=== PATIENT | female | born 1960 | race Caucasian/White ===

== ENCOUNTER → 2016-06-20 | Outpatient (REF) | payer OTHER ==
[~2016-06-20] MED LIST: ALBU17IN INH; ALBU83IN INH; AMLO10TA2 PO; ASPI81TA85 PO; BUDE0.5S6 INH; HYDR-3713 PO; LEVA500T PO; LOSA50TA20 PO; NYST50SS SS; PRED20TAB PO; PROP40TA PO; SPIR1CAP IN; XANA0.25 PO; oxygen
[2016-06-20 15:44] LABS: ALBUMIN 4.2 GM/DL (3.2-5.2); ALBUMIN/GLOBULIN RATIO 1.4 (1.00-1.93); BILIRUBIN,TOTAL 0.6 MG/DL (0.2-1.0); CALCIUM LEVEL 9.6 MG/DL (8.5-10.1); CREATININE FOR GFR 1.25 MG/DL (0.55-1.02); GLOMERULAR FILTRATION RATE 47.5 (>51); TOTAL PROTEIN 7.2 GM/DL (6.4-8.2)
[2016-06-20 15:53] LABS: POTASSIUM SERUM 4.8 MEQ/L (3.5-5.1)
== END ==
LOC: M SFHCLACO 08:34
PROVIDERS: ATTEND Physician Assistant
DX: N18.2 Chronic kidney disease, stage 2 (mild) (principal); I12.9 Hypertensive chronic kidney disease with stage 1 through stage 4 chronic kidney disease, or unspecified chronic kidney disease

== ENCOUNTER → 2016-12-19 | Outpatient (REF) | payer OTHER, SELFPAY ==
[~2016-12-19] MED LIST changes: +LEVA1TAB2 PO; -LEVA500T PO
[2016-12-19 16:40] LABS: ALBUMIN 3.8 GM/DL (3.2-5.2); ALBUMIN/GLOBULIN RATIO 1.19 (1.00-1.93); BILIRUBIN,TOTAL 0.3 MG/DL (0.2-1.0); CALCIUM LEVEL 9.6 MG/DL (8.5-10.1); CREATININE FOR GFR 1.21 MG/DL (0.55-1.02); GLOMERULAR FILTRATION RATE 49.2 (>51); POTASSIUM SERUM 4.4 MEQ/L (3.5-5.1)
== END ==
LOC: M SFHCLACO 08:05
PROVIDERS: ATTEND Physician Assistant
DX: I12.9 Hypertensive chronic kidney disease with stage 1 through stage 4 chronic kidney disease, or unspecified chronic kidney disease (principal); N18.3 Chronic kidney disease, stage 3 (moderate)

== ENCOUNTER → 2017-08-28 | Outpatient (REF) | payer OTHER ==
[2017-08-28 15:23] LABS: ALBUMIN 3.8 GM/DL (3.2-5.2); ALBUMIN/GLOBULIN RATIO 1.19 (1.00-1.93); ALKALINE PHOSPHATASE 134 U/L (45-117); ALT/SGPT 30 U/L (12-78); ANION GAP 9 MEQ/L (8-16); AST/SGOT 15 U/L (7-37); BILIRUBIN,TOTAL 0.4 MG/DL (0.2-1.0); BLOOD UREA NITROGEN 28 MG/DL (7-18); CALCIUM LEVEL 9.5 MG/DL (8.5-10.1); CARBON DIOXIDE LEVEL 32 MEQ/L (21-32); CHLORIDE LEVEL 99 MEQ/L (98-107); CHOLESTEROL LEVEL 143 MG/DL (<200); CHOLESTEROL RISK RATIO 2.803 (<5); GLOMERULAR FILTRATION RATE 38.2 (>51); GLUCOSE, FASTING 127 MG/DL (70-100); HDL CHOLESTEROL 51 MG/DL (>40); NON-HDL-C 92 MG/DL; POTASSIUM SERUM 4.5 MEQ/L (3.5-5.1); SODIUM LEVEL 140 MEQ/L (136-145); TRIGLYCERIDES LEVEL 160 MG/DL (<150)
== END ==
LOC: M SFHCLACO 08:52
DX: I12.9 Hypertensive chronic kidney disease with stage 1 through stage 4 chronic kidney disease, or unspecified chronic kidney disease (principal); N18.3 Chronic kidney disease, stage 3 (moderate)
CPT/HCPCS: 80053

== ENCOUNTER → 2018-01-22 | Outpatient (REF) | payer OTHER ==
[2018-01-22 15:37] LABS: HEMATOCRIT 36.8 % (36.0-47.0); HEMOGLOBIN 12.3 g/dl (12.0-15.5); MEAN CORPUSCULAR HEMOGLOBIN 31.9 pg (27.0-33.0); MEAN CORPUSCULAR HGB CONC 33.4 g/dl (32.0-36.5); MEAN CORPUSCULAR VOLUME 95.6 fl (80.0-96.0); PLATELET COUNT, AUTOMATED 238 10^3/uL (150-450); RED BLOOD COUNT 3.85 10^6/uL (4.00-5.40); RED CELL DISTRIBUTION WIDTH 13.1 % (11.5-14.5); WHITE BLOOD COUNT 12.2 10^3/uL (4.0-10.0)
[2018-01-22 15:48] LABS: ALBUMIN 3.3 GM/DL (3.2-5.2); ALBUMIN/GLOBULIN RATIO 1.03 (1.00-1.93); ALKALINE PHOSPHATASE 123 U/L (45-117); ALT/SGPT 22 U/L (12-78); ANION GAP 6 MEQ/L (8-16); AST/SGOT 10 U/L (7-37); BILIRUBIN,TOTAL 0.3 MG/DL (0.2-1.0); BLOOD UREA NITROGEN 30 MG/DL (7-18); CALCIUM LEVEL 9.3 MG/DL (8.5-10.1); CARBON DIOXIDE LEVEL 37 MEQ/L (21-32); CHLORIDE LEVEL 96 MEQ/L (98-107); CHOLESTEROL LEVEL 148 MG/DL (<200); CHOLESTEROL RISK RATIO 2.792 (<5); CREATININE FOR GFR 1.64 MG/DL (0.55-1.30); GLOMERULAR FILTRATION RATE 34.5 (>51); GLUCOSE, FASTING 87 MG/DL (70-100); HDL CHOLESTEROL 53 MG/DL (>40); NON-HDL-C 95 MG/DL; POTASSIUM SERUM 4.7 MEQ/L (3.5-5.1); SODIUM LEVEL 139 MEQ/L (136-145); TOTAL PROTEIN 6.5 GM/DL (6.4-8.2); TRIGLYCERIDES LEVEL 235 MG/DL (<150)
[2018-01-22 16:28] LABS: TOTAL 25(OH) VITAMIN D 17.6 NG/ML (30.0-100.0)
[2018-01-30 08:07] LABS: AMPHETAMINE SCREEN, URINE Negative ng/mL (Cutoff=1000); BARBITURATES SCREEN, URINE Negative ng/mL (Cutoff=200); BENZODIAZEPINES, URINE SCREEN Negative ng/mL (Cutoff=200); CANNABINOID SCREEN, URINE Negative ng/mL (Cutoff=20); COCAINE SCREEN, URINE Negative ng/mL (Cutoff=300); FENTANYL URINE SCREEN Negative pg/mL (Cutoff=2000); METHADONE, URINE SCREEN Negative ng/mL (Cutoff=300); OPIATE SCREEN, URINE Negative ng/mL (Cutoff=300); OXYCODONE, SCREEN, URINE Negative ng/mL (Cutoff=100); PCP SCREEN, URINE Negative ng/mL (Cutoff=25); SPECIFIC GRAVITY, URINE 1.012 (.); pH, URINE 7.4 (4.5-8.9)
== END ==
LOC: M SFHCLACO 09:40
DX: J44.9 Chronic obstructive pulmonary disease, unspecified (principal); E55.9 Vitamin D deficiency, unspecified; I12.9 Hypertensive chronic kidney disease with stage 1 through stage 4 chronic kidney disease, or unspecified chronic kidney disease; N18.3 Chronic kidney disease, stage 3 (moderate); Z51.81 Encounter for therapeutic drug level monitoring; Z79.899 Other long term (current) drug therapy
CPT/HCPCS: 80053

== ENCOUNTER → 2020-06-28 | Outpatient (REF) | payer OTHER ==
[~2020-06-28] MED LIST changes: +ALB2.5NEB NEB; -AMLO10TA2 PO; +AMLO1TAB25 PO; +ASPI81TA26 PO; -ASPI81TA85 PO; +ASPI81TA86 PO; +BRIM1OPD OS; +CITA20TA6 PO; +D31000TA2 PO; +HYDR25TAB PO; -LOSA50TA20 PO; +LOSA50TA88 PO; +NETA2.5D2 OS; +PILO1OPD OS; +PREDOPD OS; +PROAAER10 INH; -PROP40TA PO; +PROP40TA62 PO; +SPIR1CAP INH; +SUMA100T2 PO; +TIMO0.5S42 OS
[2020-06-28 18:27] LABS: BASO # 0.1 10^3/uL (0.0-0.2); BASO % 0.4 % (0.0-1.0); EOS # 0.3 10^3/uL (0.0-0.5); EOS % 2.2 % (0.0-3.0); LYMPH # 1.6 10^3/uL (1.5-5.0); LYMPH % 13.9 % (24.0-44.0); MEAN CORPUSCULAR HEMOGLOBIN 30.9 pg (27.0-33.0); MEAN CORPUSCULAR HGB CONC 32.8 g/dl (32.0-36.5); MONO % 8.8 % (0.0-5.0); NEUTROPHILS # 8.4 10^3/uL (1.5-8.5); NEUTROPHILS % 74.1 % (36.0-66.0); PLATELET COUNT, AUTOMATED 241 10^3/uL (150-450); RED BLOOD COUNT 2.17 10^6/uL (4.00-5.40); WHITE BLOOD COUNT 11.4 10^3/uL (4.0-10.0)
[2020-06-28 18:47] LABS: HEMATOCRIT 20.4 % (36.0-47.0); HEMOGLOBIN 6.7 g/dl (12.0-15.5)
== END ==
LOC: M SFHCADAM 15:08
PROVIDERS: ATTEND Family Medicine
DX: Z01.818 Encounter for other preprocedural examination (principal); I12.0 Hypertensive chronic kidney disease with stage 5 chronic kidney disease or end stage renal disease; E78.1 Pure hyperglyceridemia; N18.5 Chronic kidney disease, stage 5; E55.9 Vitamin D deficiency, unspecified; Z79.899 Other long term (current) drug therapy

== ENCOUNTER 2020-06-29 10:22 | Inpatient (IN) | payer OTHER ==
[~2020-06-29] VITALS: Ht 165.1 cm; Wt 78.1 kg
[2020-06-29] VITALS (10 sets, daily range): BP systolic 140–172; BP diastolic 60–94
[~2020-06-29 10:22] MED LIST changes: -ALB2.5NEB NEB; -ASPI81TA26 PO; -BRIM1OPD OS; -CITA20TA6 PO; -D31000TA2 PO; -HYDR25TAB PO; -NETA2.5D2 OS; -PILO1OPD OS; -PREDOPD OS; -PROAAER10 INH; -SPIR1CAP INH; -SUMA100T2 PO; -TIMO0.5S42 OS
[2020-06-29 11:37] LABS: BASO # 0.1 10^3/uL (0.0-0.2); BASO % 0.4 % (0.0-1.0); EOS # 0.2 10^3/uL (0.0-0.5); EOS % 1.6 % (0.0-3.0); HEMATOCRIT 23.5 % (36.0-47.0); LYMPH # 1.7 10^3/uL (1.5-5.0); LYMPH % 12.6 % (24.0-44.0); MEAN CORPUSCULAR HEMOGLOBIN 26.7 pg (27.0-33.0); MEAN CORPUSCULAR HGB CONC 29.8 g/dl (32.0-36.5); MEAN CORPUSCULAR VOLUME 89.7 fl (80.0-96.0); NEUTROPHILS # 10.5 10^3/uL (1.5-8.5); PLATELET COUNT, AUTOMATED 263 10^3/uL (150-450); RED BLOOD COUNT 2.62 10^6/uL (4.00-5.40); WHITE BLOOD COUNT 13.5 10^3/uL (4.0-10.0)
[2020-06-29] MEDS ORDERED: ACETAMINOPHEN TAB 650MG DOSE (2X325MG) PO ONE (11:45)
[2020-06-29 11:49] LABS: INR 1.03; PROTHROMBIN TIME 13.7 SECONDS (12.5-14.3)
[2020-06-29 11:50] LABS: PARTIAL THROMBOPLASTIN TIME 40.1 SECONDS (24.2-38.5)
[2020-06-29] MEDS ORDERED: ASPI81TA26 PO (12:00)
[2020-06-29] MEDS ORDERED: NETA2.5D2 OS (12:00)
[2020-06-29] MEDS ORDERED: ALB2.5NEB NEB (12:00)
[2020-06-29] MEDS ORDERED: D31000TA2 PO (12:00)
[2020-06-29] MEDS ORDERED: PILO1OPD OS (12:00)
[2020-06-29] MEDS ORDERED: TIMO0.5S42 OS (12:00)
[2020-06-29] MEDS ORDERED: BRIM1OPD OS (12:00)
[2020-06-29] MEDS ORDERED: BUDE0.5S6 INH (12:00)
[2020-06-29] MEDS ORDERED: AMLO1TAB25 PO (12:00)
[2020-06-29] MEDS ORDERED: SPIR1CAP INH (12:00)
[2020-06-29] MEDS ORDERED: CITA20TA6 PO (12:00)
[2020-06-29] MEDS ORDERED: PROP40TA62 PO (12:00)
[2020-06-29] MEDS ORDERED: PREDOPD OS (12:00)
[2020-06-29] MEDS ORDERED: HYDR-3490 PO (12:00)
[2020-06-29] MEDS ORDERED: PROAAER10 INH (12:00)
[2020-06-29] MEDS ORDERED: SUMA100T2 PO (12:00)
[2020-06-29 12:07] LABS: ALBUMIN 3.9 GM/DL (3.2-5.2); BILIRUBIN,TOTAL 0.2 MG/DL (0.2-1.0); CREATININE FOR GFR 5.94 MG/DL (0.55-1.30); GLOMERULAR FILTRATION RATE 7.8 (>51); PERCENT SATURATION 8.2 % (13.2-45.0); POTASSIUM SERUM 4.6 MEQ/L (3.5-5.1); TOTAL PROTEIN 6.9 GM/DL (6.4-8.2)
[2020-06-29 12:16] LABS: FOLATE 10.9 NG/ML (>5.4)
[2020-06-29 13:29] LABS: RSV AMPLIFICATION NEGATIVE (NEGATIVE)
--- OUTSIDE RECORDS SUMMARY | 2020-06-29 14:13 | CCD ---
Author Author [facility] Organization [facility] Address Unknown Phone Unavailable Care Team Providers Care Painter Decorator Name Role Phone Charlene Gill Unavailable PROBLEMS Type Condition ICD9-CM Code [id number] Code Onset Dates Condition S tatus SNOMED Code Notes Problem Essential hypertension I10 Active 13743926 Well-controlled on current regimen of propranolol, amlodipine, HCTZ, and Lasix. No medication changes have been made Problem Allergic rhinitis due to pollen J30.1 Active 70567465 Problem Vitamin D deficiency E55.9 Active 50282660 Problem Anxiety as acute reaction to exceptional stress F4 1.1 Active 90228280 Stable, continues to deal with her grief Problem Pain of right lower leg M79.661 Active 88772977 Stable, controlled on medications Problem Dependent edema R60.9 Active 179888822 I have asked Sagar to start taking the furosemide again, twice a day until its completely calm down. She should eat potassium rich foods Problem End stage COPD J44.9 Active 502551170 Problem Symptomatic menopausal or female climacteric states N95.1 Active 42183053 Problem COPD (chronic obstructive pulmonary disease) J44.9 Active 11015662 Problem Migraine without aura G43.009 Active 94515184 S table on propranolol daily and Imitrex as needed, no medication changes have been made Problem Personal history of tobacco use, presenting hazards to health Z87.891 Active 133925260 Problem Chronic kidney disease, stage III (moderate) N18.3 Active 156614066 Stable Problem Pure hypertriglyceridemia E78.1 Active 725902 009 We discussed low- fat diets Problem Chronic kidney disease, stage II (mild) N18.2 Active 298142893 ALLERGIES Allergen (clinical drug ingredient) Drug/Non Drug Allergy do cumented on EMR Reaction Allergy Type Onset Date Status amoxicillin / clavulanate Augmentin([facility] Code:[address]-98) itchy Drug Allergy Active ENCOUNTERS from 1960 to 2020-05-19 Encounter Location Date Provider Diagnosis [facility] [address] [place] [address] Aug, Charlene Gill Essential hypertension I10 and Chronic k idney disease, stage III (moderate) N18.3 IMMUNIZATIONS Vaccine Route Administration Date Status Influenza (6mo & up) Fluzone IM Intramuscular Jun 29, 2016 Ad ministered SOCIAL HISTORY Tobacco Use: Social History Observation Description Date Details (start date - stop date) Former Smoker Sex Assigned At : Social History Observation Description Sex Assigned At Unknown Audit Question Answer Notes Total Score: 0 Interpretation: Alcohol Education Sexual Hx: Question Answer Notes Had sex in the last 12 months (vaginal, oral, or anal)? Yes Have you ever had an STD? No with Men only Use protection? No Drug and Alcohol Question Answer Notes Total Score: 0 Interpretation: No problems reported BMI Care Goal Follow-Up Question Answer Notes Above Normal BMI Follow-Up Dietary management educatio n, guidance, and counseling Tobacco Use: Question Answer Notes Are you a: former smoker How long has it been since you last smoked? 1-5 years REASON FOR REFERRAL No Information VITAL SIGNS No information MEDICATIONS Medication SIG (Take, Route, Frequency, Duration) Notes Start Da te End Date Status Citalopram Hydrobromide 20 MG 1 tablet Orally Once a day for 90 days Jan, Active Propranolol HCl 40 MG 1 tablet Orally Twice a day for 90 days Active Ventolin HFA 108 (90 Base) MCG/ACT 2 puffs as needed I nhalation every 4 hrs for 90 day(s) Active Imitrex 100 mg 1 tablet at onset of headach e, september repeat x 1 in 2 hrs if needed Orally Twice a day as needed for 30 days Apr, Active Hydrochlorothiazide 25 MG 1 tablet Orally Once a day for 30 Active Cefdinir 300 MG 1 capsule Orally Twice a day for 10 days 1 Apr, Active Lasix 20 MG 1 tablet Orally Once a day as needed for swellin g for 30 days September, Active Spiriva HandiHaler 18 MCG 1 capsule Inhalation Once a day for 30 Days Active Tessalon Perles 100 mg 1 capsule as needed to suppr ess cough Orally Three times a day for 30 Active Albuterol Sulfate (2.5 MG/3ML) 0.083% 3 ml as needed I nhalation Three times a day for 90 days Active Aspirin 81 MG 1 tablet Orally Once a day for 30 day(s) Active AmLODIPine Besylate 10 mg 1 tablet Orally Once a day for 30 Active Arnuity Ellipta 200 MCG/ACT 1 puff Inhalation Once a day Active PredniSONE 10 mg 4 tabs qam x 4d, then 3 x 4d , then 2 x 4d, then 1 x 4d Orally Once a day for 16 days Mar, Active Vigamox 0.5 % 1 drop into affected eye Oph thalmic Three times a day for 7 day(s) Apr, Active Budesonide 0.5 MG/2ML One vial Inhalation Twice a day for 90 days Active Xanax 0.25 MG 1-2 tablets Orally Three times a day, mdd=6 for 30 days Jun, Active PROCEDURES No Information RESULTS Component Value Reference Range COMPREHENSIVE METABOLIC PROFILE Reviewed date:08/31/2017 18:02:23 Interpretation: Performing Lab:[facility],[address] [place] [address], ,[place] [address] GLUCOSE, FASTING 127 70-100 BLOOD UREA NITROGEN 28 7-18 CREATININE FOR GFR 1.50 0.55-1.30 GLOMERULAR FILTRATION RATE 38.2 >51 SODIUM LEVEL 140 136-145 POTASSIUM SERUM 4.5 3.5-5.1 CHLORIDE LEVEL 99 98-107 CARBON DIOXIDE LEVEL 32 21-32 CALCIUM LEVEL 9.5 8.5-10.1 AST/SGOT 15 7-37 ALT/SGPT 30 12-78 ALKALINE PHOSPHATASE 134 45-117 BILIRUBIN,TOTAL 0.4 0.2-1.0 TOTAL PROTEIN 7.0 6.4-8.2 ALBUMIN 3.8 3.2-5.2 ALBUMIN/GLOBULIN RATIO 1.19 1.00-1.93 LIPID PANEL (CARDIAC RISK) Reviewed date:08/31/2017 18:03:58 Interpretation: Performing Lab:[facility],[address] [facility] [address] TRIGLYCERIDES LEVEL 160 <150 CHOLESTEROL LEVEL 143 <200 HDL CHOLESTEROL 51 >40 LDL CHOLESTEROL 60.0 <100 NON-HDL-C 92 CHOLESTEROL RISK RATIO 2.803 <5 REASON FOR VISIT blood draw by Camille MATHIS MEDICAL (GENERAL) HISTORY Type Description Date Medical History hypertension Medical History migraines Medical History smoking Medical History allergies Medical History chronic right leg pain secondary to surg lala Medical History 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 Surgical History bone graft from right fibula 1999 Surgical History pinned right toes due to fibular surgery 1999 Hospitalization History COPD 2014 Hospitalization History Hypertensive crisis 2013 Hospitalization History Pericardial effusion 2012 Hospitalization History COPD 2011 Hospitalization History TIA 2007 Hospitalization History surgeries as above 1999 Goals Section No Information Health Concerns No Information MEDICAL EQUIPMENT No Information MENTAL STATUS No Information FUNCTIONAL STATUS No Information ASSESSMENTS Encounter Date Diagnosis Assessment Notes Treatment Notes Treatm ent Clinical Notes Aug, Essential hypertension (ICD-10 - I10) Aug, Chronic kidney disease, stage III (moderate) (IC D-10 - N18.3) PLAN OF TREATMENT Medication Medication Name Sig Start Date Stop Date Spiriva HandiHaler 18 MCG 1 capsule Inhalation Once a day for 30 Days Vigamox 0.5 % 1 drop into affected eye Oph thalmic Three times a day for 7 day(s) Apr, Imitrex 100 mg 1 tablet at onset of headach e, may repeat x 1 in 2 hrs if needed Orally Twice a day as needed for 30 days Apr, Cefdinir 300 MG 1 capsule Orally Twice a day for 10 days Apr, Insurance Providers Payer Name Payer Address Payer Phone Insured Name Patient Relati onship to Insured Coverage Start Date Coverage End Date MATTHEW DESAI [address] [address] [facility] [phone] SAGAR DELGADILLO self
--- OUTSIDE RECORDS SUMMARY | 2020-06-29 14:13 | CCD ---
Author Author [facility] Organization [facility] Address Unknown Phone Unavailable Care Team Providers Care Devops Name Role Phone Charlene Gill Unavailable PROBLEMS Type Condition ICD9-CM Code CAK40-PE Code Onset Dates Condition S tatus SNOMED Code Notes Problem Essential hypertension I10 Active 74600566 Well-controlled on current regimen of propranolol, amlodipine, HCTZ, and Lasix. No medication changes have been made Problem Allergic rhinitis due to pollen J30.1 Active 01686062 Problem Vitamin D deficiency E55.9 Active 88858656 Problem Anxiety as acute reaction to exceptional stress F4 1.1 Active 44729378 Stable, continues to deal with her grief Problem Pain of right lower leg M79.661 Active 79743261 Stable, controlled on medications Problem Dependent edema R60.9 Active 940591563 I have asked Sagar to start taking the furosemide again, twice a day until its completely calm down. She should eat potassium rich foods Problem End stage COPD J44.9 Active 598318429 Problem Symptomatic menopausal or female climacteric states N95.1 Active 32754854 Problem COPD (chronic obstructive pulmonary disease) J44.9 Active 35506900 Stable on current regimen of Arnuity, budesonide, albuterol in the nebulizer, and Ventolin HFA as needed, but I would like her to restart the Spiriva, so we will refill that. She has access to prednisone tapers as needed as well Problem Migraine without aura G43.009 Active 48555125 S table on propranolol daily and Imitrex as needed, no medication changes have been made Problem Personal history of tobacco use, presenting hazards to health Z87.891 Active 784677219 Problem Chronic kidney disease, stage III (moderate) N18.3 Active 783203211 Stable Problem Pure hypertriglyceridemia E78.1 Active 261105 009 We discussed low- fat diets Problem Chronic kidney disease, stage II (mild) N18.2 Active 672034897 ALLERGIES Allergen (clinical drug ingredient) Drug/Non Drug Allergy do cumented on EMR Reaction Allergy Type Onset Date Status amoxicillin / clavulanate Augmentin([facility] Code:[address]-87) itchy Drug Allergy Active ENCOUNTERS from 1960 to 2020-06-22 Encounter Location Date Provider Diagnosis [facility] [address] [place] [address] Aug, Charlene Gill Essential hypertension I10 and [...] Notes Start Da te End Date Status Tessalon Perles 100 mg 1 capsule as needed to suppr ess cough Orally Three times a day for 30 Active PredniSONE 10 mg 4 tabs qam x 4d, then 3 x 4d , then 2 x 4d, then 1 x 4d Orally Once a day for 16 days Mar, Active Propranolol HCl 40 MG 1 tablet Orally Twice a day for 90 days Active Citalopram Hydrobromide 20 MG 1 tablet Orally Once a day for 90 days Jan, Active Aspirin 81 MG 1 tablet Orally Once a day for 30 day(s) Active Spiriva HandiHaler 18 MCG 1 capsule Inhalation Once a day for 30 Days Active Imitrex 100 mg 1 tablet at onset of headach , september repeat x 1 in 2 hrs if needed Orally Twice a day as needed for 30 days Apr, Active Cefdinir 300 MG 1 capsule Orally Twice a day for 10 days 1 Apr, Active Hydrochlorothiazide 25 MG 1 tablet Orally Once a day for 30 Active AmLODIPine Besylate 10 mg 1 tablet Orally Once a day for 30 Active Arnuity Ellipta 200 MCG/ACT 1 puff Inhalation Once a day Active Xanax 0.25 MG 1-2 tablets Orally Three times a day, mdd=6 for 30 days Jun, Active Albuterol Sulfate (2.5 MG/3ML) 0.083% 3 ml as needed I nhalation Three times a day for 90 days Active Lasix 20 MG 1 tablet Orally Once a day as needed for swellin g for 30 days September, Active Vigamox 0.5 % 1 drop into affected eye Oph thalmic Three times a day for 7 day(s) Apr, Active Budesonide 0.5 MG/2ML One vial Inhalation Twice a day for 90 days Active Ventolin HFA 108 (90 Base) MCG/ACT 2 puffs as needed I nhalation every 4 hrs for 90 day(s) Active PROCEDURES No Information RESULTS Component Value Reference Range COMPREHENSIVE METABOLIC PROFILE Reviewed date:08/31/2017 18:02:23 Interpretation: Performing Lab:[facility],[address] [place] [address], ,[place] [address] GLUCOSE, FASTING 127 70-100 BLOOD UREA NITROGEN [...] (CARDIAC RISK) Reviewed date:08/31/2017 18:03:58 Interpretation: Performing Lab:[facility],[address] [facility], ,[place] [address] TRIGLYCERIDES LEVEL 160 <150 CHOLESTEROL LEVEL 143 [...] (IC D-10 - N18.3) PLAN OF TREATMENT No Information Insurance Providers Payer Name Payer Address Payer Phone Insured Name Patient Relati onship to Insured Coverage Start Date Coverage End Date MATTHEW [place]ARDONA [address] [facility] [phone] SAGAR DELGADILLO
--- OUTSIDE RECORDS SUMMARY | 2020-06-29 14:13 | CCD ---
Author Author [facility] Organization [facility] Address Unknown Phone Unavailable Care Team Providers Care Communications Instructor Name Role Phone Charlene Gill Unavailable PROBLEMS Type Condition ICD9-CM Code IBU26-CJ Code Onset Dates Condition S tatus SNOMED Code Notes Problem Essential hypertension I10 Active 50644370 Well-controlled on current regimen of propranolol, amlodipine, HCTZ, and Lasix. No medication changes have been made Problem Allergic rhinitis due to pollen J30.1 Active 81498982 Problem Vitamin D deficiency E55.9 Active 20666906 Problem Anxiety as acute reaction to exceptional stress F4 1.1 Active 57972644 Stable, continues to deal with her grief Problem Pain of right lower leg M79.661 Active 14082689 Stable, controlled on medications Problem Dependent edema R60.9 Active 312293755 I have asked Sagar to start taking the furosemide again, twice a day until its completely calm down. She should eat potassium rich foods Problem End stage COPD J44.9 Active 405924344 Problem Symptomatic menopausal or female climacteric states N95.1 Active 58286024 Problem COPD (chronic obstructive pulmonary disease) J44.9 Active 40471236 Stable on current regimen of Arnuity, budesonide, albuterol in the nebulizer, and Ventolin HFA as needed, but I would like her to restart the Spiriva, so we will refill that. She has access to prednisone tapers as needed as well Problem Migraine without aura G43.009 Active 56042487 S table on propranolol daily and Imitrex as needed, no medication changes have been made Problem Personal history of tobacco use, presenting hazards to health Z87.891 Active 106827030 Problem Chronic kidney disease, stage III (moderate) N18.3 Active 502387311 Stable Problem Pure hypertriglyceridemia E78.1 Active 649588 009 We discussed low- fat diets Problem Chronic kidney disease, stage II (mild) N18.2 Active 665350105 ALLERGIES Allergen (clinical drug ingredient) Drug/Non Drug Allergy do cumented on EMR Reaction Allergy Type Onset Date Status amoxicillin / clavulanate Augmentin([facility] Code:[address]-90) itchy Drug Allergy Active ENCOUNTERS from 1960 to 2020-06-16 Encounter Location Date Provider Diagnosis [facility] [address] [place] [address] May, Hea ther Jairo IMMUNIZATIONS Vaccine Route Administration Date Status Influenza [...] 90 day(s) Active PROCEDURES No Information RESULTS No Results REASON FOR VISIT referral MEDICAL (GENERAL) HISTORY Type Description Date Medical [...] TIA 2007 Hospitalization History surgeries as above 2000 Goals Section No Information Health Concerns No Information MEDICAL EQUIPMENT No Information MENTAL STATUS No Information FUNCTIONAL STATUS No Information ASSESSMENTS No Information PLAN OF TREATMENT No Information Insurance Providers Payer Name Payer Address Payer Phone Insured Name Patient Relati onship to Insured Coverage Start Date Coverage End Date MATTHEW FRANCISCO [address] [address] [facility] [phone] SAGAR DELGADILLO
--- OUTSIDE RECORDS SUMMARY | 2020-06-29 14:13 | CCD ---
Author Author [facility] Organization [facility] Address Unknown Phone Unavailable Care Team Providers Care Drum Handler Name Role Phone Charlene Gill Unavailable PROBLEMS Type Condition ICD9-CM Code FLN06-CZ Code Onset Dates Condition S tatus SNOMED Code Notes Problem Essential hypertension I10 Active 83578193 Well-controlled on current regimen of propranolol, amlodipine, HCTZ, and Lasix. No medication changes have been made Problem Allergic rhinitis due to pollen J30.1 Active 59151825 Problem Vitamin D deficiency E55.9 Active 86223105 Problem Anxiety as acute reaction to exceptional stress F4 1.1 Active 58908009 Stable, continues to deal with her grief Problem Pain of right lower leg M79.661 Active 00620785 Stable, controlled on medications Problem Dependent edema R60.9 Active 683121005 I have asked Sagar to start taking the furosemide again, twice a day until its completely calm down. She should eat potassium rich foods Problem End stage COPD J44.9 Active 599305082 Problem Symptomatic menopausal or female climacteric states N95.1 Active 21942090 Problem COPD (chronic obstructive pulmonary disease) J44.9 Active 28412351 Stable on current regimen of Arnuity, budesonide, albuterol in the nebulizer, and Ventolin HFA as needed, but I would like her to restart the Spiriva, so we will refill that. She has access to prednisone tapers as needed as well Problem Migraine without aura G43.009 Active 28149746 S table on propranolol daily and Imitrex as needed, no medication changes have been made Problem Personal history of tobacco use, presenting hazards to health Z87.891 Active 283240267 Problem Chronic kidney disease, stage III (moderate) N18.3 Active 435672710 Stable Problem Pure hypertriglyceridemia E78.1 Active 068455 009 We discussed low- fat diets Problem Chronic kidney disease, stage II (mild) N18.2 Active 290119277 ALLERGIES Allergen (clinical drug ingredient) Drug/Non Drug Allergy do cumented on EMR Reaction Allergy Type Onset Date Status amoxicillin / clavulanate Augmentin([facility] Code:[address]-76) itchy Drug Allergy Active ENCOUNTERS from 1960 to 2020-06-19 Encounter Location Date Provider Diagnosis [facility] [address] [place] [address] May, Hea ther Jairo IMMUNIZATIONS Vaccine Route [...] Information RESULTS No Results REASON FOR VISIT eye check up/referral MEDICAL (GENERAL) HISTORY Type Description Date Medical [...] Start Date Coverage End Date MATTHEW CARDONA [address] [facility] [phone] SAGAR DELGADILLO
--- OUTSIDE RECORDS SUMMARY | 2020-06-29 14:13 | CCD ---
Author Author [facility] Organization [facility] Address Unknown Phone Unavailable Care Team Providers Care Cylinder Machine Operator Name Role Phone Charlene Gill Unavailable PROBLEMS Type Condition ICD9-CM Code [id number] Code Onset Dates Condition S tatus SNOMED Code Notes Problem Essential hypertension I10 Active 07171521 Well-controlled on current regimen of propranolol, amlodipine, HCTZ, and Lasix. No medication changes have been made Problem Allergic rhinitis due to pollen J30.1 Active 95479343 Problem Vitamin D deficiency E55.9 Active 45373048 Problem Anxiety as acute reaction to exceptional stress F4 1.1 Active 16583644 Stable, continues to deal with her grief Problem Pain of right lower leg M79.661 Active 15094921 Stable, controlled on medications Problem Dependent edema R60.9 Active 368980398 I have asked Sagar to start taking the furosemide again, twice a day until its completely calm down. She should eat potassium rich foods Problem End stage COPD J44.9 Active 229731896 Problem Symptomatic menopausal or female climacteric states N95.1 Active 80818421 Problem COPD (chronic obstructive pulmonary disease) J44.9 Active 97946653 Stable on current regimen of Arnuity, budesonide, albuterol in the nebulizer, and Ventolin HFA as needed, but I would like her to restart the Spiriva, so we will refill that. 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 Active 782669226 ALLERGIES Allergen (clinical drug ingredient) Drug/Non Drug Allergy do cumented on EMR Reaction Allergy Type Onset Date Status amoxicillin / clavulanate Augmentin([facility] Code:[address]-42) itchy Drug Allergy Active ENCOUNTERS from 1960 to 2020-05-29 Encounter Location Date Provider Diagnosis [facility] [address] [place] [address] Apr, Cammie Gill Essential hypertension I10 ; Pure hypertriglyceridemia E78.1 ; COPD (chronic obstructive pulmonary disease) J44.9 ; Chronic kidney disease, stage III (moderate) N18.3 ; Pain of right lower leg M79.661 ; Vitamin D deficiency E55.9 ; Anxiety as acute reaction to exceptional stress F41.1 ; Acute bacterial conjunctivitis of left eye H10.32 ; Acute non-recurrent maxillary sinusitis J01.00 ; Migraine without aura G43.009 ; Chronic kidney disease, stage II (mild) N18.2 and Chronically on opiate therapy Z79.899 IMMUNIZATIONS Vaccine Route Administration Date Status Influenza [...] REASON FOR REFERRAL No Information VITAL SIGNS Weight 1 lbs Apr, Height 65 in Apr, BMI 0.17 kg/m2 Apr, Oximetry 98 on O2 2LPM Apr, MEDICATIONS Medication SIG (Take, Route, Frequency, Duration) Notes Start Da te End Date Status Albuterol Sulfate (2.5 MG/3ML) 0.083% 3 ml as needed I nhalation Three times a day for 90 days Active Budesonide 0.5 MG/2ML One vial Inhalation Twice a day for 90 days Active Arnuity Ellipta 200 MCG/ACT 1 puff Inhalation Once a day Active Imitrex 100 mg 1 tablet at onset of headach , september repeat x 1 in 2 hrs if needed Orally Twice a day as needed for 30 days Apr, Active Tessalon Perles 100 mg 1 capsule as needed to suppr ess cough Orally Three times a day for 30 Active Vigamox 0.5 % 1 drop into affected eye Oph thalmic Three times a day for 7 day(s) Apr, Active Hydrochlorothiazide 25 MG 1 tablet Orally Once a day for 30 Active Xanax 0.25 MG 1-2 tablets Orally Three times a day, mdd=6 for 30 days Jun, Active Cefdinir 300 MG 1 capsule Orally Twice a day for 10 days 1 Apr, Active Lasix 20 MG 1 tablet Orally Once a day as needed for swellin g for 30 days September, Active Spiriva HandiHaler 18 MCG 1 capsule Inhalation Once a day for 30 Days Active Ventolin HFA 108 (90 Base) MCG/ACT 2 puffs as needed I nhalation every 4 hrs for 90 day(s) Active Citalopram Hydrobromide 20 MG 1 tablet Orally Once a day for 90 days Jan, Active Aspirin 81 MG 1 tablet Orally Once a day for 30 day(s) Active AmLODIPine Besylate 10 mg 1 tablet Orally Once a day for 30 Active Propranolol HCl 40 MG 1 tablet Orally Twice a day for 90 days Active PredniSONE 10 mg 4 tabs qam x 4d, then 3 x 4d , then 2 x 4d, then 1 x 4d Orally Once a day for 16 days Mar, Active PROCEDURES No Information RESULTS No Results REASON FOR VISIT see T/E MEDICAL (GENERAL) HISTORY Type Description Date Medical [...] to fibular surgery 1999 Hospitalization History COPD 2015 Hospitalization History Hypertensive crisis 2014 Hospitalization History Pericardial effusion 2013 Hospitalization History COPD 2012 Hospitalization History TIA 2008 Hospitalization History surgeries as above 2000 Goals Section No Information Health Concerns No Information MEDICAL EQUIPMENT No Information MENTAL STATUS No Information FUNCTIONAL STATUS No Information ASSESSMENTS Encounter Date Diagnosis Assessment Notes Treatment Notes Treatm ent Clinical Notes Apr, Essential hypertension (ICD-10 - I10) We ll-controlled on current regimen of propranolol, amlodipine, HCTZ, and Lasix. No medication changes have been made Apr, Pure hypertriglyceridemia (ICD-10 - E78. 1) We discussed low-fat diets Apr, COPD (chronic obstructive pulmonary dise ase) (ICD-10 - J44.9) Stable on current regimen of Arnuity, budesonide, albuterol in the nebulizer, and Ventolin HFA as needed, but I would like her to restart the Spiriva, so we will refill that. She has access to prednisone tapers as needed as well Apr, Chronic kidney disease, stage III (moder ate) (ICD-10 - N18.3) Stable Apr, Pain of right lower leg (ICD-10 - M79.66 1) Stable, controlled on medications Apr, Vitamin D deficiency (ICD-10 - E55.9) Apr, Anxiety as acute reaction to exceptional stress (ICD-10 - F41.1) Apr, Acute bacterial conjunctivitis of left eye (ICD- 10 - H10.32) Apr, Acute non-recurrent maxillary sinusitis (ICD-10 - J01.00) Apr, Migraine without aura (ICD-10 - G43.009) Stable on propranolol daily and Imitrex as needed, no medication changes have been made Apr, Chronic kidney disease, stage II (mild) (ICD-10 - N18.2) Apr, Chronically on opiate therapy (ICD-10 - Z79.899) PLAN OF TREATMENT Medication Medication Name Sig [...] Orally Twice a day for 10 days 14 Apr, 2020 Future Test Test Name Order Date Comprehensive Metabolic Profile (CMP) 20201026 LIPID PANEL (CARDIAC RISK) 20201026 MICROALBUMIN RANDOM 20201026 PAIN MGMT UR 13 PANEL [id number] 20201026 VITAMIN D 25-HYDROXY 20201026 Next Appt Details 6 Months Reason: Insurance Providers Payer Name Payer Address Payer Phone Insured Name Patient Relati onship to Insured Coverage Start Date Coverage End Date MATTHEW DESAI [address] [address] [facility] [phone] SAGAR DELGADILLO self
--- OUTSIDE RECORDS SUMMARY | 2020-06-29 14:13 | CCD ---
Author Author [facility] Organization [facility] Address Unknown Phone Unavailable Care Team Providers Care Information Security Officer Name Role Phone Charlene Gill Unavailable PROBLEMS Type Condition ICD9-CM Code [id number] Code Onset Dates Condition S tatus SNOMED Code Notes Problem Essential hypertension I10 Active 32634532 Well-controlled on current regimen of propranolol, amlodipine, HCTZ, and Lasix. No medication changes have been made Problem Allergic rhinitis due to pollen J30.1 Active 92549445 Problem Vitamin D deficiency E55.9 Active 21563678 Problem Anxiety as acute reaction to exceptional stress F4 1.1 Active 93278547 Stable, continues to deal with her grief Problem Pain of right lower leg M79.661 Active 53588963 Stable, controlled on medications Problem Dependent edema R60.9 Active 485370433 I have asked Sagar to start taking the furosemide again, twice a day until its completely calm down. She should eat potassium rich foods Problem End stage COPD J44.9 Active 585735247 Problem Symptomatic menopausal or female climacteric states N95.1 Active 33427253 Problem COPD (chronic obstructive pulmonary disease) J44.9 Active 02241519 Stable on current regimen of Arnuity, budesonide, albuterol in the nebulizer, and Ventolin HFA as needed, but I would like her to restart the Spiriva, so we will refill that. She has access to prednisone tapers as needed as well Problem Migraine without aura G43.009 Active 30500828 S table on propranolol daily and Imitrex as needed, no medication changes have been made Problem Personal history of tobacco use, presenting hazards to health Z87.891 Active 693526154 Problem Chronic kidney disease, stage III (moderate) N18.3 Active 561116890 Stable Problem Pure hypertriglyceridemia E78.1 Active 772327 009 We discussed low- fat diets Problem Chronic kidney disease, stage II (mild) N18.2 Active 768481484 ALLERGIES Allergen (clinical drug ingredient) Drug/Non Drug Allergy do cumented on EMR Reaction Allergy Type Onset Date Status amoxicillin / clavulanate Augmentin([facility] Code:[address]-32) itchy Drug Allergy Active ENCOUNTERS from 1960 to 2020-06-17 Encounter Location Date Provider Diagnosis [facility] [address] [place] [address] May, Hea ther Jairo Red eye H57.89 IMMUNIZATIONS Vaccine Route Administration Date Status Influenza [...] FOR REFERRAL No Information VITAL SIGNS Weight 169.8 lbs May, Height 65 in May, BMI 28.25 kg/m2 May, Heart Rate 72 /min May, Respiratory Rate 20 /min May, Temperature 97.2 degrees Fahrenheit May, Oximetry 91 on 2 liters May, Blood pressure systolic 118 mm Hg May, Blood pressure diastolic 76 mm Hg May, MEDICATIONS Medication SIG (Take, Route, Frequency, Duration) [...] Twice a day for 10 days Apr, Active Hydrochlorothiazide 25 MG 1 [...] Information RESULTS No Results REASON FOR VISIT left eye irritation continues MEDICAL (GENERAL) HISTORY Type Description Date Medical [...] History COPD 2015 Hospitalization History Hypertensive crisis 2013 Hospitalization History Pericardial effusion 2012 Hospitalization History COPD 2011 Hospitalization History TIA 2007 Hospitalization History surgeries as above 1999 Goals Section No Information Health Concerns No Information MEDICAL EQUIPMENT No Information MENTAL STATUS No Information FUNCTIONAL STATUS No Information ASSESSMENTS Encounter Date Diagnosis Assessment Notes Treatment Notes Treatm ent Clinical Notes May, Red eye (ICD-10 - H57.89) I told Sagar she needs to see an chart clerk, and in the meantime she can try [id number] allergy eyedrops. I have made inquiries around her local ophthalmology offices, and haven't found one that takes her insurance. We will try to get her in as soon as possible PLAN OF TREATMENT Next Appt Details prn Reason: Insurance Providers Payer Name Payer Address Payer Phone Insured Name Patient Relati onship to Insured Coverage Start Date Coverage End Date MATTHEW DESAI [address] [address] [facility] [phone] SAGAR DELGADILLO
--- OUTSIDE RECORDS SUMMARY | 2020-06-29 14:14 | CCD ---
Author Author [facility] Organization [facility] Address Unknown Phone Unavailable Care Team Providers Care Client Services Specialist Name Role Phone Charlene Gill Unavailable PROBLEMS Type Condition ICD9-CM Code [id number] Code Onset Dates Condition S tatus SNOMED Code Notes Problem Essential hypertension I10 Active 73936924 Well-controlled on current regimen of propranolol, amlodipine, HCTZ, and Lasix. No medication changes have been made Problem Allergic rhinitis due to pollen J30.1 Active 63709322 Problem Vitamin D deficiency E55.9 Active 60313529 Problem Anxiety as acute reaction to exceptional stress F4 1.1 Active 17878908 Stable, continues to deal with her grief Problem Pain of right lower leg M79.661 Active 33941369 Stable, controlled on medications Problem Dependent edema R60.9 Active 342455534 I have asked Sagar to start taking the furosemide again, twice a day until its completely calm down. She should eat potassium rich foods Problem End stage COPD J44.9 Active 989923394 Problem Symptomatic menopausal or female climacteric states N95.1 Active 15723532 Problem COPD (chronic obstructive pulmonary disease) J44.9 Active 60571816 Problem Migraine without aura G43.009 Active 67655687 S table on propranolol daily and Imitrex as needed, no medication changes have been made Problem Personal history of tobacco use, presenting hazards to health Z87.891 Active 829278040 Problem Chronic kidney disease, stage III (moderate) N18.3 Active 786760576 Stable Problem Pure hypertriglyceridemia E78.1 Active 885163 009 We discussed low- fat diets Problem Chronic kidney disease, stage II (mild) N18.2 Active 579966111 ALLERGIES Allergen (clinical drug ingredient) Drug/Non Drug Allergy do cumented on EMR Reaction Allergy Type Onset Date Status amoxicillin / clavulanate Augmentin([facility] Code:[address]-88) itchy Drug Allergy Active ENCOUNTERS from 1960 to 2020-04-17 Encounter Location Date Provider Diagnosis [facility] [place] [address] Mar, Charlene Gill Anxiety as acute reaction to exceptional stress F41.1 IMMUNIZATIONS Vaccine Route Administration Date Status Influenza [...] Three times a day for 30 Active Arnuity Ellipta 200 MCG/ACT 1 puff Inhalation Once a day Active Albuterol Sulfate (2.5 MG/3ML) 0.083% 3 ml as needed I nhalation Three times a day for 90 days Active Oxygen mask as directed full facial, for dx=J44.9 Daily for 30 days Dec, Active Spiriva HandiHaler 18 MCG 1 capsule Inhalation Once a day for 30 Active Lasix 20 MG 1 tablet Orally Once a day as needed for swellin g for 30 days September, Active Budesonide 0.5 MG/2ML One vial Inhalation Twice a day for 90 days Active Ventolin HFA 108 (90 Base) MCG/ACT 2 puffs as needed I nhalation every 4 hrs for 90 day(s) Active AmLODIPine Besylate 10 mg 1 tablet Orally Once a day for 30 Active Amlodipine Besylate 10 MG TAKE 1 TABLET EVERY DAY for 90 Active Imitrex 100 mg 1 tablet at onset of headach e, may repeat x 1 in 2 hrs if needed Orally Twice a day as needed for 30 days Apr, Active Celexa 20 MG 1 tablet Orally Once a day for 30 Days Mar Active Hydrochlorothiazide 25 MG 1 tablet Orally Once a day for 30 Active PredniSONE 10 [...] Once a day for 30 day(s) Active Xanax 0.25 MG 1-2 tablets Orally Three times a day, mdd=6 for 30 days Jun, Active Hydrocodone-Acetaminophen 5-325 MG 1-2 tablets Orally every 6 hrs as needed, mdd=4 for 30 days Dec, Active PROCEDURES No Information RESULTS No Results REASON FOR VISIT citalopram MEDICAL (GENERAL) HISTORY Type Description Date Medical [...] Notes Treatment Notes Treatm ent Clinical Notes Mar, Anxiety as acute reaction to exceptional stress (ICD-10 - F41.1) PLAN OF TREATMENT Medication Medication Name Sig Start Date Stop Date Ventolin HFA 108 (90 Base) MCG/ACT 2 puffs as needed I nhalation every 4 hrs for 90 day(s) Amlodipine Besylate 10 MG TAKE 1 TABLET EVERY DAY for 90 Oxygen mask as directed full facial, for dx=J44.9 Da eulalia for 30 days Dec, Budesonide 0.5 MG/2ML One vial Inhalation Twice a day for 90 day s Propranolol HCl 40 MG 1 tablet Orally Twice a day for 90 days Albuterol Sulfate (2.5 MG/3ML) 0.083% 3 ml as needed I nhalation Three times a day for 90 days Tessalon Perles 100 mg 1 capsule as needed to suppr ess cough Orally Three times a day for 30 Citalopram Hydrobromide 20 MG 1 tablet Orally Once a day for 90 days Jan, Celexa 20 MG 1 tablet Orally Once a day for 30 Days Mar, 020 Hydrocodone-Acetaminophen 5-325 MG 1-2 tablets Orally every 6 hrs as needed, mdd=4 for 30 days Dec, PredniSONE 10 mg 4 tabs qam x 4d, then 3 x 4d , then 2 x 4d, then 1 x 4d Orally Once a day for 16 days Mar, Next Appt Details Provider Name:Charlene Gill, 2020-11-2 3 10:15:00 AM, [address], [place], [address], Insurance Providers Payer Name Payer Address Payer Phone Insured Name Patient Relati onship to Insured Coverage Start Date Coverage End Date MATTHEW DESAI [address] [address] [facility] [phone] SAGAR DELGADILLO self
--- OUTSIDE RECORDS SUMMARY | 2020-06-29 14:14 | CCD ---
Author Author [facility] Organization [facility] Address Unknown Phone Unavailable Care Team Providers Care President [employer] Name Role Phone Charlene Gill Unavailable PROBLEMS Type Condition ICD9-CM Code EII60-RO Code Onset Dates Condition S tatus SNOMED Code Notes Problem Essential hypertension I10 Active 04092075 Well-controlled on current regimen of propranolol, amlodipine, HCTZ, and Lasix. No medication changes have been made Problem Allergic rhinitis due to pollen J30.1 Active 49038617 Problem Vitamin D deficiency E55.9 Active 42425348 Problem Anxiety as acute reaction to exceptional stress F4 1.1 Active 05491677 Stable, continues to deal with her grief Problem Pain of right lower leg M79.661 Active 37599409 Stable, controlled on medications Problem Dependent edema R60.9 Active 749757626 I have asked Sagar to start taking the furosemide again, twice a day until its completely calm down. She should eat potassium rich foods Problem End stage COPD J44.9 Active 461131103 Problem Symptomatic menopausal or female climacteric states N95.1 Active 15690319 Problem COPD (chronic obstructive pulmonary disease) J44.9 Active 82002010 Problem Migraine without aura G43.009 Active 85607400 S table on propranolol daily and Imitrex as needed, no medication changes have been made Problem Personal history of tobacco use, presenting hazards to health Z87.891 Active 176148373 Problem Chronic kidney disease, stage III (moderate) N18.3 Active 601140946 Stable Problem Pure hypertriglyceridemia E78.1 Active 680013 009 We discussed low- fat diets Problem Chronic kidney disease, stage II (mild) N18.2 Active 494968309 ALLERGIES Allergen (clinical drug ingredient) Drug/Non Drug Allergy do cumented on EMR Reaction Allergy Type Onset Date Status amoxicillin / clavulanate Augmentin([facility] Code:[address]-18) itchy Drug Allergy Active ENCOUNTERS from 1960 to 2020-04-28 Encounter Location Date Provider Diagnosis [facility] [address] [place] [address] Aug, Charlene Gill Essential hypertension I10 and [...] Three times a day for 30 Active Celexa 20 MG 1 tablet Orally Once a day for 30 Days Mar Active AmLODIPine Besylate 10 mg 1 tablet Orally Once a day for 30 Active Xanax 0.25 MG 1-2 tablets Orally Three times a day, mdd=6 for 30 days Jun, Active PredniSONE 10 mg 4 tabs qam x 4d, then 3 x 4d , then 2 x 4d, then 1 x 4d Orally Once a day for 16 days Mar, Active Spiriva HandiHaler 18 MCG 1 capsule Inhalation Once a day for 30 Active Hydrocodone-Acetaminophen 5-325 MG 1-2 tablets Orally every 6 hrs as needed, mdd=4 for 30 days Dec, Active Hydrochlorothiazide 25 MG 1 tablet Orally Once a day for 30 Active Amlodipine Besylate 10 MG TAKE 1 TABLET EVERY DAY for 90 Active Ventolin HFA 108 (90 Base) MCG/ACT 2 puffs as needed I nhalation every 4 hrs for 90 day(s) Active Hydrochlorothiazide 25 MG TAKE 1 TABLET EVERY DAY for 90 Active Citalopram Hydrobromide 20 MG 1 tablet Orally Once a day for 90 days Jan, Active Albuterol Sulfate (2.5 MG/3ML) 0.083% 3 ml as needed I nhalation Three times a day for 90 days Active Budesonide 0.5 MG/2ML One vial Inhalation Twice a day for 90 days Active Propranolol HCl 40 MG 1 tablet Orally Twice a day for 90 days Active Arnuity Ellipta 200 MCG/ACT 1 puff Inhalation Once a day Active Oxygen mask as directed full facial, for dx=J44.9 Daily for 30 days Dec, Active Lasix 20 MG 1 tablet Orally Once a day as needed for swellin g for 30 days September, Active Aspirin 81 MG 1 tablet Orally Once a day for 30 day(s) Active Imitrex 100 mg 1 tablet at onset of headach , september repeat x 1 in 2 hrs if needed Orally Twice a day as needed for 30 days Apr, Active PROCEDURES No Information RESULTS Component Value Reference Range COMPREHENSIVE METABOLIC PROFILE Reviewed date:08/31/2017 18:02:23 Interpretation: Performing Lab:[facility],[address] [place] [address], ,[place] [address] GLUCOSE, FASTING 127 70-100 BLOOD UREA NITROGEN [...] Reviewed date:08/31/2017 18:03:58 Interpretation: Performing Lab:[facility],[address] [place] [address], ,[place] [address] TRIGLYCERIDES LEVEL 160 <150 CHOLESTEROL LEVEL 143 [...] Medication Name Sig Start Date Stop Date Hydrochlorothiazide 25 MG TAKE 1 TABLET EVERY DAY for 90 Next Appt Details Provider Name:Charlene Gill, 2020-12-0 8 09:30:00 AM, [address], [place], [address], Insurance Providers Payer Name Payer Address Payer Phone Insured Name Patient Relati onship to Insured Coverage Start Date Coverage End Date MATTHEW DESAI [address] [place] [phone] SAGAR DELGADILLO self
--- OUTSIDE RECORDS SUMMARY | 2020-06-29 14:14 | CCD ---
Author Author [facility] Organization [facility] Address Unknown Phone Unavailable Care Team Providers Care Reducer Name Role Phone Charlene Gill Unavailable PROBLEMS Type Condition ICD9-CM Code [id number] Code Onset Dates Condition S tatus SNOMED Code Notes Problem Essential hypertension I10 Active 84381336 Well-controlled on current regimen of propranolol, amlodipine, HCTZ, and Lasix. No medication changes have been made Problem Allergic rhinitis due to pollen J30.1 Active 63009572 Problem Vitamin D deficiency E55.9 Active 70590866 Problem Anxiety as acute reaction to exceptional stress F4 1.1 Active 02567349 Stable, continues to deal with her grief Problem Pain of right lower leg M79.661 Active 43438151 Stable, controlled on medications Problem Dependent edema R60.9 Active 734736961 I have asked Sagar to start taking the furosemide again, twice a day until its completely calm down. She should eat potassium rich foods Problem End stage COPD J44.9 Active 397988504 Problem Symptomatic menopausal or female climacteric states N95.1 Active 57994229 Problem COPD (chronic obstructive pulmonary disease) J44.9 Active 51855126 Problem Migraine without aura G43.009 Active 35149554 S table on propranolol daily and Imitrex as needed, no medication changes have been made Problem Personal history of tobacco use, presenting hazards to health Z87.891 Active 088585465 Problem Chronic kidney disease, stage III (moderate) N18.3 Active 679539627 Stable Problem Pure hypertriglyceridemia E78.1 Active 015192 009 We discussed low- fat diets Problem Chronic kidney disease, stage II (mild) N18.2 Active 851221977 ALLERGIES Allergen (clinical drug ingredient) Drug/Non Drug Allergy do cumented on EMR Reaction Allergy Type Onset Date Status amoxicillin / clavulanate Augmentin([facility] Code:[address]-26) itchy Drug Allergy Active ENCOUNTERS from 1961 to 2020-04-14 Encounter Location Date Provider Diagnosis [facility] [address] [place] [address] Mar, Hea feliberto Jairo Essential hypertension I10 ; Pure hypertriglyceridemia E78.1 ; Vitamin D deficiency E55.9 ; Anxiety as acute reaction to exceptional stress F41.1 ; Chronic kidney disease, stage II (mild) N18.2 ; End stage COPD J44.9 and Disorientation R41.0 IMMUNIZATIONS Vaccine Route Administration Date Status Influenza [...] Notes Start Da te End Date Status Spiriva HandiHaler 18 MCG 1 capsule Inhalation Once a day for 30 Active Tessalon Perles 100 mg 1 capsule as needed to suppr ess cough Orally Three times a day for 30 Active Budesonide 0.5 MG/2ML One vial Inhalation Twice a day for 90 days Active Propranolol HCl 40 MG 1 tablet Orally Twice a day for 90 days Active Albuterol Sulfate (2.5 MG/3ML) 0.083% 3 ml as needed I nhalation Three times a day for 90 days Active AmLODIPine Besylate 10 mg 1 tablet Orally Once a day for 30 Active Amlodipine Besylate 10 MG TAKE 1 TABLET EVERY DAY for 90 Active Ventolin HFA 108 (90 Base) MCG/ACT 2 puffs as needed I nhalation every 4 hrs for 90 day(s) Active Aspirin 81 MG 1 tablet Orally Once a day for 30 day(s) Active Imitrex 100 mg 1 tablet at onset of headach , september repeat x 1 in 2 hrs if needed Orally Twice a day as needed for 30 days Apr, Active Oxygen mask as directed full facial, for dx=J44.9 Daily for 30 days Dec, Active Lasix 20 MG 1 tablet Orally Once a day as needed for swellin g for 30 days September, Active Hydrocodone-Acetaminophen 5-325 MG 1-2 tablets Orally every 6 hrs as needed, mdd=4 for 30 days Dec, Active Xanax 0.25 MG 1-2 tablets Orally Three times a day, mdd=6 for 30 days Jun, Active PredniSONE 10 mg 4 tabs qam x 4d, then 3 x 4d , then 2 x 4d, then 1 x 4d Orally Once a day for 16 days Mar, Active Citalopram Hydrobromide 20 MG 1 tablet Orally Once a day for 30 days Jan, Active Hydrochlorothiazide 25 MG 1 tablet Orally Once a day for 30 Active Arnuity Ellipta 200 MCG/ACT 1 puff Inhalation Once a day Active PROCEDURES No Information RESULTS No Results REASON FOR VISIT concerns MEDICAL (GENERAL) HISTORY Type Description Date Medical [...] History Pericardial effusion 2012 Hospitalization History COPD 2012 Hospitalization History TIA 2008 Hospitalization History surgeries as above 2000 Goals Section No Information Health Concerns No Information MEDICAL EQUIPMENT No Information MENTAL STATUS No Information FUNCTIONAL STATUS No Information ASSESSMENTS Encounter Date Diagnosis Assessment Notes Treatment Notes Treatm ent Clinical Notes Mar, Essential hypertension (ICD-10 - I10) Mar, Pure hypertriglyceridemia (ICD-10 - E78.1) Mar, Vitamin D deficiency (ICD-10 - E55.9) Mar, Anxiety as acute reaction to exceptional stress (ICD-10 - F41.1) Mar, Chronic kidney disease, stage II (mild) (ICD-10 - N18.2) Mar, End stage COPD (ICD-10 - J44.9) Mar, Disorientation (ICD-10 - R41.0) PLAN OF TREATMENT Medication Medication Name Sig Start Date Stop Date Amlodipine Besylate 10 MG TAKE 1 TABLET EVERY DAY for 90 Citalopram Hydrobromide 20 MG 1 tablet Orally Once a day for 30 days Jan, Propranolol HCl 40 MG 1 tablet Orally Twice a day for 90 days Ventolin HFA 108 (90 Base) MCG/ACT 2 puffs as needed I nhalation every 4 hrs for 90 day(s) Budesonide 0.5 MG/2ML One vial Inhalation Twice a day for 90 day s Albuterol Sulfate (2.5 MG/3ML) 0.083% 3 ml as needed I nhalation Three times a day for 90 days PredniSONE 10 mg 4 tabs qam x 4d, then 3 x 4d , then 2 x 4d, then 1 x 4d Orally Once a day for 16 days Mar, Oxygen mask as directed full facial, for dx=J44.9 Da eulalia for 30 days Dec, Tessalon Perles 100 mg 1 capsule as needed to suppr ess cough Orally Three times a day for 30 Hydrocodone-Acetaminophen 5-325 MG 1-2 tablets Orally every 6 hrs as needed, mdd=4 for 30 days Dec, Future Test Test Name Order Date CBC - Complete Blood Count [id number] Comprehensive Metabolic Profile (CMP) [id number] LIPID PANEL (CARDIAC RISK) [id number] PAIN MGMT UR 13 PANEL [id number] TSH [id number] VITAMIN D 25-HYDROXY [id number] Next Appt Details Provider Name:Charlene Akinsuel, 2019-11-2 3 10:15:00 AM, [address], [place], [address], Insurance Providers Payer Name Payer Address Payer Phone Insured Name Patient Relati onship to Insured Coverage Start Date Coverage End Date MATTHEW FRANCISCO [address] [address] [facility] [id number] SAGAR DELGADILLO self
--- OUTSIDE RECORDS SUMMARY | 2020-06-29 14:14 | CCD ---
Author Author [facility] Organization [facility] Address Unknown Phone Unavailable Care Team Providers Care Electronic Scanner Operator Name Role Phone Charlene Gill Unavailable PROBLEMS Type Condition ICD9-CM Code IHB07-HE Code Onset Dates Condition S tatus SNOMED Code Notes Problem Essential hypertension I10 Active 17081268 Well-controlled on current regimen of propranolol, amlodipine, HCTZ, and Lasix. No medication changes have been made Problem Allergic rhinitis due to pollen J30.1 Active 66044340 Problem Vitamin D deficiency E55.9 Active 60615287 Problem Anxiety as acute reaction to exceptional stress F4 1.1 Active 17326375 Stable, continues to deal with her grief Problem Pain of right lower leg M79.661 Active 25015772 Stable, controlled on medications Problem Dependent edema R60.9 Active 010953014 I have asked Sagar to start taking the furosemide again, twice a day until its completely calm down. She should eat potassium rich foods Problem End stage COPD J44.9 Active 130987099 Problem Symptomatic menopausal or female climacteric states N95.1 Active 48577926 Problem COPD (chronic obstructive pulmonary disease) J44.9 Active 41533064 Problem Migraine without aura G43.009 Active 78434666 S table on propranolol daily and Imitrex as needed, no medication changes have been made Problem Personal history of tobacco use, presenting hazards to health Z87.891 Active 655663958 Problem Chronic kidney disease, stage III (moderate) N18.3 Active 555708119 Stable Problem Pure hypertriglyceridemia E78.1 Active 665634 009 We discussed low- fat diets Problem Chronic kidney disease, stage II (mild) N18.2 Active 201265629 ALLERGIES Allergen (clinical drug ingredient) Drug/Non Drug Allergy do cumented on EMR Reaction Allergy Type Onset Date Status amoxicillin / clavulanate Augmentin([facility] Code:[address]-90) itchy Drug Allergy Active ENCOUNTERS from 1960 to 2020-05-05 Encounter Location Date Provider Diagnosis [facility] [address] [place] [address] Aug, Charlene Gill Essential hypertension I10 and [...] Notes Start Da te End Date Status Xanax 0.25 MG 1-2 tablets Orally Three times a day, mdd=6 for 30 days Jun, Active Celexa 20 MG 1 tablet Orally Once a day for 30 Days Mar Active Aspirin 81 MG 1 tablet Orally Once a day for 30 day(s) Active Oxygen mask as directed full facial, for dx=J44.9 Daily for 30 days Dec, Active Citalopram Hydrobromide 20 MG 1 tablet Orally Once a day for 90 days Jan, Active PredniSONE 10 mg 4 tabs qam x 4d, then 3 x 4d , then 2 x 4d, then 1 x 4d Orally Once a day for 16 days Mar, Active Propranolol HCl 40 MG 1 tablet Orally Twice a day for 90 days Active Amlodipine Besylate 10 MG TAKE 1 TABLET EVERY DAY for 90 Active Tessalon Perles 100 mg 1 capsule as needed to suppr ess cough Orally Three times a day for 30 Active Hydrochlorothiazide 25 MG 1 tablet Orally Once a day for 30 Active Budesonide 0.5 MG/2ML One vial Inhalation Twice a day for 90 days Active Arnuity Ellipta 200 MCG/ACT 1 puff Inhalation Once a day Active Hydrochlorothiazide 25 MG TAKE 1 TABLET EVERY DAY for 90 Active Albuterol Sulfate (2.5 MG/3ML) 0.083% 3 ml as needed I nhalation Three times a day for 90 days Active Hydrocodone-Acetaminophen 5-325 MG 1-2 tablets Orally every 6 hrs as needed, mdd=4 for 30 days Dec, Active Spiriva HandiHaler 18 MCG 1 capsule Inhalation Once a day for 30 Active Ventolin HFA 108 (90 Base) MCG/ACT 2 puffs as needed I nhalation every 4 hrs for 90 day(s) Active Lasix 20 MG 1 tablet Orally Once a day as needed for swellin g for 30 days September, Active AmLODIPine Besylate 10 mg 1 tablet Orally Once a day for 30 Active Imitrex 100 mg 1 tablet at onset of headach , september repeat x 1 in 2 hrs if needed Orally Twice a day as needed for 30 days Apr, Active PROCEDURES No Information RESULTS Component Value Reference Range COMPREHENSIVE METABOLIC PROFILE Reviewed date:08/31/2017 18:02:23 Interpretation: Performing Lab:[facility],[address] [place] [address], ,[place] [address] GLUCOSE, FASTING 127 70-100 BLOOD UREA NITROGEN [...] (CARDIAC RISK) Reviewed date:08/31/2017 18:03:58 Interpretation: Performing Lab:[facility],[address] [place] [address], ,[place] [address] TRIGLYCERIDES LEVEL 160 <150 CHOLESTEROL LEVEL 143 [...] (IC D-10 - N18.3) PLAN OF TREATMENT Next Appt Details Provider Name:Charlene Gill, 2019-12-1 4 09:00:00 AM, [address], [place], [address], Insurance Providers Payer Name Payer Address Payer Phone Insured Name Patient Relati onship to Insured Coverage Start Date Coverage End Date MATTHEW FRANCISCO [address] [address] [facility] [phone] SAGAR DELGADILLO self
[2020-06-29] MEDS ORDERED: ALBUTEROL 90 MCG/ACT 8GM HFA INHALER INH PRN (14:15)
[2020-06-29] MEDS ORDERED: NS 1,000 ML IV ONE (14:15)
--- NOTE | 2020-06-29 14:18 | REP ---
INDICATION: admission COMPARISON: 08/13/2019 TECHNIQUE: Portable AP view of the chest FINDINGS: The mediastinum and cardiac silhouette are stable and within normal limits for portable technique. The lung magana demonstrate chronic appearing changes although subtle basilar atelectasis/airspace disease cannot be excluded. No discrete focal consolidation, effusion, or pneumothorax. Skeletal structures are intact. IMPRESSION: Chronic appearing changes. As above. No discrete focal consolidation or effusion. <Electronically signed by Wally Rausch > 06/29/20 7824
[2020-06-29] MEDS ORDERED: IPRATROPIUM 0.5MG/ALBUTEROL 2.5MG INH SOL UD 3ML (DUONEB) NEB PRN (14:45)
[2020-06-29] MEDS ORDERED: IPRATROPIUM 0.5MG/ALBUTEROL 2.5MG INH SOL UD 3ML (DUONEB) NEB ONE (14:45)
[2020-06-29] MEDS: prednisoLONE ACET 1% OPHTH SUSP 5ML OS SCH ×2 (15:00→17:00)
--- NOTE | 2020-06-29 15:08 | HPEPDOC ---
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 She denied any bright red blood per rectum, hematemesis, coffee-ground emesis, epigastric pain, nausea, vomiting, but has been increasingly tired, weak and has been sleeping a lot at home. She denies any nonsteroidal anti-inflammatory usage as ibuprofen, Aleve, Naprosyn, and but admits to taking [facility] aspirin once daily. She denies any history of peptic ulcer disease, gastritis, esophagitis in the past and no history of hiatal hernia or gastroesophageal reflux disease. Patient has been taking hydrochlorothiazide and lisinopril for many years for her hypertension with no recent changes in dosage. She denies any diarrhea, nausea or vomiting and says that her urine has been clear yellow at home and has not decreased in amount over the past few days. She was scheduled to have a lens implant surgery today by Dr. Chow and had blood tests done a few days ago. Postoperatively at [facility]. Patient was called by her primary care physician who told her to come to the ER due to acute on chronic renal failure with cr eatinine of 5.94 and hemoglobin of 7. Hospitalist was called to admit the patient for evaluation of anemia as well as acute on chronic renal failure. 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 Full code. denies recreational drug use FAMILY HISTORY: Father: , 71, hypertension, diabetes, coronary artery disease Mother: age 69. Colon cancer, metastatic to breast and lung ALLERGIES: Please see below. REVIEW OF SYSTEMS: 12 point system negative aside from positive findings in HPI HOME MEDICATIONS: Please see below. PHYSICAL EXAMINATION: VITAL SIGNS: See below GENERAL APPEARANCE: Postop Left eye with an eye patch . Postsurgical changes in the left jaw., No respiratory distress HEENT: No JVD, thyromegaly. Dry mucous membranes with chapped lips. No carotid bruits or stridor CARDIOVASCULAR: Systolic ejection murmur at the apex. S1, S2 regular rate rhythm LUNGS: Air entry is equal bilaterally. Diminished breath sounds with expiratory wheezing, prolonged expiration ABDOMEN: Obese, soft, nontender, nondistended, positive bowel sounds 4 quadrants EXTREMITIES: No cyanosis or clubbing SKIN: Warm, dry, well perfused, pink in color LABORATORY DATA: See below. IMAGING: CXR 06/29/20 COMPARISON: 08/13/2019 TECHNIQUE: Portable AP view of the chest FINDINGS: The mediastinum and cardiac silhouette are stable and within normal limits for portable technique. The lung magana demonstrate chronic appearing changes although subtle basilar atelectasis/airspace disease cannot be excluded. No discrete focal consolidation, effusion, or pneumothorax. Skeletal structures are intact. IMPRESSION: Chronic appearing changes. As above. No discrete focal consolidation or effusion. <Electronically signed by Wally Rausch > 06/29/20 6541 MICROBIOLOGY: Please see below. 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 She denied any bright red blood per rectum, hematemesis, coffee-ground emesis, epigastric pain, nausea, vomiting, but has been increasingly tired, weak and has been sleeping a lot at home. She denies any nonsteroidal anti-inflammatory usage as ibuprofen, Aleve, Naprosyn, and but admits to taking [facility] aspirin once daily. She denies any history of peptic ulcer disease, gastritis, esophagitis in the past and no history of hiatal hernia or gastroesophageal reflux disease. Patient has been taking hydrochlorothiazide and lisinopril for many years for her hypertension with no recent changes in dosage. She denies any diarrhea, nausea or vomiting and says that her urine has been clear yellow at home and has not decreased in amount over the past few days. She was scheduled to have a lens implant surgery today by Dr. Chow and had blood tests done a few days ago. Postoperatively at [facility]. Patient was called by her primary care physician who told her to come to the ER due to acute on chronic renal failure with creatinine of 5.94 and hemoglobin of 7. Hospitalist was called to admit the patient for evaluation of anemia as well as acute on chronic renal failure. Symptomatic anemia -The patient has been complaining of increased weakness for the past 2 weeks as well as black stools at home. -Hemoccult stool has been ordered. -Patient will be transfused 2 units RBC transfusion today with repeat hemoglobin and hematocrit after transfusion. -Will defer to nephrology if patient is eligible for Venofer. -Protonix 40 daily. -If heme positive stool with continued decrease in hemoglobin and hematocrit. may need endoscopy Anemia of chronic disease -Checked reticulocyte count, peripheral blood smear. -Transfuse 2 units RBCs today. - Iron and vitamin C as outpatient. Acute on chronic renal failure -Patient has baseline chronic kidney disease stage III and was chronically on hydrochlorothiazide and lisinopril without any changes in dose recently. -Chek UA, urine electrolytes, A1c, renal ultrasound, hepatitis serology, RM -Normal saline 1 L bolus -[place] to gravity, strict input and output to be documented, daily weights, serial basic metabolic panel to monitor for hyperkalemia and metabolic acidosis -Nephrology consulted -She denies any nonsteroidal anti-inflammatory use, sore throat, hypovolemiafrom nausea, vomiting or diarrhea or decreased oral intake Hypertension -Uncontrolled due to pain from left eyelid lens implantt this morning -Discontinued hydrochlorothiazide and lisinopril -May continue Norvasc and if needed, can give beta blockers, calcium channel blockers hydralazine and isosorbide for blood pressure control Left eye lens implant -[facility] inform [facility] that the patient has been admitted for renal failure. -Ophthalmology consulted for postop management of the left eye. COPD -Patient has wheezing on exam, but no pulmonary edema on chest x-ray. -Nebulizer 4 times a day and every 2 hours needed. 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 History of tobacco abuse -Quit 6 years ago History of alcohol abuse -Quit Diet: renal diet CODE STATUS: Full code DVT prophylaxis: Compression stockings Disposition: 2- 3 days pending improvement in renal function Vital Signs Vital Signs Date Time Temp Pulse Resp B/P (MAP) Pulse Ox O2 Delivery O2 Flow Rate FiO2 06/29/20 14:22 63 18 151/73 (99) 100 Nasal Cannula 2.0 06/29/20 10:23 98.8 Laboratory Data Labs 24H Laboratory Tests 2 06/29/20 11:25: Immature Granulocyte % (Auto) 0.4, Neutrophils (%) (Auto) 78.0H, Lymphocytes (%) (Auto) 12.6L, Monocytes (%) (Auto) 7.0H, Eosinophils (%) (Auto) 1.6, Basophils (%) (Auto) 0.4, Neutrophils # (Auto) 10.5H, Lymphocytes # (Auto) 1.7, Monocytes # (Auto) 1.0H, Eosinophils # (Auto) 0.2, Basophils # (Auto) 0.1, Nucleated Red Blood Cells % (auto) 0.0, Prothrombin Time 13.7, Prothromb Time International Ratio 1.03, Activated Partial Thromboplast Time 40.1H, Anion Gap 6L, Glomerular Filtration Rate 7.8L, Calcium Level 9.0, Iron Level 30L, Total Iron Binding Capacity 367, Transferrin % Saturation 8.2L, Ferritin 8, Total Bilirubin 0.2, Aspartate Amino Transf (AST/SGOT) 5L, Alanine Aminotransferase (ALT/SGPT) 18, Alkaline Phosphatase 122H, Total Protein 6.9, Albumin 3.9, Albumin/Globulin Ratio 1.3, Vitamin B12 Level 357, Folate 10.9 06/29/20 12:01: SARS Antigen (LFIA) NEGATIVE 06/29/20 12:31: Coronavirus (COVID-19)(PCR) NEGATIVE, Influenza Type A (RT-PCR) NEGATIVE, Influenza Type B (RT-PCR) NEGATIVE, Respiratory Syncytial Virus (PCR) NEGATIVE CBC/BMP Laboratory Tests 06/29/20 11:25 Home Medications Scheduled Albuterol Sulfate (Albuterol Sulfate) 2.5 Mg/0.5 Ml Vial.neb, 1 VIAL NEB TID Amlodipine Besylate (Amlodipine Besylate) 10 Mg Tablet, 10 MG PO DAILY Aspirin (Aspirin EC) 81 Mg Tablet.dr, 81 MG PO DAILY Brimonidine Tartrate (Alphagan P) 0.1% 5ML Drops, 1 DROP OS BID Budesonide (Budesonide) 0.5 Mg/2 Ml Ampul.neb, 0.5 MG INH BID Cholecalciferol (Vitamin D3) (Vitamin D3) 1,000 Unit Tablet, 1,000 UNITS PO DAILY Citalopram Hydrobromide (Citalopram HBr) 20 Mg Tablet, 20 MG PO DAILY Hydrochlorothiazide (Hydrochlorothiazide) 25 Mg Tablet, 25 MG PO DAILY Netarsudil Mesylat/Latanoprost (Rocklatan 0.02%-0.005% Eye Drp) 2.5 Ml Drops, 1 DROP OS QHS Pilocarpine HCl (Pilocarpine HCl) 1% 15ML Drops, 1 DROP OS BID Prednisolone Acetate (Prednisolone Acetate 1% Opth Susp) 5 Ml Drops.susp, 1 DROP OS Q2H Propranolol HCl (Propranolol HCl) 40 Mg Tablet, 40 MG PO BID Timolol Maleate (Timoptic) 0.5% 10ML Drops, 1 DROP OS BID Tiotropium [place] (Spiriva) 18 Mcg Cap.w.dev, 18 MCG INH DAILY Scheduled PRN Albuterol Sulfate (Proair Hfa) 8.5 Gm Hfa.aer.ad, 2 PUFF INH QID PRN for SOB/WHEEZING Sumatriptan Succinate (Sumatriptan Succinate) 100 Mg Tablet, 100 MG PO ASDIRECTED PRN for MIGRAINE may repeat in 2 hours; do not exceed 200 mg in 24 hours Allergies Coded Allergies: amoxicillin (Verified Allergy, Unknown, rash, 06/29/20) clavulanic acid (Verified Allergy, Unknown, rash, 06/29/20) A-FIB/CHADSVASC A-FIB History Current/History of A-Fib/PAF?: No Current PO Anticoag Therapy: No Age/Risk Factor Scoring CHADSVASC: CHADSVASC Response (Comments) Value Age Risk Factor Age < 65 years old 0 Gender Risk Factor Female 1 Hx of CHF No 0 Hx of HTN Yes 1 Hx of Stroke/TIA/or VTE No 0 Hx of Vascular Disease No 0 Total 2 Treatment Treatment ordered: NONE LATIA GALEAS MD Jun 29, 2020 15:08
--- NOTE | 2020-06-29 15:28 | REP ---
INDICATION: acute renal failure. COMPARISON: Comparison renal sonography July 25, 2010 pair. TECHNIQUE: . Urinary tract sonography. FINDINGS: Scanning at the level of the urinary bladder shows no abnormality. Renal cortical echogenicity pattern is increased consistent with chronic medical renal disease. This is a change from the 2011 study.. There is no evidence of hydronephrosis, cyst, mass, or calculus in either kidney. The right kidney measures 8.9 x 5.7 x 5.3 cm. Left renal dimensions are 9.4 x 5.1 x 4.9 cm. IMPRESSION: Increased renal cortical echogenicity pattern consistent with chronic medical renal disease. No hydronephrosis is seen. No other morphologic abnormality.. <Electronically signed by Shaun Wright > 06/29/20 [id number]
[2020-06-29 15:29] LABS: CREATININE,RANDOM URINE 37.3 MG/DL
[2020-06-29] MEDS: IPRATROPIUM 0.5MG/ALBUTEROL 2.5MG INH SOL UD 3ML (DUONEB) NEB SCH ×2 (16:00→17:55)
[2020-06-29 16:11] LABS: HEPATITIS A ANTIBODY IGM NEGATIVE (NEGATIVE); HEPATITIS B CORE ANTIBODY IGM NEGATIVE (NEGATIVE); HEPATITIS B SURFACE ANTIGEN NEGATIVE (NEGATIVE); HEPATITIS C VIRUS ABY INDEX < 0.0 INDEX (<0.8)
--- NOTE | 2020-06-29 16:29 | ECGEPIP ---
[facility] - ED Test Date: 2020-06-29 Pat Name: SAGAR DELGADILLO Department: Room: - Gender: Female Bundle Cutter: : 1960 Requested By: Thomas Dick Order Number: [id number] Reading MD: Babar Ring Measurements Intervals [place] Rate: 70 P: 56 NV: 164 QRS: 25 QRSD: 85 T: 58 QT: 350 QTc: 378 Interpretive Statements SINUS RHYTHM POSSIBLE RIGHT VENTRICULAR CONDUCTION DELAY Nonspecific ST-T wave abnormalities Similar to tracing done 09-03-14 Electronically Signed on 06-29-2020 16:28:49 EST by Babar Ring
[2020-06-29] MEDS ORDERED: ISOSORBIDE MONONITRATE 10MG TABLET PO SCH (17:00)
[2020-06-29] MEDS ORDERED: **hydrALAZINE** 10 MG TAB PO SCH (17:00)
[2020-06-29] MEDS: BUDESONIDE 0.5 MG/2 ML INHALATION SUSPENSION INH SCH (17:55)
[2020-06-29] MEDS ORDERED: FUROSEMIDE 40MG/4ML VIAL (J1940) IV ONE (18:45)
[2020-06-29] MEDS: ASCORBIC ACID 500 MG TAB PO SCH (18:57)
[2020-06-29] MEDS: **hydrALAZINE HCL** 25 MG TAB PO SCH ×2 (18:57→23:44)
[2020-06-29 19:51] LABS: APPEARANCE, URINE CLEAR (CLEAR); BACTERIA, URINE AUTO NEGATIVE (NEGATIVE); BILIRUBIN, URINE AUTO NEGATIVE (NEGATIVE); BLOOD, URINE BLOOD NEGATIVE (NEGATIVE); COLOR, URINE COLORLESS (YELLOW); GLUCOSE, URINE (UA) AUTO NEGATIVE (NEGATIVE); KETONE, URINE AUTO NEGATIVE (NEGATIVE); LEUKOCYTE ESTERASE, URINE AUTO NEGATIVE (NEGATIVE); NITRITE, URINE AUTO NEGATIVE (NEGATIVE); PROTEIN, URINE AUTO 1+ mg/dL (NEGATIVE); RBC, URINE AUTO 0 /HPF (0-3); SPECIFIC GRAVITY URINE AUTO 1.005 (1.002-1.035); SQUAMOUS EPITHELIAL CELL UR AU 1 /HPF (0-6); UROBILINOGEN, URINE AUTO 0.2 mg/dL (0.0-2.0); WBC, URINE AUTO 1 /HPF (0-3)
[2020-06-29] MEDS: PROPRANOLOL 20 MG TAB PO SCH (19:58)
[2020-06-29] MEDS: FERROUS SULFATE 325MG TAB PO SCH (19:59)
[2020-06-29] MEDS: ISOSORBIDE MON. (IMDUR) 30 MG XR TAB PO SCH (19:59)
[2020-06-29] MEDS: ACETAMINOPHEN TAB 650MG DOSE (2X325MG) PO PRN (20:40)
[2020-06-29] MEDS ORDERED: BRIMONIDINE 0.1% OPHTH SOLN 5 ML OS SCH (21:00)
[2020-06-29] MEDS ORDERED: PILOCARPINE 1% OPHTH SOLN 15 ML OS SCH (21:00)
[2020-06-29] MEDS ORDERED: TIMOLOL MALEATE 0.5% OPHTH SOLN 5 ML OS SCH (21:00)
[2020-06-29] MEDS: MEROPENEM INJ 500 MG in IV 1 EA IV SCH (23:39)
--- NOTE | 2020-06-30 00:51 | CR ---
INITIAL INPATIENT CONSULTATION DATE: 06/29/2020 REQUESTING PHYSICIAN: Fabi Francis REASON FOR CONSULTATION: Management of acute renal failure. CHIEF COMPLAINT: Patient was sent for abnormal blood test results with anemia and high creatinine levels. HISTORY OF PRESENT ILLNESS: Karissa Garcia is a 59-year-old female with a past medical history of CKD3 with a creatinine of 1.2 to 1.6 as per previous records, hypertension, multiple other comorbidities as mentioned below. She came for left eye surgery today, where she was seen for medical clearance and during the medical clearance labs, patient was found to have acute renal failure with a creatinine of 5.9 and anemia with a hemoglobin of 7. Patient got the left eye lens implant done and after that, she was sent to the hospital for further evaluation. Patient needed my immediate attention. I saw and evaluated the patient emergently at the bedside today in the evening. She was getting her blood transfusion when I saw her. She was able to provide me with the history. She did tell me that she was having weakness and black tarry stools for the last 3-4 days. PAST MEDICAL HISTORY: Chronic kidney disease stage 3, as per previous records from two years ago, her baseline creatinine is less than 1.6. 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 PAST SURGICAL HISTORY: Status post resection of tumor of the mandible in 1999 and bone graft from the right fibula, and pinned right toes. She recently had a lens implant today in the left eye. FAMILY HISTORY: No significant family history of end-stage renal disease requiring hemodialysis. SOCIAL HISTORY: Patient is an ex-smoker; she quit 6 years ago. She denies any active alcohol use at this time and she denies any drug abuse. ALLERGIES: She is allergic to Augmentin. REVIEW OF SYSTEMS: CONSTITUTIONAL: She reports feeling weak and tired. EYES: She denies any blurry vision, double vision. Patient just had the left eye surgery done today. ENT: She denies any dysphagia, odynophagia. CARDIOVASCULAR: She denies any chest pain or palpitations. RESPIRATORY: She denies any shortness of breath or cough. GI: She reports melena. GENITOURINARY: She reports decreased urine output now a days. MUSCULOSKELETAL: She reports fatigue and muscle aches. SKIN: She denies any rashes or ulcers. HEMATOLOGIC/ONCOLOGIC: She reports some melena for the last few days. ENDOCRINE: She denies any hypothyroidism or hyperthyroidism. SALESPERSON NEW CARS: She denies any strokes or seizures. All other review of systems is negative. PHYSICAL EXAMINATION: GENERAL: Patient is awake, alert, oriented x3, sitting up in the bed, in no apparent distress. VITAL SIGNS: Temperature 100.2 degrees Fahrenheit, blood pressure 168/60, pulse 103, respiratory rate 24, saturating 95% on nasal cannula at 2 liters. HEAD/NECK: Patient has dressing on the left eye from recent surgery. Mucous membranes are moist. Neck is supple. There is no JVD. CARDIOVASCULAR: S1, S2, regular rate. Trace edema of the bilateral lower extremities. RESPIRATORY: Patient is O2 dependent. She is wearing nasal cannula. She has mild crepitations on bilateral bases on deep inspiration. ABDOMEN: Soft, obese, positive bowel sounds. No organomegaly was noted. GENITOURINARY: I could not palpate her bladder. MUSCULOSKELETAL: No clubbing or cyanosis. Pulses are 2+. SALESPERSON NEW CARS: No focal deficit. Power is 5/5 in all extremities. LABORATORY REVIEW: CBC shows WBC 13.5, hemoglobin 7, platelets 263,000. INR 1.03. Urinalysis done today showed protein 1+. BMP showed sodium 138, potassium 4.6, chloride 104, bicarb 28, BUN 66, creatinine 5.9. Iron 30, TIBC 367, transferrin saturation 8.2, ferritin 8. PTH 101.3. MICROBIOLOGY: No cultures are available at this time. IMAGING STUDIES: A renal ultrasound was done today, which showed increase in renal cortical echogenicity, consistent with chronic medical renal disease. No hydronephrosis was noted. Chest x-ray was done, which showed chronic appearing changes. HOME MEDICATIONS: Patient's medications include Albuterol p.r.n., Amlodipine 10 mg daily, aspirin 81 mg p.o. daily, Vitamin D 1000 units p.o. daily, Citalopram 20 mg p.o. daily, Hydrochlorothiazide 25 mg p.o. daily, Pilocarpine drops in the eyes, Propranolol 40 mg p.o. twice a day, Sumatriptan for migraines, Timolol eye drops and Spiriva inhaler. CURRENT INPATIENT MEDICATIONS: Patient's medications were all reviewed by myself. Two units of PRBC transfusion has been ordered, which she is receiving now. She was given normal saline 1 liter bolus. She is on Tylenol p.r.n., DuoNeb p.r.n., Amlodipine 10 mg p.o. daily, Vitamin C 500 mg p.o. twice a day, Pulmicort 0.5 mg inhalation twice a day, iron tablet twice a day. I gave her a dose of Lasix 40 mg I.V. times one dose, Hydralazine 25 mg p.o. every 6 hours, Isosorbide 30 mg p.o. twice a day, Propranolol 40 mg p.o. twice a day, Pilocarpine eye drops, MiraLax p.r.n., prednisone eye drops, Vitamin D 1000 units p.o. daily. IMPRESSION: A 59-year-old female with past medical history of COPD, hypertension, recently had left eye lens implant, admitted this time with symptomatic anemia and acute renal failure. PLAN: 1. Acute renal failure: Not sure if patient is oliguric at this time. She reported that she had a desire to void. She refused to have the Oconnor catheter placed at this time. We would have to monitor her overnight to see if she is making urine. MEDINA is most likely secondary to active melena and loss of volume, however, glomerulonephritis is less likely. She just has 1+ protein, no blood in the urine. Because of COPD and possible volume overload, I am going to give her one dose of Lasix as mentioned above. 2. Symptomatic anemia: Patient is having melena for the last few days. She is getting 2 units of PRBC transfusion. She has been started on Protonix. The rest of the management is as per GI recommendations. No need of further I.V. fluid hydration. Patient actually looks volume overloaded to me on clinical exam. 3. Hypertension: Okay to continue current dose of Amlodipine and Hydralazine with Isosorbide. I gave her a dose of I.V. Lasix as well. 4. Leukocytosis and fever: Patient had fever spike with a T-max of 100.7 degrees Fahrenheit. She is allergic to amoxicillin. I am going to empirically cover her for intraabdominal infection associated with GI bleed. 5. Secondary hyperparathyroidism: PTH is mildly elevated, no need of Calcitriol at this time. Thank you for involving me in the care of this patient. I shall be happy to follow the patient along with you tomorrow morning.
[2020-06-30] MEDS: **hydrALAZINE HCL** 25 MG TAB PO SCH ×4 (05:09→23:24)
[2020-06-30 06:00] VITALS: BP 157/83
[2020-06-30 06:28] LABS: HEMATOCRIT 27.8 % (36.0-47.0); HEMOGLOBIN 8.5 g/dl (12.0-15.5); MEAN CORPUSCULAR HEMOGLOBIN 28.1 pg (27.0-33.0); MEAN CORPUSCULAR HGB CONC 30.6 g/dl (32.0-36.5); MEAN CORPUSCULAR VOLUME 91.7 fl (80.0-96.0); PLATELET COUNT, AUTOMATED 225 10^3/uL (150-450); RED BLOOD COUNT 3.03 10^6/uL (4.00-5.40)
[2020-06-30 06:48] LABS: CALCIUM LEVEL 9.1 MG/DL (8.5-10.1); CREATININE FOR GFR 5.74 MG/DL (0.55-1.30); GLOMERULAR FILTRATION RATE 8.1 (>51); POTASSIUM SERUM 4.3 MEQ/L (3.5-5.1)
[2020-06-30] MEDS: IPRATROPIUM 0.5MG/ALBUTEROL 2.5MG INH SOL UD 3ML (DUONEB) NEB SCH ×4 (07:14→20:43)
[2020-06-30] MEDS: BUDESONIDE 0.5 MG/2 ML INHALATION SUSPENSION INH SCH ×2 (07:14→20:43)
[2020-06-30] MEDS: TIOTROPIUM INHALER/CAPSULE (SPIRIVA) INH SCH (07:15)
[2020-06-30] MEDS: PROPRANOLOL 20 MG TAB PO SCH ×2 (08:56→20:15)
[2020-06-30] MEDS: ISOSORBIDE MON. (IMDUR) 30 MG XR TAB PO SCH ×2 (08:56→20:15)
[2020-06-30] MEDS: VITAMIN D 1,000 INTERNATIONAL UNITS TABLET PO SCH (08:57)
[2020-06-30] MEDS: FERROUS SULFATE 325MG TAB PO SCH ×2 (08:57→20:15)
[2020-06-30] MEDS: ASCORBIC ACID 500 MG TAB PO SCH ×2 (08:57→17:03)
[2020-06-30] MEDS: PANTOPRAZOLE 40MG TAB (PROTONIX) PO SCH (08:58)
[2020-06-30] MEDS: prednisoLONE ACET 1% OPHTH SUSP 5ML OS SCH ×4 (10:37→20:16)
[2020-06-30] MEDS: OFLOXACIN 0.3 % (OCUFLOX) OPTH SOL 5ML OS SCH ×4 (10:37→20:16)
--- NOTE | 2020-06-30 11:14 | IPNPDOC ---
Date Seen The patient was seen on 06/30/20. Progress Note SUBJECTIVE: Patient denies bright red blood per rectum, melena, black tarry stools, coffee-ground emesis or hematemesis. She denies any lightheadedness, dizziness, shortness of breath that improved after a dose of Lasix and nebulizer treatment. Patient's hemoglobin increased from 7-8.5 after 2 units RBC transfusion. Postop management for her left eye per frit maker Recommendations. Patient had a fever 101.5 yesterday but denied any dysuria, urgency, frequency, chills, nausea, vomiting, abdominal pain, or cough. Patient refused CT chest, abdomen and pelvis this morning To determine cause of fever of unknown origin. Patient was empirically treated with IV meropenem, day #2 for possible intra-abdominal infection yesterday by nephrology. PHYSICAL EXAMINATION: VITAL SIGNS: See below GENERAL APPEARANCE: Postop Left eye with an eye patch . Postsurgical changes in the left jaw., No respiratory distress HEENT: No JVD, thyromegaly., Moist mucous membranes No carotid bruits or stridor CARDIOVASCULAR: Systolic ejection murmur at the apex. S1, S2 regular rate rhythm LUNGS: Air entry is equal bilaterally. Diminished breath sounds , No wheezing or rales ABDOMEN: Obese, soft, nontender, nondistended, positive bowel sounds 4 quadrants EXTREMITIES: No cyanosis or clubbing SKIN: Warm, dry, well perfused, pink in color LABORATORY DATA: See below. IMAGING: CXR 06/29/20 COMPARISON: 08/13/2019 TECHNIQUE: Portable AP view of the chest FINDINGS: The mediastinum and cardiac silhouette are stable and within normal limits for portable technique. The lung magana demonstrate chronic appearing changes although subtle basilar atelectasis/airspace disease cannot be excluded. No discrete focal consolidation, effusion, or pneumothorax. Skeletal structures are intact. IMPRESSION: Chronic appearing changes. As above. No discrete focal consolidation or effusion. <Electronically signed by Wally Rausch > 06/29/20 [id number] MICROBIOLOGY: Please see below. 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 She denied any bright red blood per rectum, hematemesis, coffee-ground emesis, epigastric pain, nausea, vomiting, but has been increasingly tired, weak and has been sleeping a lot at home. She denies any nonsteroidal anti-inflammatory usage as ibuprofen, Aleve, Naprosyn, and but admits to taking [facility] aspirin once daily. She denies any history of peptic ulcer disease, gastritis, esophagitis in the past and no history of hiatal hernia or gastroesophageal reflux disease. Patient has been taking hydrochlorothiazide and lisinopril for many years for her hypertension with no recent changes in dosage. She denies any diarrhea, nausea or vomiting and says that her urine has been clear yellow at home and has not d ecreased in amount over the past few days. She was scheduled to have a lens implant surgery today by Dr. Chow and had blood tests done a few days ago. Postoperatively at [facility]. Patient was called by her primary care physician who told her to come to the ER due to acute on chronic renal failure with creatinine of 5.94 and hemoglobin of 7. Hospitalist was called to admit the patient for evaluation of anemia as well as acute on chronic renal failure. Symptomatic anemia -Status post 2 units RBC transfusion on 06/29/2020 with appropriate increase in hemoglobin from 7-8.5 this morning. -She had complained of black tarry stools at home but has had none since she's been admitted on 06/29/2020. -On Protonix 40 mg daily Anemia of chronic disease -Rule out acute GI blood loss with Hemoccult stool -On iron and vitamin C -on Protonix for possible GI bleed Acute on chronic renal failure -Patient has baseline chronic kidney disease stage III and was chronically on hydrochlorothiazide and lisinopril without any changes in dose recently. -Oconnor to gravity, strict input and output to be documented, daily weights, serial basic metabolic panel to monitor for hyperkalemia and metabolic acidosis -Nephrology consulted -She denies any nonsteroidal anti-inflammatory use, sore throat, hypovolemiafrom nausea, vomiting or diarrhea or decreased oral intake -Nephrology recommends continued supportive care, but thinks it patient will return to her baseline chronic kidney disease stage III. After a few days Fever or unknown origin -Tmax 101.5 on 06/29/20 -empirically on iv meropenem for intraabdominal coverage 06/29/20 day #2 started by nephrology -cxr negative 06/29/20 -ua negative 06/29/20 -blood cx 06/29/20 no growth, but pending -pt refused ct chest abd pelvis ordered 06/30/20 -checked procalcitonin, esr, crp. Hypertension -Uncontrolled due to pain from left eyelid lens implant -Avoid Vargas inhibitors and diuretics due to renal failure -May use isosorbide and hydralazine for now Left eye lens implant -Patient was to have an ophthalmology exam one day status post surgery -Ophthalmology consulted for postop management of the left eye. COPD -Patient had wheezing on exam on admission 2020, but no pulmonary edema on chest x-ray. -Improved after 1 dose of Lasix and Nebulizer 4 times a day and every 2 hours needed. 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 History of tobacco abuse -Quit 6 years ago History of alcohol abuse -Quit Diet: renal diet CODE STATUS: Full code DVT prophylaxis: Compression stockings Disposition: 2- 3 days pending improvement in renal function VS, I&O, 24H, Fishbone Vital Signs/I&O Vital Signs Date Time Temp Pulse Resp B/P (MAP) Pulse Ox O2 Delivery O2 Flow Rate FiO2 06/30/20 09:00 2.0 06/30/20 08:57 79 140/71 06/30/20 06:00 98.4 18 96 Nasal Cannula 06/29/20 17:00 98 I&O- Last 24 Hours up to 6 AM 06/30/20 06:00 Intake Total 2450 ml Output Total 2850 ml Balance -400 ml Laboratory Data 24H LABS Laboratory Tests 2 06/29/20 11:25: Immature Granulocyte % (Auto) 0.4, Neutrophils (%) (Auto) 78.0H, Lymphocytes (%) (Auto) 12.6L, Monocytes (%) (Auto) 7.0H, Eosinophils (%) (Auto) 1.6, Basophils (%) (Auto) 0.4, Neutrophils # (Auto) 10.5H, Lymphocytes # (Auto) 1.7, Monocytes # (Auto) 1.0H, Eosinophils # (Auto) 0.2, Basophils # (Auto) 0.1, Nucleated Red Blood Cells % (auto) 0.0, Prothrombin Time 13.7, Prothromb Time International Ratio 1.03, Activated Partial Thromboplast Time 40.1H, Anion Gap 6L, Glomerular Filtration Rate 7.8L, Calcium Level 9.0, Iron Level 30L, Total Iron Binding Capacity 367, Transferrin % Saturation 8.2L, Ferritin 8, Total Bilirubin 0.2, Aspartate Amino Transf (AST/SGOT) 5L, Alanine Aminotransferase (ALT/SGPT) 18, Alkaline Phosphatase 122H, Total Protein 6.9, Albumin 3.9, Albumin/Globulin Ratio 1.3, Vitamin B12 Level 357, Folate 10.9 06/29/20 12:01: SARS Antigen (LFIA) NEGATIVE 06/29/20 12:31: Coronavirus (COVID-19)(PCR) NEGATIVE, Influenza Type A (RT-PCR) NEGATIVE, Influenza Type B (RT-PCR) NEGATIVE, Respiratory Syncytial Virus (PCR) NEGATIVE 06/29/20 14:22: Reticulocyte # (auto) 28.5, Differential Slide Review Report, Peripheral Blood Smear Path Consult PERIPHERAL SMEAR, Percent Reticulocyte Count 1.1, Reticulocyte Hemoglobin Equivalent 28.6, Parathyroid Hormone (Intact) 101.3H, Hepatitis A IgM Antibody NEGATIVE, Hepatitis B Surface Antigen NEGATIVE, Hepatitis B Core IgM Antibody NEGATIVE, Hepatitis C Antibody Index < 0.0 06/29/20 14:52: Urine Random Creatinine 37.3, Urine Random Sodium 48 06/29/20 19:34: Urine Color COLORLESS, Urine Appearance CLEAR, Urine pH 7.0, Urine Specific [place] 1.005, Urine Protein 1+H, Urine Glucose (Auto)(UA) NEGATIVE, Urine Ketones (Auto) NEGATIVE, Urine Blood NEGATIVE, Urine Nitrite NEGATIVE, Urine Bilirubin NEGATIVE, Urine Urobilinogen 0.2, Urine Leukocyte Esterase (Auto) NEGATIVE, Urine WBC (Auto) 1, Urine RBC (Auto) 0, Urine Hyaline Casts (Auto) 0, Urine Bacteria (Auto) NEGATIVE, Urine Squamous Epithelial Cells 1, Urine Sperm (Auto) 06/30/20 05:59: Nucleated Red Blood Cells % (auto) 0.0, Anion Gap 8, Glomerular Filtration Rate 8.1L, Calcium Level 9.1, Magnesium Level 2.6H 06/30/20 08:22: Erythrocyte Sedimentation Rate 106H, C-Reactive Protein, Quantitative 0.66H 06/30/20 09:49: Lab Scanned Report Transfusion Record CBC/BMP Laboratory Tests 06/29/20 11:25 06/30/20 05:59 Microbiology Microbiology 06/30/20 Blood Culture, Received Pending 06/30/20 Blood Culture, Received Pending 06/29/20 Blood Culture, Received Pending LATIA GALEAS MD Jun 30, 2020 11:12
[2020-06-30] MEDS ORDERED: FUROSEMIDE 40MG/4ML VIAL (J1940) IV ONE (12:00)
--- NOTE | 2020-06-30 12:46 | IPN ---
PROGRESS NOTE DATE: 06/30/2020 SUBJECTIVE: The patient was seen and examined at the bedside today morning. She reports that her left eye dressing has been removed. She is nonoliguric. She was given blood yesterday along with a dose of Lasix. Renal function is slightly better today. Creatinine has improved from 5.9 to 5.4 today. OBJECTIVE: VITAL SIGNS: Temperature is 98.4 degrees Fahrenheit, blood pressure 140/71, pulse 79, respiratory rate 18, saturating 96% on nasal cannula at 2 liters. INTAKE AND OUTPUT: Urine output recorded at 1.6 liters yesterday and 1.2 liters so far today since overnight. Weight on the bed scale is 77.8 kg. GENERAL APPEARANCE: The patient is awake, alert, and oriented x3. HEAD AND NECK: The left eye has slight ecchymosis from recent surgery. Mucous membranes are moist. Neck is supple with mildly elevated JVD. CARDIOVASCULAR: S1, S2. Regular rate. EXTREMITIES: Trace edema of the bilateral lower extremities. RESPIRATORY: She is oxygen-dependent. Decreased breath sounds at the bases with mild inspiratory crackles at the bases on deep inspiration. ABDOMEN: Soft and obese with positive bowel sounds and nontender with no organomegaly. GENITOURINARY: Bladder is nonpalpable. MUSCULOSKELETAL: No clubbing or cyanosis. Pulses are 2+. JALOUSIE INSTALLER: No focal deficits. Power is 5/5 in all extremities. LABORATORY REVIEW: CBC showed WBC of 12, hemoglobin 8.5, platelets 225,000. BMP showed sodium 138, potassium 4.3, chloride 106, bicarb 24, BUN 68, creatinine 5.7 it was 5.9 yesterday. Magnesium 2.6. C-reactive protein is 0.66. Microbiology: Blood cultures and urine cultures are pending. Hematology: Peripheral blood smear was done, which showed normocytic normochromic anemia. Leukocytosis associated with neutrophilia. Monocytosis and lymphocytopenia. CURRENT INPATIENT MEDICATIONS: The patient's medications were all reviewed by myself. She was started on IV meropenem yesterday because of fevers. I have given her another dose of Lasix 40 mg IV today. No other significant changes in the medications today as compared with yesterday. ASSESSMENT AND PLAN: 1. Acute nonoliguric renal failure. The patient was given a dose of Lasix with blood and fluids that were given initially. She is making a good amount of urine. Continue to monitor for improvement of the renal function. 2. Symptomatic anemia. The patient got two units of packed red blood cells (PRBC) transfusion. Hemoglobin level is 8.5. Workup for gastrointestinal (GI) bleed is as per medical team. 3. Hypertension. Blood pressure is controlled with current dose of amlodipine and hydralazine with isosorbide. 4. Fever and leukocytosis. Cultures are negative so far. She was stared on IV meropenem yesterday and currently, she is fever free. 5. Chronic O2 dependence and evidence of volume overload on clinical exam. I have ordered an echocardiogram to check for left ventricular (LV) ejection fraction and any evidence of congestive heart failure.
[2020-06-30 14:00] VITALS: BP 138/76
[2020-06-30 22:00] VITALS: BP 150/77
[2020-06-30] MEDS: MEROPENEM INJ 500 MG in IV 1 EA IV SCH (23:22)
[2020-07-01] MEDS: **hydrALAZINE HCL** 25 MG TAB PO SCH ×3 (05:42→17:35)
[2020-07-01 05:56] LABS: HEMATOCRIT 26.3 % (36.0-47.0); HEMOGLOBIN 8.1 g/dl (12.0-15.5); MEAN CORPUSCULAR HEMOGLOBIN 27.6 pg (27.0-33.0); MEAN CORPUSCULAR HGB CONC 30.8 g/dl (32.0-36.5); MEAN CORPUSCULAR VOLUME 89.5 fl (80.0-96.0); PLATELET COUNT, AUTOMATED 234 10^3/uL (150-450); RED BLOOD COUNT 2.94 10^6/uL (4.00-5.40); WHITE BLOOD COUNT 12.8 10^3/uL (4.0-10.0)
[2020-07-01] MEDS: IPRATROPIUM 0.5MG/ALBUTEROL 2.5MG INH SOL UD 3ML (DUONEB) NEB PRN ×2 (05:59→22:23)
[2020-07-01 06:00] VITALS: BP 143/75
[2020-07-01 06:21] LABS: CALCIUM LEVEL 8.8 MG/DL (8.5-10.1); CREATININE FOR GFR 5.99 MG/DL (0.55-1.30); GLOMERULAR FILTRATION RATE 7.7 (>51); POTASSIUM SERUM 4.5 MEQ/L (3.5-5.1)
[2020-07-01] MEDS: IPRATROPIUM 0.5MG/ALBUTEROL 2.5MG INH SOL UD 3ML (DUONEB) NEB SCH ×4 (07:31→20:36)
[2020-07-01] MEDS: TIOTROPIUM INHALER/CAPSULE (SPIRIVA) INH SCH (07:31)
[2020-07-01] MEDS: BUDESONIDE 0.5 MG/2 ML INHALATION SUSPENSION INH SCH ×2 (07:31→20:36)
--- NOTE | 2020-07-01 08:17 | REP ---
INDICATION: cough COMPARISON: 06/29/2020 TECHNIQUE: Portable AP view of the chest FINDINGS: The mediastinum and cardiac silhouette are stable and within normal limits for portable technique. The lung magana demonstrate improved aeration. No focal consolidation, obvious effusion or pneumothorax. Skeletal structures stable. IMPRESSION: No obvious focal consolidation or effusion. <Electronically signed by Wally Rausch > 07/01/20 0811
[2020-07-01] MEDS: VITAMIN D 1,000 INTERNATIONAL UNITS TABLET PO SCH (08:28)
[2020-07-01] MEDS: ASCORBIC ACID 500 MG TAB PO SCH ×2 (08:28→17:31)
[2020-07-01] MEDS: FERROUS SULFATE 325MG TAB PO SCH ×2 (08:28→20:28)
[2020-07-01] MEDS: PANTOPRAZOLE 40MG TAB (PROTONIX) PO SCH (08:29)
[2020-07-01] MEDS: ISOSORBIDE MON. (IMDUR) 30 MG XR TAB PO SCH ×2 (08:29→20:28)
[2020-07-01] MEDS: OFLOXACIN 0.3 % (OCUFLOX) OPTH SOL 5ML OS SCH ×4 (08:32→20:28)
[2020-07-01] MEDS: prednisoLONE ACET 1% OPHTH SUSP 5ML OS SCH ×4 (08:32→20:28)
[2020-07-01] MEDS: PROPRANOLOL 20 MG TAB PO SCH ×2 (08:59→20:36)
--- NOTE | 2020-07-01 11:42 | IPNPDOC ---
Date Seen The patient was seen on 07/01/20. Progress Note SUBJECTIVE: diuresed 3.1 L after Lasix yesterday with creatinine increasing to 5.9 this morning Shortness of breath is improved. No fever, chills, cough, chest x-ray, no edema PHYSICAL EXAMINATION: VITAL SIGNS: See below I/o GENERAL APPEARANCE: Postop Left eye without erythema Postsurgical changes in the left jaw., No respiratory distress HEENT: No JVD, thyromegaly., Moist mucous membranes No carotid bruits or stridor CARDIOVASCULAR: Systolic ejection murmur at the apex. S1, S2 regular rate rhythm LUNGS: Air entry is equal bilaterally. Diminished breath sounds , No wheezing or rales ABDOMEN: Obese, soft, nontender, nondistended, positive bowel sounds 4 quadrants EXTREMITIES: No cyanosis or clubbing SKIN: Warm, dry, well perfused, pink in color LABORATORY DATA: See below. IMAGING: CXR 06/29/20 COMPARISON: 08/13/2019 TECHNIQUE: Portable AP view of the chest FINDINGS: The mediastinum and cardiac silhouette are stable and within normal limits for portable technique. The lung magana demonstrate chronic appearing changes although subtle basilar atelectasis/airspace disease cannot be excluded. No discrete focal consolidation, effusion, or pneumothorax. Skeletal structures are intact. IMPRESSION: Chronic appearing changes. As above. No discrete focal consolidation or ef fusion. <Electronically signed by Wally Rausch > 06/29/20 1724 MICROBIOLOGY: Please see below. 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 She denied any bright red blood per rectum, hematemesis, coffee-ground emesis, epigastric pain, nausea, vomiting, but has been increasingly tired, weak and has been sleeping a lot at home. She denies any nonsteroidal anti-inflammatory usage as ibuprofen, Aleve, Naprosyn, and but admits to taking [facility] aspirin once daily. She denies any history of peptic ulcer disease, gastritis, esophagitis in the past and no history of hiatal hernia or gastroesophageal reflux disease. Patient has been taking hydrochlorothiazide and lisinopril for many years for her hypertension with no recent changes in dosage. She denies any diarrhea, nausea or vomiting and says that her urine has been clear yellow at home and has not decreased in amount over the past few days. She was scheduled to have a lens implant surgery today by Dr. Chow and had blood tests done a few days ago. Postoperatively at [facility]. Patient was called by her primary care physician who told her to come to the ER due to acute on chronic renal failure with creatinine of 5.94 and hemoglobin of 7. Hospitalist was called to admit the patient for evaluation of anemia as well as acute on chronic renal failure. Symptomatic anemia -Status post 2 units RBC transfusion on 06/29/2020 with appropriate increase in hemoglobin from 7-8. this morning. -She had complained of black tarry stools at home but has had none since she's been admitted on 06/29/2020. -On Protonix 40 mg daily -Denies overt GI bleed including hematemesis, coffee-ground emesis, bright red blood per rectum, melena, or black tarry stools during his hospital admission Anemia of chronic disease -Rule out acute GI blood loss with Hemoccult stool-patient hasn't had a bowel movement yet -On iron and vitamin C -on Protonix for possible GI bleed Acute on chronic renal failure -Patient has baseline chronic kidney disease stage III and was chronically on hydrochlorothiazide and lisinopril without any changes in dose recently. -Oconnor to gravity, strict input and output to be documented, daily weights, serial basic metabolic panel to monitor for hyperkalemia and metabolic acidosis -Nephrology consulted -She denies any nonsteroidal anti-inflammatory use, sore throat, hypovolemiafrom nausea, vomiting or diarrhea or decreased oral intake -Status post Lasix for 3.1 L diuresis overnight, but with worsening creatinine 5.99 -Not ready for discharge per nephrology. For now will need to continue to monitor Fever or unknown origin -Tmax 101.5 on 06/29/20 -empirically on iv meropenem for intraabdominal coverage 06/29/20 day #3 started by nephrology -cxr negative 06/29/20 -ua negative 06/29/20 -blood cx 06/29/20 no growth, but pending -pt refused ct chest abd pelvis ordered 06/30/20 -Pro, calcium, and 0.18. Antibiotics are discouraged - meropenem discontinued today Hypertension -Uncontrolled due to pain from left eyelid lens implant -Avoid Vargas inhibitors and diuretics due to renal failure -May use isosorbide and hydralazine for now Left eye lens implant -Patient was to have an ophthalmology exam one day status post surgery -Ophthalmology consulted for postop management of the left eye. COPD -Patient had wheezing on exam on admission 2020, but no pulmonary edema on chest x-ray. -Improved after 2 doses of Lasix and Nebulizer 4 times a day and every 2 hours needed. 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 VS, I&O, 24H, Fishbone Vital Signs/I&O Vital Signs Date Time Temp Pulse Resp B/P (MAP) Pulse Ox O2 Delivery O2 Flow Rate FiO2 07/01/20 11:00 67 12 07/01/20 09:05 2.0 07/01/20 08:30 146/76 07/01/20 06:00 99.1 97 Nasal Cannula 06/29/20 17:00 98 I&O- Last 24 Hours up to 6 AM 07/01/20 06:00 Intake Total 1580 ml Output Total 2600 ml Balance -1020 ml Laboratory Data 24H LABS Laboratory Tests 2 07/01/20 05:33: Nucleated Red Blood Cells % (auto) 0.0, Anion Gap 10, Glomerular Filtration Rate 7.7L, Calcium Level 8.8 CBC/BMP Laboratory Tests 07/01/20 05:33 Microbiology Microbiology 06/30/20 Blood Culture - Preliminary, Resulted No growth after 24 hours . All specim... 06/30/20 Blood Culture - Preliminary, Resulted No growth after 24 hours . All specim... 06/29/20 Blood Culture - Preliminary, Resulted No growth after 24 hours . All specim... LATIA GALEAS MD Jul 01, 2020 11:42
[2020-07-01] MEDS: SENOKOT S TAB PO PRN (12:20)
[2020-07-01 13:07] LABS: ANTINUCLEAR ANTIBODIES DIRECT Negative (Negative)
[2020-07-01 14:00] VITALS: BP 141/73
[2020-07-01] MEDS: ACETAMINOPHEN TAB 650MG DOSE (2X325MG) PO PRN (20:36)
--- NOTE | 2020-07-01 21:20 | IPN ---
NEPHROLOGY PROGRESS NOTE DATE: 07/01/2020 SUBJECTIVE: The patient was seen and examined at the bedside today morning. She was diuresed yesterday. Her breathing is better, however renal function is worse. Creatinine has bumped up to 5.9. She denies any active complaints at this time. OBJECTIVE: VITAL SIGNS: Temperature is 98.5 degrees Fahrenheit, blood pressure 141/73, pulse of 77, respiratory rate of 22, saturating 97% on nasal cannula at 2 liters. INTAKE AND OUTPUT: Urine output recorded as 3.1 liters yesterday, 700 mL by the time I saw her in the morning. Weight in the bed scale is 77.2 kg. PHYSICAL EXAMINATION: GENERAL APPEARANCE: The patient is awake, alert, oriented x3. HEAD AND NECK: Extraocular muscles intact. Pupils are equally round and reactive to light. Mucous membranes are moist. Neck is supple. There is no jugular venous distention. CARDIOVASCULAR: S1, S2, regular rate. EXTREMITIES: No significant edema of the bilateral lower extremities. RESPIRATORY: Decreased breath sounds bilateral at the bases. She is chronically O2 dependent. Mild inspiratory crackles at the bases. ABDOMEN: Soft, obese, positive bowel sounds, nontender, no organomegaly. GENITOURINARY: Bladder is not palpable. MUSCULOSKELETAL: No clubbing, no cyanosis. Pulses are 2+. 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 Power is 5/5 in all extremities. LAB REVIEW: CBC showed a white blood cell count of 12.8, hemoglobin 8.1, platelet count 234. BMP showed sodium of 139, potassium 4.5, chloride 106, bicarbonate 23, BUN 73, creatinine is 5.9. Immunology Hep screen is negative. Microbiology cultures are all negative. IMAGING: A chest x-ray was done today morning which showed no obvious focal consolidation or effusion. CURRENT INPATIENT MEDICATIONS: The patient's medications were all reviewed by myself. She is currently not on any diuretics at this time. Meropenem has been stopped now. ASSESSMENT AND PLAN: 1. Acute renal failure - The patient has non oliguric renal failure. She was given diuretics 2 days in a row. Currently she is making more than a liter of urine a day. I am hopeful that her renal function should start improving over the next 24-48 hours. 2. Symptomatic anemia - The patient is status post PRBC transfusion. Hemoglobin is stable at this time. 3. Hypertension - continue current antihypertensive regimen. Avoid ann or ARB at this time. 4. Fever and leukocytosis cultures are negative so far. Meropenem has been stopped. 5. Disposition if the patient's renal function starts improving over the next 24-48 hours, then she will be discharged and follow up with Nephrology Service as an outpatient. YADIRA
[2020-07-01 22:00] VITALS: BP 154/83
[2020-07-02] MEDS: IPRATROPIUM 0.5MG/ALBUTEROL 2.5MG INH SOL UD 3ML (DUONEB) NEB PRN ×2 (02:12→04:12)
[2020-07-02 06:00] VITALS: BP 139/76
[2020-07-02] MEDS: **hydrALAZINE HCL** 25 MG TAB PO SCH ×4 (06:00→18:00)
[2020-07-02 06:22] LABS: HEMATOCRIT 26.6 % (36.0-47.0); HEMOGLOBIN 8.3 g/dl (12.0-15.5); MEAN CORPUSCULAR HGB CONC 31.2 g/dl (32.0-36.5); MEAN CORPUSCULAR VOLUME 89.9 fl (80.0-96.0); PLATELET COUNT, AUTOMATED 201 10^3/uL (150-450); RED BLOOD COUNT 2.96 10^6/uL (4.00-5.40); WHITE BLOOD COUNT 10.5 10^3/uL (4.0-10.0)
[2020-07-02 06:48] LABS: CALCIUM LEVEL 9.3 MG/DL (8.5-10.1); CREATININE FOR GFR 6.12 MG/DL (0.55-1.30); GLOMERULAR FILTRATION RATE 7.5 (>51); POTASSIUM SERUM 4.5 MEQ/L (3.5-5.1)
[2020-07-02] MEDS: BUDESONIDE 0.5 MG/2 ML INHALATION SUSPENSION INH SCH ×2 (07:05→20:20)
[2020-07-02] MEDS: IPRATROPIUM 0.5MG/ALBUTEROL 2.5MG INH SOL UD 3ML (DUONEB) NEB SCH ×4 (07:05→20:20)
[2020-07-02] MEDS: TIOTROPIUM INHALER/CAPSULE (SPIRIVA) INH SCH (07:05)
[2020-07-02] MEDS ORDERED: SODIUM CHLORIDE 0.45% 1000 ML IV ONE (07:30)
[2020-07-02] MEDS: PANTOPRAZOLE 40MG TAB (PROTONIX) PO SCH (08:35)
[2020-07-02] MEDS: FERROUS SULFATE 325MG TAB PO SCH ×2 (08:35→20:48)
[2020-07-02] MEDS: ASCORBIC ACID 500 MG TAB PO SCH ×2 (08:35→18:16)
[2020-07-02] MEDS: SENOKOT S TAB PO PRN (08:35)
[2020-07-02] MEDS: PROPRANOLOL 20 MG TAB PO SCH ×2 (08:36→20:48)
[2020-07-02] MEDS: ISOSORBIDE MON. (IMDUR) 30 MG XR TAB PO SCH ×2 (08:36→20:49)
[2020-07-02] MEDS: OFLOXACIN 0.3 % (OCUFLOX) OPTH SOL 5ML OS SCH ×4 (08:37→21:00)
[2020-07-02] MEDS: VITAMIN D 1,000 INTERNATIONAL UNITS TABLET PO SCH (08:37)
[2020-07-02] MEDS: prednisoLONE ACET 1% OPHTH SUSP 5ML OS SCH ×4 (08:37→21:00)
[2020-07-02] MEDS ORDERED: NS 0.45% 1,000 ML IV SCH (09:15)
--- NOTE | 2020-07-02 10:56 | IPNPDOC ---
Date Seen The patient was seen on 07/02/20. Progress Note SUBJECTIVE: The patient was seen and examined at the bedside. No issues overnight per nursing. Patient is irritable this morning demanding to be discharged home. "I'm not doing anything here that I can't do at home." Patient was given AGAINST MEDICAL ADVICE Instructions, stating the benefit of staying to Monitor and treat her renal failure if needed, and risk Of acidosis, hyperkalemia, which can contribute to arrhythmia If not monitored, as well as fluid overload , which can lead to respiratory distress. Patient denies Shortness of breath, , cough. OBJECTIVE: PHYSICAL EXAMINATION: VITAL SIGNS: See below I/o: Negative balance Weight on admission 77.5. Current weight 71.8 GENERAL APPEARANCE: Irritable . Postop Left eye without erythema Postsurgical changes in the left jaw, No respiratory distress HEENT: No JVD, thyromegaly Moist mucous membranes No carotid bruits or stridor CARDIOVASCULAR: Systolic ejection murmur at the apex. S1, S2 regular rate rhythm LUNGS: Air entry is equal bilaterally. Diminished breath sounds , No wheezing or rales ABDOMEN: Obese, soft, nontender, nondistended, positive bowel sounds 4 quadrants EXTREMITIES: No cyanosis or clubbing SKIN: Warm, dry, well perfused, pink in color LABORATORY DATA: See below. IMAGING: CXR 06/29/20 COMPARISON: 08/13/2019 TECHNIQUE: Portable AP view of the chest FINDINGS: The mediastinum and cardiac silhouette are stable and within normal limits for portable technique. The lung magana demonstrate chronic appearing changes although subtle basilar atelectasis/airspace disease cannot be excluded. No discrete fo devon consolidation, effusion, or pneumothorax. Skeletal structures are intact. IMPRESSION: Chronic appearing changes. As above. No discrete focal consolidation or effusion. <Electronically signed by Wally Rausch > 06/29/20 [id number] MICROBIOLOGY: Please see below. 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 She denied any bright red blood per rectum, hematemesis, coffee-ground emesis, epigastric pain, nausea, vomiting, but has been increasingly tired, weak and has been sleeping a lot at home. She denies any nonsteroidal anti-inflammatory usage as ibuprofen, Aleve, Naprosyn, and but admits to taking [facility] aspirin once daily. She denies any history of peptic ulcer disease, gastritis, esophagitis in the past and no history of hiatal hernia or gastroesophageal reflux disease. Patient has been taking hydrochlorothiazide and lisinopril for many years for her hypertension with no recent changes in dosage. She denies any diarrhea, nausea or vomiting and says that her urine has been clear yellow at home and has not decreased in amount over the past few days. She was scheduled to have a lens implant surgery today by Dr. Chow and had blood tests done a few days ago. Postoperatively at [facility]. Patient was called by her primary care physician who told her to come to the ER due to acute on chronic renal failure with creatinine of 5.94 and hemoglobin of 7. Hospitalist was called to admit the patient for evaluation of anemia as well as acute on chronic renal failure. Symptomatic anemia, resolved -Status post 2 units RBC transfusion on 06/29/2020 with appropriate increase in hemoglobin -On Protonix 40 mg daily -On iron and vitamin C Anemia of chronic disease -Rule out acute GI blood loss with Hemoccult stool-patient hasn't had a bowel movement yet -On iron and vitamin C -on Protonix for possible GI bleed Acute on chronic renal failure, now stage V -Patient has baseline chronic kidney disease stage III and was chronically on hydrochlorothiazide and lisinopril without any changes in dose recently. -Oconnor to gravity, strict input and output to be documented, daily weights, serial basic metabolic panel to monitor for hyperkalemia and metabolic acidosis -Nephrology consulted -She denies any nonsteroidal anti-inflammatory use, sore throat, hypovolemia from nausea, vomiting or diarrhea or decreased oral intake -Status post Lasix for 3.1 L diuresis overnight, but with worsening creatinine over 6.0 with GFR of 15 -Not ready for discharge per nephrology. For now will need to continue to monitor Fever or unknown origin -Tmax 101.5 on 06/29/20 -empirically on iv meropenem for intraabdominal coverage 06/29/20 day #3 started by nephrology -cxr negative 06/29/20 -ua negative 06/29/20 -blood cx 06/29/20 no growth -pt refused ct chest abd pelvis ordered 06/30/20 -Pro calcitonin and 0.18. Antibiotics are discouraged - meropenem discontinued due to negative for PRO-calcitonin Hypertension -due to pain from left eyelid lens implant -Avoid Vargas inhibitors and diuretics due to renal failure -May use isosorbide and hydralazine for now Left eye lens implant -Patient was to have an ophthalmology exam one day status post surgery -Ophthalmology consulted for postop management of the left eye. COPD -Patient had wheezing on exam on admission 2020, but no pulmonary edema on chest x-ray. -Improved after 2 doses of Lasix and Nebulizer 4 times a day and every 2 hours needed. 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 History of tobacco abuse -Quit 6 years ago History of alcohol abuse -Quit Diet: renal diet CODE STATUS: Full code Disposition: Pending nephrology clearance VS, I&O, 24H, Bruce Vital Signs/I&O Vital Signs Date Time Temp Pulse Resp B/P (MAP) Pulse Ox O2 Delivery O2 Flow Rate FiO2 07/02/20 08:36 69 139/75 07/02/20 08:20 2.0 07/02/20 06:00 98.0 18 97 Nasal Cannula 06/29/20 17:00 98 I&O- Last 24 Hours up to 6 AM 07/02/20 05:59 Intake Total 1010 ml Output Total 2300 ml Balance -1290 ml Laboratory Data 24H LABS Laboratory Tests 2 07/02/20 06:10: Nucleated Red Blood Cells % (auto) 0.0, Anion Gap 10, Glomerular Filtration Rate 7.5L, Calcium Level 9.3 CBC/BMP Laboratory Tests 07/02/20 06:10 Microbiology Microbiology 06/30/20 Blood Culture - Preliminary, Resulted No Growth after 48 hours. All Specime... 06/30/20 Blood Culture - Preliminary, Resulted No Growth after 48 hours. All Specime... 06/29/20 Blood Culture - Preliminary, Resulted No Growth after 48 hours. All Specime... LATIA GALEAS MD Jul 02, 2020 10:56
[2020-07-02 14:00] VITALS: BP 138/76
[2020-07-02] MEDS: ACETAMINOPHEN TAB 650MG DOSE (2X325MG) PO PRN (14:02)
[2020-07-02] MEDS: MIRALAX *UNIT DOSE* 17GM PACKET PO PRN (14:02)
[2020-07-02 14:37] LABS: ALBUMIN 3.3 GM/DL (3.2-5.2); BLOOD UREA NITROGEN 76 MG/DL (7-18); CARBON DIOXIDE LEVEL 24 MEQ/L (21-32); CHLORIDE LEVEL 105 MEQ/L (98-107); CREATININE FOR GFR 5.83 MG/DL (0.55-1.30); GLOMERULAR FILTRATION RATE 7.9 (>51); GLUCOSE, FASTING 98 MG/DL (70-100); PHOSPHORUS LEVEL 6.4 MG/DL (2.5-4.9); POTASSIUM SERUM 4.4 MEQ/L (3.5-5.1); SODIUM LEVEL 138 MEQ/L (136-145)
[2020-07-02] MEDS: SODIUM CHLORIDE 0.9% NASAL GEL 15GM (AYR) SCH ×2 (15:26→22:33)
[2020-07-02 17:46] LABS: TOTAL PROTEIN 6.1 GM/DL (6.4-8.2)
--- NOTE | 2020-07-02 18:03 | IPN ---
PROGRESS NOTE DATE: 07/02/2020 SUBJECTIVE: Patient was seen and examined at the bedside today morning. Patient was given intravenous (IV) normal saline bolus, and she has been started on half-normal saline, because her renal function continues to get worse despite her being nonoliguric and making 2 liters of urine a day. Patient reports that her shortness of breath is getting worse, and she wants to walk around. She continues to be on 2 liters nasal cannula, which is her baseline requirement. OBJECTIVE: Vital signs: Temperature is 97.1 degrees Fahrenheit, blood pressure 138/76, pulse is 77, respiratory rate of 17, saturating 98% on nasal cannula at 2 liters. Intake and output: Urine output recorded is 2300 mL yesterday, 800 mL so far today since overnight. Weight in the bed scale is 71.8 kg. PHYSICAL EXAMINATION: GENERAL: Patient is awake, alert, oriented times three, morbidly obese, sitting up in bed in no apparent distress. HEAD AND NECK: Extraocular muscles intact. Pupils are equally round and reactive to light. Mucous membranes are moist. Neck is supple. No jugular venous distention (JVD). CARDIOVASCULAR: S1, S2, regular rate. No edema of the bilateral lower extremities. RESPIRATORY: Decreased breath sounds at the bases. Patient is chronically home oxygen dependent, and she is currently on 2 liters. ABDOMEN: Distended, nontender. GENITOURINARY: Bladder is not palpable. MUSCULOSKELETAL: No clubbing or cyanosis. Pulses are 2+. CENTRAL NERVOUS SYSTEM: No focal deficit. Power is 5/5 in all extremities. LABORATORY REVIEW: CBC showed a WBC 10.5, hemoglobin is 8.3, platelets are 201. BMP showed sodium 138, potassium 4.4, chloride 105, bicarbonate 24, BUN 76, creatinine is 5.8; it was 6.1 early in the morning. Phosphorus is 6.4. CURRENT INPATIENT MEDICATIONS: Patient's medications were all reviewed by myself. She was given half-normal saline 500 mL IV bolus today in the morning. She was getting half-normal saline at 100 mL an hour in the morning when I saw her. No other significant change in the medications today as compared with yesterday. ASSESSMENT AND PLAN: 1. Acute nonoliguric renal failure. Patient is making more than 2 liters of urine a day; however, creatinine was going up. She was given half-normal saline, but she reports her shortness of breath gets worse with fluids, so fluids have been stopped. I am hopeful that her renal function should get better, since patient is autodiuresing. Most likely patient is having recovery after acute tubular necrosis (ATN). 2. Symptomatic anemia. Hemoglobin level is stable at 8.3 at this time. Serum protein electrophoresis (SPEP) level is pending. 3. Hypertension. Continue current antihypertensive. Avoid angiotensin-converting enzyme (VEL) and angiotensin-receptor skyler (ARB) at this time.
[2020-07-02] MEDS: LATANOPROST 0.005% OPHTH SOLN 2.5 ML OS SCH (21:00)
[2020-07-02 22:00] VITALS: BP 152/72
[2020-07-03] MEDS: IPRATROPIUM 0.5MG/ALBUTEROL 2.5MG INH SOL UD 3ML (DUONEB) NEB PRN ×2 (01:48→23:51)
[2020-07-03] MEDS: **hydrALAZINE HCL** 25 MG TAB PO SCH ×4 (05:57→18:00)
[2020-07-03 06:00] VITALS: BP 147/76
[2020-07-03 06:32] LABS: HEMATOCRIT 27.6 % (36.0-47.0); HEMOGLOBIN 8.6 g/dl (12.0-15.5); MEAN CORPUSCULAR HEMOGLOBIN 27.9 pg (27.0-33.0); MEAN CORPUSCULAR HGB CONC 31.2 g/dl (32.0-36.5); MEAN CORPUSCULAR VOLUME 89.6 fl (80.0-96.0); PLATELET COUNT, AUTOMATED 222 10^3/uL (150-450); RED BLOOD COUNT 3.08 10^6/uL (4.00-5.40)
[2020-07-03 07:03] LABS: CALCIUM LEVEL 9.7 MG/DL (8.5-10.1); CREATININE FOR GFR 5.75 MG/DL (0.55-1.30); GLOMERULAR FILTRATION RATE 8.1 (>51); POTASSIUM SERUM 4.5 MEQ/L (3.5-5.1)
[2020-07-03] MEDS: BUDESONIDE 0.5 MG/2 ML INHALATION SUSPENSION INH SCH ×2 (07:19→19:58)
[2020-07-03] MEDS: TIOTROPIUM INHALER/CAPSULE (SPIRIVA) INH SCH (07:19)
[2020-07-03] MEDS: IPRATROPIUM 0.5MG/ALBUTEROL 2.5MG INH SOL UD 3ML (DUONEB) NEB SCH ×4 (07:19→19:58)
[2020-07-03] MEDS: PANTOPRAZOLE 40MG TAB (PROTONIX) PO SCH (08:09)
[2020-07-03] MEDS: VITAMIN D 1,000 INTERNATIONAL UNITS TABLET PO SCH (08:11)
[2020-07-03] MEDS: FERROUS SULFATE 325MG TAB PO SCH ×2 (08:11→20:44)
[2020-07-03] MEDS: PROPRANOLOL 20 MG TAB PO SCH ×2 (08:11→20:44)
[2020-07-03] MEDS: ISOSORBIDE MON. (IMDUR) 30 MG XR TAB PO SCH ×2 (08:11→20:44)
[2020-07-03] MEDS: ASCORBIC ACID 500 MG TAB PO SCH (08:11)
[2020-07-03] MEDS: SODIUM CHLORIDE 0.9% NASAL GEL 15GM (AYR) SCH ×2 (08:12→20:45)
[2020-07-03] MEDS: prednisoLONE ACET 1% OPHTH SUSP 5ML OS SCH ×4 (09:00→20:46)
[2020-07-03] MEDS: OFLOXACIN 0.3 % (OCUFLOX) OPTH SOL 5ML OS SCH ×4 (09:00→20:46)
--- NOTE | 2020-07-03 12:15 | IPNPDOC ---
Date Seen The patient was seen on 07/03/20. Progress Note SUBJECTIVE: sob improved after ivfluids discontinued by nephrology creatinine improving slightly no new c/o. OBJECTIVE: PHYSICAL EXAMINATION: VITAL SIGNS: See below I/o: Negative balance Weight on admission 77.5. GENERAL APPEARANCE: aaox3 no distress HEENT: No JVD, thyromegaly Moist mucous membranes No carotid bruits or stridor CARDIOVASCULAR: Systolic ejection murmur at the apex. S1, S2 regular rate rhythm LUNGS: Air entry is equal bilaterally. Diminished breath sounds , No wheezing or rales ABDOMEN: Obese, soft, nontender, nondistended, positive bowel sounds 4 quadrants EXTREMITIES: No cyanosis or clubbing SKIN: Warm, dry, well perfused, pink in color LABORATORY DATA: See below. IMAGING: CXR 06/29/20 COMPARISON: 08/13/2019 TECHNIQUE: Portable AP view of the chest FINDINGS: The mediastinum and cardiac silhouette are stable and within normal limits for portable technique. The lung magana demonstrate chronic appearing changes although subtle basilar atelectasis/airspace disease cannot be excluded. No discrete focal consolidation, effusion, or pneumothorax. Skeletal structures are intact. IMPRESSION: Chronic appearing changes. As above. No discrete focal consolidation or effusion. <Electronically signed by Wally Rausch > 06/29/20 1414 MICROBIOLOGY: Please see below. 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 She denied any bright red blood per rectum, hematemesis, coffee-ground emesis, epigastric pain, nausea, vomiting, but has been increasingly tired, weak and has been sleeping a lot at home. She denies any nonsteroidal anti-inflammatory usage as ibuprofen, Aleve, Naprosyn, and but admits to taking [facility] aspirin once daily. She denies any history of peptic ulcer disease, gastritis, esophagitis in the past and no history of hiatal hernia or gastroesophageal reflux disease. Patient has been taking hydrochlorothiazide and lisinopril for many years for her hypertension with no recent changes in dosage. She denies any diarrhea, nausea or vomiting and says that her urine has been clear yellow at home and has not decreased in amount over the past few days. She was scheduled to have a lens implant surgery today by Dr. Chow and had blood tests done a few days ago. Postoperatively at [facility]. Patient was called by her primary care physician who told her to come to the ER due to acute on chronic renal failure with creatinine of 5.94 and hemoglobin of 7. Hospitalist was called to admit the patient for evaluation of anemia as well as acute on chronic renal failure. Symptomatic anemia, resolved Anemia of chronic disease Acute on chronic renal failure, now stage V Fever or unknown origin Hypertension Left eye lens implant COPD History of migraines PLAN: if creatinine trend has a steady decline, pt may be dc home in am. postop care for left eye per ophtho. outpt fu w nephrology after dc. Disposition: Pending nephrology clearance VS, I&O, 24H, Fishbone Vital Signs/I&O Vital Signs Date Time Temp Pulse Resp B/P (MAP) Pulse Ox O2 Delivery O2 Flow Rate FiO2 07/03/20 06:00 98.6 97 19 147/76 (99) 98 Nasal Cannula 2.0 06/29/20 17:00 98 I&O- Last 24 Hours up to 6 AM 07/03/20 06:00 Intake Total 2500 ml Output Total 300 ml Balance 2200 ml Laboratory Data 24H LABS Laboratory Tests 2 07/02/20 13:56: Anion Gap 9, Glomerular Filtration Rate 7.9L, Calcium Level 9.0, Phosphorus Level 6.4H, Total Protein (PEP) 6.1L, Albumin 3.3 07/03/20 06:13: Anion Gap 11, Glomerular Filtration Rate 8.1L, Calcium Level 9.7, Nucleated Red Blood Cells % (auto) 0.0 CBC/BMP Laboratory Tests 07/02/20 13:56 07/03/20 06:13 Microbiology Microbiology 06/30/20 Blood Culture - Preliminary, Resulted No Growth after 48 hours. All Specime... 06/30/20 Blood Culture - Preliminary, Resulted No Growth after 48 hours. All Specime... 06/29/20 Blood Culture - Preliminary, Resulted No Growth after 72 hours. All specime... LATIA GALEAS MD Jul 03, 2020 07:27
[2020-07-03 14:00] VITALS: BP 121/63
[2020-07-03] MEDS: SENOKOT S TAB PO PRN (16:59)
[2020-07-03] MEDS: ACETAMINOPHEN TAB 650MG DOSE (2X325MG) PO PRN (17:00)
--- NOTE | 2020-07-03 17:12 | IPNPDOC ---
Subjective Date Seen The patient was seen on 07/03/20. Subjective Chief Complaint/HPI Pt and nursing staff deny any overnight events. Pt would like to be discharged and is feeling well. General: Denies: ROS Unobtainable, Chills, Night Sweats, Fatigue, Malaise, Normal Appetite, Other Symptoms Constitutional: Denies: Chills, Fever, Malaise, Night Sweats, Weakness, Fatigue, Weight Loss, Lethargy, Other Cardiovascular: Denies: Chest Pain, Palpitations, Orthopnea, Paroxysmal Noc. Dyspnea, Edema, Lt Headedness, Other Symptoms Objective Physical Examination General Exam: Positive: Alert, Cooperative, No Acute Distress Chest Exam: Positive: Diminished (breath sounds in bibasilar lung magana), Othe r Heart Exam: Positive: Rate Normal, Regular Rhythm, Normal S1, Normal S2 Abdomen Exam: Positive: Normal bowel sounds, Soft; Negative: Tenderness Extremity Exam: Negative: Edema Assessment /Plan Assessment #Acute nonoliguric renal failure: Patient is making more than 2 liters of urine a day and creatinine is beginning to decrease. Patient is autodiuresing, most likely patient is having recovery after acute tubular necrosis (ATN). # Symptomatic anemia: Hemoglobin level is stable at 8.3 at this time. Serum protein electrophoresis (SPEP) level is pending. # Hypertension. Continue current antihypertensive. Avoid angiotensin-converting enzyme (VEL) and angiotensin-receptor skyler (ARB) at this time. Plan/VTE VTE Prophylaxis Ordered?: No GME ATTESTATION My faculty preceptor for this patient encounter was physically present during the encounter and was fully available. All aspects of the patient interview, examination, medical decision making process, and medical care plan development were reviewed and approved by the faculty preceptor. The faculty preceptor is aware and concurs with the plan as stated in the body of this note and will attest to such by his/her cosignature. VS, I&O, 24H, Fishbone Vital Signs/I&O Vital Signs Date Time Temp Pulse Resp B/P (MAP) Pulse Ox O2 Delivery O2 Flow Rate FiO2 07/03/20 14:00 97.9 68 19 121/63 (82) 95 Nasal Cannula 2.0 06/29/20 17:00 98 I&O- Last 24 Hours up to 6 AM 07/03/20 06:00 Intake Total 2500 ml Output Total 300 ml Balance 2200 ml Laboratory Data 24H LABS Laboratory Tests 2 07/03/20 06:13: Nucleated Red Blood Cells % (auto) 0.0, Anion Gap 11, Glomerular Filtration Rate 8.1L, Calcium Level 9.7 CBC/BMP Laboratory Tests 07/03/20 06:13 Microbiology Microbiology 06/30/20 Blood Culture - Preliminary, Resulted No Growth after 72 hours. All specime... 06/30/20 Blood Culture - Preliminary, Resulted No Growth after 72 hours. All specime... 06/29/20 Blood Culture - Preliminary, Resulted No Growth after 72 hours. All specime... Attending Note Attending Note MEDINA on CKD anemia in CKD COPD If there is no improvement in renal function then she would need renal biopsy. Non oliguria MEDINA. volume status optimal. HD if Cr stays>5. Leandro Yang DO Jul 03, 2020 17:12 MANUEL YANG MD Jul 08, 2020 09:04
[2020-07-03] MEDS: LATANOPROST 0.005% OPHTH SOLN 2.5 ML OS SCH (20:46)
[2020-07-03 22:00] VITALS: BP 123/62
[2020-07-04 05:26] VITALS: BP 143/63
[2020-07-04] MEDS: **hydrALAZINE HCL** 25 MG TAB PO SCH ×2 (05:34)
[2020-07-04 06:15] LABS: HEMATOCRIT 25.8 % (36.0-47.0); MEAN CORPUSCULAR HEMOGLOBIN 27.9 pg (27.0-33.0); MEAN CORPUSCULAR VOLUME 89.9 fl (80.0-96.0); PLATELET COUNT, AUTOMATED 199 10^3/uL (150-450); RED BLOOD COUNT 2.87 10^6/uL (4.00-5.40); WHITE BLOOD COUNT 8.1 10^3/uL (4.0-10.0)
[2020-07-04 06:36] LABS: CALCIUM LEVEL 9.2 MG/DL (8.5-10.1); CREATININE FOR GFR 5.81 MG/DL (0.55-1.30); POTASSIUM SERUM 4.8 MEQ/L (3.5-5.1)
[2020-07-04] MEDS ORDERED: ISOS1TAB35 PO (07:49)
[2020-07-04] MEDS ORDERED: HYDR10TAB PO (07:49)
[2020-07-04] MEDS: TIOTROPIUM INHALER/CAPSULE (SPIRIVA) INH SCH (07:57)
[2020-07-04] MEDS: IPRATROPIUM 0.5MG/ALBUTEROL 2.5MG INH SOL UD 3ML (DUONEB) NEB SCH ×4 (07:58→18:12)
[2020-07-04] MEDS: BUDESONIDE 0.5 MG/2 ML INHALATION SUSPENSION INH SCH ×2 (07:58→18:12)
[2020-07-04] MEDS: VITAMIN D 1,000 INTERNATIONAL UNITS TABLET PO SCH (08:09)
[2020-07-04] MEDS: PANTOPRAZOLE 40MG TAB (PROTONIX) PO SCH (08:10)
[2020-07-04] MEDS: FERROUS SULFATE 325MG TAB PO SCH ×2 (08:10→21:00)
[2020-07-04] MEDS: **hydrALAZINE** 10 MG TAB PO SCH ×2 (08:11→20:59)
[2020-07-04] MEDS: ISOSORBIDE MON. (IMDUR) 30 MG XR TAB PO SCH ×2 (08:12→21:00)
[2020-07-04] MEDS: PROPRANOLOL 20 MG TAB PO SCH ×2 (08:12→22:31)
[2020-07-04] MEDS: prednisoLONE ACET 1% OPHTH SUSP 5ML OS SCH ×4 (08:13→21:01)
[2020-07-04] MEDS: SODIUM CHLORIDE 0.9% NASAL GEL 15GM (AYR) SCH ×2 (08:13→21:01)
[2020-07-04] MEDS: OFLOXACIN 0.3 % (OCUFLOX) OPTH SOL 5ML OS SCH ×4 (08:14→21:01)
[2020-07-04 10:20] LABS: CREATININE,RANDOM URINE 30.3 MG/DL; TOTAL PROTEIN,RANDOM URINE 22.3 MG/DL (0.0-12.0)
[2020-07-04 12:55] LABS: PERCENT SATURATION 11.1 % (13.2-45.0)
--- NOTE | 2020-07-04 12:56 | IPNPDOC ---
Date Seen The patient was seen on 07/04/20. Progress Note SUBJECTIVE: denies brbpr, melena, black tarry stools, coffee ground emesis, hematemesis, n/v/epigastric pain. hgb8. awaiting stool for blood. adequate urine output but creatinine still at 5. for CT guided bx of kidneys, multiple myeloma workup per nephrology. OBJECTIVE: PHYSICAL EXAMINATION: VITAL SIGNS: See below I/o: Negative balance Weight on admission 77.5. GENERAL APPEARANCE: pleasant no respiratory distress HEENT: No JVD, thyromegaly Moist mucous membranes No carotid bruits or stridor CARDIOVASCULAR: Systolic ejection murmur at the apex. S1, S2 regular rate rhythm LUNGS: diminished no rales ABDOMEN: Obese, soft, nontender, nondistended, positive bowel sounds 4 quadrants EXTREMITIES: No cyanosis or clubbing SKIN: Warm, dry, well perfused, pink in color LABORATORY DATA: See below. IMAGING: CXR 06/29/20 COMPARISON: 08/13/2019 TECHNIQUE: Portable AP view of the chest FINDINGS: The mediastinum and cardiac silhouette are stable and within normal limits for portable technique. The lung magana demonstrate chronic appearing changes although subtle basilar atelectasis/airspace disease cannot be excluded. No discrete focal consolidation, effusion, or pneumothorax. Skeletal structures are intact. IMPRESSION: Chronic appearing changes. As above. No discrete focal consolidation or effusion. <Electronically signed by Wally Rausch > 06/29/20 1414 MICROBIOLOGY: Please see below. 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 She denied any bright red blood per rectum, hematemesis, coffee-ground emesis, epigastric pain, nausea, vomiting, but has been increasingly tired, weak and has been sleeping a lot at home. She denies any nonsteroidal anti-inflammatory usage as ibuprofen, Aleve, Naprosyn, and but admits to taking [facility] aspirin once daily. She denies any history of peptic ulcer disease, gastritis, esophagitis in the past and no history of hiatal hernia or gastroesophageal reflux disease. Patient has been taking hydrochlorothiazide and lisinopril for many years for her hypertension with no recent changes in dosage. She denies any diarrhea, nausea or vomiting and says that her urine has been clear yellow at home and has not decreased in amount over the past few days. She was scheduled to have a lens implant surgery today by Dr. Chow and had blood tests done a few days ago. Postoperatively at [facility]. Patient was called by her primary care physician who told her to come to the ER due to acute on chronic renal failure with creatinine of 5.94 and hemoglobin of 7. Hospitalist was called to admit the patient for evaluation of anemia as well as acute on chronic renal failure. Symptomatic anemia, resolved Anemia of chronic disease r/o gi bleed -s/prbc transfusion -no over gi bleed -on ppi -awaiting heme stool -GI consult for gi bleed if +stool for blood -check peripheral smear, retic count r/o hemolysis Acute on chronic renal failure, now stage V -no diagnosis and no improvement -renal biopsy on sunday -r/o multiple myeloma Fever or unknown origin -no recurrent fever -urine cxr neg Hypertension -avoid diuretics, ann inh, arb Left eye lens implant -post op mgt per ophtho instructions COPD -nebs History of migraines -asx disposition: 2-3 days pending renal biopsy and myeloma workup. VS, I&O, 24H, Fishbone Vital Signs/I&O Vital Signs Date Time Temp Pulse Resp B/P (MAP) Pulse Ox O2 Delivery O2 Flow Rate FiO2 07/04/20 09:00 2.0 07/04/20 08:12 146/80 07/04/20 08:12 68 07/04/20 05:26 97.3 18 98 Nasal Cannula 06/29/20 17:00 98 I&O- Last 24 Hours up to 6 AM 07/04/20 06:00 Intake Total 1060 ml Output Total 2650 ml Balance -1590 ml Laboratory Data 24H LABS Laboratory Tests 2 07/04/20 05:51: Nucleated Red Blood Cells % (auto) 0.0, Anion Gap 9, Glomerular Filtration Rate 8.0L, Calcium Level 9.2, Complement C3 87L, Complement C4 27 07/04/20 09:43: 07/04/20 09:44: Urine Random Creatinine 30.3, Urine Random Total Protein 22.3H CBC/BMP Laboratory Tests 07/04/20 05:51 Microbiology Microbiology 06/30/20 Blood Culture - Preliminary, Resulted No Growth after 72 hours. All specime... 06/30/20 Blood Culture - Preliminary, Resulted No Growth after 72 hours. All specime... 06/29/20 Blood Culture - Preliminary, Resulted No Growth after 72 hours. All specime... LATIA GALEAS MD Jul 04, 2020 12:25
[2020-07-04 14:00] VITALS: BP 145/79
[2020-07-04] MEDS: LATANOPROST 0.005% OPHTH SOLN 2.5 ML OS SCH (21:00)
[2020-07-04] MEDS: IRON SUCROSE 200 MG in NS 100 ML IV SCH (21:00)
[2020-07-04 21:30] VITALS: BP 146/90
[2020-07-04 22:00] VITALS: BP 147/70
[2020-07-04 22:30] VITALS: BP 142/90
--- NOTE | 2020-07-04 23:21 | IPN ---
NEPHROLOGY PROGRESS NOTE DATE: 07/04/2020 SUBJECTIVE: The patient was seen and examined at the bedside today morning. She is afebrile, hemodynamically stable. The patient is non oliguric persistently, however her renal function is not improving. Creatinine was 5.7 yesterday. It is 5.8 today. Hemoglobin is slightly dropped today as compared with yesterday. OBJECTIVE: VITAL SIGNS: Temperature is 98.6 degrees Fahrenheit, blood pressure 145/79, pulse is 68, respiratory rate of 90, saturating 97% on nasal cannula at 2 liters. INTAKE AND OUTPUT: Urine output recorded as 850 mL yesterday, 2.7 liters so far today since overnight. Weight in the bed scale was 78 kg yesterday. PHYSICAL EXAMINATION: GENERAL APPEARANCE: The patient is awake, alert, oriented x3, sitting up in the bed in no apparent distress. HEAD AND NECK: Extraocular muscles intact. Pupils are equally round and reactive to light. Mucous membranes are moist. Neck is supple. She has mild jugular venous distention. CARDIOVASCULAR: S1, S2, regular rate. EXTREMITIES: No edema of the bilateral lower extremities. RESPIRATORY: Decreased breath sounds bilaterally at the bases. She is oxygen dependent. ABDOMEN: Soft, distended, positive bowel sounds, nontender, no organomegaly. MUSCULOSKELETAL: No clubbing, no cyanosis. Pulses are 2+. 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 Power is 5/5 in all extremities. LAB REVIEW: CBC showed a white blood cell count of 8.1, hemoglobin is 8, platelet count 199. Urine random protein is 22, creatinine is 30.3. BMP today showed 138, potassium 4.8, chloride 106, bicarbonate 23, BUN 80, creatinine is 5.8. It was 5.7 yesterday. Iron is 35. Transferrin saturation is 11.1, ferratin is 21. CURRENT INPATIENT MEDICATIONS: The patient's medications were all reviewed by myself. There is no significant change in the medications today as compared with yesterday. ASSESSMENT AND PLAN: 1. Acute non oliguric renal failure there is no improvement in the patient's creatinine, however acid base and electrolytes are within the acceptable range. There is no urgent need of dialysis at this time. However, I am going to have the patient's renal biopsy done because we do not know the etiology of acute renal failure. 2. Symptomatic anemia SPEP level is pending. The patient has iron deficiency. She might have an occult bleed. That needs to be ruled out by Gastroenterology Service. I am going to give her IV Venofer. 3. Hypertension - continue current antihypertensive regimen. Blood pressure is controlled. 4. Disposition - The patient is not stable to be discharged home. Her renal function is not improving. We need to do a renal biopsy to ascertain the etiology of acute renal failure.
[2020-07-05] VITALS (9 sets, daily range): BP systolic 119–155; BP diastolic 59–84
[2020-07-05] MEDS: BUDESONIDE 0.5 MG/2 ML INHALATION SUSPENSION INH SCH ×2 (06:21→20:52)
[2020-07-05] MEDS: IPRATROPIUM 0.5MG/ALBUTEROL 2.5MG INH SOL UD 3ML (DUONEB) NEB SCH ×4 (06:21→20:52)
[2020-07-05] MEDS: TIOTROPIUM INHALER/CAPSULE (SPIRIVA) INH SCH (06:23)
[2020-07-05 06:42] LABS: HEMATOCRIT 25.4 % (36.0-47.0); HEMOGLOBIN 7.9 g/dl (12.0-15.5); MEAN CORPUSCULAR HEMOGLOBIN 27.9 pg (27.0-33.0); MEAN CORPUSCULAR HGB CONC 31.1 g/dl (32.0-36.5); MEAN CORPUSCULAR VOLUME 89.8 fl (80.0-96.0); PLATELET COUNT, AUTOMATED 210 10^3/uL (150-450); RED BLOOD COUNT 2.83 10^6/uL (4.00-5.40); WHITE BLOOD COUNT 8.4 10^3/uL (4.0-10.0)
[2020-07-05 07:10] LABS: CALCIUM LEVEL 9.5 MG/DL (8.5-10.1); CREATININE FOR GFR 5.72 MG/DL (0.55-1.30); GLOMERULAR FILTRATION RATE 8.1 (>51); POTASSIUM SERUM 5.1 MEQ/L (3.5-5.1)
--- NOTE | 2020-07-05 08:49 | ECHO ---
DATE OF PROCEDURE: 06/30/2020 Age: 59 Gender: Female Height: 165 cm Weight: 78 kg REFERRING PHYSICIAN: Fabi Francis MD INDICATION: Cardiac murmur, unspecified. MEASUREMENTS: 2D Measurements: Intraventricular septum 1.12 cm Posterior wall 1.02 cm Left ventricle diastole 5.2 cm Aortic root 3.0 cm Aortic annulus 2.0 cm Left atrium 3.6 cm Left atrial volume index 32 cm Inferior vena cava 2.4 cm (more than 50% respiratory variation) Doppler Measurements: Mild aortic regurgitation No aortic stenosis Aortic regurgitation pressure halftime 430 msec Aortic valve velocity 250 cm/s LVOT velocity 225 cm/s LVOT VTI 46.9 cm Trace mitral regurgitation No mitral stenosis Mitral E velocity 157 cm/s Mitral A velocity 167 cm/s Mitral deceleration time 296 msec Mild tricuspid regurgitation Estimated right ventricular systolic pressure of 54-59 mmHg Estimated right atrial pressure of 5-10 mmHg No pulmonic regurgitation MITRAL ANNULAR TISSUE DOPPLER E prime septal 7.9 cm/s, E prime lateral 8.7 cm/s DESCRIPTION: Rhythm was sinus. This was a moderately technically difficult echocardiogram. No pericardial effusion. This was a 2D, M-mode, color flow Doppler, and pulsed wave Doppler examination including mitral annular tissue Doppler. CONCLUSIONS: 1. Very mild aortic valve sclerosis of a 3-cuspid aortic valve. Mild aortic regurgitation. 2. Mild mitral annular calcification. Trace mitral regurgitation. 3. Normal left ventricle internal dimensions and wall thickness. No regional wall motion abnormalities. Hyperdynamic LV systolic function. LVEF 75% by visual estimate. Grade 1 LV diastolic dysfunction (impaired relaxation filling pattern). Mild left atrial dilatation by left atrial volume index. 4. Suggestive of moderate elevation of estimated right ventricle systolic pressure. Estimated right ventricle systolic pressure 54-59 mmHg. Estimated right atrial pressure of 5-10 mmHg. Normal right ventricle size with mild right ventricle hypertrophy. Structurally normal appearing tricuspid leaflets. Mild tricuspid regurgitation. 5. Otherwise normal appearing echocardiogram Doppler findings. [facility]
[2020-07-05] MEDS: ISOSORBIDE MON. (IMDUR) 30 MG XR TAB PO SCH ×2 (09:00→21:00)
[2020-07-05] MEDS: VITAMIN D 1,000 INTERNATIONAL UNITS TABLET PO SCH (09:48)
[2020-07-05] MEDS: PANTOPRAZOLE 40MG TAB (PROTONIX) PO SCH (09:49)
[2020-07-05] MEDS: **hydrALAZINE** 10 MG TAB PO SCH ×2 (09:49→21:03)
[2020-07-05] MEDS: FERROUS SULFATE 325MG TAB PO SCH ×2 (09:49→21:02)
[2020-07-05] MEDS: IRON SUCROSE 200 MG in NS 100 ML IV SCH (09:50)
[2020-07-05] MEDS: prednisoLONE ACET 1% OPHTH SUSP 5ML OS SCH ×4 (09:50→21:01)
[2020-07-05] MEDS: SODIUM CHLORIDE 0.9% NASAL GEL 15GM (AYR) SCH ×2 (09:50→21:02)
[2020-07-05] MEDS: OFLOXACIN 0.3 % (OCUFLOX) OPTH SOL 5ML OS SCH ×4 (09:51→21:01)
--- NOTE | 2020-07-05 10:17 | IPNPDOC ---
Date Seen The patient was seen on 07/05/20. Progress Note SUBJECTIVE: Per Rn, pt had incontinent stool yesterday, but hemeoccult still not sent c/o sob this am better when she sits up. npo for ct guided biopsy of kidneys at 1pm. OBJECTIVE: PHYSICAL EXAMINATION: VITAL SIGNS: See below I/o: Negative balance Weight on admission 77.5. GENERAL APPEARANCE: pleasant no respiratory distress HEENT: No JVD, thyromegaly Moist mucous membranes No carotid bruits or stridor no use of resp acc mm CARDIOVASCULAR: Systolic ejection murmur at the apex. S1, S2 regular rate rhythm no S3 nondisplaced pmi LUNGS: diminished no rales ABDOMEN: Obese, soft, nontender, nondistended, positive bowel sounds 4 quadrants EXTREMITIES: No cyanosis or clubbing SKIN: Warm, dry, well perfused, pink in color LABORATORY DATA: See below. IMAGING: CXR 06/29/20 COMPARISON: 08/13/2019 TECHNIQUE: Portable AP view of the chest FINDINGS: The mediastinum and cardiac silhouette are stable and within normal limits for portable technique. The lung magana demonstrate chronic appearing changes although subtle basilar atelectasis/airspace disease cannot be excluded. No discrete focal consolidation, effusion, or pneumothorax. Skeletal structures are intact. IMPRESSION: Chronic appearing changes. As above. No discrete focal consolidation or effusion. <Electronically signed by Wally Rausch > 06/29/20 6084 MICROBIOLOGY: Please see below. 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 She denied any bright red blood per rectum, hematemesis, coffee-ground emesis, epigastric pain, nausea, vomiting, but has been increasingly tired, weak and has been sleeping a lot at home. She denies any nonsteroidal anti-inflammatory usage as ibuprofen, Aleve, Naprosyn, and but admits to taking [facility] aspirin once daily. S he denies any history of peptic ulcer disease, gastritis, esophagitis in the past and no history of hiatal hernia or gastroesophageal reflux disease. Patient has been taking hydrochlorothiazide and lisinopril for many years for her hypertension with no recent changes in dosage. She denies any diarrhea, nausea or vomiting and says that her urine has been clear yellow at home and has not decreased in amount over the past few days. She was scheduled to have a lens implant surgery today by Dr. Chow and had blood tests done a few days ago. Postoperatively at [place]. Patient was called by her primary care physician who told her to come to the ER due to acute on chronic renal failure with cre atinine of 5.94 and hemoglobin of 7. Hospitalist was called to admit the patient for evaluation of anemia as well as acute on chronic renal failure. Symptomatic anemia, resolved Anemia of chronic disease r/o gi bleed -s/prbc transfusion -no over gi bleed -on ppi -awaiting heme stool -GI consult for gi bleed if +stool for blood -checked peripheral smear, retic count r/o hemolysis, still pending Acute on chronic renal failure, now stage V -no diagnosis and no improvement -renal biopsy on sunday -r/o multiple myeloma -nephrology consulted -c/o sob. check cxr forfluid overload Fever or unknown origin -no recurrent fever -urine cxr neg Hypertension -avoid diuretics, ann inh, arb Left eye lens implant -post op mgt per ophtho instructions COPD -nebs History of migraines -asx disposition:pending renal biopsy and nephrology clearance for dc home. VS, I&O, 24H, Fishbone Vital Signs/I&O Vital Signs Date Time Temp Pulse Resp B/P (MAP) Pulse Ox O2 Delivery O2 Flow Rate FiO2 07/05/20 09:48 65 143/72 07/05/20 06:55 Nasal Cannula 2.0 07/05/20 06:00 97.9 17 96 06/29/20 17:00 98 I&O- Last 24 Hours up to 6 AM 07/05/20 06:00 Intake Total 1350 ml Output Total 2400 ml Balance -1050 ml Laboratory Data 24H LABS Laboratory Tests 2 07/05/20 06:05: Nucleated Red Blood Cells % (auto) 0.0, D-Dimer, Quantitative 503.46H, Anion Gap 8, Glomerular Filtration Rate 8.1L, Calcium Level 9.5, Lactate Dehydrogenase 148 CBC/BMP Laboratory Tests 07/05/20 06:05 Microbiology Microbiology 06/30/20 Blood Culture - Final, Complete NO GROWTH AFTER 5 DAYS 06/30/20 Blood Culture - Final, Complete NO GROWTH AFTER 5 DAYS 06/29/20 Blood Culture - Final, Complete NO GROWTH AFTER 5 DAYS LATIA GALEAS MD Jul 05, 2020 10:04
[2020-07-05] MEDS: SENOKOT S TAB PO PRN ×2 (10:31→21:08)
[2020-07-05] MEDS: PROPRANOLOL 20 MG TAB PO SCH ×2 (10:31→21:02)
--- NOTE | 2020-07-05 13:40 | IRMSE ---
[facility] IR Moderate Sedation Eval. Date and Time Date: Jul 05, 2020 Time: 13:39 ASA Classification ASA Classification: III-Severe systemic dis. Mallampati Score: II NPO: Yes Obstructive Sleep Apnea: No Interval Plan: moderate sedation FABRICIO DIANE MD Jul 05, 2020 13:40
[2020-07-05] MEDS ORDERED: fentaNYL 100 MCG/2 ML INJECTION (J3010) As Ordered ONE (13:51)
[2020-07-05] MEDS ORDERED: diphenhydrAMINE 50MG/ML VIAL (J1200) As Ordered ONE (13:51)
[2020-07-05] MEDS ORDERED: MIDAZOLAM INJ 2MG/2ML VIAL (J2250 PER 1MG) As Ordered ONE (13:51)
[2020-07-05] MEDS ORDERED: LIDOCAINE 1% MDV 20ML VIAL As Ordered ONE (13:53)
--- NOTE | 2020-07-05 17:10 | IPN ---
PROGRESS NOTE DATE: 07/05/2020 SUBJECTIVE: Ms. Hancock is seen and examined this morning at the bedside. She is for a kidney biopsy this afternoon. I discussed with her at length regarding her advanced chronic kidney disease and possible need for dialysis in the near future. She complains of dyspnea with exertion. OBJECTIVE: VITAL SIGNS: Temperature 98.3, pulse 63, respiratory rate 17, blood pressure 144/72, saturating 97% on 2 liters nasal cannula. INTAKE AND OUTPUT: Intake yesterday was 1350, urine output yesterday was 3.1 liters, weight on the bed scale today 78 kg. GENERAL APPEARANCE: The patient is seen sitting up in the bed with the head of the bed elevated. A middle-aged female in no apparent distress. HEENT: Extraocular muscles are intact. There is subconjunctival pallor. Ear, nose, and throat are unremarkable. NECK: There is an old healed tracheostomy scar in the anterior neck. Jugular veins are not elevated. HEART: Sounds are regular. S1, S2. There is a systolic murmur. EXTREMITIES: There is no leg edema. LUNGS: Show mild expiratory wheeze and prolonged expiratory phase. She is on nasal cannula. There is no crackle or rale. ABDOMEN: Soft and nontender. There are bowel sounds. EXTREMITIES: Show no clubbing or cyanosis. SKIN: Shows pallor and is warm and dry. LABORATORY DATA: Sodium 138, potassium 5.1, bicarbonate 23, BUN 86, creatinine 5.7. Transferrin saturation 11%. Hemoglobin 7.9. FOBT is still pending. INPATIENT MEDICATIONS: Reviewed by myself. The patient continues on IV Venofer. The remainder of medications are unchanged as compared to yesterday. PROBLEMS: 1. Acute kidney injury superimposed on chronic kidney disease (CKD) stage IIIB. I am unsure if this kidney failure is acute. The patient last had GFR checked in December of 2017, and at that time her GFR was only 34 mL/min corresponding to fairly advanced chronic kidney disease, and she may have simple progression now to end-stage renal disease. Hence, the chronicity versus acuity of her renal failure is unknown. We are proceeding with kidney biopsy this afternoon. Her urinalysis was fairly benign with spot urine protein-creatinine ratio of less than 0.7 grams. Her serologies are still pending. There is no urgent indication for hemodialysis initiation, but I explained to the patient that she will likely need to start dialysis in the near future, and she will need to follow-up closely in the nephrology office. 2. Iron deficiency anemia. Transferring saturation of 11%. She is received intravenous (IV) Venofer. She has received two units of packed red blood cells on this admission, but the hemoglobin has not really come up much from 7.0 on admission up to only 7.9 today. I am going to transfuse one more unit of blood. Fecal occult blood test (FOBT) is still pending. She is on Protonix. We will likely need to start Aranesp and I will give her, her first dose prior to discharge, 3. Hypertension with hypertensive heart disease. Echocardiogram on this admission with grade 1 diastolic congestive heart failure. Blood pressures are well-controlled with current regimen of amlodipine, hydralazine, and Imdur. 4. Hyperkalemia. Potassium 5.1 today. She is on a renal diet. Will start her on Lasix 20 mg p.o. daily starting from 07/06, as she has been mostly n.p.o. today.
--- NOTE | 2020-07-05 17:40 | REP ---
INDICATION: CT guided Lt Renal biopsy, Acute Renal failure. COMPARISON: None. TECHNIQUE: CT guidance imaging. FINDINGS: CT guidance is provided to Dr. Yang performed CT guided needle biopsy of the left kidney. IMPRESSION: Procedural imaging. <Electronically signed by Shaun Wright > 07/05/20 0377
[2020-07-05] MEDS ORDERED: ONDANSETRON 4MG/2ML VIAL IV PRN (19:30)
[2020-07-05] MEDS: LATANOPROST 0.005% OPHTH SOLN 2.5 ML OS SCH (21:01)
[2020-07-05] MEDS: MIRALAX *UNIT DOSE* 17GM PACKET PO PRN (21:08)
[2020-07-06] MEDS ORDERED: RAMELTEON 8 MG TAB (ROZEREM) PO ONE (01:30)
[2020-07-06 05:59] LABS: HEMATOCRIT 27.5 % (36.0-47.0); HEMOGLOBIN 8.6 g/dl (12.0-15.5); MEAN CORPUSCULAR HEMOGLOBIN 27.6 pg (27.0-33.0); MEAN CORPUSCULAR HGB CONC 31.3 g/dl (32.0-36.5); MEAN CORPUSCULAR VOLUME 88.1 fl (80.0-96.0); PLATELET COUNT, AUTOMATED 190 10^3/uL (150-450); RED BLOOD COUNT 3.12 10^6/uL (4.00-5.40); WHITE BLOOD COUNT 10.5 10^3/uL (4.0-10.0)
[2020-07-06 06:00] VITALS: BP 152/82
[2020-07-06] MEDS: BUDESONIDE 0.5 MG/2 ML INHALATION SUSPENSION INH SCH (06:08)
[2020-07-06] MEDS: IPRATROPIUM 0.5MG/ALBUTEROL 2.5MG INH SOL UD 3ML (DUONEB) NEB SCH ×2 (06:08→11:36)
[2020-07-06] MEDS: TIOTROPIUM INHALER/CAPSULE (SPIRIVA) INH SCH (06:09)
[2020-07-06 06:21] LABS: CALCIUM LEVEL 9.6 MG/DL (8.5-10.1); CREATININE FOR GFR 5.76 MG/DL (0.55-1.30); POTASSIUM SERUM 5.1 MEQ/L (3.5-5.1)
[2020-07-06] MEDS ORDERED: FUROSEMIDE 20 MG TAB PO SCH (09:00)
[2020-07-06] MEDS: ISOSORBIDE MON. (IMDUR) 30 MG XR TAB PO SCH (09:00)
[2020-07-06] MEDS: **hydrALAZINE** 10 MG TAB PO SCH (09:00)
[2020-07-06] MEDS: VITAMIN D 1,000 INTERNATIONAL UNITS TABLET PO SCH (09:18)
[2020-07-06] MEDS: PANTOPRAZOLE 40MG TAB (PROTONIX) PO SCH (09:18)
[2020-07-06 09:19] VITALS: BP 133/62
[2020-07-06] MEDS: IRON SUCROSE 200 MG in NS 100 ML IV SCH (09:19)
[2020-07-06] MEDS: SODIUM CHLORIDE 0.9% NASAL GEL 15GM (AYR) SCH (09:19)
[2020-07-06] MEDS: FERROUS SULFATE 325MG TAB PO SCH (09:19)
[2020-07-06] MEDS: PROPRANOLOL 20 MG TAB PO SCH (09:19)
[2020-07-06] MEDS: prednisoLONE ACET 1% OPHTH SUSP 5ML OS SCH ×2 (09:20→14:47)
[2020-07-06] MEDS: OFLOXACIN 0.3 % (OCUFLOX) OPTH SOL 5ML OS SCH ×2 (09:20→14:47)
[2020-07-06] MEDS: SENOKOT S TAB PO PRN (10:09)
[2020-07-06] MEDS: MIRALAX *UNIT DOSE* 17GM PACKET PO PRN (10:09)
[2020-07-06] MEDS ORDERED: PATIROMER SORBITEX CALCIUM 8.4 GM POWDER PACKET (VELTASSA) PO ONE (11:00)
[2020-07-06 11:50] LABS: ALBUMIN % 59.3 % (55.8-66.1); ALPHA-1-GLOBULIN % 6.7 % (2.9-4.9)
[2020-07-06 11:51] LABS: ALBUMIN 3.62 GM/DL (3.29-5.55); ALPHA-1-GLOBULINS 0.41 GM/DL (0.17-0.41); ALPHA-2-GLOBULINS 0.74 GM/DL (0.42-0.99); ALPHA-2-GLOBULINS % 12.1 % (7.1-11.8); BETA-1-GLOBULINS 0.46 GM/DL (0.28-0.60); BETA-1-GLOBULINS % 7.5 % (4.7-7.2); BETA-2-GLOBULINS 0.27 GM/DL (0.19-0.55); BETA-2-GLOBULINS % 4.5 % (3.2-6.5); GAMMA GLOBULIN % 9.9 % (11.1-18.8)
[2020-07-06] MEDS ORDERED: DARBEPOETIN 100 MCG/0.5 ML *NON-DIALYSIS* SYRINGE (J0881) SC SCH (12:00)
[2020-07-06] MEDS ORDERED: FURO20TA2 PO (12:32)
[2020-07-06] MEDS ORDERED: FERR325T18 PO (12:32)
[2020-07-06] MEDS ORDERED: HYDR10TAB PO (12:32)
[2020-07-06 14:00] VITALS: BP 149/73
[2020-07-06 19:07] LABS: FREE KAPPA LIGHT CHAINS SERUM 63.7 mg/L (3.3-19.4); FREE LAMBDA LIGHT CHAINS SERUM 41.8 mg/L (5.7-26.3); KAPPA/LAMBDA RATIO SERUM 1.52 (0.26-1.65)
--- NOTE | 2020-07-06 20:12 | DS.PDOC ---
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 She denied any bright red blood per rectum, hematemesis, coffee-ground emesis, epigastric pain, nausea, vomiting, but has been increasingly tired, weak and has been sleeping a lot at home. She denies any nonsteroidal anti-inflammatory usage as ibuprofen, Aleve, Naprosyn, and but admits to taking [facility] aspirin once daily. She denies any history of peptic ulcer disease, gastritis, esophagitis in the past and no history of hiatal hernia or gastroesophageal reflux disease. Patient has been taking hydrochlorothiazide and lisinopril for many years for her hypertension with no recent changes in dosage. She denies any diarrhea, nausea or vomiting and says that her urine has been clear yellow at home and has not decreased in amount over the past few days. She was scheduled to have a lens implant surgery today by Dr. Chow and had blood tests done a few days ago. Postoperatively at [facility]. Patient was called by her primary care physician who told her to come to the ER due to acute on chronic renal failure with creatinine of 5.94 and hemoglobin of 7. Hospitalist was called to admit the patient for evaluation of anemia as well as acute on chronic renal failure. HOSPITAL COURSE: Patient was thoroughly assessed by nephrology while here. MEDINA was likely superimposed on CKD; however, it is unclear as to if the kidney failure is really acute. Biopsy was done for kidney on 07/05/20 with pathology pending, there is also seroloqies that are pending as well. No urgent need for HD initiation but it was explained by nephrology to patient that she would likely need to start dialysis in the near future. She was also treated for chronic ASYA this admission with venofer and 3 units PRBC. BP remained well controlled and other chronic issues were stable. On 07/06/20, case was discussed with nephrology in detail. Decision was made to discharge patient home to f/u with nephrology after discharge. At time of discharge patient was on home O2 2 L NC, she denied chest pain, shortness of breath, fevers, chills, n/v/d. 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 Full code. denies recreational drug use FAMILY HISTORY: Father: , 71, hypertension, diabetes, coronary artery disease Mother: age 69. Colon cancer, metastatic to breast and lung ALLERGIES: Please see below. DISCHARGE MEDICATIONS: Please see below. PHYSICAL EXAMINATION: VITAL SIGNS: See below GENERAL APPEARANCE: NAD, resting in bed HEENT/NECK: No JVD, thyromegaly Moist mucous membranes. No carotid bruits or stridor no use of resp acc mm CARDIOVASCULAR: Systolic ejection murmur at the apex. S1, S2 regular rate rhythm no S3 nondisplaced pmi LUNGS: diminished no rales ABDOMEN: Obese, soft, nontender, nondistended, positive bowel sounds 4 quadrants EXTREMITIES: No cyanosis or clubbing SKIN: Warm, dry, well perfused, pink in color LABORATORY DATA: See below. IMAGING: CXR 06/29/20 Chronic appearing changes. As above. No discrete focal consolidation or e ffusion. MICROBIOLOGY: Please see below. ASSESSMENT: 59-year-old female with history of chronic kidney disease stage III, baseline creatinine of 1.2-1.6, hypertension, migraines, tobacco abuse, COPD, allergic rhinitis mandibular tumor status post resection with reconstruction with a right fibular bone graft admitted for evaluation of anemia as well as acute on chronic renal failure. PLAN: MEDINA on CKD Stage IIIB -Per nephro, unsure if this is truly MEDINA or progressing CKD -Kidney bx pending, to be followed up by nephrology o/p -D/c HCTZ, started on lasix daily -Serologies pending -Will likely need to start dialysis in near future Anemia likely MF to AOCD and ASYA, acute on chronic -No s/s of bleeding -S/p 3 U PRBC, venofer infusion this stay -F/u with PCP and nephro o/p -Will need to c/w aranesp Hypertension -C/w CCB, hydralazine, imdur Left eye lens implant -post op mgt per ophtho instructions COPD -nebs History of migraines -asx DISPOSITION: D/c home today to f/u with nephrology and PCP. TIME SPENT ON DISCHARGE: Greater than 30 minutes. Vital Signs/I&Os Vital Signs Date Time Temp Pulse Resp B/P (MAP) Pulse Ox O2 Delivery O2 Flow Rate FiO2 07/06/20 14:00 97.6 60 18 149/73 (98) 98 Nasal Cannula 2.0 I&O- Last 24 Hours up to 6 AM 07/06/20 06:00 Intake Total 1720 ml Output Total 2350 ml Balance -630 ml Laboratory Data Labs 24H Laboratory Tests 2 07/06/20 05:45: Nucleated Red Blood Cells % (auto) 0.0, Anion Gap 8, Glomerular Filtration Rate 8.0L, Calcium Level 9.6 CBC/BMP Laboratory Tests 07/06/20 05:45 Microbiology Microbiology 06/30/20 Blood Culture - Final, Complete NO GROWTH AFTER 5 DAYS 06/30/20 Blood Culture - Final, Complete NO GROWTH AFTER 5 DAYS 06/29/20 Blood Culture - Final, Complete NO GROWTH AFTER 5 DAYS Discharge Medications Scheduled Albuterol Sulfate (Albuterol Sulfate) 2.5 Mg/0.5 Ml Vial.neb, 1 VIAL NEB TID, (Reported) Amlodipine Besylate (Amlodipine Besylate) 10 Mg Tablet, 10 MG PO DAILY, (Reported) Aspirin (Aspirin EC) 81 Mg Tablet.dr, 81 MG PO DAILY, (Reported) Brimonidine Tartrate (Alphagan P) 0.1% 5ML Drops, 1 DROP OS BID, (Reported) Budesonide (Budesonide) 0.5 Mg/2 Ml Ampul.neb, 0.5 MG INH BID, (Reported) Cholecalciferol (Vitamin D3) (Vitamin D3) 1,000 Unit Tablet, 1,000 UNITS PO DAILY, (Reported) Citalopram Hydrobromide (Citalopram HBr) 20 Mg Tablet, 20 MG PO DAILY, (Reported) Ferrous Sulfate (Ferrous Sulfate) 325 Mg Tablet, 325 MG PO BID Furosemide (Furosemide) 20 Mg Tablet, 20 MG PO DAILY Hydralazine HCl (Hydralazine HCl) 10 Mg Tablet, 10 MG PO BID Isosorbide Mononitrate (Isosorbide Mononitrate ER) 30 Mg Tab.er.24h, 30 MG PO BID Netarsudil Mesylat/Latanoprost (Rocklatan 0.02%-0.005% Eye Drp) 2.5 Ml Drops, 1 DROP OS QHS, (Reported) Pilocarpine HCl (Pilocarpine HCl) 1% 15ML Drops, 1 DROP OS BID, (Reported) Prednisolone Acetate (Prednisolone Acetate 1% Opth Susp) 5 Ml Drops.susp, 1 DROP OS Q2H, (Reported) Propranolol HCl (Propranolol HCl) 40 Mg Tablet, 40 MG PO BID, (Reported) Timolol Maleate (Timoptic) 0.5% 10ML Drops, 1 DROP OS BID, (Reported) Tiotropium [place] (Spiriva) 18 Mcg Cap.w.dev, 18 MCG INH DAILY, (Reported) Scheduled PRN Albuterol Sulfate (Proair Hfa) 8.5 Gm Hfa.aer.ad, 2 PUFF INH QID PRN for SOB/WHEEZING, (Reported) Sumatriptan Succinate (Sumatriptan Succinate) 100 Mg Tablet, 100 MG PO ASDIRECTED PRN for MIGRAINE, (Reported) may repeat in 2 hours; do not exceed 200 mg in 24 hours Allergies Coded Allergies: amoxicillin (Verified Allergy, Unknown, rash, 06/29/20) clavulanic acid (Verified Allergy, Unknown, rash, 06/29/20) Jhoana Rich MD Jul 06, 2020 20:12
--- NOTE | 2020-07-07 09:26 | IPN ---
PROGRESS NOTE DATE: 07/06/2020 SUBJECTIVE: Patient seen and examined this morning at the bedside. She had her kidney biopsy yesterday, it was uneventful. She denies any complaints. She wants to go home. She specifically denies any shortness of breath beyond her usual baseline and she is on her usual amount of home oxygen (2 liters). OBJECTIVE: VITAL SIGNS: Temperature 97.6, pulse 60, respiratory rate 18, blood pressure 133/62, saturating 98% on 2 liters nasal cannula. INTAKE AND OUTPUT: Intake yesterday was 1720, urine output was 1950. Weight in the bed scale today 78.1 kg. GENERAL: Patient is seen awake, alert, oriented and in no apparent distress. HEENT: Extraocular muscles are intact. Tongue is moist. NECK: Supple. Jugular veins are not elevated. There is an old healed tracheostomy scar on the anterior neck. HEART: Sounds are regular. S1, S2. There is absolutely no leg edema nor clubbing. LUNGS: Show faint expiratory wheeze on prolonged expiratory phase. She is on nasal cannula. There is no crackle or rale. ABDOMEN: Soft and nontender. There are bowel sounds. EXTREMITIES: Negative for edema. SKIN: Warm and dry with some pallor. LABORATORY DATA: Today's laboratory studies show sodium 138, potassium 5.1, bicarbonate 22, BUN 81, creatinine 5.7. Calcium 9.6. Hemoglobin 8.6, white count 10.5. INPATIENT MEDICATIONS: Reviewed by myself. She received three doses of I.V. Venofer. She got a dose of Aranesp 100 mcg subcutaneously times one today. She received Lasix 20 mg p.o. times one today. She also received a dose of Veltassa 8.4 grams p.o. times one today. The remainder of medications are unchanged from prior. PROBLEMS: 1. Nonoliguric renal failure: I am unsure if this kidney failure is acute or chronic. Her GRF in December of 2017 (the last time she had labs) was only 34 mL per minute at that time corresponding to fairly advanced chronic kidney disease and she may have now simply progressed to end-stage renal disease, however as she did undergo a kidney biopsy yesterday and results are pending, her proteinuria is very benign at only 0.7 grams for her spot ratio and serologies that have returned so far are negative. There is no urgent indication for hemodialysis initiation at present, but I did discuss with the patient that she will need to follow-up closely in the office. 2. Iron deficiency anemia: She received Venofer. She also got a dose of Aranesp today. She has also gotten 3 units of packed red blood cell on this admission. FOBT was never collected and will need to be followed up outpatient. Hemoglobin is suboptimal but stable. 3. Hypertension with hypertensive heart disease: She has grade 1 diastolic dysfunction on echocardiogram. Blood pressures are well controlled with the current regimen of Amlodipine, Hydralazine and Imdur. 4. Hyperkalemia: Potassium is 5.1 and has been around that the past couple of days. She is on a renal diet. I gave her a dose of Veltassa today and I recommend she be discharged on Lasix 20 mg p.o. daily. She no longer needs to take Hydrochlorothiazide at home. DISPOSITION: Patient is stable for discharge from nephrology point of view with close follow-up in the office. Discussed with Dr. Briones.
--- NOTE | 2020-07-07 13:12 | POST-OPPD ---
Postoperative Procedure Note Date Of Procedure: Jul 05, 2020 Time Of Procedure: 16:[address] Guided kidney biopsy. IR Moderate sedation. Clinical Information:Renal failure. Physician: Dr. Meneses. Procedure: The patient was advised of the benefits, risks, and alternatives of the procedure and informed consent was obtained. A time out was performed with verification of the patient's name, MRN, site of procedure, and type of procedure to be performed. The patient was positioned in the prone position on the CT table. The site was prepped and draped in the usual sterile fashion. Moderate sedation was performed by the physician including the presence of an independent trained RN who assisted in monitoring the patient's level of consciousness and physiological status. Following the administration of fenta nyl and Versed, the physician spent 45 minutes of continuous [id number] time with the patient. Preliminary CT demonstrates unremarkable left kidney. The skin and expected tract were anesthetized with lidocaine.A 17-gauge coaxial needle was advanced under intermittent CT guidance to the left kidney lower pole cortex. An 18-gauge Biopince device was advanced through the coaxial needle and used to obtain 3 cores through the lower pole of the kidney, with CT confirmation. The needle was removed, pressure held and hemostasis achieved. A follow-up CT through the area demonstrates no significant hematoma. A sterile dressing was applied to the site. The patient tolerated the procedure well and was returned to the PRU in stable condition. EBL:Less than 5 mL. Complications:None. Conclusion:1. CT demonstrates unremarkable left kidney. 2. Successful CT-guided renal biopsy. Patient to follow-up with referring provider for biopsy results. Thank you for this referral. FABRICIO MENESES MD Jul 07, 2020 13:11
[2020-07-07 17:09] LABS: ANTI DS-DNA AB Negative (Negative)
== END 2020-07-06 15:25 | disposition home or self-care (01) | DRG 812 ==
LOC: M ED 10:22 → M ED INP 13:59 → M MSPAV 17:09
PROVIDERS: ADMIT General Practice; ATTEND Internal Medicine
PROC: 30233N1 Transfusion of Nonautologous Red Blood Cells into Peripheral Vein, Percutaneous Approach (ICD-10-PCS; 2020-06-29)
PROC: 0TB13ZX Excision of Left Kidney, Percutaneous Approach, Diagnostic (ICD-10-PCS; principal; 2020-07-05 13:30)
DX: D50.9 Iron deficiency anemia, unspecified (principal); N17.9 Acute kidney failure, unspecified; N25.81 Secondary hyperparathyroidism of renal origin; J96.11 Chronic respiratory failure with hypoxia; I13.0 Hypertensive heart and chronic kidney disease with heart failure and stage 1 through stage 4 chronic kidney disease, or unspecified chronic kidney disease; I50.32 Chronic diastolic (congestive) heart failure; N18.32 Chronic kidney disease, stage 3b; G43.909 Migraine, unspecified, not intractable, without status migrainosus; E87.5 Hyperkalemia; D63.1 Anemia in chronic kidney disease; J44.9 Chronic obstructive pulmonary disease, unspecified; R50.9 Fever, unspecified; J30.9 Allergic rhinitis, unspecified; K59.00 Constipation, unspecified; Z87.891 Personal history of nicotine dependence; Z98.890 Other specified postprocedural states; Z96.1 Presence of intraocular lens; Z20.822 Contact with and (suspected) exposure to COVID-19; Z79.82 Long term (current) use of aspirin; Z79.899 Other long term (current) drug therapy; Z88.0 Allergy status to penicillin; Z88.8 Allergy status to other drugs, medicaments and biological substances; Z99.81 Dependence on supplemental oxygen

== ENCOUNTER → 2020-07-19 | Outpatient (REF) | payer OTHER ==
[~2020-07-19] MED LIST changes: +ALB2.5NEB NEB; +ASPI81TA26 PO; +BRIM1OPD OS; +CITA20TA6 PO; +D31000TA2 PO; +FERR325T18 PO; +FURO20TA2 PO; +HYDR-3490 PO; +HYDR10TAB PO; +ISOS1TAB35 PO; +NETA2.5D2 OS; +PILO1OPD OS; +PREDOPD OS; +PROAAER10 INH; +SPIR1CAP INH; +SUMA100T2 PO; +TIMO0.5S42 OS
[2020-07-19 18:07] LABS: CALCIUM LEVEL 9.4 MG/DL (8.5-10.1); CREATININE FOR GFR 4.99 MG/DL (0.55-1.30); GLOMERULAR FILTRATION RATE 9.5 (>51); POTASSIUM SERUM 5.1 MEQ/L (3.5-5.1)
== END ==
LOC: M SFHCADAM 15:10
PROVIDERS: ATTEND Physician Assistant
DX: N18.4 Chronic kidney disease, stage 4 (severe) (principal)

== ENCOUNTER → 2020-07-21 | Outpatient (REF) | payer OTHER ==
[2020-07-21 19:15] LABS: PERCENT SATURATION 19.3 % (13.2-45.0)
== END ==
LOC: M LAB REF 17:29
PROVIDERS: ATTEND Internal Medicine Nephrology
DX: N18.5 Chronic kidney disease, stage 5 (principal); D63.1 Anemia in chronic kidney disease

== ENCOUNTER → 2020-08-31 | Outpatient (CLI) | payer OTHER | LOC: M LABSMTC 13:52 | PROVIDERS: ATTEND Anesthesiology | DX: Z01.812 Encounter for preprocedural laboratory examination (principal) ==

== ENCOUNTER → 2020-09-02 | Outpatient (REF) | payer OTHER ==
[2020-09-03 19:44] LABS: HEPATITIS B CORE ANTIBODY IGM NEGATIVE (NEGATIVE); HEPATITIS B SURFACE ANTIBODY NEGATIVE (POSITIVE); HEPATITIS B SURFACE ANTIGEN NEGATIVE (NEGATIVE); HEPATITIS C VIRUS ABY INDEX < 0.0 INDEX (<0.8)
== END ==
LOC: M LAB REF 16:56
PROVIDERS: ATTEND Internal Medicine Nephrology
DX: I13.2 Hypertensive heart and chronic kidney disease with heart failure and with stage 5 chronic kidney disease, or end stage renal disease (principal); I50.32 Chronic diastolic (congestive) heart failure; N18.5 Chronic kidney disease, stage 5

== ENCOUNTER → 2020-09-03 | Outpatient (CLI) | payer OTHER ==
[~2020-09-03] MED LIST changes: +LIDOCAINE 1% MDV 20ML VIAL As Ordered ONE; +LIDOCAINE W/EPINEPHRINE 1% 20ML VIAL As Ordered ONE; +MIDAZOLAM INJ 2MG/2ML VIAL (J2250 PER 1MG) As Ordered ONE; +VANCOMYCIN 1000MG/20ML VIAL As Ordered ONE; +fentaNYL 100 MCG/2 ML INJECTION (J3010) As Ordered ONE
--- NOTE | 2020-09-03 17:39 | ROOPDOC ---
[facility] Report Of Operation Report of Operation DATE OF PROCEDURE: 09/03/20 PREPROCEDURE DIAGNOSES: Renal failure requiring access for dialysis POSTPROCEDURE DIAGNOSES: Same PROCEDURE: 1. Ultrasound-guided access right internal jugular vein 2. Placement of a 23 cm right IJ PermCath SURGEON: Jan Alba MD ANESTHESIA: Local anesthesia 13 mL lidocaine. Moderate intravenous conscious sedation was supervised by Dr. Alba. The patient was independently monitored by registered nurse assigned to the Department of radiology using automated blood pressure, EKG, and pulse oximetry. The detailed sedation record is permanently stored in the hospital information system. The following is a brief sedation record: Start time 17:12, stop 17:29, Versed 1 mg IV, fentanyl 50 g IV. INDICATION FOR PROCEDURE: This is a very pleasant 60-year-old patient with worsening renal failure requiring access for dialysis. Risks benefits and alternatives to PermCath placement were explained to the patient she is agreeable to proceed. Informed consent was obtained. INTERPRETATION: The PermCath using good position in the right internal jugular vein, no kinks in the catheter. The tip is freely mobile on the right atrial SVC junction. There is no pneumothorax. It is okay to use the PermCath for dialysis. REPORT OF OPERATION: The patient was brought to the angiographic suite in stable condition. A timeout was performed. Her right neck and chest were prepped and draped in a sterile fashion. Sedation and antibiotics were administered without complication. Local anesthesia was administered to the skin and subcutaneous tissue over the right jugular vein, over the neck, over the clavicle to the right chest. A microneedle was used to access the jugular vein under ultrasound guidance. A wire was passed through this access and the needle was removed. The micro-sheath was placed the wire was exchanged for a J-wire into the SVC and IVC under fluoroscopic guidance. We then it is small incision at the jugular access site and a small incision on the right chest 1 fingerbreadth distal to the clavicle. We tunneled PermCath from the right chest to the jugular access site. We then performed 2 serial dilations over the wire using a Seldinger technique, and then placed the peel-away sheath over the wire. The inner cannula and wire were removed. The tips of the catheter were advanced through the peel-away sheath into the central system. The peel-away sheath was removed. Both ports sebastián back and flushed easily and were heparin locked with appropriate caps placed. Imaging confirmed that the catheter was in good position, no kinks in the catheter, with the tip freely mobile at the right atrial SVC junction. No pneumothorax present. We then irrigated the jugular access site and closed the deep tissue with an interrupted Monocryl suture and the skin was approximated with interrupted Monocryl suture. Dermabond was placed at the skin. We then placed Prolene sutures at the catheter exit site on the right chest, and 2 additional Prolene sutures to secure the catheter to the chest wall. The skin was cleaned and dried. Sterile dressings were applied. The patient was then taken to recovery in stable condition. She tolerated the procedure and the sedation well. ESTIMATED BLOOD LOSS: Approximately 3 mL. COMPLICATIONS: None. PLAN: It is okay to use the PermCath for dialysis. It is okay for the patient to resume her home diet and medications. If she will need long-term dialysis, we recommend the vein mapping of the bilateral upper extremities and the clinic visit to discuss options for fistula placement. We appreciate the opportunity to participate in the care of this patient. JAN ALBA MD Sep 03, 2020 17:39
[2020-09-03 18:00] VITALS: BP 149/72
== END ==
LOC: M IRPRO 15:09
PROVIDERS: ATTEND Surgery Vascular Surgery
DX: N18.9 Chronic kidney disease, unspecified (principal)
CPT/HCPCS: 36558; 99152; C1750; C1894; J1644; J2250; J3010; J3370

== ENCOUNTER 2020-10-06 23:09 | Inpatient (IN) | payer OTHER ==
[~2020-10-06] VITALS: Ht 165.1 cm; Wt 77.6 kg
[~2020-10-06 23:09] MED LIST changes: -LIDOCAINE 1% MDV 20ML VIAL As Ordered ONE; -LIDOCAINE W/EPINEPHRINE 1% 20ML VIAL As Ordered ONE; -MIDAZOLAM INJ 2MG/2ML VIAL (J2250 PER 1MG) As Ordered ONE; -VANCOMYCIN 1000MG/20ML VIAL As Ordered ONE; -fentaNYL 100 MCG/2 ML INJECTION (J3010) As Ordered ONE
[2020-10-06 23:39] LABS: MEAN CORPUSCULAR HEMOGLOBIN 31.6 pg (27.0-33.0); MEAN CORPUSCULAR HGB CONC 32.3 g/dl (32.0-36.5); PLATELET COUNT, AUTOMATED 267 10^3/uL (150-450); RED BLOOD COUNT 0.98 10^6/uL (4.00-5.40)
[2020-10-06 23:40] LABS: WHITE BLOOD COUNT 33.2 10^3/uL (4.0-10.0)
[2020-10-06 23:41] LABS: HEMATOCRIT 9.6 % (36.0-47.0); HEMOGLOBIN 3.1 g/dl (12.0-15.5)
[2020-10-06 23:47] LABS: INR 1.03; PROTHROMBIN TIME 13.7 SECONDS (12.5-14.3)
[2020-10-06 23:48] LABS: PARTIAL THROMBOPLASTIN TIME 31.9 SECONDS (24.2-38.5)
[2020-10-06 23:52] LABS: LYMPHOCYTES 12 % (16-44)
[2020-10-06 23:54] LABS: ANISOCYTOSIS 2+; EOSINOPHILS 2 % (0-3); MONOCYTES 4 % (0-5); MYELOCYTES 1 % (0-0); NEUTROPHILS 81 % (28-66); PLATELET ESTIMATE NORMAL (NORMAL); POIKILOCYTOSIS 1+
[2020-10-06 23:55] LABS: POLYCHROMASIA 1+
[2020-10-07] VITALS (34 sets, daily range): BP systolic 88–152; BP diastolic 52–76
[2020-10-07 00:03] LABS: ALBUMIN 2.7 GM/DL (3.2-5.2); ALT/SGPT 15 U/L (12-78); BILIRUBIN,DIRECT < 0.1 MG/DL (0.0-0.2); BILIRUBIN,TOTAL 0.2 MG/DL (0.2-1.0); BLOOD UREA NITROGEN 51 MG/DL (7-18); CALCIUM LEVEL 8.2 MG/DL (8.5-10.1); CARBON DIOXIDE LEVEL 28 MEQ/L (21-32); CHLORIDE LEVEL 100 MEQ/L (98-107); CK-MB VALUE MASS < 1.0 NG/ML (<3.6); CPK CREATINE PHOSPHOKINASE 19 U/L (26-192); CREATININE FOR GFR 4.27 MG/DL (0.55-1.30); GLOMERULAR FILTRATION RATE 11.3 (>51); GLUCOSE, FASTING 136 MG/DL (70-100); MB/CK RELATIVE INDEX 5.26 (< OR =4); POTASSIUM SERUM 3.7 MEQ/L (3.5-5.1); SODIUM LEVEL 136 MEQ/L (136-145); TOTAL PROTEIN 4.7 GM/DL (6.4-8.2); TROPONIN I 0.02 NG/ML (< 0.10)
--- NOTE | 2020-10-07 00:17 | REPVR ---
PROCEDURE INFORMATION: Exam: XR Chest Exam date and time: 10/06/2020 11:25 PM Age: 60 years old Clinical indication: Other: Admission TECHNIQUE: Imaging protocol: XR of the chest. Views: 1 view. COMPARISON: CR PORTABLE CHEST X-RAY 07/01/2020 7:59 AM FINDINGS: Tubes, catheters and devices: Right internal jugular dialysis catheter extending into the right atrium. Lungs: Minimal left base curvilinear atelectasis or scar. There are no interval infiltrates. Pleural spaces: Unremarkable. No pleural effusion. No pneumothorax. Heart/Mediastinum: Borderline cardiomegaly which is unchanged. Bones/joints: Unremarkable. IMPRESSION: 1. Right internal jugular dialysis catheter extending into the right atrium since 07/01/2020. No pneumothorax. 2. Otherwise stable chest. Electronically signed by: Chucho Fallon On 10/07/2020 00:17:17 AM
[2020-10-07] MEDS ORDERED: ACETAMINOPHEN TAB 650MG DOSE (2X325MG) PO PRN (00:40)
[2020-10-07] MEDS ORDERED: MAALOX 30 ML SUSP *UDC PO PRN (00:40)
[2020-10-07] MEDS ORDERED: MOM 30ML SUSPENSION UDC PO PRN (00:40)
[2020-10-07 01:15] LABS: FERRITIN 627 NG/ML (8-252); IRON (FE) 129 UG/DL (50-170); PERCENT SATURATION 66.2 % (13.2-45.0); TOTAL IRON BINDING CAPACITY 195 UG/DL (250-450)
--- NOTE | 2020-10-07 02:47 | ECGEPIP ---
[facility] - ED Test Date: 2020-10-06 Pat Name: SAGAR DELGADILLO Department: Room: - Gender: Female Hide Or Skin Buffer: : 1960 Requested By: Thomas Dick Order Number: [id number] Reading MD: Thomas Bar Measurements Intervals Reasnor Rate: 60 P: 44 AL: 174 QRS: 19 QRSD: 94 T: 47 QT: 436 QTc: 436 Interpretive Statements Sinus rhythm with premature atrial complexes INCOMPLETE RIGHT BUNDLE BRANCH BLOCK NSTTW ABNORMALITY(S) SIMILAR TO 06/29/20 Electronically Signed on 10-07-2020 2:47:39 EDT by Thomas Bar
[2020-10-07] MEDS ORDERED: BUDESONIDE 0.5 MG/2 ML INHALATION SUSPENSION INH SCH (03:00)
[2020-10-07] MEDS ORDERED: ALBUTEROL 90 MCG/ACT 8GM HFA INHALER INH SCH (03:00)
--- NOTE | 2020-10-07 03:57 | HPEPDOC ---
[facility] Medical History & Physical Date of Admission October 07, 2020 Date of Service: October 07, 2020 Primary Care Physician: Charlene Gill PA-C, LAC Attending Physician: KAIA WEAVER MD History and Physical TIME OF SERVICE: 135am CHIEF COMPLAINT: sent by dialysis unit HISTORY OF PRESENT ILLNESS: This 60 yr old F was admitted in Jun for MEDINA on CKD & acute symptomatic anemia that was managed with PRBCs and Venofer; stool occult was ordered several times but unfortunately the sample was not collected before the patient was discharged. In the interim she started dialysis, had blood work done on Sunday and received a phone call on Sunday with instructions to come to the hospital bc her Hg was 4. She has had dyspnea that is worse with exertion for months, chest discomfort, palpitations, dizziness, has been sleeping a lot and has been told that she looks unwell by various family members; she denies falling, loosing consciousness, vomiting blood or having blood in her stools. She thinks that her last c-scope, 5 or 6 yrs ago, and FIT last year were unremarkable. 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 She quit smoking 6 yrs ago & drinking. FAMILY HISTORY: Father: hypertension, diabetes, coronary artery disease / Mother: Colon cancer, metastatic to breast and lung ALLERGIES: Please see below. HOME MEDICATIONS: Please see below. PHYSICAL EXAMINATION: Vital Signs Date Time Temp Pulse Resp B/P (MAP) Pulse Ox O2 Delivery O2 Flow Rate FiO2 10/06/20 23:09 96.0 Room Air 10/06/20 23:24 62 99 10/06/20 23:40 4.0 10/07/20 00:15 28 GENERAL APPEARANCE: appears chronically ill /lethargic INTEGUMENT: she has generalized pallor /no jaundice / extremities warm HEENT: EOMI / no jaundice / she has conjunctival pallor / no angular cheilitis / no beefy red tongue CARDIOVASCULAR: RRR/NMRG LUNGS: she is not coughing or using accessory muscles /she has expiratory wheezing ABDOMEN: obese / soft & NT MUSCULOSKELETAL: NCAT NEUROLOGICAL: CN 2-12 grossly intact /speech not dysarthric PSYCHIATRIC: A&Ox 3 /able to understand and follow all commands LABORATORY DATA: Immature Granulocyte % (Auto) , Neutrophils (%) (Auto) , Nucleated Red Blood Cells % (auto) 0.3H, Neutrophils 81H, Lymphocytes (Manual) 12L, Monocytes (Manual) 4, Eosinophils (Manual) 2, Myelocytes 1H, Polychromasia 1+, Poikilocytosis 1+, Anisocytosis 2+, Macrocytosis 1+, Platelet Estimate NORMAL, Prothrombin Time 13.7, Prothromb Time International Ratio 1.03, Activated Partial Thromboplast Time 31.9, Anion Gap 8, Glomerular Filtration Rate 11.3L, Calcium Level 8.2L, Iron Level 129, Total Iron Binding Capacity 195L, Transferrin % Saturation 66.2H, Ferritin 627H, Total Bilirubin 0.2, Direct Bilirubin < 0.1, Aspartate Amino Transf (AST/SGOT) 7, Alanine Aminotransferase (ALT/SGPT) 15, Alkaline Phosphatase 51, Total Creatine Kinase 19L, Creatine Kinase MB < 1.0, Creatine Kinase MB Relative Index 5.26H, Troponin I 0.02, Total Protein 4.7L, Albumin 2.7L, Albumin/Globulin Ratio 1.4 IMAGING: chest xray IMPRESSION: 1. Right internal jugular dialysis catheter extending into the right atrium since 07/01/2020. No pneumothorax. 2. Otherwise stable chest. MICROBIOLOGY: Respiratory panel neg ASSESSMENT: is a 60 yr old w ASYA, ESRD, COPD, Essential HTN, migraines, hx of benign mandibular tumor who will be admitted for management of acute symptomatic anemia, hypotension and leukocytosis. PLAN: 1 Acute symptomatic anemia Possibly multifactorial in nature. Plan: bc her MAP is < 70 I will admit her to the to ICU / f/u add on iron studies with soluble transferrin receptor / she will need at least 5 units of PRBCs, per recs from [facility] regarding massive transfusion protocol I will ask her RNs to warm the blood, f/u aPTT, PT, fibrinogen & plts after every 5 units of blood (if the plts fall below 50 we will transfuse plts if the aPTT or PT are > 1.5 times the control we will infuse 2 units of FFPs, if the fibrinogen is < 200 we will order additional tests to screen for DIC) / will also monitor her pH, ionized calcium & K frequently, if the ionized Ca is low we will order Ca gluconate/ after she has received the first 5 units we will trend her Hg / pending the results of the stool occult the day time team may consider Gen Surg consult for C-scope / the patient reports taking an EPO stimulating agent but the pharmacy informatics manager was unable to reconcile her meds this evening, pending confirmation of her meds, the day time team may also consider Hem consult for bone marrow biopsy to determine why her Hg is low despite use of an EPO stimulating agent 2 Hypotension At baseline she has HTN. Her trop is wnl Plan; orthostats / hold BP meds / will consider Echo to determine if she has cardiogenic shock if her BP doesnt improve after she receives PRBCs / she doesnt meet SIRs criteria therefore septic shock is less likely 3 Leucocytosis Plan: monitor vitals / if she meets SIRs or has a qSOFA score >2 will initiate work up to r/o infection / f/u peripheral smear if abnormal the day time team may also consider discussing the results with Heme 4 Bradycardia Possibly due to propranolol & amlodipine Plan: telemetry 5 COPD She is wheezing bc she missed her PM doses of meds Plan: albuterol, budesonide and tiotropium 6 ESRD Plan: f/u w for dialysis 7 Migraines Plan: resume sumatriptan once meds are confirmed by home theatre technician DVT px w SCDs bc of acute anemia Dispo: home after at least 2 midnights stay LATE ENTRY 634AM amlodpine, HTCZ, lasix and propranlolo are on hold bc of low BP Per d/w Sukhwinder night time blood bank technologist, the day time blood bank technologist will call the patient's PCP to confirm if she is taking Xanax so we can add it to her medication list Home Medications Scheduled Amlodipine Besylate (Amlodipine Besylate) 10 Mg Tablet, 10 MG PO DAILY Aspirin (Aspirin EC) 81 Mg Tablet., 81 MG PO DAILY Brimonidine Tartrate (Alphagan P) 0.1% 5ML Drops, 1 DROP OD BID Budesonide (Budesonide) 0.5 Mg/2 Ml Ampul.neb, 0.5 MG INH BID Cholecalciferol (Vitamin D3) (Vitamin D3) 1,000 Unit Tablet, 1,000 UNITS PO DAILY Citalopram Hydrobromide (Citalopram HBr) 20 Mg Tablet, 20 MG PO DAILY Ferrous Sulfate (Ferrous Sulfate) 325 Mg Tablet, 325 MG PO BID Furosemide (Furosemide) 20 Mg Tablet, 20 MG PO DAILY Hydralazine HCl (Hydralazine HCl) 10 Mg Tablet, 10 MG PO BID Hydrochlorothiazide (Hydrochlorothiazide) 12.5 Mg Tablet, 12.5 MG PO DAILY Isosorbide Mononitrate (Isosorbide Mononitrate ER) 30 Mg Tab.er.24h, 30 MG PO BID Latanoprost (Xalatan) 0.005% 2.5ML Drops, 1 DROP OD QHS Pilocarpine HCl (Pilocarpine HCl) 1% 15ML Drops, 1 DROP OD BID Propranolol HCl (Propranolol HCl) 40 Mg Tablet, 40 MG PO BID Timolol Maleate (Timolol Maleate) 0.5% 5ML Drops, 1 DROP OD BID Tiotropium [place] (Spiriva) 18 Mcg Cap.w.dev, 1 INHALATION INH DAILY Scheduled PRN Albuterol Sulf (Albuterol Sulfate) 2.5 Mg/3 Ml Vial.neb, 2.5 MG INH QID PRN for SHORTNESS OF BREATH Albuterol Sulfate (Proair Hfa) 8.5 Gm Hfa.aer.ad, 2 PUFF INH QID PRN for SHORTNESS OF BREATH Sumatriptan Succinate (Sumatriptan Succinate) 100 Mg Tablet, 100 MG PO BID PRN for MIGRAINE Allergies Coded Allergies: amoxicillin (Verified Allergy, Unknown, rash, 06/29/20) clavulanic acid (Verified Allergy, Unknown, rash, 06/29/20) A-FIB/CHADSVASC A-FIB History Current/History of A-Fib/PAF?: No Current PO Anticoag Therapy: No KAIA WEAVER MD October 07, 2020 03:57
[2020-10-07 04:35] LABS: VENOUS BASE EXCESS 1.9 (-2.0-2.0); VENOUS O2 SATURATION 92.7 % (60.0-80.0); VENOUS PARTIAL PRESSURE CO2 45.3 mmHg (38.0-50.0); VENOUS PARTIAL PRESSURE O2 66.8 mmHg (30.0-50.0); VENOUS PH 7.393 UNITS (7.330-7.430); VENOUS STANDARD HCO3 26.2 MEQ/L; VENOUS TOTAL CO2 28.4 MEQ/L (24.0-28.0)
[2020-10-07 04:38] LABS: PLATELET COUNT, AUTOMATED 193 10^3/uL (150-450)
[2020-10-07 04:48] LABS: INR 1.06
[2020-10-07 04:49] LABS: PARTIAL THROMBOPLASTIN TIME 32.6 SECONDS (24.2-38.5)
[2020-10-07 05:08] LABS: POTASSIUM SERUM 3.7 MEQ/L (3.5-5.1)
[2020-10-07] MEDS ORDERED: CALCIUM GLUCONATE 1,000 MG in D5W MINI-BAG PLUS 100 ML IV ONE (05:30)
[2020-10-07] MEDS ORDERED: PILO1OPD OD (06:13)
[2020-10-07] MEDS ORDERED: XALA0.007 OD (06:13)
[2020-10-07] MEDS ORDERED: ISOS1TAB35 PO (06:13)
[2020-10-07] MEDS ORDERED: ALBU83IN INH (06:13)
[2020-10-07] MEDS ORDERED: HYDR12.55 PO (06:13)
[2020-10-07] MEDS ORDERED: FURO20TA2 PO (06:13)
[2020-10-07] MEDS ORDERED: BRIM1OPD OD (06:13)
[2020-10-07] MEDS ORDERED: SUMA100T2 PO (06:13)
[2020-10-07] MEDS ORDERED: SPIR1CAP INH (06:13)
[2020-10-07] MEDS ORDERED: TIMO0.5S29 OD (06:13)
[2020-10-07] MEDS ORDERED: FERR325T18 PO (06:13)
[2020-10-07] MEDS ORDERED: HYDR10TAB PO (06:13)
[2020-10-07] MEDS ORDERED: SUMAtriptan SUCCINATE 25 MG TAB PO PRN (06:35)
[2020-10-07] MEDS ORDERED: PANTOPRAZOLE SODIUM 40 MG in D5W 50 ML IV SCH (08:00)
[2020-10-07 08:01] LABS: VENOUS BASE EXCESS 0.6 (-2.0-2.0); VENOUS HCO3 27.3 MEQ/L (23.0-27.0); VENOUS PARTIAL PRESSURE CO2 55.9 mmHg (38.0-50.0); VENOUS PARTIAL PRESSURE O2 37.8 mmHg (30.0-50.0); VENOUS PH 7.306 UNITS (7.330-7.430); VENOUS STANDARD HCO3 24.7 MEQ/L
[2020-10-07 08:14] LABS: BASO # 0.1 10^3/uL (0.0-0.2); BASO % 0.3 % (0.0-1.0); EOS # 0.1 10^3/uL (0.0-0.5); EOS % 0.6 % (0.0-3.0); HEMOGLOBIN 7.1 g/dl (12.0-15.5); LYMPH % 8.6 % (24.0-44.0); MEAN CORPUSCULAR HEMOGLOBIN 31.3 pg (27.0-33.0); MEAN CORPUSCULAR HGB CONC 33.8 g/dl (32.0-36.5); MEAN CORPUSCULAR VOLUME 92.5 fl (80.0-96.0); MONO # 1.3 10^3/uL (0.0-0.8); MONO % 5.7 % (2.0-8.0); NEUTROPHILS # 18.6 10^3/uL (1.5-8.5); NEUTROPHILS % 80.2 % (36.0-66.0); PLATELET COUNT, AUTOMATED 192 10^3/uL (150-450); RED BLOOD COUNT 2.27 10^6/uL (4.00-5.40); WHITE BLOOD COUNT 23.1 10^3/uL (4.0-10.0)
[2020-10-07 08:20] LABS: INR 1.02; PROTHROMBIN TIME 13.6 SECONDS (12.5-14.3)
[2020-10-07 08:21] LABS: PARTIAL THROMBOPLASTIN TIME 31.5 SECONDS (24.2-38.5)
[2020-10-07 08:23] LABS: CALCIUM LEVEL 8.4 MG/DL (8.5-10.1); CREATININE FOR GFR 4.5 MG/DL (0.55-1.30); GLOMERULAR FILTRATION RATE 10.6 (>51); POTASSIUM SERUM 3.6 MEQ/L (3.5-5.1)
[2020-10-07] MEDS ORDERED: ASPIRIN 81MG ENTERIC TABLET PO SCH (09:00)
[2020-10-07] MEDS ORDERED: TIMOLOL MALEATE 0.5% OPHTH SOLN 5 ML OS SCH (09:00)
[2020-10-07] MEDS ORDERED: BRIMONIDINE 0.1% OPHTH SOLN 5 ML OS SCH (09:00)
[2020-10-07] MEDS ORDERED: PILOCARPINE 1% OPHTH SOLN 15 ML OS SCH (09:00)
[2020-10-07] MEDS: FERROUS SULFATE 325MG TAB PO SCH ×2 (09:21→21:27)
[2020-10-07] MEDS: VITAMIN D 1,000 INTERNATIONAL UNITS TABLET PO SCH (09:21)
[2020-10-07] MEDS: BRIMONIDINE 0.1% OPHTH SOLN 5 ML OD SCH ×2 (09:21→21:28)
[2020-10-07] MEDS: CitaloPRAM (CeleXA) 20 MG TAB PO SCH (09:21)
[2020-10-07] MEDS: TIMOLOL MALEATE 0.5% OPHTH SOLN 5 ML OD SCH ×2 (09:21→21:28)
[2020-10-07] MEDS: PILOCARPINE 1% OPHTH SOLN 15 ML OD SCH ×2 (09:21→21:28)
[2020-10-07] MEDS: SUCRALFATE 1 GM TAB PO SCH ×3 (10:09→17:41)
[2020-10-07 10:27] LABS: VITAMIN B12 LEVEL 221 PG/ML (247-911)
--- NOTE | 2020-10-07 11:35 | IPNPDOC ---
Text Note Date of Service The patient was seen on 10/07/20. NOTE SUBJECTIVE: -Feels much better this AM -No acute complaints GENERAL APPEARANCE: appears chronically ill, NAD INTEGUMENT: she has generalized pallor, no jaundice HEENT: EOMI, no jaundice, she has conjunctival pallor, no angular cheilitis, no beefy red tongue CARDIOVASCULAR: RRR, NMRG LUNGS: CTAB ABDOMEN: Obese, normoactive sounds, soft & NT MUSCULOSKELETAL: NCAT NEUROLOGICAL: CN 2-12 grossly intact, speech not dysarthric, moving all extremities PSYCHIATRIC: A&Ox 3, understands and follows all commands LABORATORY DATA: Reviewed WBC 23.1 Hgb 7.1 platelets 192 Na 137 K 3.6 Cr 4.5 ferritin 627 Fe 129 B12 pending folate pending IMAGING: chest xray IMPRESSION: 1. Right internal jugular dialysis catheter extending into the right atrium since 07/01/2020. No pneumothorax. 2. Otherwise stable chest. MICROBIOLOGY: Respiratory panel neg ASSESSMENT: is a 60 yr old w ASYA, ESRD, COPD, Essential HTN, migraines, hx of benign mandibular tumor who will be admitted for management of acute symptomatic anemia, hypotension and leukocytosis. PLAN: Subacute symptomatic anemia Possibly multifactorial, investigations still in process -s/p 5 units of PRBCs, Hgb already 7.1 after 4 units with 5th unit hanging -check PM CBC -Switch from protonix gtt to BID 40mg IV -sucralfate WM -spoke with Dr. Araujo who thinks she will likely require outpatient EGD/colo if H/H is stable. Will keep on clear for most of the day and monitor and will resume diet if stable and H/H remains stable. -Ferritin 627 -Fe 129 -f/u Vit B12 and folate -f/u peripheral smear -f/u stool occult -will consider Heme consult Hypotension At baseline she has HTN. Her trop is wnl -resolved after blood products Leukocytosis -monitor vitals -CXR was wnl, will check UA COPD -albuterol, budesonide and tiotropium ESRD -Nephrology onboard for HD Migraines -continue home meds DVT px w SCDs i/s/o anemia Dispo: home after at least 2 midnights stay. Medsurg. VS,Fishbone, I+O VS, Fishbone, I+O Laboratory Tests 10/06/20 23:24 10/07/20 04:27 10/07/20 07:40 Vital Signs Date Time Temp Pulse Resp B/P (MAP) Pulse Ox O2 Delivery O2 Flow Rate FiO2 10/07/20 08:41 62 137/73 Nasal Cannula 3.0 10/07/20 08:07 98.2 20 97 I&O- Last 24 Hours up to 6 AM 10/07/20 06:00 Intake Total 2615 ml Output Total 0 ml Balance 2615 ml ANAHI ORTEGA MD October 07, 2020 09:16
[2020-10-07] MEDS ORDERED: ALBUTEROL SULFATE 2.5 MG/0.5 ML INH NEB SOLN INH PRN (12:00)
[2020-10-07] MEDS: ALBUTEROL 90 MCG/ACT 8GM HFA INHALER INH PRN ×2 (12:00→17:40)
[2020-10-07] MEDS: TIOTROPIUM INHALER/CAPSULE (SPIRIVA) INH SCH (14:39)
--- NOTE | 2020-10-07 16:25 | CR ---
NEPHROLOGY CONSULTATION DATE: 10/07/2020 REQUESTING PHYSICIAN: Farhana Tinoco M.D. REASON FOR CONSULTATION: Severe symptomatic anemia and end-stage renal disease. HISTORY OF PRESENT ILLNESS: Miss Garcia is a 60-year-old female with a history of acute renal failure recently, superimposed on chronic kidney disease. She had a left kidney biopsy done in June which showed mostly just scarred tissue, said she was felt to have end-stage renal disease. She was admitted to [facility] recently and has been on dialysis. Last week she was dialyzed as an outpatient and her hemoglobin was in the 8 to 8.4 range. This week her labs were drawn on Sunday and the lab called with a panic hemoglobin level of 4.0. The patient was advised to come to the Emergency Room and in the Emergency Room her hemoglobin was found to be 3.1. She was admitted last evening and is currently in the Intensive Care Unit due to hypotension. She has been transfused with 5 units of packed RBCs. She was due for dialysis and a nephrology consultation was requested. The patient reports dark, black, tarry stools for a few days. PAST MEDICAL AND SURGICAL HISTORY: The patient's past medical and surgical history is significant for: 1. Chronic obstructive pulmonary disease. 2. Resection of benign mandibular tumor with reconstruction. 3. Anemia with recurrent GI bleed. PERSONAL AND SOCIAL HISTORY: The patient is retired and he is a former smoker. He does not drink any more now. FAMILY HISTORY: The patient's family history is significant for hypertension, diabetes and coronary artery disease on the father's side and colon cancer and metastatic disease on the mother's side. There is no history of end-stage renal disease in her family. MEDICATIONS: Her outpatient medications include: 1. Amlodipine 10 mg daily. 2. Aspirin 81 mg daily. 3. Alphagan eye drops 0.1% twice daily. 4. Budesonide nebulizer twice daily. 5. Vitamin D 1,000 units daily. 6. Citalopram 20 mg daily. 7. Ferrous Sulfate 325 mg twice daily. 8. Furosemide 20 mg daily. 9. Hydralazine 10 mg twice daily. 10. Hydrochlorothiazide 12.5 mg daily. 11. Isosorbide 30 mg twice daily. 12. Pilocarpine eye drops 1% twice daily. 13. Propanolol 40 mg twice daily. 14. Timolol eye drops 0.5% twice daily. 15. She also uses Albuterol nebulizer as needed. 16. Sumatriptan 100 mg tablet as needed for migraines. ALLERGIES: 1. AMOXICILLIN. 2. CLAVULANIC ACID. REVIEW OF SYSTEMS: Constitutional: She has been feeling very weak and tired. She reports shortness of breath with minimal exertion. She denies any fever or chills. Ears, Nose and Throat: Unremarkable. Cardiovascular system: Significant for dyspnea on exertion but denies any leg edema. Respiratory system: Negative for cough or hemoptysis. GI system: Significant for black, tarry stools. She denies any vomiting or diarrhea. Genitourinary systems: Significant for history of advanced renal failure with kidney biopsy. She denies any dysuria or hematuria. Musculoskeletal system: Negative for leg edema. She denies any NSAID use. Endocrine system: Negative for diabetes or thyroid problems. Hematological system: Significant for recurrent blood loss anemia. Psychosocial system: Significant for depression. Neurological system: Negative for seizures or stroke. Skin: Negative for rash or ulcers. LABORATORY DATA: On admission WBC count 33.2, hemoglobin 3.1 and hematocrit 9.6, platelet count 267. INR was 1.3 and the PTT was 31.9. Today her sodium is 137, her potassium 2.6, CO2 31, BUN 53 and creatinine 4.5. Glucose 104 and calcium 8.4. A BNP level is 2,393. PROBLEMS: 1. Severe symptomatic anemia - The patient most likely has an acute upper GI bleed with malignant stools and has been transfused 5 units of packed RBCs this morning. I would recommend urgent upper endoscopy to look for the source of bleeding. Her CBC should be monitored closely and frequently and further transfusions could be needed. I have stopped her Aspirin and have also started her on intravenous Protonix drip. 2. End-stage renal disease - This patient is due for dialysis today and we will go ahead and arrange for low Heparin dialysis. We will try to remove about one liter of fluid as tolerated to prevent worsening hypervolemia. 3. Congestive heart failure her BNP level is slightly elevated. We will try to remove some fluid as tolerated with dialysis. Thank you for involving me in the care of Miss Garcia. I will follow her along with you.
--- NOTE | 2020-10-07 17:45 | CR.PDOC ---
General Surgery Consultation Date of Consultation 10/07/20 History and Physical CONSULT REPORT FOR: hospitalist service (Dr. Recio) REASON FOR CONSULTATION: symptomatic anemia, melena HISTORY OF PRESENT ILLNESS: Patient is a 60-year-old female, end-stage renal disease who is on hemodialysis. She was admitted yesterday evening after lab draws shows severe anemia. She reports being lightheaded, noted to be hypotensive. It looks like she was admitted and June in acute renal failure superimposed on chronic kidney disease. She was anemic with a hemoglobin of 7. She is now requiring hemodialysis and is also getting iron infusion. Additional [facility] routine lab draw yesterday shows her hemoglobin is down to 3. She reports passing black stools. She denies any overt unexplained blood loss. She reports she has had a colonoscopy about 5 years ago. PAST MEDICAL HISTORY: 1. End stage renal disease 2. anemia 3. PAST SURGICAL HISTORY: INCLUDES: 1. Colonoscopy about 5 years ago 2. Resection of benign mandibular tumor with reconstruction ALLERGIES: Please see below. HOME MEDICATIONS: Please see below. REVIEW OF SYSTEMS: GENERAL: [Denies chills, reports weight gain, reports feeling febrile yesterday]. HEENT: [Denies blurred vision and double vision. Denies ear symptoms. Denies hoarseness]. NECK: Denies any neck pain]. CARDIOVASCULAR: [Denies chest pain and palpitations]. MUSCULOSKELETAL: [Denies arthralgias, back pain and thrombophlebitis]. SKIN: [Denies rash]. NEUROLOGIC: [Denies headache, stroke and transient ischemic attack]. PSYCHIATRIC: [Denies anxiety and depression]. ENDOCRINE: [Denies thyroid disease]. HEMATOLOGY/ONCOLOGY: [Denies bleeding or clotting disorder]. HEART: [Denies any chest pains, palpitations, paroxysmal dyspnea, orthopnea]. PULMONARY: [Denies chronic cough, dyspnea and wheezing]. GASTROINTESTINAL: [Denies rectal bleeding, family history of colon cancer, constipation, diarrhea, dysphagia, heartburn and jaundice]. GENITOURINARY: [Denies dysuria, frequency, hematuria and nocturia]. ENDOCRINE: [Denies polydipsia, polyphagia, polyuria, heat or cold intolerance]. INFECTIOUS: [Denies any recent upper respiratory tract infection, UTI, need for use of antibiotics]. NUTRITION: [Reports good appetite]. PHYSICAL EXAMINATION: VITALS SIGNS: Please see below. GENERAL APPEARANCE:[Patient seen, laying in bed, awake, alert, and oriented. Comfortable, in no acute distress]. SKIN: [Warm and moist]. HEENT: [Normocephalic, atraumatic. [place] palpebral conjunctiva, anicteric sclerae. Lips and mucosa appear moist]. NECK: [Supple, no thyromegaly. No obvious jugular venous distention]. LUNGS: [Clear to auscultation bilaterally. No wheezing appreciated]. HEART: [No chest wall abnormalities. Regular rate and rhythm with no murmurs appreciated]. ABDOMEN: Abdomen is , soft, . [No hepatosplenomegaly. No umbilical or groin herniations, nondistended. No noticeable rebound or guarding. No grimacing with palpation. No rebound tenderness. No masses appreciated]. EXTREMITIES: [Extremities have no deformities. No edema identified] ANCILLARIES: . LABORATORY DATA: Please see below. IMAGING STUDIES: IMPRESSION AND PLAN: Symptomatic anemia Reports of most likely melena Have scheduled the patient for an upper endoscopy today to look for possible causes of his anemia and reports of melena. She is only on aspirin. She is on any blood thinners. She has gotten hemodialysis today so she should not be uremic cause of her bleeding. Vital Signs Vital Signs Date Time Temp Pulse Resp B/P (MAP) Pulse Ox O2 Delivery O2 Flow Rate FiO2 10/07/20 14:11 98.4 71 19 137/72 (93) 98 Nasal Cannula 3.0 I&Os I&O- Last 24 Hours up to 6 AM 10/07/20 06:00 Intake Total 2615 ml Output Total 0 ml Balance 2615 ml Laboratory Data Labs 24H Laboratory Tests 2 10/06/20 23:24: Immature Granulocyte % (Auto) , Neutrophils (%) (Auto) , Nucleated Red Blood Cells % (auto) 0.3H, Neutrophils 81H, Lymphocytes (Manual) 12L, Monocytes (Manual) 4, Eosinophils (Manual) 2, Myelocytes 1H, Polychromasia 1+, Poikilocytosis 1+, Anisocytosis 2+, Macrocytosis 1+, Platelet Estimate NORMAL, Prothrombin Time 13.7, Prothromb Time International Ratio 1.03, Activated Partial Thromboplast Time 31.9, Anion Gap 8, Glomerular Filtration Rate 11.3L, Calcium Level 8.2L, Iron Level 129, Total Iron Binding Capacity 195L, Transferrin % Saturation 66.2H, Ferritin 627H, Total Bilirubin 0.2, Direct Bilirubin < 0.1, Aspartate Amino Transf (AST/SGOT) 7, Alanine Aminotransferase (ALT/SGPT) 15, Alkaline Phosphatase 51, Total Creatine Kinase 19L, Creatine Kinase MB < 1.0, Creatine Kinase MB Relative Index 5.26H, Troponin I 0.02, Total Protein 4.7L, Albumin 2.7L, Albumin/Globulin Ratio 1.4, Vitamin B12 Level 221L, Folate 7.0 10/07/20 04:27: Prothrombin Time 14.0, Prothromb Time International Ratio 1.06, Activated Partial Thromboplast Time 32.6, Fibrinogen 221, Blood Gas Puncture Site UNKNOWN, Blood Gas Bicarbonate Standard 26.2, Venous Blood pH 7.393, Venous Blood Partial Pressure CO2 45.3, Venous Blood Partial Pressure O2 66.8H, Venous Blood Total Carbon Dioxide 28.4H, Venous Blood HCO3 27.0, Venous Blood Oxygen Saturation 92.7H, Venous Blood Base Excess 1.9, Whole Blood Ionized Calcium 4.4L, KD-Rjj-A-Type Natriuretic Peptide 2393H 10/07/20 07:40: Immature Granulocyte % (Auto) 4.6H, Neutrophils (%) (Auto) 80.2H, Nucleated Red Blood Cells % (auto) 0.2H, Prothrombin Time 13.6, Prothromb Time International Ratio 1.02, Activated Partial Thromboplast Time 31.5, Anion Gap 6L, Glomerular Filtration Rate 10.6L, Calcium Level 8.4L, Fibrinogen 212L, Blood Gas Puncture Site UNKNOWN, Blood Gas Bicarbonate Standard 24.7, Venous Blood pH 7.306L, Venous Blood Partial Pressure CO2 55.9H, Venous Blood Partial Pressure O2 37.8, Venous Blood Total Carbon Dioxide 29.0H, Venous Blood HCO3 27.3H, Venous Blood Oxygen Saturation 71.0, Venous Blood Base Excess 0.6, Whole Blood Ionized Calcium 4.7, Lymphocytes (%) (Auto) 8.6L, Monocytes (%) (Auto) 5.7, Eosinophils (%) (Auto) 0.6, Basophils (%) (Auto) 0.3, Neutrophils # (Auto) 18.6H, Lymphocytes # (Auto) 2.0, Monocytes # (Auto) 1.3H, Eosinophils # (Auto) 0.1, Basophils # (Auto) 0.1, Differential Slide Review Report, Peripheral Blood Smear Path Consult PERIPHERAL SMEAR CBC/BMP Laboratory Tests 10/06/20 23:24 10/07/20 04:27 10/07/20 07:40 Microbiology Microbiology 10/06/20 Respiratory Virus Panel (PCR) (DANIEL) - Final, Complete Home Medications Scheduled Amlodipine Besylate (Amlodipine Besylate) 10 Mg Tablet, 10 MG PO DAILY, (Reported) Aspirin (Aspirin EC) 81 Mg Tablet.dr, 81 MG PO DAILY, (Reported) Brimonidine Tartrate (Alphagan P) 0.1% 5ML Drops, 1 DROP OD BID, (Reported) Budesonide (Budesonide) 0.5 Mg/2 Ml Ampul.neb, 0.5 MG INH BID, (Reported) Cholecalciferol (Vitamin D3) (Vitamin D3) 1,000 Unit Tablet, 1,000 UNITS PO DAILY, (Reported) Citalopram Hydrobromide (Citalopram HBr) 20 Mg Tablet, 20 MG PO DAILY, (Reported) Ferrous Sulfate (Ferrous Sulfate) 325 Mg Tablet, 325 MG PO BID, (Reported) Furosemide (Furosemide) 20 Mg Tablet, 20 MG PO DAILY, (Reported) Hydralazine HCl (Hydralazine HCl) 10 Mg Tablet, 10 MG PO BID, (Reported) Hydrochlorothiazide (Hydrochlorothiazide) 12.5 Mg Tablet, 12.5 MG PO DAILY, (Reported) Isosorbide Mononitrate (Isosorbide Mononitrate ER) 30 Mg Tab.er.24h, 30 MG PO BID, (Reported) Latanoprost (Xalatan) 0.005% 2.5ML Drops, 1 DROP OD QHS, (Reported) Pilocarpine HCl (Pilocarpine HCl) 1% 15ML Drops, 1 DROP OD BID, (Reported) Propranolol HCl (Propranolol HCl) 40 Mg Tablet, 40 MG PO BID, (Reported) Timolol Maleate (Timolol Maleate) 0.5% 5ML Drops, 1 DROP OD BID, (Reported) Tiotropium [place] (Spiriva) 18 Mcg Cap.w.dev, 1 INHALATION INH DAILY, (Reported) Scheduled PRN Albuterol Sulf (Albuterol Sulfate) 2.5 Mg/3 Ml Vial.neb, 2.5 MG INH QID PRN for SHORTNESS OF BREATH, (Reported) Albuterol Sulfate (Proair Hfa) 8.5 Gm Hfa.aer.ad, 2 PUFF INH QID PRN for SHORTNESS OF BREATH, (Reported) Sumatriptan Succinate (Sumatriptan Succinate) 100 Mg Tablet, 100 MG PO BID PRN for MIGRAINE, (Reported) Allergies Coded Allergies: amoxicillin (Verified Allergy, Unknown, rash, 06/29/20) clavulanic acid (Verified Allergy, Unknown, rash, 06/29/20) RUSTAM CAO MD October 07, 2020 17:45
[2020-10-07] MEDS ORDERED: propofoL 200 MG/20 ML VIAL As Ordered ONE ×2 (18:43→19:47)
[2020-10-07] MEDS ORDERED: LIDOCAINE 2% 100MG/5ML SDV (FOR ANES.) As Ordered ONE (18:43)
[2020-10-07] MEDS ORDERED: fentaNYL 100 MCG/2 ML INJECTION (J3010) As Ordered ONE (18:44)
[2020-10-07] MEDS: BUDESONIDE 0.5 MG/2 ML INHALATION SUSPENSION INH SCH (19:42)
--- NOTE | 2020-10-07 19:59 | ROOR ---
Patient Name: Karissa Garcia Procedure Date: 10/07/2020 6:40 PM Date of : 1960 Age: 60 Room: Main OR Gender: Female Note Status: Finalized Procedure: Upper GI endoscopy Indications: Acute post hemorrhagic anemia, Melena Providers: Santos Araujo MD Referring MD: 2. Inpatient 2. Inpatient Requesting Provider: Medicines: Monitored Anesthesia Care Complications: No immediate complications. Procedure: Pre-Anesthesia Assessment: - Prior to the procedure, a History and Physical was performed, and patient medications and allergies were reviewed. The patient is competent. The risks and benefits of the procedure and the sedation options and risks were discussed with the patient. All questions were answered and informed consent was obtained. Patient identification and proposed procedure were verified by the physician, the nurse and the real estate agent in the procedure room. Mental Status Examination: alert and oriented. Airway Examination: normal oropharyngeal airway and neck mobility. Respiratory Examination: clear to auscultation. CV Examination: normal. Prophylactic Antibiotics: The patient does not require prophylactic antibiotics. Prior Anticoagulants: The patient has taken no previous anticoagulant or antiplatelet agents except for aspirin. ASA Grade Assessment: III - A patient with severe systemic disease. After reviewing the risks and benefits, the patient was deemed in satisfactory condition to undergo the procedure. The anesthesia plan was to use monitored anesthesia care (MAC). Immediately prior to administration of medications, the patient was re-assessed for adequacy to receive sedatives. The heart rate, respiratory rate, oxygen saturations, blood pressure, adequacy of pulmonary ventilation, and response to care were monitored throughout the procedure. The physical status of the patient was re-assessed after the procedure. The Endoscope was introduced through the mouth, and advanced to the second part of duodenum. The upper GI endoscopy was accomplished without difficulty. The patient tolerated the procedure well. Findings: The examined esophagus was normal. There is no endoscopic evidence of bleeding, areas of erosion, esophagitis, ulcerations or varices in the entire esophagus. Scattered mild inflammation with hematin, no fresh bleeding characterized by adherent blood, congestion (edema) and erythema was found in the gastric body. Biopsies were taken with a cold forceps for Helicobacter pylori testing. Estimated blood loss was minimal. Localized nodular mucosa was found in the first portion of the duodenum. [Extent] mild inflammation [Hemorrhage] characterized by congestion (edema) and aphthous ulcerations was found in the first portion of the duodenum. Nodular mucosa, with contact bleeding. Biopsied portion with oozing, took awhile to stop oozing. No active bleeding but evidence for prior bleeding, hematin containing materials staining the wall. This was biopsied with a cold forceps for histology. Estimated blood loss: persistent oozing at biopsied sites, took awhile to stop , no bleeding at end of procedure. The ampulla and second portion of the duodenum were normal. Impression: - Normal esophagus. - Mucosal changes suspicious for chronic gastritis with hematin, no fresh bleeding. Biopsied. - Nodular mucosa in the first portion of the duodenum. - Acute duodenitis. Biopsied. - Normal ampulla and second portion of the duodenum. Recommendation: - [facility]. - Soft diet daily. - Use Protonix (pantoprazole) 40 mg PO BID today. - Use sucralfate tablets 1 gram PO QID today. Procedure Code(s): --- Professional --- 05032, Esophagogastroduodenoscopy, flexible, transoral; with biopsy, single or multiple Diagnosis Code(s): --- Professional --- K31.89, Other diseases of stomach and duodenum D62, Acute posthemorrhagic anemia K92.1, Melena (includes Hematochezia) CPT copyright 2019 [employer]. All rights reserved. The codes documented in this report are preliminary and upon invoice coder review may be revised to meet current compliance requirements. Santos Araujo MD Santos Araujo MD 10/07/2020 7:59:39 PM Electronically signed by Santos Araujo MD Number of Addenda: 0 Note Initiated On: 10/07/2020 6:40 PM Estimated Blood Loss: Estimated blood loss was minimal.
[2020-10-07] MEDS ORDERED: LR 1,000 ML IV SCH (20:05)
[2020-10-07] MEDS ORDERED: PANTOPRAZOLE 40MG VIAL (C9113 PER 1) IV SCH (21:00)
[2020-10-07] MEDS: LATANOPROST 0.005% OPHTH SOLN 2.5 ML OD SCH (21:28)
[2020-10-08] VITALS (16 sets, daily range): BP systolic 128–172; BP diastolic 53–93
[2020-10-08] MEDS: ALBUTEROL 90 MCG/ACT 8GM HFA INHALER INH PRN (04:02)
[2020-10-08 06:00] LABS: HEMATOCRIT 22.1 % (36.0-47.0); HEMOGLOBIN 7.3 g/dl (12.0-15.5); MEAN CORPUSCULAR HEMOGLOBIN 30.8 pg (27.0-33.0); MEAN CORPUSCULAR VOLUME 93.2 fl (80.0-96.0); PLATELET COUNT, AUTOMATED 157 10^3/uL (150-450); RED BLOOD COUNT 2.37 10^6/uL (4.00-5.40); WHITE BLOOD COUNT 15.8 10^3/uL (4.0-10.0)
[2020-10-08 06:24] LABS: CREATININE FOR GFR 2.98 MG/DL (0.55-1.30); GLOMERULAR FILTRATION RATE 17.1 (>51); POTASSIUM SERUM 3.8 MEQ/L (3.5-5.1)
[2020-10-08] MEDS: TIOTROPIUM INHALER/CAPSULE (SPIRIVA) INH SCH (07:23)
[2020-10-08] MEDS: BUDESONIDE 0.5 MG/2 ML INHALATION SUSPENSION INH SCH ×2 (07:23→19:40)
[2020-10-08] MEDS: IPRATROPIUM 0.5MG/ALBUTEROL 2.5MG INH SOL UD 3ML (DUONEB) NEB SCH ×2 (08:00→19:41)
[2020-10-08] MEDS: VITAMIN D 1,000 INTERNATIONAL UNITS TABLET PO SCH (08:48)
[2020-10-08] MEDS: FERROUS SULFATE 325MG TAB PO SCH ×2 (08:48→20:32)
[2020-10-08] MEDS: PANTOPRAZOLE 40MG TAB (PROTONIX) PO SCH ×2 (08:48→20:32)
[2020-10-08] MEDS: CitaloPRAM (CeleXA) 20 MG TAB PO SCH (08:48)
[2020-10-08] MEDS: BRIMONIDINE 0.1% OPHTH SOLN 5 ML OD SCH ×2 (08:48→20:33)
[2020-10-08] MEDS: SUCRALFATE 1 GM TAB PO SCH ×4 (08:48→20:32)
[2020-10-08] MEDS: TIMOLOL MALEATE 0.5% OPHTH SOLN 5 ML OD SCH ×2 (08:49→20:33)
[2020-10-08] MEDS: PILOCARPINE 1% OPHTH SOLN 15 ML OD SCH ×2 (08:49→20:33)
--- NOTE | 2020-10-08 09:47 | IPNPDOC ---
Text Note Date of Service The patient was seen on 10/08/20. NOTE SUBJECTIVE: -No acute complaints, asking for her nebs how she takes them at home --> Duonebs BID and albuterol alone at 2PM. OBJECTIVE: GENERAL APPEARANCE: NAD INTEGUMENT: she has generalized pallor, no jaundice HEENT: EOMI, no jaundice, she has conjunctival pallor, no angular cheilitis, no beefy red tongue CARDIOVASCULAR: RRR, has systolic murmur at LUSB LUNGS: CTAB ABDOMEN: Obese, normoactive sounds, soft & NT MUSCULOSKELETAL: NCAT NEUROLOGICAL: CN 2-12 grossly intact, speech not dysarthric, moving all extremities PSYCHIATRIC: A&Ox 3, understands and follows all commands LABORATORY DATA: Reviewed WBC 15.8 Hgb 7.13 platelets 157 Na 137 K 3.8 Cr 2.98 IMAGING: chest xray IMPRESSION: 1. Right internal jugular dialysis catheter extending into the right atrium since 07/01/2020. No pneumothorax. 2. Otherwise stable chest. EGD 10/07/2020: There is no endoscopic evidence of bleeding, areas of erosion, esophagitis, ulcerations or varices in the entire esophagus. Scattered mild inflammation with hematin, no fresh bleeding characterized by adherent blood, congestion (edema) and erythema was found in the gastric body. Biopsies were taken with a cold forceps for Helicobacter pylori testing. Estimated blood loss was minimal. Localized nodular mucosa was found in the first portion of the duodenum. [Extent] mild inflammation [Hemorrhage] characterized by congestion (edema) and aphthous ulcerations was found in the first portion of the duodenum. Nodular mucosa, with contact bleeding. Biopsied portion with oozing, took awhile to stop oozing. No active bleeding but evidence for prior bleeding, hematin containing materials staining the wall. This was biopsied with a cold forceps for histology. Estimated blood loss: persistent oozing at biopsied sites, took awhile to stop , no bleeding at end of procedure. The ampulla and second portion of the duodenum were normal. Impression: - Normal esophagus. - Mucosal changes suspicious for chronic gastritis with hematin, no fresh bleeding. Biopsied. - Nodular mucosa in the first portion of the duodenum. - Acute duodenitis. Biopsied. - Normal ampulla and second portion of the duodenum. Recommendation: - Ad[facility] the [facility]. - Soft diet daily. - Use Protonix (pantoprazole) 40 mg PO BID today. - Use sucralfate tablets 1 gram PO QID today. MICROBIOLOGY: Respiratory panel neg ASSESSMENT: is a 60 yr old w ASYA, ESRD, COPD, Essential HTN, migraines, hx of benign mandibular tumor who was admitted for management of acute symptomatic anemia, hypotension and leukocytosis. PLAN: Symptomatic anemia 2/2 acute duodenitis with aphthous ulcerations Possibly multifactorial, investigations still in process -s/p 5 units of PRBCs, Hgb 7.3. Will give 1 more unit today -check PM CBC -Protonix BID 40mg PO -sucralfate QID -s/p EGD, results as above with acute duodenitis -Ferritin 627 -Fe 129 -f/u Vit B12 and folate -f/u peripheral smear -f/u stool occult Hypotension: resolved At baseline she has HTN. Her trop is wnl -resolved after blood products Leukocytosis: resolving -monitor vitals -CXR was wnl, UA bland COPD -albuterol, budesonide mdis -also requested duonebs BID and albuterol at 2PM nebs as she does at home and that helps her. ESRD -Nephrology onboard for HD Migraines -continue home meds DVT px w SCDs i/s/o anemia Dispo: home after at least 2 midnights stay. Medsurg. PT/OT VS,Fishbone, I+O VS, Fishbone, I+O Laboratory Tests 10/07/20 23:58 10/08/20 04:57 Vital Signs Date Time Temp Pulse Resp B/P (MAP) Pulse Ox O2 Delivery O2 Flow Rate FiO2 10/08/20 06:00 98.7 65 25 138/72 (94) 99 Nasal Cannula 3.0 I&O- Last 24 Hours up to 6 AM 10/08/20 06:00 Intake Total 2550 ml Output Total 1625 ml Balance 925 ml ANAHI ORTEGA MD October 08, 2020 09:47
--- NOTE | 2020-10-08 12:04 | IPN ---
PROGRESS NOTE DATE: 10/08/2020 SUBJECTIVE: Mrs. Garcia is seen this morning on her bedside. She is sitting in the bed and reports feeling short of breath. She denies any nausea, vomiting, fever or chills. She had an upper endoscopy yesterday and did have some evidence of duodenal ulcer with bleeding. She has been transfused a total of 5 units of packed RBCs so far since admission. OBJECTIVE: VITAL SIGNS: Temperature 97.9 degrees Fahrenheit, heart rate is 65 per minute and respiratory rate is 24 per minute. Blood pressure is 128/53 mmHg and oxygen saturation 98% on 3 liters of oxygen. HEAD AND NECK: She has mild facial edema. Neck veins seem to be somewhat full. She has an internal jugular vein catheter on the right side for dialysis. HEART: Heart sounds are regular. LUNGS: Diminished breath sounds and bilateral rales. ABDOMEN: Soft and nontender. Bowel sounds are normal. EXTREMITIES: Without any cyanosis or clubbing. NEUROLOGIC: She is at her baseline mentation. LABORATORY DATA: Today's labs showed a WBC count of 15.8, hemoglobin 7.3, and hematocrit 22. Platelets are 157,000. Sodium is 137, potassium is 3.8, CO2 28, BUN 25 and creatinine 2.98. Glucose is 82 and calcium is 8.0. PROBLEMS: 1. Blood loss anemia with melenotic stools. She had acute blood loss anemia and has required multiple transfusions. So far, she has received 5 units of packed RBCs and will plan to give her another 2 units today during dialysis. 2. Congestive heart failure, volume status is decompensated probably due to the IV fluids and blood transfusions. I do not feel that she is going to be stable without dialysis until tomorrow. I am going to dialyze her this afternoon and will try to remove about 3 liters of fluid while transfusing another 2 units of packed RBCs. 3. Endstage renal disease. Patient's regular dialysis days are Sunday, and Sunday, however will have to emergently dialyze her today because of worsening respiratory status. 4. Duodenal ulcer with GI bleed. Patient remains on Protonix and her aspirin has been stopped. She is also on Carafate now. 5. COPD, she is chronically on home oxygen, however seems to be more short of breath today. This is related to volume overload and likely to improve with dialysis.
[2020-10-08] MEDS: ALBUTEROL SULFATE 2.5 MG/0.5 ML INH NEB SOLN NEB SCH ×2 (13:15→13:46)
[2020-10-08 14:41] LABS: HEMATOCRIT 28.2 % (36.0-47.0)
[2020-10-08 15:02] LABS: HEMOGLOBIN 9.4 g/dl (12.0-15.5)
[2020-10-08] MEDS: LATANOPROST 0.005% OPHTH SOLN 2.5 ML OD SCH (20:33)
[2020-10-09 02:00] VITALS: BP 148/73
[2020-10-09 06:00] VITALS: BP 154/78
[2020-10-09] MEDS: VITAMIN D 1,000 INTERNATIONAL UNITS TABLET PO SCH (06:14)
[2020-10-09] MEDS: BRIMONIDINE 0.1% OPHTH SOLN 5 ML OD SCH (06:14)
[2020-10-09] MEDS: SUCRALFATE 1 GM TAB PO SCH ×4 (06:14→20:34)
[2020-10-09] MEDS: CitaloPRAM (CeleXA) 20 MG TAB PO SCH (06:14)
[2020-10-09] MEDS: PANTOPRAZOLE 40MG TAB (PROTONIX) PO SCH ×2 (06:14→20:35)
[2020-10-09] MEDS: FERROUS SULFATE 325MG TAB PO SCH ×2 (06:14→20:35)
[2020-10-09] MEDS: PILOCARPINE 1% OPHTH SOLN 15 ML OD SCH (06:15)
[2020-10-09] MEDS: TIMOLOL MALEATE 0.5% OPHTH SOLN 5 ML OD SCH (06:15)
[2020-10-09] MEDS ORDERED: POLYVINYL ALCOHOL OPHTH SOLN 15 ML(LIQUITEARS) OU PRN (06:50)
[2020-10-09] MEDS: TIOTROPIUM INHALER/CAPSULE (SPIRIVA) INH SCH (07:07)
[2020-10-09] MEDS: IPRATROPIUM 0.5MG/ALBUTEROL 2.5MG INH SOL UD 3ML (DUONEB) NEB SCH ×2 (07:07→19:24)
[2020-10-09] MEDS: BUDESONIDE 0.5 MG/2 ML INHALATION SUSPENSION INH SCH ×2 (07:07→19:24)
[2020-10-09 08:56] LABS: HEMOGLOBIN 8.5 g/dl (12.0-15.5); MEAN CORPUSCULAR HGB CONC 32.7 g/dl (32.0-36.5); MEAN CORPUSCULAR VOLUME 91.9 fl (80.0-96.0); PLATELET COUNT, AUTOMATED 129 10^3/uL (150-450); RED BLOOD COUNT 2.83 10^6/uL (4.00-5.40); WHITE BLOOD COUNT 13.5 10^3/uL (4.0-10.0)
[2020-10-09 09:24] LABS: CALCIUM LEVEL 8.6 MG/DL (8.5-10.1); CREATININE FOR GFR 2.8 MG/DL (0.55-1.30); GLOMERULAR FILTRATION RATE 18.4 (>51); POTASSIUM SERUM 3.9 MEQ/L (3.5-5.1)
[2020-10-09 10:00] VITALS: BP 155/78
[2020-10-09] MEDS ORDERED: DARBEPOETIN 200MCG/0.4ML *DIALYSIS* SYRINGE (J0882 PER 1MCG) IV SCH (10:20)
[2020-10-09] MEDS: ALBUTEROL SULFATE 2.5 MG/0.5 ML INH NEB SOLN NEB SCH (13:06)
[2020-10-09 14:00] VITALS: BP 148/70
[2020-10-09] MEDS ORDERED: ENTER DRUG NAME HERE (PATIENT'S OWN MED) OU SCH ×3 (16:15)
[2020-10-09] MEDS ORDERED: VALA500T5 PO (16:33)
[2020-10-09] MEDS ORDERED: PREDOPD OU (16:38)
[2020-10-09] MEDS: OFLOXACIN 0.3 % (OCUFLOX) OPTH SOL 5ML OD SCH ×2 (17:44→20:35)
[2020-10-09] MEDS: prednisoLONE ACET 1% OPHTH SUSP 5ML OU SCH ×2 (17:44→20:35)
[2020-10-09] MEDS: ATROPINE SULFATE 1% OP SOLN 2 ML BTL OD SCH (20:35)
[2020-10-09 22:00] VITALS: BP 159/88
[2020-10-09] MEDS: ALBUTEROL 90 MCG/ACT 8GM HFA INHALER INH PRN (23:24)
[2020-10-10 06:00] VITALS: BP 166/81
[2020-10-10 06:26] LABS: HEMATOCRIT 24.9 % (36.0-47.0); HEMOGLOBIN 8.2 g/dl (12.0-15.5); MEAN CORPUSCULAR HEMOGLOBIN 30.8 pg (27.0-33.0); MEAN CORPUSCULAR HGB CONC 32.9 g/dl (32.0-36.5); MEAN CORPUSCULAR VOLUME 93.6 fl (80.0-96.0); PLATELET COUNT, AUTOMATED 125 10^3/uL (150-450); RED BLOOD COUNT 2.66 10^6/uL (4.00-5.40); WHITE BLOOD COUNT 13.4 10^3/uL (4.0-10.0)
[2020-10-10 06:54] LABS: CALCIUM LEVEL 8.3 MG/DL (8.5-10.1); CREATININE FOR GFR 3.89 MG/DL (0.55-1.30); GLOMERULAR FILTRATION RATE 12.6 (>51); POTASSIUM SERUM 3.9 MEQ/L (3.5-5.1)
[2020-10-10] MEDS: BUDESONIDE 0.5 MG/2 ML INHALATION SUSPENSION INH SCH (07:11)
[2020-10-10] MEDS: IPRATROPIUM 0.5MG/ALBUTEROL 2.5MG INH SOL UD 3ML (DUONEB) NEB SCH (07:11)
[2020-10-10] MEDS: TIOTROPIUM INHALER/CAPSULE (SPIRIVA) INH SCH (07:11)
--- NOTE | 2020-10-10 07:42 | IPNPDOC ---
Text Note Date of Service The patient was seen on 10/09/20. NOTE SUBJECTIVE: -No acute complaints -SOB is better today OBJECTIVE: GENERAL APPEARANCE: NAD INTEGUMENT: she has generalized pallor, no jaundice HEENT: EOMI, no jaundice, she has conjunctival pallor, no angular cheilitis, no beefy red tongue CARDIOVASCULAR: RRR, has systolic murmur at LUSB LUNGS: CTAB ABDOMEN: Obese, normoactive sounds, soft & NT MUSCULOSKELETAL: NCAT NEUROLOGICAL: CN 2-12 grossly intact, speech not dysarthric, moving all extremities PSYCHIATRIC: A&Ox 3, understands and follows all commands LABORATORY DATA: Reviewed Hgb 9.4 after tranfusion yesterday. AM labs pending IMAGING: chest xray IMPRESSION: 1. Right internal jugular dialysis catheter extending into the right atrium since 07/01/2020. No pneumothorax. 2. Otherwise stable chest. EGD 10/07/2020: There is no endoscopic evidence of bleeding, areas of erosion, esophagitis, ulcerations or varices in the entire esophagus. Scattered mild inflammation with hematin, no fresh bleeding characterized by adherent blood, congestion (edema) and erythema was found in the gastric body. Biopsies were taken with a cold forceps for Helicobacter pylori testing. Estimated blood loss was minimal. Localized nodular mucosa was found in the first portion of the duodenum. [Extent] mild inflammation [Hemorrhage] characterized by congestion (edema) and aphthous ulcerations was found in the first portion of the duodenum. Nodular mucosa, with contact bleeding. Biopsied portion with oozing, took awhile to stop oozing. No active bleeding but evidence for prior bleeding, hematin containing materials staining the wall. This was biopsied with a cold forceps for histology. Estimated blood loss: persistent oozing at biopsied sites, took awhile to stop , no bleeding at end of procedure. The ampulla and second portion of the duodenum were normal. Impression: - Normal esophagus. - Mucosal changes suspicious for chronic gastritis with hematin, no fresh bleeding. Biopsied. - Nodular mucosa in the first portion of the duodenum. - Acute duodenitis. Biopsied. - Normal ampulla and second portion of the duodenum. Recommendation: - Ad[facility] the [facility] for [facility] care. - Soft diet daily. - Use Protonix (pantoprazole) 40 mg PO BID today. - Use sucralfate tablets 1 gram PO QID today. MICROBIOLOGY: Respiratory panel neg ASSESSMENT: is a 60 yr old w ASYA, ESRD, COPD, Essential HTN, migraines, hx of benign mandibular tumor who was admitted for management of acute symptomatic anemia, hypotension and leukocytosis. PLAN: Symptomatic anemia 2/2 acute duodenitis with aphthous ulcerations Possibly multifactorial, investigations still in process -s/p 7 units of PRBCs -check PM CBC -Protonix BID 40mg PO -sucralfate QID -s/p EGD, results as above with acute duodenitis and duodenal ulceration -Ferritin 627 -Fe 129 -f/u Vit B12 and folate -f/u peripheral smear -f/u stool occult Hypotension: resolved At baseline she has HTN. Her trop is wnl -resolved after blood products Leukocytosis: resolving -monitor vitals -CXR was wnl, UA bland COPD -albuterol, budesonide mdis -also requested duonebs BID and albuterol at 2PM nebs as she does at home and that helps her. ESRD -Nephrology onboard for HD and managing volume overload Migraines -continue home meds DVT px w SCDs i/s/o anemia Dispo: home after at least 2 midnights stay. Medsurg. PT/OT VS,Fishbone, I+O VS, Fishbone, I+O Laboratory Tests 10/08/20 14:12 Vital Signs Date Time Temp Pulse Resp B/P (MAP) Pulse Ox O2 Delivery O2 Flow Rate FiO2 10/09/20 06:00 97.5 72 17 154/78 (103) 98 Nasal Cannula 3.0 I&O- Last 24 Hours up to 6 AM 10/09/20 06:00 Intake Total 2710 ml Output Total 3000 ml Balance -290 ml ANAHI ORTEGA MD October 09, 2020 08:31
[2020-10-10] MEDS ORDERED: PANT40TA29 PO (08:04)
[2020-10-10] MEDS ORDERED: SUCR1TA PO (08:04)
[2020-10-10] MEDS: SUCRALFATE 1 GM TAB PO SCH ×2 (08:22→14:58)
[2020-10-10] MEDS: CitaloPRAM (CeleXA) 20 MG TAB PO SCH (08:22)
[2020-10-10] MEDS: FERROUS SULFATE 325MG TAB PO SCH (08:22)
[2020-10-10] MEDS: ATROPINE SULFATE 1% OP SOLN 2 ML BTL OD SCH (08:22)
[2020-10-10] MEDS: VITAMIN D 1,000 INTERNATIONAL UNITS TABLET PO SCH (08:22)
[2020-10-10] MEDS: PANTOPRAZOLE 40MG TAB (PROTONIX) PO SCH (08:22)
[2020-10-10] MEDS: OFLOXACIN 0.3 % (OCUFLOX) OPTH SOL 5ML OD SCH ×2 (08:23→14:59)
[2020-10-10] MEDS: prednisoLONE ACET 1% OPHTH SUSP 5ML OU SCH ×2 (08:24→14:59)
--- NOTE | 2020-10-10 11:53 | IPN ---
NEPHROLOGY PROGRESS NOTE DATE: 10/09/2020 SUBJECTIVE: The patient was seen and examined at the bedside today morning. She is afebrile, hemodynamically stable. She was urgently dialyzed yesterday because of shortness of breath and fluid overload. Three liters of fluid were removed. She is back on her baseline oxygen requirements. Today is the patient's regular day of dialysis but she is willing to have dialysis done today or tomorrow morning. OBJECTIVE: VITAL SIGNS: Temperature is 98.6 degrees Fahrenheit, blood pressure is 148/70, pulse is 68, respiratory rate of 17, saturating 98% on nasal cannula at 3 liters. INTAKE AND OUTPUT: Urine output recorded as 300 mL yesterday. Ultrafiltration with hemodialysis was 3 liters. Weight in the bed scale is not available. PHYSICAL EXAMINATION: GENERAL APPEARANCE: The patient is awake, alert, oriented x3, sitting up in the bed, wearing nasal cannula. HEAD AND NECK: Extraocular muscles intact. Pupils are equally round and reactive to light. Mucous membranes are moist. Neck is supple. There is mildly elevated jugular venous distention. CARDIOVASCULAR: S1, S2, regular rate. EXTREMITIES: Trace edema of the bilateral lower extremities. RESPIRATORY: The patient is oxygen dependent, decreased air entry bilaterally. Otherwise no active rales or rhonchi. ABDOMEN: Soft, obese, positive bowel sounds, nontender, no organomegaly. MUSCULOSKELETAL: No clubbing, no cyanosis. Pulses are 2+. COMMUTATOR INSPECTOR: No focal deficits. Power is 5/5 in all extremities. LAB REVIEW: CBC showed a WBC of 13.5, hemoglobin 8.5, platelet count of 129. BMP showed sodium of 139, potassium 3.9, chloride 107, bicarbonate 27, BUN 16, creatinine is 2.8. CURRENT INPATIENT MEDICATIONS: The patient's medications were all reviewed by myself. She has been started on Aranesp with dialysis. No other significant change in the medications except her eye drops. ASSESSMENT AND PLAN: 1. End-stage renal disease - The patient was urgently dialyzed off her schedule because of volume overload. She will be dialyzed again tomorrow morning. I will try to remove another 3 kg of fluid as tolerated by her blood pressure. 2. Anemia secondary to blood loss and GI bleeds the patient's hemoglobin was 8.5. She has been started on Aranesp with dialysis. She will get a dose tomorrow morning. 3. [id number] decompensated congestive heart failure - The patient's latest echocardiogram was done in June 2020 which showed aortic valve sclerosis, left ventricular ejection fraction of 75% with grade one diastolic dysfunction. The patient was dialyzed yesterday. Another session of dialysis will be done tomorrow morning. I would remove at least 3 liters of fluid tomorrow morning as well. 4. Recent GI bleed secondary to duodenal ulcer - The patient remains on Protonix and Carafate. Antiplatelets have been stopped. 5. Chronic obstructive pulmonary disease - The patient is back to her baseline oxygen requirement of 3 liters. Continue the rest of the medications as per the Medical Team. Volume status is being optimized with dialysis.
[2020-10-10] MEDS: ALBUTEROL SULFATE 2.5 MG/0.5 ML INH NEB SOLN NEB SCH (13:02)
[2020-10-10] MEDS ORDERED: valACYclovir HCL 500 MG TAB PO ONE (15:15)
--- NOTE | 2020-10-11 09:07 | IPN ---
PROGRESS NOTE DATE: 10/10/2020 SUBJECTIVE: Patient was seen and examined at the bedside today morning. She is afebrile, hemodynamically stable. She reports that she is going to be discharged today. I would dialyze the patient before she goes home today. She denies any other active complaints. OBJECTIVE: Vital signs: Temperature is 98.3 degrees Fahrenheit, blood pressure 166/81, pulse is 69, respiratory rate of 17, saturating 97% on nasal cannula at 3 liters. Intake and output: There is no urine output recorded. Weight in the bed scale is 77.6 kg. PHYSICAL EXAMINATION: General: Patient is awake, alert, oriented times three, sitting up in the bed, wearing nasal cannula. Head and neck exam: Extraocular muscles intact. Pupils equally round and reactive to light. Mucous membranes are moist. Neck is supple, mildly elevated jugular venous distension (JVD). Cardiovascular: S1, S2, regular rate. Trace edema of the bilateral lower extremities. Respiratory: Decreased breath sounds bilaterally, otherwise no active rales or rhonchi, she is oxygen dependent. Abdomen: Soft, obese, positive bowel sounds. Musculoskeletal: Patient has clubbing of the fingernails. There is no cyanosis. Central nervous system (MORTGAGE MANAGER): No focal deficit. Power is 5/5 in all extremities. LABORATORY REVIEW: CBC showed WBC 13.4, hemoglobin is 8.2, platelets are 125. BMP showed sodium 137, potassium 3.9, chloride 105, bicarbonate 25, BUN 27, creatinine is 3.8. CURRENT INPATIENT MEDICATIONS: Patient's medications were all reviewed by myself. She has been started on Valcet 500 mg one dose, followed by 500 mg by mouth Sunday, , Sunday. No other significant change in the medications. ASSESSMENT AND PLAN: 1. End-stage renal disease. Patient's regular dialysis days are Sunday, , Sunday, however to optimize her volume status she is being dialyzed today. I will try to remove at least 3 liters of fluid. Her dry weight will be changed as outpatient as well. 2. Anemia secondary to duodenitis and end-stage renal disease. Patient's hemoglobin is stable now. She will continue to get Carafate. Rest of the anemia management will be done as outpatient. 3. Acute on chronic decompensated congestive heart failure with diastolic dysfunction. As mentioned above, she got dialysis done on Sunday off schedule and she is getting another dialysis done today. Her breathing is better. Volume status will get better after today's dialysis. Estimated dry weight would be changed as outpatient. 4. Disposition. Patient is optimized to be discharged from nephrology standpoint after dialysis today.
[2020-10-12] MEDS ORDERED: valACYclovir HCL 500 MG TAB PO SCH (18:00)
== END 2020-10-10 16:30 | disposition home health service (06) | DRG 377 ==
LOC: M ED 23:09 → M ED INP 10-07 00:40 → M ICU 10-07 03:49 → M MSPAV 10-07 14:10
PROVIDERS: ADMIT Internal Medicine; ATTEND Internal Medicine
PROC: 0DB98ZX Excision of Duodenum, Via Natural or Artificial Opening Endoscopic, Diagnostic (ICD-10-PCS; 2020-10-07)
PROC: 0DB68ZX Excision of Stomach, Via Natural or Artificial Opening Endoscopic, Diagnostic (ICD-10-PCS; 2020-10-07)
PROC: 30233N1 Transfusion of Nonautologous Red Blood Cells into Peripheral Vein, Percutaneous Approach (ICD-10-PCS; principal; 2020-10-07 12:21)
DX: K26.0 Acute duodenal ulcer with hemorrhage (principal); N18.6 End stage renal disease; D62 Acute posthemorrhagic anemia; J44.9 Chronic obstructive pulmonary disease, unspecified; G43.909 Migraine, unspecified, not intractable, without status migrainosus; Z79.899 Other long term (current) drug therapy; Z79.82 Long term (current) use of aspirin; Z88.0 Allergy status to penicillin; Z88.8 Allergy status to other drugs, medicaments and biological substances; I95.9 Hypotension, unspecified; D72.829 Elevated white blood cell count, unspecified

== ENCOUNTER → 2021-02-18 | Outpatient (CLI) | payer OTHER ==
[~2021-02-18] MED LIST changes: +BRIM1OPD OD; +HYDR12.55 PO; +PANT40TA29 PO; +PILO1OPD OD; +PREDOPD OU; +SUCR1TA PO; +TIMO0.5S29 OD; +VALA500T5 PO; +XALA0.007 OD
--- NOTE | 2021-02-18 14:59 | REP ---
INDICATION: ESRD, HEART FAILURE, HTN CKD COMPARISON: None. TECHNIQUE: Real time compression and duplex Doppler evaluation of the Bilateral upper extremity deep venous system is performed. FINDINGS: The Bilateral subclavian, jugular, axillary, brachial, basilic and cephalic veins are fully compressible where accessible with transducer pressure, and demonstrate no intraluminal thrombus and normal venous waveforms. There is no evidence of deep venous thrombosis. The right basilic vein drains into the axillary vein at the level of the mid humerus. Right: Basilic vein size (mm)/ Cephalic vein size (mm) Upper humerus: -/4 Lower humerus:4/3 Upper forearm: 3/2 Lower forearm/wrist: 3/1 Median cubital:3 Right arterial structures: Peak systolic velocity (cm/s)/waveform/size (mm) Axillary: 44.7/triphasic/7 Brachial: 64.6/triphasic/5 Radial: 60.2/triphasic/3 Ulnar:60.2/triphasic/2 Left: Basilic vein size (mm)/ Cephalic vein size (mm) Upper humerus: 2/2 Lower humerus:3/3 Upper forearm: 2/1 Lower forearm/wrist:1/2 Median cubital:3 Left arterial structures: Peak systolic velocity (cm/s)/waveform/size (mm) Axillary: 53.7/biphasic/6 Brachial: 78.1/triphasic/5 Radial: 47.7/triphasic/1 Ulnar: 74.3/triphasic/2 IMPRESSION: No evidence of deep venous thrombosis of the Bilateral upper extremity deep vein system. Arterial and venous sizes are given above. <Electronically signed by Severo Triana > 02/18/21 [id number]
== END ==
LOC: M RAD 12:49
PROVIDERS: ATTEND Internal Medicine Nephrology
DX: I12.0 Hypertensive chronic kidney disease with stage 5 chronic kidney disease or end stage renal disease (principal); I50.9 Heart failure, unspecified; N18.6 End stage renal disease

== ENCOUNTER 2021-03-19 01:09 | Inpatient (IN) | payer OTHER ==
[~2021-03-19] VITALS: Ht 165.1 cm; Wt 70.5 kg
[~2021-03-19 01:09] MED LIST changes: +PREDOPD OD; -PREDOPD OU
[2021-03-19 01:40] LABS: BASO # 0.1 10^3/uL (0.0-0.2); BASO % 0.3 % (0.0-1.0); HEMATOCRIT 45.3 % (36.0-47.0); HEMOGLOBIN 14.3 g/dl (12.0-15.5); LYMPH # 0.5 10^3/uL (1.5-5.0); MEAN CORPUSCULAR HEMOGLOBIN 32.4 pg (27.0-33.0); MEAN CORPUSCULAR HGB CONC 31.6 g/dl (32.0-36.5); MEAN CORPUSCULAR VOLUME 102.7 fl (80.0-96.0); MONO # 1.1 10^3/uL (0.0-0.8); MONO % 4.8 % (2.0-8.0); NEUTROPHILS # 21.2 10^3/uL (1.5-8.5); NEUTROPHILS % 92.2 % (36.0-66.0); PLATELET COUNT, AUTOMATED 167 10^3/uL (150-450); RED BLOOD COUNT 4.41 10^6/uL (4.00-5.40)
[2021-03-19] MEDS: COMBIVENT RESPIMAT 100-20MCG INHALER 4GM INH SCH ×3 (01:40→02:07)
[2021-03-19 01:43] LABS: ABG BASE EXCESS -6.8 (-2.0-2.0); ABG HCO3 19.7 MEQ/L (22.0-26.0); ABG O2 SATURATION 90.6 % (95.0-99.0); ABG PARTIAL PRESSURE CO2 42.8 mmHg (35.0-45.0); ABG PARTIAL PRESSURE O2 62.4 mmHg (75.0-100.0); ABG STANDARD HCO3 18.9 MEQ/L (22.0-26.0); ABG pH (ARTERIAL) 7.281 UNITS (7.350-7.450)
[2021-03-19 02:14] LABS: ALBUMIN 3.4 GM/DL (3.2-5.2); ALT/SGPT 20 U/L (12-78); BILIRUBIN,DIRECT 0.2 MG/DL (0.0-0.2); BILIRUBIN,TOTAL 0.8 MG/DL (0.2-1.0); BLOOD UREA NITROGEN 44 MG/DL (7-18); CALCIUM LEVEL 9.9 MG/DL (8.5-10.1); CARBON DIOXIDE LEVEL 26 MEQ/L (21-32); CHLORIDE LEVEL 98 MEQ/L (98-107); CK-MB VALUE MASS 1.2 NG/ML (<3.6); CPK CREATINE PHOSPHOKINASE 25 U/L (26-192); CREATININE FOR GFR 8.36 MG/DL (0.55-1.30); GLOMERULAR FILTRATION RATE 5.2 (>51); GLUCOSE, FASTING 109 MG/DL (70-100); NT-PRO BNP 4842 PG/ML (<125); POTASSIUM SERUM 5.9 MEQ/L (3.5-5.1); SODIUM LEVEL 134 MEQ/L (136-145); TOTAL PROTEIN 6.5 GM/DL (6.4-8.2); TROPONIN I < 0.02 NG/ML (< 0.10)
--- NOTE | 2021-03-19 04:33 | REPVR ---
PROCEDURE INFORMATION: Exam: XR Chest Exam date and time: 03/19/2021 1:59 AM Age: 60 years old Clinical indication: Other: Dyspnea/cough TECHNIQUE: Imaging protocol: XR of the chest. Views: 1 view. COMPARISON: 1. CR Chest, 1 view 10/06/2020 11:30 PM 2. CR PORTABLE CHEST X-RAY 07/01/2020 7:59:14 AM FINDINGS: Tubes, catheters and devices: There is again a right IJ catheter with the tip in the right atrium. Lungs: There is poorly defined opacity in the left lung base which appears more prominent than on the prior exams and may represent an infiltrate or atelectasis. Pleural spaces: No pleural effusions or pneumothorax identified. Heart/Mediastinum: There is mild cardiomegaly. Bones/joints: Unremarkable. IMPRESSION: Poorly defined left lung base opacity, more prominent than on the prior exams, and possibly an infiltrate or atelectasis. Electronically signed by: Hannah Gibson On 03/19/2021 04:32:44 AM
[2021-03-19] MEDS ORDERED: cefTRIAXone SOD 1 GM in D5W MINI-BAG PLUS 50 ML IV ONE (05:00)
--- NOTE | 2021-03-19 05:14 | HPEPDOC ---
General Date of Admission 03/19/21 Date of Service: Mar 19, 2021 Attending Physician: ODESSA ALCARAZ MD Chief Complaint The patient is a 60-year-old female admitted with [facility] History of Present Illness History of present illness: Ms. Garcia is a 60 year old female who presented to the emergency department for progressively worsening shortness of breath and cough over the last 2-3 days. She states that she has been coughing so much in the last few days that her chest hurts. She has a history of COPD and has been using her albuterol inhaler at least 6 times a day to help her breath. She admits to coughing up 3tsp of clear sputum per day which is her baseline. She denies sputum color or volume changes. She called 911 today after she felt too short of breath to walk outside to her vehicle to drive herself to the hospital. Upon EMS arrival, she was found to be hypoxic and was placed on a CPAP machine. At baseline she uses 3L of oxygen at home. She was given decadron and duonebs in the ambulance and was transitioned back to 3L NC from CPAP machine. In the ED she was found to have leukocytosis and a chest x ray positive for left lower lobe opacity suggestive of pneumonia. Ms. Garcia has ESRD and is due for dialysis today. She receives dialysis on a Sun//Sun schedule. Patient is a FULL CODE. Past medical history: ESRD on hemodialysis // schedule COPD Hypertension Migraines Iron deficiency anemia Past surgical history: Benign tumor of jaw 1999 Bone graft from right fibula 1999 Pinned right toes secondary to fibular surgery 1999 Social history: Former smoker: quit 6 months ago after smoking 1ppd since age 19 Patient states she drinks "a couple of bottles of wine every few weeks" Patient denies illicit drug use Patient lives in [place] with her Niece Niyah Family history: Father 71: hypertension, diabetes, coronary artery disease Mother 69: Metastatic colon cancer Allergies: Amoxicillin, clavulanic acid Review of systems: General: patient denies fevers, chills, or night sweats. She admits to fatigue and loss of appetite HEENT: patient admits to being legally blind, to having left eye irritation. She denies swollen glands or difficulty swallowing. Cardiovascular: patient admits to having chest "soreness" secondary to coughing, she denies palpitations Pulmonary: Patient admits to progressively worsening shortness of breath and productive cough (clear sputum). She denies coughing up blood. Abdomen: Patient denies nausea, vomiting, diarrhea, or constipation. She denies blood in stool or urine. Extremities: Patient denies lower extremity edema Skin: patient denies rashes Physical examination: General: patient is lying bed with eyes closed in no acute distress. She appears well nourished and is sleeping peacefully. HEENT: unable to assess for EOMI as patient is legally blind. The sclera of her left eye is erythematous. Mucous membranes appear somewhat dry and pink. A submandibular lymph noted is palpated on the right. Neck is supple. Cardiovascular: Regular rate and rhythm, a systolic ejection murmur is appreciated best in the 2nd intercostal space on the right. pulses are 2+ throughout Pulmonary: Decreased air intake bilaterally. Breath sounds are diminished in left lower lung base. Patient struggles to take in deep breath without coughing. Patient is not using accessory muscles to breath. Abdomen: soft and non tender to palpation in all four quadrants. positive bowel sounds. No organomegaly noted Extremities: no edema or cyanosis. Psych: patient is alert and oriented x 4 Imaging: Chest x-ray: 03/19/21: Poorly defined left lung base opacity, more prominent than on the prior exams, and possibly an infiltrate or atelectasis. Assessment: Ms. Garcia is a 60 year old female with past medical history of ESRD on hemodialysis // schedule, COPD, Hypertension, Migraines, and Iron deficiency anemia who presented to the emergency department for progressively worsening shortness of breath and cough over the last 2-3 days. In the ED she was found to have leukocytosis and left lower lobe opacities on imaging suggestive of pneumonia. She is being admitted for treatment and is scheduled for hemodialysis today. Plan: Pneumonia: likely community acquired -Patient has a WBC of 23 -chest x ray results as above -started patient on cefriaxone and azithromycin -repeat chest x ray ordered for the AM -CURB-65 score 1 point low risk -Procalcitonin pending ESRD -Patient receives dialysis on a Sun//Sun schedule -She is due for dialysis today -consulted nephrology -Creatinine is 8.36 and potassium is 5.9 Hyperkalemia -Potassium is 5.9 -Patient is due for dialysis today -gave 1 dose of kayexalate to help lower potassium before dialysis Leukocytosis -likely secondary to pneumonia -ordered urinalysis with reflex to culture to r/o UTI Macrocytosis -MCV 102 -patient states she drinks a few bottles of wine every 1-2 weeks -CIDE protocol in place Hypoxemia -patient was hypoxic upon EMS arrival to her home -patient was given decadron and duonebs -She uses 3L O2 at home and currently has an O2 saturation of 94% on 3L NC COPD -continue home inhalers Hypertension -continue home medications Migraines -continue home medications Iron deficiency anemia -continue iron supplement DVT prophylaxis: -continue heparin q 12 Disposition: The patient is currently stable with an O2 saturation of 94% at baseline O2 requirement (3L). We will continue to treat her for pneumonia with cefriaxone and azithromycin. Pending clinical improvement patient can be transitioned to oral antibiotics and discharged home. Patient is scheduled for hemodialysis today. Home Medications Scheduled Amlodipine Besylate (Amlodipine Besylate) 10 Mg Tablet, 10 MG PO DAILY, (Reported) Aspirin (Aspirin EC) 81 Mg Tablet.dr, 81 MG PO DAILY, (Reported) Atropine Sulfate (Atropine Sulfate) 1% 2ML Drops, 1 DROP OD DAILY, (Reported) Budesonide (Budesonide) 0.5 Mg/2 Ml Ampul.neb, 0.5 MG INH BID, (Reported) Carvedilol (Carvedilol) 3.125 Mg Tablet, 3.125 MG PO BID, (Reported) Cholecalciferol (Vitamin D3) (Vitamin D3) 1,000 Unit Tablet, 1,000 UNITS PO DAILY, (Reported) Citalopram Hydrobromide (Citalopram HBr) 20 Mg Tablet, 20 MG PO DAILY, (Reported) Ferrous Sulfate (Ferrous Sulfate) 325 Mg Tablet, 325 MG PO DAILY, (Reported) Furosemide (Furosemide) 20 Mg Tablet, 20 MG PO DAILY, (Reported) Hydralazine HCl (Hydralazine HCl) 10 Mg Tablet, 10 MG PO BID, (Reported) Hydrochlorothiazide (Hydrochlorothiazide) 12.5 Mg Tablet, 12.5 MG PO DAILY, (Reported) Irbesartan (Irbesartan) 75 Mg Tablet, 75 MG PO QHS, (Reported) Isosorbide Mononitrate (Isosorbide Mononitrate ER) 30 Mg Tab.er.24h, 30 MG PO BID, (Reported) Pantoprazole Sodium (Pantoprazole Sodium) 40 Mg Tablet.dr, 40 MG PO DAILY, (Reported) Prednisolone Acetate (Prednisolone Acetate 1% Opth Susp) 5 Ml Drops.susp, 1 DROP OD Q2H, (Reported) Propranolol HCl (Propranolol HCl) 40 Mg Tablet, 40 MG PO BID, (Reported) Sucralfate (Sucralfate) 1 Gm Tablet, 1 GM PO TID, (Reported) with meals Sucroferric Oxyhydroxide (Velphoro) 500 Mg Tab.chew, 500 MG PO TID, (Reported) with meals Tiotropium [place] (Spiriva) 18 Mcg Cap.w.dev, 1 INHALATION INH DAILY, (Reported) Scheduled PRN Albuterol Sulf (Albuterol Sulfate) 2.5 Mg/3 Ml Vial.neb, 2.5 MG INH QID PRN for SHORTNESS OF BREATH, (Reported) Albuterol Sulfate (Proair Hfa) 8.5 Gm Hfa.aer.ad, 2 PUFF INH QID PRN for SHORTNESS OF BREATH, (Reported) Allergies Coded Allergies: amoxicillin (Verified Allergy, Unknown, rash, 06/29/20) clavulanic acid (Verified Allergy, Unknown, rash, 06/29/20) A-FIB/CHADSVASC A-FIB History Current/History of A-Fib/PAF?: No Current PO Anticoag Therapy: No Vital Signs Vital Signs Date Time Temp Pulse Resp B/P (MAP) Pulse Ox O2 Delivery O2 Flow Rate FiO2 03/19/21 03:15 99 150/86 (107) 91 03/19/21 01:38 Nasal Cannula 3.0 03/19/21 01:30 38 03/19/21 01:29 98.6 Laboratory Data Labs 24H Laboratory Tests 2 03/19/21 01:25: Blood Gas Bicarbonate Standard 18.9L, Arterial Blood pH 7.281L, Arterial Blood Partial Pressure CO2 42.8, Arterial Blood Partial Pressure O2 62.4L, Arterial B lood Total CO2 21.0L, Arterial Blood HCO3 19.7L, Arterial Blood Base Excess - 6.8L, Arterial Blood Oxygen Saturation 90.6L 03/19/21 01:26: Immature Granulocyte % (Auto) 0.7, Neutrophils (%) (Auto) 92.2H, Lymphocytes (%) (Auto) 2.0L, Monocytes (%) (Auto) 4.8, Eosinophils (%) (Auto) 0.0, Basophils (%) (Auto) 0.3, Neutrophils # (Auto) 21.2H, Lymphocytes # (Auto) 0.5L, Monocytes # (Auto) 1.1H, Eosinophils # (Auto) 0.0, Basophils # (Auto) 0.1, Nucleated Red Blood Cells % (auto) 0.0, Anion Gap 10, Glomerular Filtration Rate 5.2L, Calcium Level 9.9, Total Bilirubin 0.8, Direct Bilirubin 0.2, Aspartate Amino Transf (AST/SGOT) 4L, Alanine Aminotransferase (ALT/SGPT) 20, Alkaline Phosphatase 137H, Total Creatine Kinase 25L, Creatine Kinase MB 1.2, Creatine Kinase MB Relative Index 4.80H, Troponin I < 0.02, HI-Tgk-I-Type Natriuretic Peptide 4842H, Total Protein 6.5, Albumin 3.4, Albumin/Globulin Ratio 1.1L 03/19/21 01:27: Lactic Acid Level 1.2 CBC/BMP Laboratory Tests 03/19/21 01:26 Microbiology Microbiology 03/19/21 Blood Culture, Received Pending 03/19/21 Respiratory Virus Panel (PCR) (DANIEL) - Final, Complete 03/19/21 Blood Culture, Received Pending Plan / VTE VTE Prophylaxis Ordered?: Yes GME ATTESTATION GME ATTESTATION My faculty preceptor for this patient encounter was physically present during the encounter and was fully available. All aspects of the patient interview, examination, medical decision making process, and medical care plan development were reviewed and approved by the faculty preceptor. The faculty preceptor is aware and concurs with the plan as stated in the body of this note and will attest to such by his/her cosignature. ATTENDING NOTE I, A Yousef, have independently examined this patient and performed my own physical exam, as well as reviewed the documentation and edited where necessary. I have discussed in detail with the resident / student the findings and plan of treatment as documented by the resident / student and edited their note. I agree with their findings and treatment plan and have edited their documentation. I will continue to follow the patient during this hospital stay. ZACKARY BROWNING DO Mar 19, 2021 05:14 ODESSA ALCARAZ MD Mar 23, 2021 04:27
[2021-03-19] MEDS ORDERED: AZITHROMYCIN 250MG TABLET PO ONE (05:30)
[2021-03-19] MEDS ORDERED: PANT-23 PO (05:54)
[2021-03-19] MEDS ORDERED: SUCR1TAB56 PO (05:54)
[2021-03-19] MEDS ORDERED: VELP5CHW PO (05:56)
[2021-03-19] MEDS ORDERED: ATRO1OPD OD (05:56)
[2021-03-19] MEDS ORDERED: CARV3.12 PO (05:56)
[2021-03-19] MEDS ORDERED: IRBE75TA4 PO (05:56)
[2021-03-19] MEDS ORDERED: MAALOX 30 ML SUSP *UDC PO PRN (06:00)
[2021-03-19] MEDS ORDERED: ACETAMINOPHEN TAB 650MG DOSE (2X325MG) PO PRN (06:00)
[2021-03-19] MEDS ORDERED: HOME MED LIST COMPLETE! XX SCH (06:00)
[2021-03-19] MEDS ORDERED: MOM 30ML SUSPENSION UDC PO PRN (06:00)
[2021-03-19] MEDS ORDERED: SOD POLYSTYRENE SULFONATE SUSP 15 GM/60 ML UD PO ONE (06:10)
--- NOTE | 2021-03-19 07:02 | ECGEPIP ---
[facility] - ED Test Date: 2021-03-19 Pat Name: SAGAR DELGADILLO Department: Room: - Gender: Female Investigator Operator: FLACA : 1960 Requested By: GUERA Topete Order Number: [id number] Reading MD: Babar Ring Measurements Intervals [place] Rate: 103 P: 69 AK: 142 QRS: 17 QRSD: 74 T: 65 QT: 322 QTc: 421 Interpretive Statements Sinus tachycardia Right atrial enlargement Baseline artifact rate increased from tracing done 10-06-20 Electronically Signed on 03-19-2021 7:01:56 EDT by Babar Ring
[2021-03-19 08:44] LABS: CALCIUM LEVEL 10.2 MG/DL (8.5-10.1); CREATININE FOR GFR 8.62 MG/DL (0.55-1.30); POTASSIUM SERUM 6.6 MEQ/L (3.5-5.1)
[2021-03-19] MEDS: DOCUSATE SODIUM 100MG CAPSULE PO SCH ×2 (09:30→20:47)
[2021-03-19] MEDS: ERYTHROMYCIN OPHTH OINT OS SCH ×3 (09:30→20:48)
[2021-03-19] MEDS: HEPARIN SOD (PORCINE) 5000UNITS/ML 1ML VIAL/SYRINGE SC SCH ×2 (09:33→20:48)
[2021-03-19 12:42] LABS: CALCIUM LEVEL 10.3 MG/DL (8.5-10.1); CREATININE FOR GFR 8.82 MG/DL (0.55-1.30); GLOMERULAR FILTRATION RATE 4.9 (>51); POTASSIUM SERUM 5.8 MEQ/L (3.5-5.1)
[2021-03-19] MEDS: ALBUTEROL SULFATE 2.5 MG/0.5 ML INH NEB SOLN INH PRN ×2 (15:55→20:04)
[2021-03-19 16:00] VITALS: BP 143/91; O2SAT 99
[2021-03-19 17:47] LABS: CALCIUM LEVEL 8.8 MG/DL (8.5-10.1); CREATININE FOR GFR 4.1 MG/DL (0.55-1.30); GLOMERULAR FILTRATION RATE 11.9 (>51); POTASSIUM SERUM 3.5 MEQ/L (3.5-5.1)
--- NOTE | 2021-03-19 17:47 | CR ---
NEPHROLOGY CONSULTATION DATE: 03/19/2021 REQUESTING PHYSICIAN: Huong Briones M.D. CONSULTING PHYSICIAN: Can Corral M.D. REASON FOR CONSULTATION: Difficulty breathing in this lady with end-stage renal disease. HISTORY OF PRESENT ILLNESS: Mrs. Garcia is a 60-year-old female with multiple chronic medical problems including end-stage renal disease, chronic obstructive pulmonary disease, hypertension, and anemia. She presented to the Emergency Room with shortness of breath. She has been diagnosed with pneumonia and being admitted. She missed her dialysis today and was also noticed to have hyperkalemia on her lab work. Nephrology consultation was requested and the patient is seen in the Emergency Room. PAST MEDICAL AND SURGICAL HISTORY: The patient's past medical and surgical history is significant for: 1. Hypertension. 2. Chronic obstructive pulmonary disease. 3. End-stage renal disease, currently on maintenance hemodialysis. 4. Migraine headaches. 5. Anemia. PAST SURGICAL HISTORY: The patient's past surgical history is significant for: 1. Benign tumor of lower jaw removal in 1999. 2. Bone graft from right fibula in 1999. 3. Pinned right toe secondary to fibular surgery in 1999. FAMILY HISTORY: Father is at 71 with coronary artery disease, diabetes and hypertension. Mother is at 69 with metastatic colon cancer. PERSONAL AND SOCIAL HISTORY: The patient is a former smoker who recently quit smoking. She drinks wine and denies any illicit drug use. ALLERGIES: She has an allergy to: 1. Amoxicillin. 2. Clavulanic Acid. MEDICATIONS: Her home medications include: 1. Amlodipine 10 mg daily. 2. Aspirin 81 mg daily. 3. Atropine eye drops to right eye daily. 4. Carvedilol 3.125 mg twice daily. 5. Vitamin D 1,000 units daily. 6. Citalopram 20 mg daily. 7. Ferrous Sulfate 325 mg daily. 8. Furosemide 20 mg daily. 9. Hydralazine 10 mg twice daily. 10. Hydrochlorothiazide 12.5 mg daily. 11. Irbesartan 75 mg daily. 12. Isosorbide 30 mg twice daily. 13. Pantoprazole 40 mg daily. 14. Prednisolone eye drops every 2 hours. 15. Propanolol 40 mg twice daily. 16. Velphoro 500 mg three times daily with meals. 17. Albuterol inhaler as needed. REVIEW OF SYSTEMS: Constitutional: The patient reports improvement since she arrived to the Emergency Department. She was very short of breath at home. She denies any fevers or chills. Ears, Nose and Throat: Unremarkable. Cardiovascular System: Significant for hypertension. She denies any leg edema. Respiratory System: Negative for hemoptysis or pleuritic type of chest pain. GI System: Negative for vomiting or diarrhea. System: Negative for dysuria or hematuria. Musculoskeletal System: Negative for any significant leg edema or arthritis. Endocrine System: Negative for diabetes. Hematological System: Significant for anemia. Psychosocial System: Significant for depression. Neurological System: Negative for seizures or stroke. Skin: Negative for rash or ulcers. PHYSICAL EXAMINATION: VITAL SIGNS: Temperature is 99 degrees Fahrenheit, heart rate 93 per minute, respiratory rate 20 per minute, blood pressure 144/85 mm of mercury and oxygen saturation is 99% on 4 liters oxygen. HEENT: Her head is atraumatic. NECK: Supple and JVD not abnormally elevated. Hemodialysis catheter is present in the right internal jugular vein. HEART: Regular. LUNGS: Diminished breath sounds and scattered rhonchi. ABDOMEN: Soft and nontender and bowel sounds are normal. EXTREMITIES: Without any cyanosis or clubbing. NEUROLOGICAL: She is awake and without any focal deficits. LABORATORY DATA: WBC count 23.0, hemoglobin 14.3 and hematocrit 45.3, platelet count 167. Sodium 132, potassium 6.6, CO2 23, BUN 51 and creatinine 8.62. Glucose is 124 and calcium 10.2. IMAGING: Chest x-ray showed left lower lobe opacity, possible small pleural effusion. PROBLEMS: 1. Hyperkalemia most likely this is related to end-stage renal disease. We will probably need to repeat her labs, as earlier her potassium was 5.9 and increase in potassium unexpected. We will dialyze her this afternoon and use a low potassium bath. This will correct her hyperkalemia. I do not feel that she needs to be medicated at present. 2. End-stage renal disease - The patient is due for her regular dialysis treatment today and we plan to dialyze her in the next couple of hours. 3. Shortness of breath most likely this is related to pneumonia. However she also probably has some volume overload. Just small left lower lobe infiltrate is not enough to explain her significant symptoms. We will try to remove 1.5 to 2 liters of fluid as tolerated and see how she does. 4. Anemia she has chronic anemia, however it is not an issue at this point. 5. Chronic obstructive pulmonary disease she does have a history of chronic obstructive pulmonary disease and she will be treated aggressively with antibiotics, nebulizers and bronchodilators. Thank you for involving me in the care of Mrs. Garcia. Nephrology Service will follow her along with you.
[2021-03-19 19:00] VITALS: O2SAT 94
[2021-03-19 20:00] VITALS: BP 131/81; O2SAT 95
[2021-03-19] MEDS ORDERED: guaiFENesin 200 MG TAB PO PRN (20:20)
[2021-03-19] MEDS ORDERED: diphenhydrAMINE 25MG CAP PO ONE (20:25)
[2021-03-19 21:00] VITALS: O2SAT 94
[2021-03-19 22:00] VITALS: O2SAT 94
[2021-03-19 23:00] VITALS: O2SAT 96
[2021-03-19 23:27] LABS: CALCIUM LEVEL 9.3 MG/DL (8.5-10.1); CREATININE FOR GFR 5.02 MG/DL (0.55-1.30); GLOMERULAR FILTRATION RATE 9.4 (>51); POTASSIUM SERUM 3.9 MEQ/L (3.5-5.1)
[2021-03-20] VITALS (13 sets, daily range): BP systolic 115–143; BP diastolic 66–82; O2SAT 94–97
[2021-03-20] MEDS: ALBUTEROL SULFATE 2.5 MG/0.5 ML INH NEB SOLN INH PRN (01:13)
[2021-03-20] MEDS: cefTRIAXone SOD 1 GM in D5W MINI-BAG PLUS 50 ML IV SCH (05:44)
[2021-03-20 05:57] LABS: BASO % 0.3 % (0.0-1.0); EOS # 0.1 10^3/uL (0.0-0.5); EOS % 0.6 % (0.0-3.0); HEMATOCRIT 39.9 % (36.0-47.0); HEMOGLOBIN 12.6 g/dl (12.0-15.5); LYMPH # 0.8 10^3/uL (1.5-5.0); LYMPH % 6.8 % (24.0-44.0); MEAN CORPUSCULAR HEMOGLOBIN 32.1 pg (27.0-33.0); MEAN CORPUSCULAR HGB CONC 31.6 g/dl (32.0-36.5); MEAN CORPUSCULAR VOLUME 101.8 fl (80.0-96.0); MONO # 0.9 10^3/uL (0.0-0.8); MONO % 7.3 % (2.0-8.0); NEUTROPHILS # 10.5 10^3/uL (1.5-8.5); NEUTROPHILS % 84.5 % (36.0-66.0); PLATELET COUNT, AUTOMATED 143 10^3/uL (150-450); RED BLOOD COUNT 3.92 10^6/uL (4.00-5.40); WHITE BLOOD COUNT 12.4 10^3/uL (4.0-10.0)
[2021-03-20 06:28] LABS: CALCIUM LEVEL 9.5 MG/DL (8.5-10.1); CREATININE FOR GFR 5.79 MG/DL (0.55-1.30); POTASSIUM SERUM 4.5 MEQ/L (3.5-5.1)
[2021-03-20] MEDS: DOCUSATE SODIUM 100MG CAPSULE PO SCH ×2 (08:02→20:16)
[2021-03-20] MEDS: HEPARIN SOD (PORCINE) 5000UNITS/ML 1ML VIAL/SYRINGE SC SCH ×2 (08:02→20:16)
[2021-03-20] MEDS: AZITHROMYCIN INJ 500 MG, VIAL MATE ADAPTER 1 EACH in NS 250 ML IV SCH (08:02)
--- NOTE | 2021-03-20 08:50 | REP ---
INDICATION: pneumonia. COMPARISON: Portable chest, 03/19/2021. TECHNIQUE: AP portable chest image was obtained. FINDINGS: There is minimal peribronchial thickening in the lower lung zones bilaterally. There is mild blunting of both costophrenic angles. The heart borders and mediastinum are normal. There is a right internal jugular multiple port catheter with the tip in the area of the right atrium. IMPRESSION: 1. Atelectasis or pneumonia in both lung bases. 2. Right IJ multi port catheter. <Electronically signed by Milton Clark > 03/20/21 [id number]
[2021-03-20] MEDS: ERYTHROMYCIN OPHTH OINT OS SCH ×3 (09:00→20:17)
[2021-03-20] MEDS: PROPRANOLOL 20 MG TAB PO SCH ×2 (09:37→20:19)
[2021-03-20] MEDS: ASPIRIN 81MG ENTERIC TABLET PO SCH (09:37)
[2021-03-20] MEDS: FERROUS SULFATE 325MG TAB PO SCH (09:38)
[2021-03-20] MEDS: CitaloPRAM (CeleXA) 20 MG TAB PO SCH (09:38)
[2021-03-20] MEDS ORDERED: NYSTATIN 500,000 U/5 ML SUSP UDC PO ONE (11:10)
[2021-03-20] MEDS: FORMOTEROL FUMARATE 20 MCG/2 ML INHALATION SOLUTION (PERFOROMIST) INH SCH ×2 (11:30→19:39)
[2021-03-20] MEDS: TIOTROPIUM INHALER/CAPSULE (SPIRIVA) INH SCH (11:30)
[2021-03-20] MEDS: BUDESONIDE 0.5 MG/2 ML INHALATION SUSPENSION INH SCH ×2 (11:30→19:39)
--- NOTE | 2021-03-20 11:42 | IPNPDOC ---
Subjective Date Seen The patient was seen on 03/20/21. Subjective Chief Complaint/HPI Patient reports that she continues to have SOB. Feels like cannot take in enough air. She has been on 2 L of nasal cannula overnight with no issues. She is legally blind. No confusion today. Objective Physical Examination General Exam: Positive: Alert, Cooperative, No Acute Distress Eye Exam: Positive: Conjunctiva & lids normal, EOMI, Other Eye Symptoms (Legally blind) ENT Exam: Positive: Atraumatic, Mucous membr. moist/pink, Pharynx Normal Neck Exam: Positive: Supple; Negative: JVD, thyromegaly Chest Exam: Positive: Clear to auscultation, Wheezing, Other (Bibasilar crackles more on the left); Negative: Rales, Rhonchi, Diminished Heart Exam: Positive: Rate Normal, Regular Rhythm, Normal S1, Normal S2, Murmurs (Systolic murmur at the base); Negative: Rubs Abdomen Exam: Positive: Normal bowel sounds, Soft; Negative: Tenderness Extremity Exam: Negative: Clubbing, Cyanosis, Edema Psych Exam: Positive: Memory Intact, Oriented x 3 Assessment /Plan Assessment This is a 60 year old female with past medical history of ESRD on hemodialysis, COPD, chronic hypoxic respiratory failure, CAROL does not use CPAP though has a machine, hypertension, migraines, chronic anemia, iron deficiency, 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 She has been using her albuterol up to 6 times a day without any relief.. She called 911 after she felt too short of breath to walk outside to her vehicle to drive herself to the hospital. Upon EMS arrival, she was found to be hypoxic and was placed on a CPAP machine. At baseline she uses 3L of oxygen at home. She was given decadron and duonebs in the ambulance and was transitioned back to 3L NC from CPAP machine. In the ED she was found to have leukocytosis and a chest x ray positive for left lower lobe opacity suggestive of pneumonia. Patient was admitted for community- acquired pneumonia. Community-acquired pneumonia Continue with ceftriaxone and doxycycline Blood cultures progress Acute metabolic encephalopathy Patient was noted to be confused during dialysis Likely due to infection Now seems to have resolved. Hyperkalemia Resolved after dialysis ESRD with mild fluid overload due to missing and session of dialysis Has been on HD for 6 months by [facility] Renal biopsy showed chronic interstitial nephritis, diffuse tubular atrophy, focal glomerulosclerosis extensive Continue on maintenance dialysis as per nephrology Will hold diuretics for now and discuss with nephrology regarding restarting this. COPD with exacerbation Continue inhalers and nebulizers and methyl pred Continue budesonide and Spiriva, will add formoterol We will continue albuterol as needed Hypertension We will continue propranolol for now Blood pressure is We will add amlodipine ,irbesartan, isosorbide, hydralazine as needed Migraines We will continue propranolol Depression Continue citalopram Legal blindness continue eye drops. Plan/VTE VTE Prophylaxis Ordered?: Yes VS, I&O, 24H, Fishbone Vital Signs/I&O Vital Signs Date Time Temp Pulse Resp B/P (MAP) Pulse Ox O2 Delivery O2 Flow Rate FiO2 03/20/21 08:00 97.3 83 20 121/66 (84) 94 Nasal Cannula 2.0 I&O- Last 24 Hours up to 6 AM 03/20/21 06:00 Intake Total 120 ml Output Total 1500 ml Balance -1380 ml Laboratory Data 24H LABS Laboratory Tests 2 03/19/21 11:45: Anion Gap 8, Glomerular Filtration Rate 4.9L, Calcium Level 10.3H 03/19/21 17:12: Anion Gap 10, Glomerular Filtration Rate 11.9L, Calcium Level 8.8 03/19/21 22:42: Anion Gap 8, Glomerular Filtration Rate 9.4L, Calcium Level 9.3 03/20/21 05:35: Anion Gap 11, Glomerular Filtration Rate 8.0L, Calcium Level 9.5, Immature Granulocyte % (Auto) 0.5, Neutrophils (%) (Auto) 84.5H, Lymphocytes (%) (Auto) 6.8L, Monocytes (%) (Auto) 7.3, Eosinophils (%) (Auto) 0.6, Basophils (%) (Auto) 0.3, Neutrophils # (Auto) 10.5H, Lymphocytes # (Auto) 0.8L, Monocytes # (Auto) 0.9H, Eosinophils # (Auto) 0.1, Basophils # (Auto) 0.0, Nucleated Red Blood Cells % (auto) 0.0 CBC/BMP Laboratory Tests 03/19/21 11:45 03/19/21 17:12 03/19/21 22:42 03/20/21 05:35 Microbiology Microbiology 03/19/21 Blood Culture - Preliminary, Resulted No growth after 24 hours . All specim... 03/19/21 Respiratory Virus Panel (PCR) (DANIEL) - Final, Complete 03/19/21 Blood Culture - Preliminary, Resulted No growth after 24 hours . All specim... Huong Briones MD Mar 20, 2021 08:56
[2021-03-20] MEDS: SUCROFERRIC OXYHYDROXIDE 500MG CHEW TAB (VELPHORO) PO SCH ×2 (12:04→18:05)
[2021-03-20] MEDS: methylPREDNISolone 40MG 1ML VIAL IV SCH ×2 (12:04→20:15)
[2021-03-20] MEDS: ALBUTEROL SULFATE 2.5 MG/0.5 ML INH NEB SOLN INH SCH ×4 (13:21→23:25)
[2021-03-20] MEDS: ATROPINE SULFATE 1% OP SOLN 2 ML BTL OD SCH (16:22)
[2021-03-20] MEDS: prednisoLONE ACET 1% OPHTH SUSP 5ML OD SCH ×4 (16:22→22:00)
[2021-03-20] MEDS: NYSTATIN 500,000 U/5 ML SUSP UDC SS SCH ×2 (16:22→20:15)
--- NOTE | 2021-03-20 17:12 | IPN ---
NEPHROLOGY PROGRESS NOTE DATE: 03/20/2021 SUBJECTIVE: Mrs. Garcia is seen this morning at her bedside. She is legally blind and currently sitting in the chair. She was quite restless during dialysis yesterday and I discussed with her. She reports that she is usually quite restless which is a chronic issue, but yesterday she was just not feeling well. She feels much better today. She denies any nausea or vomiting. Her shortness of breath has improved and she is currently on 2 liters of oxygen. OBJECTIVE: PHYSICAL EXAMINATION: VITAL SIGNS: Temperature 97.3 degrees Fahrenheit, heart rate 82 per minute and respiratory rate 20 per minute. Blood pressure 121/66 mm of mercury and oxygen saturation is 94% on 2 liters oxygen. HEENT: Her head is atraumatic. She is legally blind. NECK: Supple and without JVD or thyroid enlargement. HEART: Sounds are regular. LUNGS: Clear to auscultation. ABDOMEN: Soft and nontender and bowel sounds are normal. EXTREMITIES: Without any cyanosis or clubbing. LABORATORY STUDIES: Today's labs show a white blood cell count down to 12.4 from 23.0 yesterday. Hemoglobin is 12.6 and hematocrit 39.9. Sodium is 137 and potassium 4.5, BUN 32 and creatinine 5.79. PROBLEMS: 1. Hyperkalemia her potassium level has corrected with dialysis yesterday. No other intervention will be needed. 2. End-stage renal disease - The patient was dialyzed yesterday. Her next dialysis will be due on Sunday. No emergent need for dialysis today. 3. Hypertension - blood pressure seems very well controlled on current antihypertensive medications. 4. Shortness of breath this is mostly related to pneumonia. Her volume status is clinically well compensated. Yesterday we tried to remove about 2 liters with dialysis, however she did not tolerate it. We were able to remove only 1.5 liters.
[2021-03-21] MEDS: prednisoLONE ACET 1% OPHTH SUSP 5ML OD SCH ×12 (01:10→22:00)
[2021-03-21] MEDS: ALBUTEROL SULFATE 2.5 MG/0.5 ML INH NEB SOLN INH SCH ×5 (04:00→19:24)
[2021-03-21] MEDS: methylPREDNISolone 40MG 1ML VIAL IV SCH ×3 (05:02→20:49)
[2021-03-21] MEDS: cefTRIAXone SOD 1 GM in D5W MINI-BAG PLUS 50 ML IV SCH (05:02)
[2021-03-21 06:00] VITALS: BP 105/57
[2021-03-21 06:41] LABS: BASO % 0.1 % (0.0-1.0); HEMATOCRIT 40.9 % (36.0-47.0); HEMOGLOBIN 12.7 g/dl (12.0-15.5); LYMPH # 0.5 10^3/uL (1.5-5.0); LYMPH % 4.4 % (24.0-44.0); MEAN CORPUSCULAR HEMOGLOBIN 31.8 pg (27.0-33.0); MEAN CORPUSCULAR HGB CONC 31.1 g/dl (32.0-36.5); MEAN CORPUSCULAR VOLUME 102.5 fl (80.0-96.0); MONO # 0.6 10^3/uL (0.0-0.8); MONO % 5.4 % (2.0-8.0); NEUTROPHILS # 9.3 10^3/uL (1.5-8.5); NEUTROPHILS % 89.5 % (36.0-66.0); PLATELET COUNT, AUTOMATED 165 10^3/uL (150-450); RED BLOOD COUNT 3.99 10^6/uL (4.00-5.40); WHITE BLOOD COUNT 10.4 10^3/uL (4.0-10.0)
[2021-03-21] MEDS: FORMOTEROL FUMARATE 20 MCG/2 ML INHALATION SOLUTION (PERFOROMIST) INH SCH ×2 (07:12→19:24)
[2021-03-21] MEDS: BUDESONIDE 0.5 MG/2 ML INHALATION SUSPENSION INH SCH ×2 (07:12→19:24)
[2021-03-21] MEDS: TIOTROPIUM INHALER/CAPSULE (SPIRIVA) INH SCH (07:34)
[2021-03-21] MEDS: ASPIRIN 81MG ENTERIC TABLET PO SCH (08:56)
[2021-03-21] MEDS: SUCROFERRIC OXYHYDROXIDE 500MG CHEW TAB (VELPHORO) PO SCH ×3 (08:56→18:28)
[2021-03-21] MEDS: DOCUSATE SODIUM 100MG CAPSULE PO SCH ×2 (08:57→20:50)
[2021-03-21] MEDS: PROPRANOLOL 20 MG TAB PO SCH ×2 (08:57→20:51)
[2021-03-21] MEDS: FERROUS SULFATE 325MG TAB PO SCH (08:58)
[2021-03-21] MEDS: CitaloPRAM (CeleXA) 20 MG TAB PO SCH (08:58)
[2021-03-21] MEDS: HEPARIN SOD (PORCINE) 5000UNITS/ML 1ML VIAL/SYRINGE SC SCH ×2 (08:59→20:50)
[2021-03-21] MEDS ORDERED: FLUBLOK(EGG FREE)(QUAD)INFLUENZA VACC 0.5ML SYRINGE 18YRS & OLDER IM ONE (09:00)
[2021-03-21] MEDS: ERYTHROMYCIN OPHTH OINT OS SCH ×3 (09:03→20:50)
[2021-03-21] MEDS: ATROPINE SULFATE 1% OP SOLN 2 ML BTL OD SCH (09:03)
[2021-03-21] MEDS: NYSTATIN 500,000 U/5 ML SUSP UDC SS SCH ×3 (09:10→20:50)
[2021-03-21] MEDS: AZITHROMYCIN INJ 500 MG, VIAL MATE ADAPTER 1 EACH in NS 250 ML IV SCH (09:10)
[2021-03-21] MEDS ORDERED: SENNA 8.6 MG TAB (SENOKOT) PO ONE (11:50)
--- NOTE | 2021-03-21 12:37 | IPNPDOC ---
Subjective Date Seen The patient was seen on 03/21/21. Subjective Chief Complaint/HPI Patient's shortness of breath is much better today. Early this a.m. she was having episode of shortness of breath and then she had an episode of coughing and bringing up a mucous plug after that her breathing improved. She is due for dialysis tomorrow Objective Physical Examination General Exam: Positive: Alert, Cooperative, No Acute Distress Eye Exam: Positive: Conjunctiva & lids normal, Other Eye Symptoms (Legally blind); Negative: Sclera icteric ENT Exam: Positive: Atraumatic, Mucous membr. moist/pink, Pharynx Normal Neck Exam: Positive: Supple; Negative: JVD, thyromegaly Chest Exam: Positive: Other (Bibasilar crackles more on the left); Negative: Rales, Rhonchi, Wheezing, Diminished Heart Exam: Positive: Rate Normal, Regular Rhythm, Normal S1, Normal S2, Murmurs (Systolic murmur at the base); Negative: Rubs Abdomen Exam: Positive: Normal bowel sounds, Soft; Negative: Tenderness Extremity Exam: Negative: Clubbing, Cyanosis, Edema Psych Exam: Positive: Memory Intact, Oriented x 3 Assessment /Plan Assessment This is a 60 year old female with past medical history of ESRD on hemodialysis, COPD, chronic hypoxic respiratory failure, CAROL does not use CPAP though has a machine, hypertension, migraines, chronic anemia, iron deficiency, 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 She has been using her albuterol up to 6 times a day without any relief.. She called 911 after she felt too short of breath to walk outside to her vehicle to drive herself to the hospital. Upon EMS arrival, she was found to be hypoxic and was placed on a CPAP machine. At baseline she uses 3L of oxygen at home. She was given decadron and duonebs in the ambulance and was transitioned back to 3L NC from CPAP machine. In the ED she was found to have leukocytosis and a chest x ray positive for left lower lobe opacity suggestive of pneumonia. Patient was admitted for community- acquired pneumonia. Community-acquired pneumonia Continue with ceftriaxone and doxycycline Blood cultures progress Acute metabolic encephalopathy Patient was noted to be confused during dialysis Likely due to infection Now resolved. Hyperkalemia Resolved after dialysis ESRD with mild fluid overload due to missing and session of dialysis [facility] Renal biopsy showed chronic interstitial nephritis, diffuse tubular atrophy, focal glomerulosclerosis extensive Continue on maintenance dialysis as per nephrology Will hold diuretics for now and discuss with nephrology regarding restarting this. COPD with exacerbation Continue inhalers and nebulizers and methyl pred Continue budesonide and Spiriva, will add formoterol We will continue albuterol as needed Hypertension We will continue propranolol for now Blood pressure is We will add amlodipine ,irbesartan, isosorbide, hydralazine as needed Migraines We will continue propranolol Depression Continue citalopram Legal blindness continue eye drops. Disposition: Home in next 24 to 48 hours Plan/VTE VTE Prophylaxis Ordered?: Yes VS, I&O, 24H, Fishbone Vital Signs/I&O Vital Signs Date Time Temp Pulse Resp B/P (MAP) Pulse Ox O2 Delivery O2 Flow Rate FiO2 03/21/21 08:57 76 126/67 03/21/21 07:20 2.5 03/21/21 06:00 98.3 20 98 Nasal Cannula I&O- Last 24 Hours up to 6 AM 03/21/21 06:00 Intake Total 2450 ml Output Total 100 ml Balance 2350 ml Laboratory Data 24H LABS Laboratory Tests 2 03/21/21 05:57: Immature Granulocyte % (Auto) 0.6, Neutrophils (%) (Auto) 89.5H, Lymphocytes (%) (Auto) 4.4L, Monocytes (%) (Auto) 5.4, Eosinophils (%) (Auto) 0.0, Basophils (%) (Auto) 0.1, Neutrophils # (Auto) 9.3H, Lymphocytes # (Auto) 0.5L, Monocytes # (Auto) 0.6, Eosinophils # (Auto) 0.0, Basophils # (Auto) 0.0, Nucleated Red Blood Cells % (auto) 0.0 CBC/BMP Laboratory Tests 03/21/21 05:57 Microbiology Microbiology 03/19/21 Blood Culture - Preliminary, Resulted No Growth after 48 hours. All Specime... 03/19/21 Respiratory Virus Panel (PCR) (DANIEL) - Final, Complete 03/19/21 Blood Culture - Preliminary, Resulted No Growth after 48 hours. All Specime... Huong Briones MD Mar 21, 2021 12:07
--- NOTE | 2021-03-21 12:48 | IPN ---
PROGRESS NOTE DATE: 03/21/2021 SUBJECTIVE: Ms. Garcia is seen this morning on her bedside. She is sitting in her bed and still not feeling very well. She reports constipation and no bowel movement since she came to the hospital. She denies any nausea or vomiting. Her shortness of breath is slightly better but still not completely improved. OBJECTIVE: GENERAL: She is awake and alert, sitting in her bed. VITAL SIGNS: Temperature is 98.3 degrees Fahrenheit, heart rate is 60 per minute and respiratory rate is 20 per minute. Blood pressure 126/67 mmHg and the oxygen saturation is 98%. HEENT: Her head is atraumatic. NECK: Supple and without JVD or thyroid enlargement. HEART: Sounds are regular. LUNGS: Expiratory wheezing and diminished breath sounds at bases. ABDOMEN: Soft and nontender and bowel sounds are normal. EXTREMITIES: Without any cyanosis or clubbing. NEUROLOGIC: She is at her baseline mentation without any focal deficit. LABORATORY DATA: Today's labs only have a CBC with a WBC count of 10.4, hemoglobin 12.7 and hematocrit 40.9. She did not have any chemistries done today. PROBLEMS: 1. Endstage renal disease, patient is regularly dialyzed on Sunday on Sunday, and Sunday schedule. She was diagnosed on Sunday and will schedule her next dialysis for tomorrow. 2. Shortness of breath, mostly this is related to pneumonia and her volume status has been well-compensated. Will try to remove about 1.5 liters of fluid with the next dialysis tomorrow. 3. Hypertension, blood pressure seems well-controlled. No changes are being made today. 4. Constipation. Patient reports no bowel movement since admission. She is getting Colace 100 mg b.i.d. and I will give her one dose of Senokot two tablets today.
[2021-03-21 14:00] VITALS: BP 104/57
[2021-03-21 22:00] VITALS: BP 143/71
[2021-03-22] MEDS: ALBUTEROL SULFATE 2.5 MG/0.5 ML INH NEB SOLN INH SCH ×6 (00:55→20:00)
[2021-03-22] MEDS: prednisoLONE ACET 1% OPHTH SUSP 5ML OD SCH ×12 (01:39→22:45)
[2021-03-22] MEDS: NYSTATIN 500,000 U/5 ML SUSP UDC SS SCH ×3 (05:23→20:29)
[2021-03-22] MEDS: cefTRIAXone SOD 1 GM in D5W MINI-BAG PLUS 50 ML IV SCH (05:23)
[2021-03-22] MEDS: methylPREDNISolone 40MG 1ML VIAL IV SCH (05:23)
[2021-03-22] MEDS: ASPIRIN 81MG ENTERIC TABLET PO SCH (05:24)
[2021-03-22] MEDS: DOCUSATE SODIUM 100MG CAPSULE PO SCH ×2 (05:24→20:29)
[2021-03-22] MEDS: FERROUS SULFATE 325MG TAB PO SCH (05:24)
[2021-03-22] MEDS: HEPARIN SOD (PORCINE) 5000UNITS/ML 1ML VIAL/SYRINGE SC SCH ×2 (05:25→20:29)
[2021-03-22] MEDS: ERYTHROMYCIN OPHTH OINT OS SCH ×3 (05:25→20:30)
[2021-03-22] MEDS: CitaloPRAM (CeleXA) 20 MG TAB PO SCH (05:25)
[2021-03-22] MEDS: PROPRANOLOL 20 MG TAB PO SCH ×2 (05:45→20:29)
[2021-03-22 06:00] VITALS: BP 108/53
[2021-03-22] MEDS: AZITHROMYCIN INJ 500 MG, VIAL MATE ADAPTER 1 EACH in NS 250 ML IV SCH (06:12)
[2021-03-22] MEDS: BUDESONIDE 0.5 MG/2 ML INHALATION SUSPENSION INH SCH ×2 (08:00→20:49)
[2021-03-22] MEDS: TIOTROPIUM INHALER/CAPSULE (SPIRIVA) INH SCH (08:00)
[2021-03-22] MEDS: FORMOTEROL FUMARATE 20 MCG/2 ML INHALATION SOLUTION (PERFOROMIST) INH SCH ×2 (08:00→20:49)
[2021-03-22] MEDS: SUCROFERRIC OXYHYDROXIDE 500MG CHEW TAB (VELPHORO) PO SCH ×3 (08:19→17:55)
[2021-03-22] MEDS: ATROPINE SULFATE 1% OP SOLN 2 ML BTL OD SCH (09:02)
[2021-03-22 09:37] LABS: BASO % 0.1 % (0.0-1.0); HEMATOCRIT 38.4 % (36.0-47.0); HEMOGLOBIN 12.1 g/dl (12.0-15.5); LYMPH # 0.3 10^3/uL (1.5-5.0); LYMPH % 2.7 % (24.0-44.0); MEAN CORPUSCULAR HEMOGLOBIN 31.9 pg (27.0-33.0); MEAN CORPUSCULAR HGB CONC 31.5 g/dl (32.0-36.5); MEAN CORPUSCULAR VOLUME 101.3 fl (80.0-96.0); MONO # 0.4 10^3/uL (0.0-0.8); MONO % 3.1 % (2.0-8.0); NEUTROPHILS # 10.6 10^3/uL (1.5-8.5); NEUTROPHILS % 93.4 % (36.0-66.0); PLATELET COUNT, AUTOMATED 173 10^3/uL (150-450); RED BLOOD COUNT 3.79 10^6/uL (4.00-5.40); WHITE BLOOD COUNT 11.3 10^3/uL (4.0-10.0)
[2021-03-22] MEDS: predniSONE 20 MG TAB PO SCH (16:17)
--- NOTE | 2021-03-22 17:13 | IPNPDOC ---
Text Note Date of Service The patient was seen on 03/22/21. NOTE Subjective: Patient is a 60-year-old female presented to hospital with worsening shortness of breath and was diagnosed with a COPD exacerbation. Patient is feeling somewhat better but when she tries to get up and walk around, her breathing becomes worse. Patient was also diagnosed with pneumonia and continues with antibiotic treatments. Patient says she is slowly improving but is still feeling ill. Review of systems: General: Patient denies fevers HEENT: Patient denies headaches Cardiovascular: Patient denies chest pain Respiratory: Patient reports shortness of breath with exertion as above GI: Patient denies abdominal pain, nausea, vomiting, diarrhea : Patient denies increased frequency or pain with urination Extremities: Patient denies swelling or pain in extremities Physical exam: Vitals: See below General: Alert and oriented female patient who was sitting in bed with when I walked in. Patient has nasal cannula oxygen in place. Patient does not appear to be in any acute distress. HEENT: Normocephalic, atraumatic, moist mucous membranes. Neck: No lymphadenopathy or thyromegaly Cardiac: Regular rate and rhythm, no murmurs, normal S1, normal S2 Pulm: Diminished breath sounds with bibasilar crackles. 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 1. Community-acquired pneumonia. Continue ceftriaxone and doxycycline. Blood cultures have been negative. This is most likely the cause of the patient's COPD exacerbation. 2. Acute metabolic encephalopathy. Patient was noted to be confused during dialysis which is most likely due to her infection. This is since resolved. 3. COPD exacerbation. Most likely secondary to the community-acquired pneumonia. IV Solu-Medrol has been since changed to p.o. prednisone. 4. Hyperkalemia, this resolved after dialysis. 5. End-stage renal disease. I appreciate nephrology's help treating the patient. Continue on maintenance schedule. 6. Hypertension. Continue blood pressure medications. 7. Migraines continue home propanolol. 8. Depression. Continue citalopram. 9. Legal blindness. Continue eyedrops. DVT Prophylaxis: Heparin Disposition: Pending clinical improvement. Possible discharge tomorrow VS,Bruce, I+O VS, Bruce, I+O Laboratory Tests 03/22/21 08:37 Vital Signs Date Time Temp Pulse Resp B/P (MAP) Pulse Ox O2 Delivery O2 Flow Rate FiO2 03/22/21 07:30 2.5 03/22/21 06:00 97.9 70 19 108/53 (71 91 Nasal Cannula I&O- Last 24 Hours up to 6 AM 03/22/21 06:00 Intake Total 1590 ml Output Total 0 ml Balance 1590 ml ALEKSANDR ROLDAN DO Mar 22, 2021 17:13
--- NOTE | 2021-03-22 19:27 | IPN ---
NEPHROLOGY PROGRESS NOTE DATE: 03/22/2021 SUBJECTIVE: Miss Garcia is seen this morning at her bedside. She is sitting in the bed and reports feeling better today. Her dyspnea and cough are improving. She denies any nausea or vomiting. She has no fever or chills. She is due for hemodialysis today. OBJECTIVE: PHYSICAL EXAMINATION: VITAL SIGNS: Temperature 97.9 degrees Fahrenheit, heart rate 70 per minute and respiratory rate 18 per minute. Blood pressure is 108/56 mm of mercury and oxygen saturation is 91% on 2 liters oxygen. HEENT: She is legally blind. Her head is atraumatic. NECK: Supple and without any JVD or thyroid enlargement. HEART: Sounds are regular. LUNGS: Clear to auscultation. ABDOMEN: Soft and nontender and bowel sounds are normal. EXTREMITIES: Without any cyanosis or clubbing. LABORATORY STUDIES: Today's labs show a WBC count of 11.3, hemoglobin 12 and hematocrit 38.4. She did not have any chemistries today. PROBLEMS: 1. End-stage renal disease - The patient is regularly dialyzed on a Sunday, and Sunday schedule. She will be dialyzed this afternoon. 2. Shortness of breath mostly this is related to pulmonary infiltrates and it is improving. Volume status is well compensated and we will try to remove about 1.5 liters of fluid with dialysis. 3. Hypertension - blood pressure seems very well controlled and no changes in antihypertensive medications are being made. 4. Pneumonia and chronic obstructive pulmonary disease - The patient is improving and remains on Azithromycin and Ceftriaxone in addition to steroids. I would recommend to cut down on the steroids relatively faster.
[2021-03-22 22:00] VITALS: BP_SYST 140; BP_SYST 148; BP_DIAS 80; BP_DIAS 81
[2021-03-22] MEDS ORDERED: RAMELTEON 8 MG TAB (ROZEREM) PO PRN (22:35)
[2021-03-23] MEDS: prednisoLONE ACET 1% OPHTH SUSP 5ML OD SCH ×7 (02:00→13:02)
[2021-03-23] MEDS: ALBUTEROL SULFATE 2.5 MG/0.5 ML INH NEB SOLN INH SCH ×4 (04:00→13:06)
[2021-03-23 06:00] VITALS: BP 124/66
[2021-03-23] MEDS: cefTRIAXone SOD 1 GM in D5W MINI-BAG PLUS 50 ML IV SCH (06:00)
[2021-03-23 07:46] LABS: HEMATOCRIT 41.3 % (36.0-47.0); HEMOGLOBIN 12.6 g/dl (12.0-15.5); LYMPH # 0.4 10^3/uL (1.5-5.0); LYMPH % 5.2 % (24.0-44.0); MEAN CORPUSCULAR HEMOGLOBIN 31.1 pg (27.0-33.0); MEAN CORPUSCULAR HGB CONC 30.5 g/dl (32.0-36.5); MONO # 0.4 10^3/uL (0.0-0.8); MONO % 5.2 % (2.0-8.0); NEUTROPHILS # 7.3 10^3/uL (1.5-8.5); NEUTROPHILS % 89.2 % (36.0-66.0); PLATELET COUNT, AUTOMATED 176 10^3/uL (150-450); RED BLOOD COUNT 4.05 10^6/uL (4.00-5.40); WHITE BLOOD COUNT 8.2 10^3/uL (4.0-10.0)
[2021-03-23 08:11] LABS: CALCIUM LEVEL 9.8 MG/DL (8.5-10.1); CREATININE FOR GFR 6.48 MG/DL (0.55-1.30); MAGNESIUM LEVEL 2.6 MG/DL (1.8-2.4); POTASSIUM SERUM 4.8 MEQ/L (3.5-5.1)
[2021-03-23] MEDS: BUDESONIDE 0.5 MG/2 ML INHALATION SUSPENSION INH SCH (08:20)
[2021-03-23] MEDS: FORMOTEROL FUMARATE 20 MCG/2 ML INHALATION SOLUTION (PERFOROMIST) INH SCH (08:20)
[2021-03-23] MEDS: TIOTROPIUM INHALER/CAPSULE (SPIRIVA) INH SCH (08:20)
[2021-03-23] MEDS ORDERED: CEFDINIR 300 MG CAP (OMNICEF) PO SCH (09:00)
[2021-03-23] MEDS ORDERED: AZITHROMYCIN 250MG TABLET PO SCH (09:00)
[2021-03-23] MEDS: DOCUSATE SODIUM 100MG CAPSULE PO SCH (09:28)
[2021-03-23] MEDS: NYSTATIN 500,000 U/5 ML SUSP UDC SS SCH (09:28)
[2021-03-23 09:29] VITALS: BP 124/66
[2021-03-23] MEDS: CitaloPRAM (CeleXA) 20 MG TAB PO SCH (09:29)
[2021-03-23] MEDS: ASPIRIN 81MG ENTERIC TABLET PO SCH (09:29)
[2021-03-23] MEDS: FERROUS SULFATE 325MG TAB PO SCH (09:29)
[2021-03-23] MEDS: PROPRANOLOL 20 MG TAB PO SCH (09:29)
[2021-03-23] MEDS: predniSONE 20 MG TAB PO SCH (09:29)
[2021-03-23] MEDS: SUCROFERRIC OXYHYDROXIDE 500MG CHEW TAB (VELPHORO) PO SCH ×2 (09:29→13:01)
[2021-03-23] MEDS: ATROPINE SULFATE 1% OP SOLN 2 ML BTL OD SCH (09:30)
[2021-03-23] MEDS: ERYTHROMYCIN OPHTH OINT OS SCH (09:30)
[2021-03-23] MEDS: HEPARIN SOD (PORCINE) 5000UNITS/ML 1ML VIAL/SYRINGE SC SCH (09:30)
[2021-03-23] MEDS ORDERED: CEFD300CAP PO (11:14)
[2021-03-23] MEDS ORDERED: AZIT-12 PO (11:14)
[2021-03-23] MEDS ORDERED: PRED20TA PO (11:14)
--- NOTE | 2021-03-23 13:43 | IPN ---
PROGRESS NOTE DATE: 03/23/2021 SUBJECTIVE: Mrs. Garcia is seen this morning on her bedside. She is feeling better and reports that her dyspnea and cough have improved significantly. She wants to go home today. She was dialyzed yesterday and she tolerated dialysis well. OBJECTIVE: VITAL SIGNS: Temperature is 98.4 degrees Fahrenheit, heart rate is 72 per minute, and respiratory rate is 18 per minute. Blood pressure is 124/66 mmHg and oxygen saturation 96%. HEENT: Her head is atraumatic. NECK: Supple and without any JVD or thyroid enlargement. Hemodialysis catheter in right internal jugular vein is intact. HEART: Sounds are regular. LUNGS: Lungs sound much clear now without any wheezing. ABDOMEN: Soft and nontender and bowel sounds are normal. EXTREMITIES: Have no cyanosis or clubbing. NEUROLOGIC: She is at her baseline mentation. She is legally blind. LABORATORY DATA: Today's labs showed a WBC count of 8.2, hemoglobin is 12.6 and hematocrit 41. Sodium is 137, potassium is 4.8, BUN is 53 and creatinine is 6.48. Calcium is 9.8 and glucose is 182. PROBLEMS: 1. Endstage renal disease. Patient was dialyzed yesterday and her next regular dialysis will be on March 24. 2. Congestive heart failure, volume status is very well-compensated and she should continue with fluid restriction of 1500 ml per day. 3. Hypertension, blood pressure has been very well-controlled and no changes in antihypertensives are being made. 4. Pneumonia. She is currently afebrile and feeling much better. She has been switched to oral antibiotics. 5. Disposition: From a renal standpoint, the patient can be discharged to home and follow-up in the outpatient dialysis clinic. She will be scheduled for her next dialysis for tomorrow.
[2021-03-23] MEDS ORDERED: CEFD1CAP8 PO (14:01)
--- NOTE | 2021-03-23 18:16 | DS.PDOC ---
Discharge Summary General Date of Admission Mar 19, 2021 at 05:59 Date of Discharge 03/23/2021 Primary Care Physician: Charlene Gill PA-C, LAC Attending Physician: ALEKSANDR ROLDAN DO Specialist/Consultants Involve: Can Corral MD Discharge Summary PROCEDURES PERFORMED DURING STAY: None. ADMITTING DIAGNOSES: 1. Pneumonia likely community-acquired. 2. ESRD 3. Hyperkalemia 4. Leukocytosis 5. Macrocytosis 6. Hypoxemia 7. COPD 8. Hypertension 9. Migraines 10. Iron deficiency anemia DISCHARGE DIAGNOSES: 1. Community acquired pneumonia, improved 2. Acute metabolic encephalopathy, resolved 3. COPD exacerbation, improved 4. Hyperkalemia, resolved 5. End-stage renal disease 6. Hypertension 7. Migraines 8. Depression 9. Legal blindness COMPLICATIONS/CHIEF COMPLAINT: Acute Respiratory Failure With Hypoxia,Pneumonia. HISTORY OF PRESENT ILLNESS: Patient is a 60-year-old female presented to emergency department progressively worsening shortness of breath and cough over the past 2 to 3 days. Patient states that she has been coughing so much the last few days that her stressors. Patient has a history of COPD has been using her albuterol inhaler at least 6 times a day to help her breathe. Patient admits to coughing of 3 teaspoons of clear sputum per day which is her baseline. Patient denies sputum color or volume changes. She called 911 today after she fell too short of breath to walk outside to her vehicle to drive her self to the hospital. Upon EMS arrival, she was found to be hypoxic and was placed on a CPAP machine. Baseline she uses 3 L of oxygen at home. She is given Decadron and DuoNeb's in the ambulance transition back to 3 L from CPAP. In the emergency department she found to have leukocytosis and chest x-ray positive for left lower lobe opacity suggestive of pneumonia. HOSPITAL COURSE: Patient was admitted in the hospital and treated for pneumonia. Patient was initially given ceftriaxone and azithromycin. Patient was seen by nephrology who managed the patient's dialysis while she is inpatient. Patient is on a Sunday, , and Sunday schedule. Patient did receive dialysis while she was in the hospital and this went well. Patient was found to be hyperkalemic earlier in the patient's hospitalization which resolved after dialysis. Patient remained normokalemic throughout the rest of her hospitalization. Patient slowly began improving and her IV steroids were transitioned to oral steroids. Patient's antibiotics were switched to cefdinir and oral azithromycin on the day of discharge. Patient worked with physical therapy and did well. Patient was back at her baseline oxygen and was feeling well. Patient was discharged to home with home health services on 03/23/2021. DISCHARGE MEDICATIONS: Please see below. ALLERGIES: Please see below. PHYSICAL EXAMINATION ON DISCHARGE: VITAL SIGNS: Please see below. General: Alert and oriented female patient who was sitting up in bed when I walked in. Patient did not appear to be in any acute distress. HEENT: Normocephalic, atraumatic, moist mucous membranes. Neck: No lymphadenopathy or thyromegaly Cardiac: Regular rate and rhythm, no murmurs, normal S1, normal S2 Pulm: Diminished breath sounds bilaterally. Abd: Nondistended, nontender to palpation, normal bowel sounds Ext: No edema bilateral lower extremities LABORATORY DATA: Please see below. IMAGING: Chest x-ray performed on 03/19/2021 was reported to show poorly defined left lung base opacity, more prominent than on prior exams, and possibly an infiltrate or atelectasis. Chest x-ray performed on 03/20/2021 was reported to show atelectasis and pneumonia in both lung bases. Right IJ multiport catheter. PROGNOSIS: Good ACTIVITY: As tolerated. DIET: Renal diet DISCHARGE PLAN: Discharge home with home health service DISPOSITION: 06 Home Health Service. DISCHARGE INSTRUCTIONS: 1. Follow-up with your primary care provider within 3 to 5 days discharge. 2. Continue taking cefdinir on dialysis days for 3 doses. Take 1 more day of azithromycin. 3. Return to the emergency department if symptoms worsen ITEMS TO FOLLOWUP ON ON OUTPATIENT: 1. Pneumonia to resolution. DISCHARGE CONDITION: Stable. TIME SPENT ON DISCHARGE: 35 minutes. Vital Signs/I&Os Vital Signs Date Time Temp Pulse Resp B/P (MAP) Pulse Ox O2 Delivery O2 Flow Rate FiO2 03/23/21 09:29 73 124/66 03/23/21 07:20 2.5 03/23/21 06:00 98.4 19 96 Nasal Cannula I&O- Last 24 Hours up to 6 AM 03/23/21 06:00 Intake Total 900 ml Output Total 1500 ml Balance -600 ml Laboratory Data Labs 24H Laboratory Tests 2 03/23/21 07:33: Immature Granulocyte % (Auto) 0.4, Neutrophils (%) (Auto) 89.2H, Lymphocytes (%) (Auto) 5.2L, Monocytes (%) (Auto) 5.2, Eosinophils (%) (Auto) 0.0, Basophils (%) (Auto) 0.0, Neutrophils # (Auto) 7.3, Lymphocytes # (Auto) 0.4L, Monocytes # (Auto) 0.4, Eosinophils # (Auto) 0.0, Basophils # (Auto) 0.0, Nucleated Red Blood Cells % (auto) 0.0, Anion Gap 8, Glomerular Filtration Rate 7.0L, Calcium Level 9.8, Magnesium Level 2.6H CBC/BMP Laboratory Tests 03/23/21 07:33 Microbiology Microbiology 03/19/21 Blood Culture - Preliminary, Resulted No Growth after 72 hours. All specime... 03/19/21 Respiratory Virus Panel (PCR) (DANIEL) - Final, Complete 03/19/21 Blood Culture - Preliminary, Resulted No Growth after 72 hours. All specime... Discharge Medications Scheduled Amlodipine Besylate (Amlodipine Besylate) 10 Mg Tablet, 10 MG PO DAILY, (Reported) Aspirin (Aspirin EC) 81 Mg Tablet.dr, 81 MG PO DAILY, (Reported) Atropine Sulfate (Atropine Sulfate) 1% 2ML Drops, 1 DROP OD DAILY, (Reported) Azithromycin (Azithromycin) 250 Mg Tablet, 500 MG PO DAILY Budesonide (Budesonide) 0.5 Mg/2 Ml Ampul.neb, 0.5 MG INH BID, (Reported) Carvedilol (Carvedilol) 3.125 Mg Tablet, 3.125 MG PO BID, (Reported) Cefdinir (Cefdinir) 300 Mg Capsule, 1 CAP PO HD Cholecalciferol (Vitamin D3) (Vitamin D3) 1,000 Unit Tablet, 1,000 UNITS PO DAILY, (Reported) Citalopram Hydrobromide (Citalopram HBr) 20 Mg Tablet, 20 MG PO DAILY, (Reported) Ferrous Sulfate (Ferrous Sulfate) 325 Mg Tablet, 325 MG PO DAILY, (Reported) Furosemide (Furosemide) 20 Mg Tablet, 20 MG PO DAILY, (Reported) Hydralazine HCl (Hydralazine HCl) 10 Mg Tablet, 10 MG PO BID, (Reported) Hydrochlorothiazide (Hydrochlorothiazide) 12.5 Mg Tablet, 12.5 MG PO DAILY, (Reported) Irbesartan (Irbesartan) 75 Mg Tablet, 75 MG PO QHS, (Reported) Isosorbide Mononitrate (Isosorbide Mononitrate ER) 30 Mg Tab.er.24h, 30 MG PO BID, (Reported) Pantoprazole Sodium (Pantoprazole Sodium) 40 Mg Tablet.dr, 40 MG PO DAILY, (Reported) Prednisolone Acetate (Prednisolone Acetate 1% Opth Susp) 5 Ml Drops.susp, 1 DROP OD Q2H, (Reported) Prednisone (Prednisone) 20 Mg Tablet, 40 MG PO DAILY Propranolol HCl (Propranolol HCl) 40 Mg Tablet, 40 MG PO BID, (Reported) Sucralfate (Sucralfate) 1 Gm Tablet, 1 GM PO TID, (Reported) with meals Sucroferric Oxyhydroxide (Velphoro) 500 Mg Tab.chew, 500 MG PO TID, (Reported) with meals Tiotropium [place] (Spiriva) 18 Mcg Cap.w.dev, 1 INHALATION INH DAILY, (Reported) Scheduled PRN Albuterol Sulf (Albuterol Sulfate) 2.5 Mg/3 Ml Vial.neb, 2.5 MG INH QID PRN for SHORTNESS OF BREATH, (Reported) Albuterol Sulfate (Proair Hfa) 8.5 Gm Hfa.aer.ad, 2 PUFF INH QID PRN for SHORTNESS OF BREATH, (Reported) Allergies Coded Allergies: amoxicillin (Verified Allergy, Unknown, rash, 06/29/20) clavulanic acid (Verified Allergy, Unknown, rash, 06/29/20) ALEKSANDR ROLDAN DO Mar 23, 2021 18:16
[2021-03-24] MEDS ORDERED: CEFDINIR 300 MG CAP (OMNICEF) PO SCH (16:00)
== END 2021-03-23 14:35 | disposition home health service (06) | DRG 193 ==
LOC: M ED 01:09 → M ED INP 05:59 → M PCU 15:30 → M MS5PR 03-20 12:52
PROVIDERS: ADMIT Family Medicine; ATTEND Family Medicine
PROC: 5A1D70Z Performance of Urinary Filtration, Intermittent, Less than 6 Hours Per Day (ICD-10-PCS; principal; 2021-03-22)
DX: J18.9 Pneumonia, unspecified organism (principal); N18.6 End stage renal disease; G93.41 Metabolic encephalopathy; J44.0 Chronic obstructive pulmonary disease with (acute) lower respiratory infection; I12.0 Hypertensive chronic kidney disease with stage 5 chronic kidney disease or end stage renal disease; J96.11 Chronic respiratory failure with hypoxia; J44.1 Chronic obstructive pulmonary disease with (acute) exacerbation; G47.33 Obstructive sleep apnea (adult) (pediatric); H54.8 Legal blindness, as defined in USA; D75.89 Other specified diseases of blood and blood-forming organs; E87.5 Hyperkalemia; G43.909 Migraine, unspecified, not intractable, without status migrainosus; K59.00 Constipation, unspecified; D50.9 Iron deficiency anemia, unspecified; Z99.81 Dependence on supplemental oxygen; Z87.891 Personal history of nicotine dependence; Z99.2 Dependence on renal dialysis; Z79.82 Long term (current) use of aspirin; Z79.52 Long term (current) use of systemic steroids; Z79.899 Other long term (current) drug therapy; Z88.0 Allergy status to penicillin; Z88.8 Allergy status to other drugs, medicaments and biological substances

== ENCOUNTER 2021-04-13 13:51 | Inpatient (IN) | payer OTHER ==
[~2021-04-13] VITALS: Ht 165.1 cm; Wt 69.0 kg
[~2021-04-13 13:51] MED LIST changes: +ATRO1OPD OD; +AZIT-12 PO; +CARV3.12 PO; +CEFD1CAP8 PO; +CEFD300CAP PO; +IRBE75TA4 PO; +PANT-23 PO; +PRED20TA PO; +SUCR1TAB56 PO; +VELP5CHW PO
--- NOTE | 2021-04-13 14:32 | REP ---
INDICATION: DYSPNEA/COUGH COMPARISON: 03/20/2021 TECHNIQUE: Portable AP view of the chest FINDINGS: Cardiac silhouette is upper limits of normal. Double-lumen dialysis catheter with tips in the right atrium again noted. Lung magana demonstrate vague prominent interstitial and vascular markings which may reflect pulmonary interstitial edema. No focal consolidation. No significant effusion. No pneumothorax. Skeletal structures intact. IMPRESSION: No focal consolidation or effusion. <Electronically signed by Wally Rausch > 04/13/21 [id number]
[2021-04-13 15:26] LABS: BASO # 0.1 10^3/uL (0.0-0.2); BASO % 0.4 % (0.0-1.0); EOS # 0.1 10^3/uL (0.0-0.5); EOS % 0.6 % (0.0-3.0); HEMOGLOBIN 13.1 g/dl (12.0-15.5); LYMPH # 0.6 10^3/uL (1.5-5.0); LYMPH % 4.7 % (24.0-44.0); MEAN CORPUSCULAR HEMOGLOBIN 31.3 pg (27.0-33.0); MEAN CORPUSCULAR HGB CONC 30.5 g/dl (32.0-36.5); MEAN CORPUSCULAR VOLUME 102.9 fl (80.0-96.0); MONO # 0.3 10^3/uL (0.0-0.8); MONO % 2.5 % (2.0-8.0); NEUTROPHILS # 10.6 10^3/uL (1.5-8.5); NEUTROPHILS % 90.7 % (36.0-66.0); PLATELET COUNT, AUTOMATED 149 10^3/uL (150-450); RED BLOOD COUNT 4.18 10^6/uL (4.00-5.40); WHITE BLOOD COUNT 11.7 10^3/uL (4.0-10.0)
[2021-04-13 15:43] LABS: CK-MB VALUE MASS 1.3 NG/ML (<3.6); CPK CREATINE PHOSPHOKINASE 43 U/L (26-192); MB/CK RELATIVE INDEX 3.02 (< OR =4); TROPONIN I < 0.02 NG/ML (< 0.10)
[2021-04-13 15:51] LABS: ALBUMIN 3.4 GM/DL (3.2-5.2); ALT/SGPT 24 U/L (12-78); BILIRUBIN,DIRECT < 0.1 MG/DL (0.0-0.2); BILIRUBIN,TOTAL 0.7 MG/DL (0.2-1.0); BLOOD UREA NITROGEN 88 MG/DL (7-18); CALCIUM LEVEL 9.3 MG/DL (8.5-10.1); CARBON DIOXIDE LEVEL 25 MEQ/L (21-32); CHLORIDE LEVEL 100 MEQ/L (98-107); GLOMERULAR FILTRATION RATE 3.1 (>51); GLUCOSE, FASTING 77 MG/DL (70-100); NT-PRO BNP 6716 PG/ML (<125); SODIUM LEVEL 134 MEQ/L (136-145); THYROXINE (T4) 6.8 UG/DL (4.5-12.0); TOTAL PROTEIN 6.2 GM/DL (6.4-8.2)
[2021-04-13] MEDS ORDERED: CALCIUM CHLORIDE 10% 1 GM in D5W 100 ML IV STA (15:54)
[2021-04-13] MEDS ORDERED: DEXTROSE 50% 50 ML SYRINGE IV STA (15:54)
[2021-04-13] MEDS ORDERED: HumuLIN R (REGULAR) INSULIN (NovoLIN R) **100U/ML** PER UNIT IV STA (15:54)
[2021-04-13] MEDS ORDERED: PATIROMER SORBITEX CALCIUM 8.4 GM POWDER PACKET (VELTASSA) PO ONE (15:55)
[2021-04-13] MEDS ORDERED: SODIUM CHLORIDE 0.9% 1000ML IV PRN (16:20)
[2021-04-13] MEDS ORDERED: ACETAMINOPHEN TAB 650MG DOSE (2X325MG) PO PRN (16:50)
--- NOTE | 2021-04-13 17:27 | HPEPDOC ---
[facility] Medical History & Physical Date of Admission Apr 13, 2021 Date of Service: Apr 13, 2021 Attending Physician: GERA ENRIQUEZ MD History and Physical CHIEF COMPLAINT: Shortness of breath HISTORY OF PRESENT ILLNESS: Patient is a 60 y/o female who presented to [facility] ED with a 2-day history of progressively worsening shortness of breath and a cough productive of yellow sputum. She felt so short of breath in spite of taking more albuterol treatments that she missed her dialysis appointment on Sunday and was found to have a potassium level of 8 in the emergency department as well as an oxygen saturation in the 80s. She was given nebulizer treatment and 10 mg of IV Decadron in route to the emergency department with improvement in her symptoms. Dr. Corral was contacted by the ED and gave instructions for treatment of the hyperkalemia and stated she would dialyze the patient tonight. The hospitalist team was contacted for COPD exacerbation and acute hypoxic respiratory failure. Patient denies any fever, chills, chest pain, palpitations, abdominal pain, nausea, vomiting, lower extremity swelling. Past medical history: ESRD on hemodialysis T/ schedule COPD Hypertension Migraines Iron deficiency anemia Past surgical history: Benign tumor of jaw 1999 Bone graft from right fibula 1999 Pinned right toes secondary to fibular surgery 1999 Social history: Former smoker: quit 05/2020; 41 pack year hx Patient states she drinks "a couple of bottles of wine every few weeks" Patient denies illicit drug use Lives in [place] with her Niece Niyah Family history: Father 71: hypertension, diabetes, coronary artery disease Mother 69: Metastatic colon cancer Allergies: Amoxicillin, clavulanic acid REVIEW OF SYSTEMS: Constitutional: Denies fevers, chills, night sweats, or recent unexpected weight change HEENT: Denies headaches, head trauma, no visual changes or eye pain, denies nosebleeds or difficulty swallowing. Cardiovascular: Denies chest pain, palpitations, or orthopnea. Respiratory: Denies cough, wheezing, or shortness of breath GI: Denies nausea, vomiting, abdominal pain, diarrhea, or constipation : Denies pain with urination or frequency Musculoskeletal: Denies joint pain or swelling Neuro/psych: Denies muscle weakness or sensory loss Skin: Denies skin rashes 10 point review of systems complete, all negative otherwise stated in HPI/Above HOME MEDICATIONS: Please see below. PHYSICAL EXAMINATION: VITAL SIGNS: See below GENERAL APPEARANCE: Tired appearing female who appears stated age laying on her left side speaking in complete sentences in mild distress HEENT: NC, AT, EOMI, no scleral icterus, moist mucous membranes, no pharyngeal erythema. CARDIOVASCULAR: RRR, normal S1-S2. No murmurs, gallops, rubs. LUNGS: CTAB with diminished breath sounds, no wheezes, crackles, or rhonchi. ABDOMEN: Soft, nontender, nondistended, bowel sounds present. No hepatosplenomegaly. No masses or ecchymosis. No CVA tenderness. EXTREMITIES: No swelling or edema NEUROLOGICAL: No focal or sensory deficits. CN II-XII grossly intact. PSYCHIATRIC: Normal mood and affect LABORATORY DATA: See below. IMAGIN04/13/2021 chest x-ray: "IMPRESSION: No focal consolidation or effusion." MICROBIOLOGY: Please see below. Assessment/Plan: #. Acute hypoxemic respiratory failure secondary to COPD exacerbation -Patient currently satting 87% on 3 L, turned up to 5 L and satting 95%. States she has no home O2 -IV Solu-Medrol, duo nebs, chest PT, incentive spirometry #. Hyperkalemia -Patient given CaCl, D5 w/ insulin in the ED -Dr. Corral to dialyze patient this evening. #. ESRD on HD (//Sun) - Nephrology consulted, Dr. Corral to dialyze patient tonight. - Recommendations appreciated. #. Hypertension - Will have patient resume home meds once reconciled. #. Hx of migraines - Will have patient resume home meds once reconciled. DVT prophylaxis: Heparin twice daily GI prophylaxis: Pantoprazole daily Disposition: Inpatient expect at least 2 midnights Vital Signs Vital Signs Date Time Temp Pulse Resp B/P (MAP) Pulse Ox O2 Delivery O2 Flow Rate FiO2 04/13/21 17:16 98.0 98 20 150/74 (99) 94 Nasal Cannula 2.0 Laboratory Data Labs 24H Laboratory Tests 2 04/13/21 15:01: Immature Granulocyte % (Auto) 1.1, Neutrophils (%) (Auto) 90.7H, Lymphocytes (%) (Auto) 4.7L, Monocytes (%) (Auto) 2.5, Eosinophils (%) (Auto) 0.6, Basophils (%) (Auto) 0.4, Neutrophils # (Auto) 10.6H, Lymphocytes # (Auto) 0.6L, Monocytes # (Auto) 0.3, Eosinophils # (Auto) 0.1, Basophils # (Auto) 0.1, Nucleated Red Blood Cells % (auto) 0.0, Anion Gap 9, Glomerular Filtration Rate 3.1L, Lactic Acid Level 0.4, Calcium Level 9.3, Total Bilirubin 0.7, Direct Bilirubin < 0.1, Aspartate Amino Transf (AST/SGOT) 24, Alanine Aminotransferase (ALT/SGPT) 24, Alkaline Phosphatase 105, Total Creatine Kinase 43, Creatine Kinase MB 1.3, Creatine Kinase MB Relative Index 3.02, Troponin I < 0.02, UL-Iar-K-Type Natriuretic Peptide 6716H, Total Protein 6.2L, Albumin 3.4, Albumin/Globulin Ratio 1.2, Thyroid Stimulating Hormone (TSH) 1.230, Thyroxine (T4) 6.8 CBC/BMP Laboratory Tests 04/13/21 15:01 Microbiology Microbiology 04/13/21 Blood Culture, Received Pending 04/13/21 Respiratory Virus Panel (PCR) (DANIEL) - Final, Complete 04/13/21 Blood Culture, Received Pending Home Medications Scheduled Amlodipine Besylate (Amlodipine Besylate) 10 Mg Tablet, 10 MG PO DAILY Aspirin (Aspirin EC) 81 Mg Tablet.dr, 81 MG PO DAILY Atropine Sulfate (Atropine Sulfate) 1% 2ML Drops, 1 DROP OD DAILY Azithromycin (Azithromycin) 250 Mg Tablet, 500 MG PO DAILY Budesonide (Budesonide) 0.5 Mg/2 Ml Ampul.neb, 0.5 MG INH BID Carvedilol (Carvedilol) 3.125 Mg Tablet, 3.125 MG PO BID Cefdinir (Cefdinir) 300 Mg Capsule, 1 CAP PO HD Cholecalciferol (Vitamin D3) (Vitamin D3) 1,000 Unit Tablet, 1,000 UNITS PO DAILY Citalopram Hydrobromide (Citalopram HBr) 20 Mg Tablet, 20 MG PO DAILY Ferrous Sulfate (Ferrous Sulfate) 325 Mg Tablet, 325 MG PO DAILY Furosemide (Furosemide) 20 Mg Tablet, 20 MG PO DAILY Hydralazine HCl (Hydralazine HCl) 10 Mg Tablet, 10 MG PO BID Hydrochlorothiazide (Hydrochlorothiazide) 12.5 Mg Tablet, 12.5 MG PO DAILY Irbesartan (Irbesartan) 75 Mg Tablet, 75 MG PO QHS Isosorbide Mononitrate (Isosorbide Mononitrate ER) 30 Mg Tab.er.24h, 30 MG PO BID Pantoprazole Sodium (Pantoprazole Sodium) 40 Mg Tablet.dr, 40 MG PO DAILY Prednisolone Acetate (Prednisolone Acetate 1% Opth Susp) 5 Ml Drops.susp, 1 DROP OD Q2H Prednisone (Prednisone) 20 Mg Tablet, 40 MG PO DAILY Propranolol HCl (Propranolol HCl) 40 Mg Tablet, 40 MG PO BID Sucralfate (Sucralfate) 1 Gm Tablet, 1 GM PO TID with meals Sucroferric Oxyhydroxide (Velphoro) 500 Mg Tab.chew, 500 MG PO TID with meals Tiotropium Jasper (Spiriva) 18 Mcg Cap.w.dev, 1 INHALATION INH DAILY Scheduled PRN Albuterol Sulf (Albuterol Sulfate) 2.5 Mg/3 Ml Vial.neb, 2.5 MG INH QID PRN for SHORTNESS OF BREATH Albuterol Sulfate (Proair Hfa) 8.5 Gm Hfa.aer.ad, 2 PUFF INH QID PRN for SHORTNESS OF BREATH Allergies Coded Allergies: amoxicillin (Verified Allergy, Mild, rash, 04/13/21) clavulanic acid (Verified Allergy, Mild, rash, 04/13/21) GME ATTESTATION GME ATTESTATION My faculty preceptor for this patient encounter was physically present during the encounter and was fully available. All aspects of the patient interview, examination, medical decision making process, and medical care plan development were reviewed and approved by the faculty preceptor. The faculty preceptor is aware and concurs with the plan as stated in the body of this note and will attest to such by his/her cosignature. ATTENDING NOTE I, Gera Enriquez, have independently examined this patient and performed my own physical exam, as well as reviewed the documentation and edited where necessary with the resident. For medical students we have performed the physical exam together and discussed medical decision making and I have verified the history. I have discussed in detail with the resident / student the findings and plan of treatment as documented by the resident / student and edited their note. I agree with their findings and treatment plan and have edited their documentation. I will continue to follow the patient during this hospital stay. CHRIS CHAUDHARY DO Apr 13, 2021 17:27 GERA ENRIQUEZ MD Apr 13, 2021 18:23
[2021-04-13] MEDS ORDERED: methylPREDNISolone 125MG 2ML VIAL IV SCH (18:00)
[2021-04-13] MEDS: IPRATROPIUM 0.5MG/ALBUTEROL 2.5MG INH SOL UD 3ML (DUONEB) NEB SCH (20:00)
[2021-04-13 23:10] VITALS: BP 162/91
[2021-04-13] MEDS: HEPARIN SOD (PORCINE) 5000UNITS/ML 1ML VIAL/SYRINGE SC SCH (23:35)
[2021-04-14] VITALS (7 sets, daily range): BP systolic 122–162; BP diastolic 75–91
[2021-04-14] MEDS ORDERED: MED REC COMMENT (00:04)
[2021-04-14] MEDS: IPRATROPIUM 0.5MG/ALBUTEROL 2.5MG INH SOL UD 3ML (DUONEB) NEB SCH ×4 (02:12→19:37)
[2021-04-14] MEDS ORDERED: ALBUTEROL 90 MCG/ACT 8GM HFA INHALER INH PRN (07:25)
[2021-04-14] MEDS ORDERED: methylPREDNISolone 125MG 2ML VIAL IV SCH (08:00)
[2021-04-14] MEDS ORDERED: HOME MED LIST COMPLETE! XX SCH (08:30)
[2021-04-14] MEDS ORDERED: CARVedilol 3.125 MG TAB PO SCH (09:00)
[2021-04-14] MEDS ORDERED: FUROSEMIDE 20 MG TAB PO SCH (09:00)
[2021-04-14] MEDS ORDERED: **hydrALAZINE** 10 MG TAB PO SCH (09:00)
[2021-04-14] MEDS ORDERED: ISOSORBIDE MON. (IMDUR) 30 MG XR TAB PO SCH (09:00)
[2021-04-14] MEDS ORDERED: PROPRANOLOL 20 MG TAB PO SCH (09:00)
[2021-04-14 09:25] LABS: HEMATOCRIT 37.2 % (36.0-47.0); HEMOGLOBIN 11.9 g/dl (12.0-15.5); LYMPH # 0.4 10^3/uL (1.5-5.0); LYMPH % 7.7 % (24.0-44.0); MEAN CORPUSCULAR HEMOGLOBIN 31.6 pg (27.0-33.0); MEAN CORPUSCULAR VOLUME 98.7 fl (80.0-96.0); MONO # 0.1 10^3/uL (0.0-0.8); MONO % 1.4 % (2.0-8.0); NEUTROPHILS # 4.4 10^3/uL (1.5-8.5); NEUTROPHILS % 90.1 % (36.0-66.0); PLATELET COUNT, AUTOMATED 148 10^3/uL (150-450); RED BLOOD COUNT 3.77 10^6/uL (4.00-5.40); WHITE BLOOD COUNT 4.9 10^3/uL (4.0-10.0)
[2021-04-14] MEDS: HEPARIN SOD (PORCINE) 5000UNITS/ML 1ML VIAL/SYRINGE SC SCH ×2 (09:42→21:40)
[2021-04-14] MEDS: prednisoLONE ACET 1% OPHTH SUSP 5ML OD SCH ×8 (09:43→23:46)
[2021-04-14] MEDS: hydroCHLOROthiazide 12.5 MG CAPSULE PO SCH (09:44)
[2021-04-14] MEDS: FERROUS SULFATE 325MG TAB PO SCH (09:45)
[2021-04-14] MEDS: VITAMIN D 1,000 INTERNATIONAL UNITS TABLET PO SCH (09:45)
[2021-04-14 09:49] LABS: CALCIUM LEVEL 9.7 MG/DL (8.5-10.1); CREATININE FOR GFR 7.7 MG/DL (0.55-1.30); GLOMERULAR FILTRATION RATE 5.7 (>51); MAGNESIUM LEVEL 2.3 MG/DL (1.8-2.4); POTASSIUM SERUM 5.4 MEQ/L (3.5-5.1)
[2021-04-14] MEDS: PANTOPRAZOLE 40MG TAB (PROTONIX) PO SCH (09:49)
[2021-04-14] MEDS: SUCRALFATE 1 GM TAB PO SCH ×3 (09:49→18:00)
[2021-04-14] MEDS: CitaloPRAM (CeleXA) 20 MG TAB PO SCH (09:49)
[2021-04-14] MEDS: ATROPINE SULFATE 1% OP SOLN 2 ML BTL OD SCH (09:50)
[2021-04-14] MEDS: SUCROFERRIC OXYHYDROXIDE 500MG CHEW TAB (VELPHORO) PO SCH ×3 (09:50→18:00)
[2021-04-14] MEDS: ASPIRIN 81MG ENTERIC TABLET PO SCH (09:50)
--- NOTE | 2021-04-14 09:58 | IPNPDOC ---
Text Note Date of Service The patient was seen on 04/14/21. NOTE Subjective: Patient is a 60-year-old female admitted on 04/13 for a COPD exa cerbation and hyperkalemia requiring dialysis. No acute events overnight. Patient received dialysis yesterday evening without event. She states she is still feeling SOB, but thinks she may be 50% better. She denies any fever, chills, chest pain, abdominal pain, nausea, vomiting, lower extremity swelling. Objective: PHYSICAL EXAMINATION: VITAL SIGNS: See below GENERAL APPEARANCE: Tired appearing female who appears stated age laying on her left side speaking in complete sentences in no acute distress HEENT: NC, AT, EOMI, no scleral icterus, moist mucous membranes, no pharyngeal erythema. CARDIOVASCULAR: RRR, normal S1-S2. systolic murmur appreciated over LUSB, gallops, rubs. LUNGS: CTAB with diminished breath sounds, no wheezes, crackles, or rhonchi. ABDOMEN: Soft, nontender, nondistended, bowel sounds present. No hepatosplenomegaly. No masses or ecchymosis. No CVA tenderness. EXTREMITIES: No swelling or edema NEUROLOGICAL: No focal or sensory deficits. CN II-XII grossly intact. PSYCHIATRIC: Normal mood and affect IMAGIN04/13/2021 chest x-ray: "IMPRESSION: No focal consolidation or effusion." Assessment/Plan: #. Acute hypoxemic respiratory failure secondary to COPD exacerbation -Improved to 95% on 2 L nasal cannula. Today she again reiterated to me that she is not on any oxygen at home but spoke with Dr. Enriquez and told him she is on 3 L at home -PFS consulted for possible home care -Prednisone, duo nebs, chest PT, incentive spirometry Continue home Spiriva #. Hyperkalemia -Given CaCl, D5 w/ insulin in the ED -Dr. Corral to dialyze patient this evening. #. ESRD on HD (//Sun) - Nephrology consulted, Dr. Corral to dialyze patient tonight. - Recommendations appreciated. Continue home iron, vitamin D supplementation, velphoro #. Hypertension Clarified home meds from Dr. Corral office note on 03/26, patient and regional education coordinator unreliable historians Propranolol 40 mg TID Amlodipine 10 mg daily Lasix 20 mg on non-dialysis days isosorbide mononitrate 30 mg bid prn SBP>150 #. GERD Continue home pantoprazole #. Depression Continue citalopram #. Hx of migraines - Tylenol DVT prophylaxis: Heparin twice daily GI prophylaxis: Pantoprazole daily Disposition: Inpatient expect at least 2 midnights med list albuterol 2.5 mg/0.5ml 1 vial Q3hrs amlodipine 10 mg daily Aspirin 81 mg daily Brimonidine 0.2% ophthalmic 1 drop twice a day Budesonide 0.5 mg / 2 mL inhaled 1/2 mg twice a day Citalopram 20 mg daily Ferrous sulfate 325 mg orally 1 tablet twice a day with each meal Lasix 20 mg daily take 1 tablet on nondialysis days HCTZ 12.5 mg 1 tablet daily Isosorbide dinitrate 30 mg oral 1 tablet twice a day take for SBP greater than 150 Pilocarpine 1% ophthalmic 1 drop twice a day Prednisolone acetate 1% ophthalmic 1 drop every 2 hours ProAir HFA albuterol sulfate 90 mcg per actuation inhale 2 puffs 4 times a day Propranolol 40 mg 3 times daily Roccellin 10 (netarsudillatanoprost) 0.02-0.005% ophthalmic 1 drop at bedtime Spiriva Respimat there may be other meds, but unable to view on her phone VSBruce, I+Екатерина VSBruce I+O Laboratory Tests 04/13/21 15:01 04/14/21 08:45 Vital Signs Date Time Temp Pulse Resp B/P (MAP) Pulse Ox O2 Delivery O2 Flow Rate FiO2 04/14/21 08:00 98.0 94 20 162/79 (106) 95 Nasal Cannula 2.0 I&O- Last 24 Hours up to 6 AM 04/14/21 06:00 Intake Total 110 ml Output Total 1500 ml Balance -1390 ml GME ATTESTATION GME ATTESTATION My faculty preceptor for this patient encounter was physically present during the encounter and was fully available. All aspects of the patient interview, examination, medical decision making process, and medical care plan development were reviewed and approved by the faculty preceptor. The faculty preceptor is aware and concurs with the plan as stated in the body of this note and will attest to such by his/her cosignature. ATTENDING NOTE I, Gera Enriquez, have independently examined this patient and performed my own physical exam, as well as reviewed the documentation and edited where necessary with the resident. For medical students we have performed the physical exam together and discussed medical decision making and I have verified the history. I have discussed in detail with the resident / student the findings and plan of treatment as documented by the resident / student and edited their note. I agree with their findings and treatment plan and have edited their documentation. I will continue to follow the patient during this hospital stay. CHRIS CHAUDHARY DO Apr 14, 2021 09:58 GERA ENRIQUEZ MD Apr 14, 2021 11:38
[2021-04-14] MEDS ORDERED: ISOSORBIDE MON. (IMDUR) 30 MG XR TAB PO PRN (10:00)
[2021-04-14] MEDS ORDERED: SODIUM CHLORIDE 0.9% 1000ML IV PRN (10:10)
[2021-04-14] MEDS: TIOTROPIUM INHALER/CAPSULE (SPIRIVA) INH SCH (11:34)
[2021-04-14] MEDS: predniSONE 20 MG TAB PO SCH (12:21)
[2021-04-14 13:51] LABS: APPEARANCE, URINE CLOUDY (CLEAR); BACTERIA, URINE AUTO 3+ (NEGATIVE); BILIRUBIN, URINE AUTO NEGATIVE (NEGATIVE); BLOOD, URINE BLOOD 1+ (NEGATIVE); COLOR, URINE YELLOW (YELLOW); GLUCOSE, URINE (UA) AUTO NEGATIVE (NEGATIVE); KETONE, URINE AUTO NEGATIVE (NEGATIVE); LEUKOCYTE ESTERASE, URINE AUTO 3+ (NEGATIVE); NITRITE, URINE AUTO NEGATIVE (NEGATIVE); PROTEIN, URINE AUTO 1+ mg/dL (NEGATIVE); RBC, URINE AUTO 8 /HPF (0-3); SPECIFIC GRAVITY URINE AUTO 1.005 (1.002-1.035); SQUAMOUS EPITHELIAL CELL UR AU 0 /HPF (0-6); UROBILINOGEN, URINE AUTO 0.2 mg/dL (0.0-2.0); WBC, URINE AUTO TNTC /HPF (0-3)
--- NOTE | 2021-04-14 14:06 | IPN ---
PROGRESS NOTE DATE: 04/14/2021 SUBJECTIVE: Karissa is seen and examined this morning at the bedside. She offers no complaints. Dialysis yesterday was uneventful. She is oriented to person, place and year. She correctly identifies the President. She seems more lucid today as compared to yesterday. She tells me she is not really eating much. OBJECTIVE: VITAL SIGNS: Temperature is 97.6, pulse 87, respiratory rate is 20, blood pressure is 148/83, saturating 93% on 2 liter nasal cannula. INTAKE AND OUTPUT: Intake yesterday was not recorded. Dialysis yesterday removed 1.5 liters. GENERAL: Patient is seen sitting up in the bed awake, alert and in no distress. HEENT: Extraocular muscles are intact. Tongue is moist. NECK: Supple. Jugular veins are not elevated. There is a tunneled Perm-A-Cath in the right chest wall. Patient was also seen later in the afternoon in the hemodialysis unit receiving her treatment with the Perm-A-Cath in use. HEART: Regular, S1 and S2. There is no peripheral edema. There is no dependent edema. LUNGS: Diminished breath sounds bilaterally. No crackles. There is prolonged expiration. ABDOMEN: Soft, obese and nontender. EXTREMITIES: No edema. NEUROLOGIC: She is oriented x3, cooperative with physical exam. SKIN: Warm and dry. Normal temperature and turgor. LABORATORY DATA: White count is 4.9, hemoglobin is 11.9, platelets are 148,000, sodium is 135, potassium is 5.4, bicarbonate 25, BUN 41. INPATIENT MEDICATIONS: Reviewed by myself; antihypertensive regimen was noted to adjusted. She is now on amlodipine 10 mg daily and on Hydrochlorothiazide 12.5 mg daily and Propanolol 40 mg p.o. three times a day. PROBLEMS: 1. Endstage renal disease on hemodialysis on a Sunday, and Sunday schedule. Patient was dialyzed yesterday urgently because of missed dialysis and hyperkalemia. She will be dialyzed again today to get her back to her usual schedule. 2. Hyperkalemia, because of missed dialysis patient's potassium improved from 8 yesterday to 5.4 today. She will be dialyzed again today with a 2.0 mEq potassium bath this time. 3. Diastolic congestive heart failure. Volume status has improved, 1.5 liters were removed yesterday. She is back on her usual amount of home oxygen, 2-3 liters. I will only remove up to 1 liter as tolerated by hemodynamics today. 4. Hypertension. Blood pressure has improved, continue the home antihypertensive regimen.
--- NOTE | 2021-04-14 14:06 | CR ---
CONSULTATION DATE: 04/13/2021 REQUESTING PHYSICIAN: SHARON MONTIEL REASON FOR CONSULTATION: Hyperkalemia in this chronic hemodialysis patient with recent missed dialysis treatment. HISTORY OF PRESENT ILLNESS: Ms. Karissa Garcia is known to me. She is a 60-year-old female with a past medical history of endstage renal disease, on hemodialysis, on a Sunday, and Sunday schedule. She also has a past medical history of COPD with chronic home oxygen use of 3 liters, hypertension, anemia, secondary hyperparathyroidism, migraines and other comorbid conditions mentioned below. Patient was last dialyzed as an outpatient on April 09. She missed her treatment yesterday, April 12. She cannot tell me why she missed dialysis. She just reports "I was out of it yesterday." She presented to the Emergency Room with shortness of breath and was found to have a potassium level of 8.0 and Nephrology was contacted for arrangement of urgent hemodialysis. Patient had prominent T-wave changes on EKG. PAST MEDICAL HISTORY: Endstage renal disease on hemodialysis on a Sunday, and Sunday schedule. COPD on chronic home oxygen, hypertension, migraine headaches, anemia, secondary hyperparathyroidism. 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 Pinned right toe secondary to fibular surgery. SOCIAL HISTORY: She is an ex-smoker, reports regular alcohol consumption. No illicit drugs. She lives with her niece, Niyah. ALLERGIES: Amoxicillin, clavulanic acid. FAMILY HISTORY: Mother with metastatic colon cancer, father with hypertension, diabetes and coronary artery disease. No family history of endstage renal disease. HOME MEDICATIONS: Reviewed and include amlodipine 10 mg daily, aspirin 81 mg every other day, Budesonide inhaled twice a day, Citalopram 20 mg daily, ferrous sulfate one tablet twice a day, Hydrochlorothiazide 12.5 mg daily, Isordil one tablet twice a day p.r.n. systolic greater than 150, Propanolol 40 mg three times a day, Spiriva one inhalation daily, Velphoro 500 mg p.o. three times a day, Protonix 40 mg p.o. daily. REVIEW OF SYSTEMS: CONSTITUTIONAL: She denies fevers or chills. EYES: She denies visual changes or tearing. HEENT: She denies rhinorrhea, epistaxis or odynophagia. CARDIAC: She reports shortness of breath. She denies chest pain or leg swelling. RESPIRATORY: She reports COPD and shortness of breath. GASTROINTESTINAL: Denies nausea, vomiting or diarrhea. She reports a poor appetite. GENITOURINARY: Denies dysuria. ENDOCRINE: Reports secondary hyperparathyroidism. HEMATOLOGIC: Reports anemia. MUSCULOSKELETAL: Denies any acute myalgias or arthralgias. NEUROLOGIC: Has a history of migraines. Denies seizures or syncope. PSYCHIATRIC: Denies anxiety or depression. PHYSICAL EXAMINATION: VITAL SIGNS: Temperature 98.2, pulse 97, respiratory rate 18, blood pressure 139/69, saturating 96% on three liters nasal cannula. Goal dialysis fluid removal today was 1.5 liters. GENERAL: Patient is seen in the hemodialysis unit, oriented to person and place but seems confused. HEENT: Extraocular muscles are intact. Makes eye contact. Tongue is moist. NECK: Supple. Jugular veins are only mildly elevated. HEART: Heart sounds are regular, S1 and S2. There is a tunneled Perm-A-Cath in the right chest wall. LUNGS: Diminished breath sounds bilaterally with prolonged expiratory. ABDOMEN: Soft, obese and nontender. EXTREMITIES: Negative for clubbing, cyanosis or edema. NEUROLOGIC: She is oriented to person and place, cooperates with physical exam but is slow to respond and requires repeated prompting and tends to repeat herself and does not appear to be at baseline mentation. LABORATORY DATA: White count 11.7, hemoglobin 13.1, platelets are 149,000, sodium is 134, potassium is 8.0, BUN 88, creatinine 13.2, bicarbonate is 25. LFTs are within normal limits. BNP is 6700. Blood cultures are pending. Chest x-ray showed pulmonary vascular congestion. INPATIENT MEDICATIONS: Reviewed by myself. She has received 1 gram of calcium chloride. She is on Albuterol q. 6 hourly, amlodipine 10 mg daily, aspirin 81 mg daily, Citalopram 20 mg p.o. daily, ferrous sulfate 325 mg p.o. daily, Lasix 20 mg p.o. daily, Heparin 5000 units sub q. q. 12hourly, Hydrochlorothiazide 12.5 mg p.o. daily. She received insulin 10 units in the Emergency Room, Solu-Medrol 80 mg x1 dose, Protonix 40 mg p.o. daily, prednisone 40 mg p.o. daily, propanolol 40 mg p.o. three times a day, Carafate 1 gram p.o. with meals, Velphoro 500 mg p.o. with meals. PROBLEMS: 1. Endstage renal disease on hemodialysis on a Sunday, and Sunday schedule. Patient missed her treatment on April 12. She comes in with severe hyperkalemia with EKG changes. Potassium is 8.0, she was seen urgently and arrangements were made for hemodialysis. She is being dialyzed with a 1.0 mEq potassium bath, 1.5 liters are being removed today. We will dialyze the patient again tomorrow, April 14 to get her back to her usual TTS schedule. 2. Acute on chronic hypoxic respiratory failure with COPD and missed dialysis. Patient is being treated by the primary team for COPD exacerbation and she is being dialyzed today with 1.5 liter fluid removal and will be dialyzed again tomorrow to get her back to her usual dialysis days. At home she uses 3 liters of oxygen chronically. 3. Hyperkalemia due to missed dialysis and she is being dialyzed today with a 1.0 mEq dialysis bath. 4. Hypertension. Her home medications are being resumed. 5. Diastolic congestive heart failure, an echocardiogram in June 2020 with Grade 1 diastolic dysfunction. Volume status is being regulated by dialysis. Patient is being dialyzed this evening and will be dialyzed again tomorrow. Chest x-ray had mild interstitial pulmonary edema.
[2021-04-14] MEDS: PROPRANOLOL 20 MG TAB PO SCH ×2 (18:39→21:40)
[2021-04-14] MEDS ORDERED: IRBESARTAN 150MG TAB PO SCH (21:00)
[2021-04-14] MEDS: cefTRIAXone SOD 2 GM in D5W MINI-BAG PLUS 50 ML IV SCH (21:53)
[2021-04-15] VITALS (7 sets, daily range): BP systolic 113–166; BP diastolic 60–80
[2021-04-15] MEDS: IPRATROPIUM 0.5MG/ALBUTEROL 2.5MG INH SOL UD 3ML (DUONEB) NEB SCH ×4 (01:01→20:24)
[2021-04-15] MEDS: prednisoLONE ACET 1% OPHTH SUSP 5ML OD SCH ×12 (01:53→23:00)
[2021-04-15 06:25] LABS: BASO % 0.2 % (0.0-1.0); EOS % 0.2 % (0.0-3.0); HEMATOCRIT 34.5 % (36.0-47.0); LYMPH # 0.8 10^3/uL (1.5-5.0); LYMPH % 12.7 % (24.0-44.0); MEAN CORPUSCULAR HEMOGLOBIN 30.6 pg (27.0-33.0); MEAN CORPUSCULAR HGB CONC 31.9 g/dl (32.0-36.5); MEAN CORPUSCULAR VOLUME 95.8 fl (80.0-96.0); MONO # 0.9 10^3/uL (0.0-0.8); NEUTROPHILS # 4.7 10^3/uL (1.5-8.5); NEUTROPHILS % 72.3 % (36.0-66.0); PLATELET COUNT, AUTOMATED 149 10^3/uL (150-450); WHITE BLOOD COUNT 6.5 10^3/uL (4.0-10.0)
[2021-04-15 06:52] LABS: CALCIUM LEVEL 9.2 MG/DL (8.5-10.1); CREATININE FOR GFR 5.44 MG/DL (0.55-1.30); GLOMERULAR FILTRATION RATE 8.6 (>51); MAGNESIUM LEVEL 2.2 MG/DL (1.8-2.4); POTASSIUM SERUM 4.3 MEQ/L (3.5-5.1)
[2021-04-15] MEDS: TIOTROPIUM INHALER/CAPSULE (SPIRIVA) INH SCH (07:42)
[2021-04-15] MEDS ORDERED: FUROSEMIDE 20 MG TAB PO SCH (09:00)
[2021-04-15] MEDS: SUCRALFATE 1 GM TAB PO SCH ×3 (10:35→17:55)
[2021-04-15] MEDS: SUCROFERRIC OXYHYDROXIDE 500MG CHEW TAB (VELPHORO) PO SCH ×3 (10:36→17:55)
[2021-04-15] MEDS: HEPARIN SOD (PORCINE) 5000UNITS/ML 1ML VIAL/SYRINGE SC SCH ×2 (10:39→22:20)
[2021-04-15] MEDS: PROPRANOLOL 20 MG TAB PO SCH ×3 (10:40→22:21)
[2021-04-15] MEDS: ASPIRIN 81MG ENTERIC TABLET PO SCH (10:40)
[2021-04-15] MEDS: VITAMIN D 1,000 INTERNATIONAL UNITS TABLET PO SCH (10:40)
[2021-04-15] MEDS: hydroCHLOROthiazide 12.5 MG CAPSULE PO SCH (10:40)
[2021-04-15] MEDS: predniSONE 20 MG TAB PO SCH (10:41)
[2021-04-15] MEDS: PANTOPRAZOLE 40MG TAB (PROTONIX) PO SCH (10:42)
[2021-04-15] MEDS: CitaloPRAM (CeleXA) 20 MG TAB PO SCH (10:42)
[2021-04-15] MEDS: FERROUS SULFATE 325MG TAB PO SCH (10:42)
[2021-04-15] MEDS: ATROPINE SULFATE 1% OP SOLN 2 ML BTL OD SCH (10:44)
--- NOTE | 2021-04-15 11:11 | IPNPDOC ---
Text Note Date of Service The patient was seen on 04/15/21. NOTE Subjective: Patient is a 60-year-old female admitted on 04/13 for a COPD exacerbation and hyperkalemia requiring dialysis. No acute events overnight. Yesterday she was somewhat somnolent and seemed off her baseline mental status, we obtained a UA, which was positive, though she was not having any fevers, chills, abdominal pain, dysuria, or hematuria. She is significantly more alert and engaged today than yesterday following antibiotic therapy. She currently denies any fever, chills, chest pain, abdominal pain, nausea, vomiting, lower extremity swelling. Objective: PHYSICAL EXAMINATION: VITAL SIGNS: See below GENERAL APPEARANCE: Tired appearing female who appears stated age laying on her left side speaking in complete sentences in no acute distress HEENT: NC, AT, EOMI, no scleral icterus, moist mucous membranes, no pharyngeal erythema. CARDIOVASCULAR: RRR, normal S1-S2. systolic murmur appreciated over LUSB, gallops, rubs. LUNGS: CTAB with diminished breath sounds, no wheezes, crackles, or rhonchi. ABDOMEN: Soft, nontender, nondistended, bowel sounds present. No hepatosplenomegaly. No masses or ecchymosis. No CVA tenderness. EXTREMITIES: No swelling or edema NEUROLOGICAL: No focal or sensory deficits. CN II-XII grossly intact. PSYCHIATRIC: Normal mood and affect IMAGIN04/13/2021 chest x-ray: "IMPRESSION: No focal consolidation or effusion." Assessment/Plan: #. AMS 2/2 UTI -Patient's mental status was off her baseline yesterday so UA was ordered and was positive, f/u urine culture. DESPITE, her lack of symptoms I do not feel her UA represented asymptomatic bacteriuria particularly in light of how improved she is from day prior. -Continue Rocephin 2g IV daily -Mental status is already significantly improved following abx therapy -PT ordered for weakness from same #. Chronic hypoxemic respiratory failure 2/2 COPD -Dr. Corral verified she is chronically on 3L for COPD at home -Her COPD exacerbation has essentially resolved and she is currently back to baseline -Continue with prednisone, duonebs, spiriva, chest pt, ICS #. Ability to care for self -We discussed some of the confusion with her medications initially and that she apparently self administers but is not always clear on the instructions, she is amenable to getting some help at home. - PFS consult placed #. Systolic murmur -06/2020 echo showing LVEF 75% w/ moderate pulm HTN and grade I DD #. Hyperkalemia -Resolved #. ESRD on HD (//Sun) - Nephrology consulted, Dr. Corral - Recommendations appreciated. Continue home iron, vitamin D supplementation, velphoro #. Hypertension Clarified home meds from Dr. 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 GERD Continue home pantoprazole #. Depression Continue citalopram #. Hx of migraines - Tylenol DVT prophylaxis: Heparin twice daily GI prophylaxis: Pantoprazole daily Disposition: Likely tomorrow depending on how she does with PT VS,Fishbone, I+O VS, Fishbone, I+O Laboratory Tests 04/15/21 06:06 Vital Signs Date Time Temp Pulse Resp B/P (MAP) Pulse Ox O2 Delivery O2 Flow Rate FiO2 04/15/21 10:41 71 145/80 04/15/21 08:00 97.3 17 93 Nasal Cannula 2.0 I&O- Last 24 Hours up to 6 AM 04/15/21 06:00 Intake Total 480 ml Output Total 650 ml Balance -170 ml GME ATTESTATION GME ATTESTATION My faculty preceptor for this patient encounter was physically present during the encounter and was fully available. All aspects of the patient interview, examination, medical decision making process, and medical care plan development were reviewed and approved by the faculty preceptor. The faculty preceptor is aware and concurs with the plan as stated in the body of this note and will attest to such by his/her cosignature. ATTENDING NOTE I, Gera Enriquez, have independently examined this patient and performed my own physical exam, as well as reviewed the documentation and edited where necessary with the resident. For medical students we have performed the physical exam together and discussed medical decision making and I have verified the history. I have discussed in detail with the resident / student the findings and plan of treatment as documented by the resident / student and edited their note. I agree with their findings and treatment plan and have edited their documentation. I will continue to follow the patient during this hospital stay. CHRIS CHAUDHARY DO Apr 15, 2021 11:11 GERA ENRIQUEZ MD Apr 15, 2021 11:57
--- NOTE | 2021-04-15 14:01 | IPNPDOC ---
Subjective Date Seen The patient was seen on 04/15/21. Subjective Chief Complaint/HPI SUBJECTIVE: Patient was seen and examined this morning at the bedside. Shes more alert and oriented today after she was started on Abx for a Urinary Tract infection. Denies any fever, chills, n/v/d or increased shortness of breath from her baseline. OBJECTIVE: VS: see below In and outs: 480ml in 650 out net negative 170 GENERAL: Patient is seen sitting up in the bed awake, alert and in no distress. HEENT: Extraocular muscles are intact. Tongue is moist. NECK: Supple. Jugular veins are not elevated. There is a tunneled Perm-A-Cath in the right chest wall. Patient was also seen later in the afternoon in the hemodialysis unit receiving her treatment with the Perm-A-Cath in use. HEART: Regular, S1 and S2. There is no peripheral edema. There is no dependent edema. LUNGS: Diminished breath sounds bilaterally. No crackles. There is prolonged expiration. ABDOMEN: Soft, obese and nontender. EXTREMITIES: No peripheral edema appreciated. NEUROLOGIC: no focal deficits. AAOx3 SKIN: Warm and dry. Normal temperature and turgor. IMPRESSION AND PLAN: 1. Endstage renal disease on hemodialysis on a Sunday, and Sunday schedule. Patient was dialyzed urgently on admission on 04/13 and again yester day on 04/14 to try to get back to her usual schedule of and Sunday. She will be dialyzed tomorrow (Sunday). 2. Hyperkalemia (Resolved). Pt was initially hyperkalemic due to missed dialysis. Patient was dialyzed 04/13 and 04/14 and potassium has resolved. 3. Diastolic congestive heart failure. Volume status seems to be euvolemic on exam. Shes not short of breath and is back to her baseline on 2-3L NC satting above 90%. 4. Hypertension. Blood pressure has improved with SBPs in 140s 150s. C/w with current home antihypertensive regimen. 5. Urinary Tract Infection. UA positive, with cx pending. Primary started on Rocephin. Mentation improved today. VS, I&O, 24H, Fishbone Vital Signs/I&O Vital Signs Date Time Temp Pulse Resp B/P (MAP) Pulse Ox O2 Delivery O2 Flow Rate FiO2 04/15/21 12:00 97.1 60 18 157/72 (100) 94 Room Air 04/15/21 08:00 2.0 I&O- Last 24 Hours up to 6 AM 04/15/21 06:00 Intake Total 480 ml Output Total 650 ml Balance -170 ml Laboratory Data 24H LABS Laboratory Tests 2 04/15/21 06:06: Immature Granulocyte % (Auto) 0.6, Neutrophils (%) (Auto) 72.3H, Lymphocytes (%) (Auto) 12.7L, Monocytes (%) (Auto) 14.0H, Eosinophils (%) (Auto) 0.2, Basophils (%) (Auto) 0.2, Neutrophils # (Auto) 4.7, Lymphocytes # (Auto) 0.8L, Monocytes # (Auto) 0.9H, Eosinophils # (Auto) 0.0, Basophils # (Auto) 0.0, Nucleated Red Blood Cells % (auto) 0.0, Anion Gap 9, Glomerular Filtration Rate 8.6L, Calcium Level 9.2, Magnesium Level 2.2 CBC/BMP Laboratory Tests 04/15/21 06:06 Microbiology Microbiology 04/13/21 Blood Culture - Preliminary, Resulted No growth after 24 hours . All specim... 04/13/21 Respiratory Virus Panel (PCR) (DANIEL) - Final, Complete 04/13/21 Blood Culture - Preliminary, Resulted No growth after 24 hours . All specim... GME ATTESTATION GME ATTESTATION My faculty preceptor for this patient encounter was physically present during the encounter and was fully available. All aspects of the patient interview, examination, medical decision making process, and medical care plan development were reviewed and approved by the faculty preceptor. The faculty preceptor is aware and concurs with the plan as stated in the body of this note and will attest to such by his/her cosignature. Conor Mitchell DO Apr 15, 2021 13:57
[2021-04-15] MEDS: cefTRIAXone SOD 2 GM in D5W MINI-BAG PLUS 50 ML IV SCH (22:20)
[2021-04-16] MEDS: prednisoLONE ACET 1% OPHTH SUSP 5ML OD SCH ×7 (00:48→13:08)
[2021-04-16 01:00] VITALS: BP 149/77
[2021-04-16] MEDS: IPRATROPIUM 0.5MG/ALBUTEROL 2.5MG INH SOL UD 3ML (DUONEB) NEB SCH ×3 (03:44→13:39)
[2021-04-16 05:28] LABS: BASO % 0.1 % (0.0-1.0); EOS % 0.1 % (0.0-3.0); HEMATOCRIT 34.3 % (36.0-47.0); HEMOGLOBIN 11.1 g/dl (12.0-15.5); LYMPH # 1.1 10^3/uL (1.5-5.0); MEAN CORPUSCULAR HEMOGLOBIN 30.9 pg (27.0-33.0); MEAN CORPUSCULAR HGB CONC 32.4 g/dl (32.0-36.5); MEAN CORPUSCULAR VOLUME 95.5 fl (80.0-96.0); NEUTROPHILS # 5.6 10^3/uL (1.5-8.5); NEUTROPHILS % 72.3 % (36.0-66.0); PLATELET COUNT, AUTOMATED 147 10^3/uL (150-450); RED BLOOD COUNT 3.59 10^6/uL (4.00-5.40); WHITE BLOOD COUNT 7.7 10^3/uL (4.0-10.0)
[2021-04-16 06:49] LABS: CALCIUM LEVEL 8.9 MG/DL (8.5-10.1); CREATININE FOR GFR 7.67 MG/DL (0.55-1.30); GLOMERULAR FILTRATION RATE 5.8 (>51); MAGNESIUM LEVEL 2.4 MG/DL (1.8-2.4); POTASSIUM SERUM 5.1 MEQ/L (3.5-5.1)
[2021-04-16 07:30] VITALS: BP 150/72
[2021-04-16] MEDS ORDERED: SODIUM CHLORIDE 0.9% 1000ML IV PRN (07:35)
[2021-04-16] MEDS ORDERED: LIDOCAINE 1% SDV 5ML VIAL SC PRN (07:35)
--- NOTE | 2021-04-16 07:39 | ECGEPIP ---
[facility] - ED Test Date: 2021-04-13 Pat Name: SAGAR DELGADILLO Department: Room: [place] [address] Gender: Female Skin Therapist: TYRON : 1960 Requested By: MCKAYLA HERRERA Order Number: [id number] Reading MD: Christina Guerra Measurements Intervals [place] Rate: 89 P: 62 NM: 156 QRS: 7 QRSD: 86 T: 53 QT: 344 QTc: 418 Interpretive Statements Normal sinus rhythm Possible Left atrial enlargement irbbb NSTTW abnormalities decreased rate 03/19/21 Electronically Signed on 04-16-2021 7:39:13 EST by Christina Guerra
[2021-04-16] MEDS: TIOTROPIUM INHALER/CAPSULE (SPIRIVA) INH SCH (08:00)
[2021-04-16] MEDS: ATROPINE SULFATE 1% OP SOLN 2 ML BTL OD SCH (08:18)
[2021-04-16] MEDS: SUCRALFATE 1 GM TAB PO SCH ×2 (08:18→13:02)
[2021-04-16] MEDS: SUCROFERRIC OXYHYDROXIDE 500MG CHEW TAB (VELPHORO) PO SCH ×2 (08:18→13:11)
[2021-04-16] MEDS: HEPARIN SOD (PORCINE) 5000UNITS/ML 1ML VIAL/SYRINGE SC SCH (09:00)
[2021-04-16] MEDS: PROPRANOLOL 20 MG TAB PO SCH (09:00)
[2021-04-16] MEDS ORDERED: PRED10TA2 PO (10:38)
[2021-04-16] MEDS ORDERED: CEFD1CAP8 PO (10:38)
[2021-04-16] MEDS ORDERED: PROP20TA PO (10:44)
--- NOTE | 2021-04-16 10:48 | DS.PDOC ---
Discharge Summary General Date of Admission Apr 13, 2021 at 17:01 Date of Discharge 04/16/2021 Primary Care Physician: Charlene Gill PA-C, LAC Attending Physician: GERA SALCIDO MD Specialist/Consultants Involve: ANI CORRAL DO Discharge Summary PROCEDURES PERFORMED DURING STAY: None. ADMITTING/DISCHARGE DIAGNOSES: Chronic hypoxemic respiratory failure (on 3 L at home) UTI COPD exacerbation Systolic murmur Ability to care for self Hyperkalemia ESRD on HD Hypertension History of migraines Depression GERD Glaucoma COMPLICATIONS/CHIEF COMPLAINT: SOB HISTORY OF PRESENT ILLNESS/HOSPITAL COURSE: Patient is a 60 y/o female who pre sented to [facility] ED with a 2-day history of progressively worsening shortness of breath and a cough productive of yellow sputum. She felt so short of breath in spite of taking more albuterol treatments that she missed her dialysis appointment on Sunday and was found to have a potassium level of 8 in the emergency department as well as an oxygen saturation in the 80s. She was given nebulizer treatment and 10 mg of IV Decadron in route to the emergency department with improvement in her symptoms. Dr. Corral was contacted by the ED and gave instructions for treatment of the hyperkalemia and stated she would dialyze the patient tonight. The hospitalist team was contacted for COPD exacerbation and acute hypoxic respiratory failure. Patient denies any fever, chills, chest pain, palpitations, abdominal pain, nausea, vomiting, lower extremity swelling. Patient was admitted to the hospital for hyperkalemia and COPD exacerbation and was dialyzed that night with improvement of her potassium. She was started on IV steroids, nebulizer treatments, and chest PT with incentive spirometry. The following day she continued to seem off of her baseline so a urinalysis was obtained that showed her to have a UTI she was started on Rocephin and the following day demonstrated significant improvement in her symptoms. She was put on oral prednisone and assessed by physical therapy and on day of discharge she received dialysis and was cleared for discharge with physical therapy. There was also some concern while she was inpatient that she was having some difficulties caring for self at home and was agreeable to being discharged home with services. DISCHARGE MEDICATIONS: Please see below. ALLERGIES: Please see below. PHYSICAL EXAMINATION ON DISCHARGE: VITAL SIGNS: Please see below. GENERAL APPEARANCE: Well-appearing female sitting upright in bed eating breakfast in no acute distress. HEENT: NC, AT, EOMI, no scleral icterus, moist mucous membranes, no pharyngeal erythema. CARDIOVASCULAR: RRR, normal S1-S2. systolic murmur appreciated over LUSB, gallops, rubs. LUNGS: CTAB with full breath sounds, no wheezes, crackles, or rhonchi. ABDOMEN: Soft, nontender, nondistended, bowel sounds present. No hepatosplenomegaly. No masses or ecchymosis. No CVA tenderness. EXTREMITIES: No swelling or edema NEUROLOGICAL: No focal or sensory deficits. CN II-XII grossly intact. PSYCHIATRIC: Normal mood and affect LABORATORY DATA: Please see below. IMAGIN04/13/2021 chest x-ray: "IMPRESSION: No focal consolidation or effusion." ACTIVITY: As tolerated DIET: Renal diet DISCHARGE PLAN: Home with services DISCHARGE INSTRUCTIONS: 1. Please follow-up with primary care provider in the next 7 days. Please remain compliant with the treatment plan and if you experience any worsening of your symptoms please return to the emergency department for further evaluation. 2. Please ensure that you clarify your medications with your primary care provider and make sure that someone at home has a list of these to assist you. DISCHARGE CONDITION: Stable. TIME SPENT ON DISCHARGE: 33 minutes. Vital Signs/I&Os Vital Signs Date Time Temp Pulse Resp B/P (MAP) Pulse Ox O2 Delivery O2 Flow Rate FiO2 04/16/21 07:30 97.5 63 20 150/72 (98) 96 Nasal Cannula 2.0 I&O- Last 24 Hours up to 6 AM 04/16/21 06:00 Intake Total 1440 ml Output Total 200 ml Balance 1240 ml Laboratory Data Labs 24H Laboratory Tests 2 04/16/21 04:53: Immature Granulocyte % (Auto) 0.5, Neutrophils (%) (Auto) 72.3H, Lymphocytes (%) (Auto) 14.0L, Monocytes (%) (Auto) 13.0H, Eosinophils (%) (Auto) 0.1, Basophils (%) (Auto) 0.1, Neutrophils # (Auto) 5.6, Lymphocytes # (Auto) 1.1L, Monocytes # (Auto) 1.0H, Eosinophils # (Auto) 0.0, Basophils # (Auto) 0.0, Nucleated Red Blood Cells % (auto) 0.0, Anion Gap 9, Glomerular Filtration Rate 5.8L, Calcium Level 8.9, Magnesium Level 2.4 CBC/BMP Laboratory Tests 04/16/21 04:53 Microbiology Microbiology 04/13/21 Blood Culture - Preliminary, Resulted No Growth after 48 hours. All Specime... 04/13/21 Respiratory Virus Panel (PCR) (DANIEL) - Final, Complete 04/13/21 Blood Culture - Preliminary, Resulted No Growth after 48 hours. All Specime... Discharge Medications Scheduled Amlodipine Besylate (Amlodipine Besylate) 10 Mg Tablet, 10 MG PO DAILY, (Reported) Aspirin (Aspirin EC) 81 Mg Tablet.dr, 81 MG PO DAILY, (Reported) Atropine Sulfate (Atropine Sulfate) 1% 2ML Drops, 1 DROP OD DAILY, (Reported) Budesonide (Budesonide) 0.5 Mg/2 Ml Ampul.neb, 0.5 MG INH BID, (Reported) Cefdinir (Cefdinir) 300 Mg Capsule, 1 CAP PO BID Cholecalciferol (Vitamin D3) (Vitamin D3) 1,000 Unit Tablet, 1,000 UNITS PO DAILY, (Reported) Citalopram Hydrobromide (Citalopram HBr) 20 Mg Tablet, 20 MG PO DAILY, (Reported) Ferrous Sulfate (Ferrous Sulfate) 325 Mg Tablet, 325 MG PO DAILY, (Reported) Furosemide (Furosemide) 20 Mg Tablet, 20 MG PO DAILY, (Reported) Hydrochlorothiazide (Hydrochlorothiazide) 12.5 Mg Tablet, 12.5 MG PO DAILY, (Reported) Isosorbide Mononitrate (Isosorbide Mononitrate ER) 30 Mg Tab.er.24h, 30 MG PO BID, (Reported) Pantoprazole Sodium (Pantoprazole Sodium) 40 Mg Tablet.dr, 40 MG PO DAILY, (Reported) Prednisolone Acetate (Prednisolone Acetate 1% Opth Susp) 5 Ml Drops.susp, 1 DROP OD Q2H, (Reported) Prednisone (Prednisone) 10 Mg Tablet, 10 MG PO TAPER Take 4 tabs daily x 3 days, then 3 tabs daily x 3 days, then 2 tabs daily x 3 days, then 1 tab daily x 3 days and stop Propranolol HCl (Propranolol HCl) 20 Mg Tablet, 40 MG PO TID Sucralfate (Sucralfate) 1 Gm Tablet, 1 GM PO WM, (Reported) Sucroferric Oxyhydroxide (Velphoro) 500 Mg Tab.chew, 500 MG PO WM, (Reported) Tiotropium [place] (Spiriva) 18 Mcg Cap.w.dev, 1 INHALATION INH DAILY, (Reported) Scheduled PRN Albuterol Sulf (Albuterol Sulfate) 2.5 Mg/3 Ml Vial.neb, 2.5 MG INH QID PRN for SHORTNESS OF BREATH, (Reported) Albuterol Sulfate (Proair Hfa) 8.5 Gm Hfa.aer.ad, 2 PUFF INH QID PRN for SHORTNESS OF BREATH, (Reported) Miscellaneous Medications [Med Rec Comment] , (Reported) MED REC COMPLETED VIA EXTERNAL MED HISTORY AND PREVIOUS DICHARGE PAPERWORK (03/23/21) Allergies Coded Allergies: amoxicillin (Verified Allergy, Mild, rash, 04/13/21) clavulanic acid (Verified Allergy, Mild, rash, 04/13/21) GME ATTESTATION GME ATTESTATION My faculty preceptor for this patient encounter was physically present during the encounter and was fully available. All aspects of the patient interview, examination, medical decision making process, and medical care plan development were reviewed and approved by the faculty preceptor. The faculty preceptor is aware and concurs with the plan as stated in the body of this note and will attest to such by his/her cosignature. ATTENDING NOTE I, Gera Salcido, have independently examined this patient and performed my own physical exam, as well as reviewed the documentation and edited where necessary with the resident. For medical students we have performed the physical exam together and discussed medical decision making and I have verified the history. I have discussed in detail with the resident / student the findings and plan of treatment as documented by the resident / student and edited their note. I agree with their findings and treatment plan and have edited their documentation. I will continue to follow the patient during this hospital stay. Time spent on discharge 35 minutes CHRIS CHAUDHARY DO Apr 16, 2021 10:48 GERA SALCIDO MD Apr 16, 2021 10:58
[2021-04-16] MEDS: hydroCHLOROthiazide 12.5 MG CAPSULE PO SCH (13:00)
[2021-04-16] MEDS: ASPIRIN 81MG ENTERIC TABLET PO SCH (13:01)
[2021-04-16] MEDS: CitaloPRAM (CeleXA) 20 MG TAB PO SCH (13:02)
[2021-04-16] MEDS: VITAMIN D 1,000 INTERNATIONAL UNITS TABLET PO SCH (13:02)
[2021-04-16] MEDS: FERROUS SULFATE 325MG TAB PO SCH (13:02)
[2021-04-16] MEDS: PANTOPRAZOLE 40MG TAB (PROTONIX) PO SCH (13:02)
[2021-04-16 13:03] VITALS: BP 131/66
[2021-04-16] MEDS: predniSONE 20 MG TAB PO SCH (13:04)
--- NOTE | 2021-04-16 13:33 | IPN ---
NEPHROLOGY PROGRESS NOTE DATE: 04/16/2021 SUBJECTIVE: Ms. Garcia is seen this morning during hemodialysis. She is feeling better, but still short of breath. She denies any fever or chills. She has no nausea or vomiting. PHYSICAL EXAMINATION: VITAL SIGNS: Temperature 97.5 degrees Fahrenheit, heart rate 68 per minute, respiratory rate 20 per minute, blood pressure 150/72 mmHg, oxygen saturation 96% on 2 liters oxygen. HEAD: Atraumatic. NECK: Supple and jugular venous distention (JVD) difficult to be assessed. She has a Permacath in the right internal jugular vein. HEART SOUNDS: Regular. LUNGS: Expiratory wheezing. She has slightly diminished breath sounds at bases. ABDOMEN: Soft and nontender. Bowel sounds are normal. EXTREMITIES: Without any cyanosis or clubbing. NEUROLOGIC: She is awake, at her baseline mentation and without a focal neurological deficit. LABORATORY DATA: Today's labs show WBC count 7.7, hemoglobin 11.1, hematocrit 34.3. Sodium 134, potassium 5.1, CO2 26, BUN 63, creatinine 7.67. PROBLEMS: 1. End-stage renal disease. Patient is being dialyzed again today. Today is her regular dialysis day. She is tolerating it well. 2. Shortness of breath. Mostly, this is related to chronic obstructive pulmonary disease (COPD). Her volume status seems reasonably well compensated. We are trying to remove about 1.5 liters of fluid today with dialysis. 3. Hyponatremia. Mild chronic hyponatremia is unchanged and no specific intervention is needed. 4. Hyperkalemia. Patient was admitted with severe hyperkalemia. However, her potassium level has improved significantly. She is being dialyzed with 2.0 mEq potassium bath. 5. Anemia. At present, her anemia is stable and does not need any urgent intervention. DISPOSITION: From a renal standpoint, patient can be discharged to home and follow up in outpatient clinic.
== END 2021-04-16 16:43 | disposition home health service (06) | DRG 640 ==
LOC: M ED 13:51 → EDBD 13:51 → M ED INP 17:01 → M PCU 22:58
PROVIDERS: ADMIT Internal Medicine; ATTEND Internal Medicine
PROC: 5A1D70Z Performance of Urinary Filtration, Intermittent, Less than 6 Hours Per Day (ICD-10-PCS; principal; 2021-04-13)
DX: E87.5 Hyperkalemia (principal); N18.6 End stage renal disease; J96.11 Chronic respiratory failure with hypoxia; J44.1 Chronic obstructive pulmonary disease with (acute) exacerbation; I13.2 Hypertensive heart and chronic kidney disease with heart failure and with stage 5 chronic kidney disease, or end stage renal disease; N25.81 Secondary hyperparathyroidism of renal origin; I50.32 Chronic diastolic (congestive) heart failure; N39.0 Urinary tract infection, site not specified; G43.909 Migraine, unspecified, not intractable, without status migrainosus; E87.1 Hypo-osmolality and hyponatremia; D50.9 Iron deficiency anemia, unspecified; Z87.891 Personal history of nicotine dependence; Z79.82 Long term (current) use of aspirin; Z79.52 Long term (current) use of systemic steroids; Z99.2 Dependence on renal dialysis; Z88.0 Allergy status to penicillin; Z88.8 Allergy status to other drugs, medicaments and biological substances; Z99.81 Dependence on supplemental oxygen

== ENCOUNTER 2021-05-29 07:19 | Inpatient (IN) | payer OTHER ==
[2021-05-29] VITALS (10 sets, daily range): BP systolic 123–195; BP diastolic 65–100
[~2021-05-29] VITALS: Ht 165.1 cm; Wt 78.9 kg
[~2021-05-29 07:19] MED LIST changes: +MED REC COMMENT; +PRED10TA2 PO; -PREDOPD OD; +PREDOPD OU; +PROP20TA PO
[2021-05-29 08:22] LABS: BASO % 0.2 % (0.0-1.0); EOS # 0.1 10^3/uL (0.0-0.5); EOS % 0.7 % (0.0-3.0); HEMATOCRIT 23.2 % (36.0-47.0); HEMOGLOBIN 7.4 g/dl (12.0-15.5); LYMPH # 1.1 10^3/uL (1.5-5.0); LYMPH % 9.1 % (24.0-44.0); MEAN CORPUSCULAR HEMOGLOBIN 32.2 pg (27.0-33.0); MEAN CORPUSCULAR HGB CONC 31.9 g/dl (32.0-36.5); MEAN CORPUSCULAR VOLUME 100.9 fl (80.0-96.0); MONO % 8.1 % (2.0-8.0); NEUTROPHILS # 9.6 10^3/uL (1.5-8.5); NEUTROPHILS % 77.2 % (36.0-66.0); PLATELET COUNT, AUTOMATED 268 10^3/uL (150-450); WHITE BLOOD COUNT 12.4 10^3/uL (4.0-10.0)
[2021-05-29 08:42] LABS: ALBUMIN 3.3 GM/DL (3.2-5.2); BILIRUBIN,DIRECT 0.1 MG/DL (0.0-0.2); BILIRUBIN,TOTAL 0.4 MG/DL (0.2-1.0); THYROID STIMULATING HORMONE 2.15 uIU/ML (0.358-3.740); TOTAL PROTEIN 5.4 GM/DL (6.4-8.2)
[2021-05-29 09:30] LABS: RSV AMPLIFICATION NEGATIVE (NEGATIVE)
[2021-05-29] MEDS ORDERED: PILO1OPD OU (10:01)
[2021-05-29] MEDS ORDERED: SODIUM CHLORIDE 0.9% 1000ML IV PRN (11:20)
[2021-05-29] MEDS ORDERED: HYDR10TAB PO (13:09)
[2021-05-29] MEDS ORDERED: HOME MED LIST COMPLETE! XX SCH (13:20)
[2021-05-29] MEDS ORDERED: ALBUTEROL SULFATE 2.5 MG/0.5 ML INH NEB SOLN INH PRN (13:35)
[2021-05-29] MEDS: CitaloPRAM (CeleXA) 20 MG TAB PO SCH (16:55)
[2021-05-29] MEDS: FERROUS SULFATE 325MG TAB PO SCH (16:55)
[2021-05-29] MEDS: PANTOPRAZOLE 40MG TAB (PROTONIX) PO SCH (16:56)
[2021-05-29] MEDS ORDERED: BUDESONIDE 0.5 MG/2 ML INHALATION SUSPENSION INH SCH (17:00)
[2021-05-29] MEDS: prednisoLONE ACET 1% OPHTH SUSP 5ML OU SCH ×2 (17:38→20:15)
[2021-05-29] MEDS: HEPARIN SOD (PORCINE) 5000UNITS/ML 1ML VIAL/SYRINGE SC SCH (20:11)
[2021-05-29] MEDS: **hydrALAZINE** 10 MG TAB PO SCH (20:11)
[2021-05-29] MEDS: ISOSORBIDE MON. (IMDUR) 30 MG XR TAB PO SCH (20:11)
[2021-05-29] MEDS: PILOCARPINE 1% OPHTH SOLN 15 ML OU SCH (20:14)
[2021-05-29] MEDS: BUDESONIDE 0.5 MG/2 ML INHALATION SUSPENSION INH SCH (20:20)
[2021-05-29] MEDS: ALBUTEROL SULFATE 2.5 MG/0.5 ML INH NEB SOLN INH PRN (23:06)
[2021-05-30 06:00] VITALS: BP 116/58
[2021-05-30 06:25] LABS: HEMATOCRIT 27.6 % (36.0-47.0); HEMOGLOBIN 8.8 g/dl (12.0-15.5); MEAN CORPUSCULAR HEMOGLOBIN 31.4 pg (27.0-33.0); MEAN CORPUSCULAR HGB CONC 31.9 g/dl (32.0-36.5); MEAN CORPUSCULAR VOLUME 98.6 fl (80.0-96.0); PLATELET COUNT, AUTOMATED 220 10^3/uL (150-450); WHITE BLOOD COUNT 9.2 10^3/uL (4.0-10.0)
[2021-05-30 06:39] LABS: CALCIUM LEVEL 8.3 MG/DL (8.5-10.1); CREATININE FOR GFR 3.9 MG/DL (0.55-1.30); GLOMERULAR FILTRATION RATE 12.6 (>51); MAGNESIUM LEVEL 2.3 MG/DL (1.8-2.4); POTASSIUM SERUM 4.3 MEQ/L (3.5-5.1)
[2021-05-30] MEDS: BUDESONIDE 0.5 MG/2 ML INHALATION SUSPENSION INH SCH ×2 (07:20→20:51)
[2021-05-30] MEDS: TIOTROPIUM INHALER/CAPSULE (SPIRIVA) INH SCH (07:20)
[2021-05-30] MEDS: HEPARIN SOD (PORCINE) 5000UNITS/ML 1ML VIAL/SYRINGE SC SCH ×2 (09:29→20:34)
[2021-05-30] MEDS: **hydrALAZINE** 10 MG TAB PO SCH ×3 (09:30→21:00)
[2021-05-30] MEDS: FERROUS SULFATE 325MG TAB PO SCH (09:31)
[2021-05-30] MEDS: ATROPINE SULFATE 1% OP SOLN 2 ML BTL OD SCH (09:31)
[2021-05-30] MEDS: PANTOPRAZOLE 40MG TAB (PROTONIX) PO SCH (09:31)
[2021-05-30] MEDS: CitaloPRAM (CeleXA) 20 MG TAB PO SCH (09:31)
[2021-05-30] MEDS: ISOSORBIDE MON. (IMDUR) 30 MG XR TAB PO SCH ×3 (09:31→21:00)
[2021-05-30] MEDS: PILOCARPINE 1% OPHTH SOLN 15 ML OU SCH ×2 (09:32→20:34)
[2021-05-30] MEDS: prednisoLONE ACET 1% OPHTH SUSP 5ML OU SCH ×4 (09:33→20:34)
[2021-05-30 14:00] VITALS: BP 100/46
[2021-05-30] MEDS: ACETAMINOPHEN TAB 650MG DOSE (2X325MG) PO PRN ×2 (14:02→20:33)
[2021-05-30 20:15] VITALS: BP 107/58
[2021-05-31] MEDS: ACETAMINOPHEN TAB 650MG DOSE (2X325MG) PO PRN ×3 (05:20→22:18)
[2021-05-31 06:14] VITALS: BP 135/66
[2021-05-31 06:52] LABS: HEMATOCRIT 27.4 % (36.0-47.0); HEMOGLOBIN 8.8 g/dl (12.0-15.5); MEAN CORPUSCULAR HEMOGLOBIN 32.6 pg (27.0-33.0); MEAN CORPUSCULAR HGB CONC 32.1 g/dl (32.0-36.5); MEAN CORPUSCULAR VOLUME 101.5 fl (80.0-96.0); PLATELET COUNT, AUTOMATED 196 10^3/uL (150-450); WHITE BLOOD COUNT 9.2 10^3/uL (4.0-10.0)
[2021-05-31 07:28] LABS: CALCIUM LEVEL 8.7 MG/DL (8.5-10.1); CREATININE FOR GFR 6.31 MG/DL (0.55-1.30); GLOMERULAR FILTRATION RATE 7.2 (>51); MAGNESIUM LEVEL 2.4 MG/DL (1.8-2.4); POTASSIUM SERUM 4.4 MEQ/L (3.5-5.1)
[2021-05-31] MEDS ORDERED: SODIUM CHLORIDE 0.9% 1000ML IV PRN (07:55)
[2021-05-31] MEDS ORDERED: DARBEPOETIN 100 MCG/0.5 ML *DIALYSIS* SYRINGE (J0882) IV SCH (07:55)
[2021-05-31] MEDS ORDERED: LIDOCAINE 5% (LIDODERM) PATCH TD ONE (08:00)
[2021-05-31] MEDS: TIOTROPIUM INHALER/CAPSULE (SPIRIVA) INH SCH (08:49)
[2021-05-31] MEDS: BUDESONIDE 0.5 MG/2 ML INHALATION SUSPENSION INH SCH ×2 (08:49→20:29)
[2021-05-31] MEDS: ISOSORBIDE MON. (IMDUR) 30 MG XR TAB PO SCH ×2 (09:15→20:59)
[2021-05-31] MEDS: **hydrALAZINE** 10 MG TAB PO SCH ×2 (09:16→21:00)
[2021-05-31] MEDS: HEPARIN SOD (PORCINE) 5000UNITS/ML 1ML VIAL/SYRINGE SC SCH ×2 (09:16→20:57)
[2021-05-31] MEDS: CitaloPRAM (CeleXA) 20 MG TAB PO SCH (09:16)
[2021-05-31] MEDS: PANTOPRAZOLE 40MG TAB (PROTONIX) PO SCH (09:16)
[2021-05-31] MEDS: PILOCARPINE 1% OPHTH SOLN 15 ML OU SCH ×2 (09:17→21:03)
[2021-05-31] MEDS: prednisoLONE ACET 1% OPHTH SUSP 5ML OU SCH ×4 (09:17→21:03)
[2021-05-31] MEDS: FERROUS SULFATE 325MG TAB PO SCH (09:17)
[2021-05-31] MEDS: ATROPINE SULFATE 1% OP SOLN 2 ML BTL OD SCH (09:17)
[2021-05-31 14:00] VITALS: BP 136/65
[2021-05-31] MEDS ORDERED: traMADol 50 MG TAB PO PRN (17:20)
[2021-05-31] MEDS ORDERED: **NOTE PATIENT COMMENT** MISC XX ONE (20:00)
[2021-05-31 22:00] VITALS: BP 119/62
[2021-06-01 06:00] VITALS: BP 116/62
[2021-06-01 06:40] LABS: HEMATOCRIT 27.9 % (36.0-47.0); HEMOGLOBIN 8.6 g/dl (12.0-15.5); MEAN CORPUSCULAR HEMOGLOBIN 31.5 pg (27.0-33.0); MEAN CORPUSCULAR HGB CONC 30.8 g/dl (32.0-36.5); MEAN CORPUSCULAR VOLUME 102.2 fl (80.0-96.0); PLATELET COUNT, AUTOMATED 165 10^3/uL (150-450); RED BLOOD COUNT 2.73 10^6/uL (4.00-5.40); WHITE BLOOD COUNT 8.4 10^3/uL (4.0-10.0)
[2021-06-01 07:01] LABS: CALCIUM LEVEL 8.4 MG/DL (8.5-10.1); CREATININE FOR GFR 4.31 MG/DL (0.55-1.30); GLOMERULAR FILTRATION RATE 11.2 (>51); MAGNESIUM LEVEL 2.1 MG/DL (1.8-2.4); POTASSIUM SERUM 4.5 MEQ/L (3.5-5.1)
[2021-06-01] MEDS: TIOTROPIUM INHALER/CAPSULE (SPIRIVA) INH SCH (07:45)
[2021-06-01] MEDS: ALBUTEROL SULFATE 2.5 MG/0.5 ML INH NEB SOLN INH PRN (07:46)
[2021-06-01] MEDS: BUDESONIDE 0.5 MG/2 ML INHALATION SUSPENSION INH SCH (07:46)
[2021-06-01] MEDS: ISOSORBIDE MON. (IMDUR) 30 MG XR TAB PO SCH (09:48)
[2021-06-01] MEDS: CitaloPRAM (CeleXA) 20 MG TAB PO SCH (09:48)
[2021-06-01] MEDS: **hydrALAZINE** 10 MG TAB PO SCH (09:48)
[2021-06-01] MEDS: FERROUS SULFATE 325MG TAB PO SCH (09:48)
[2021-06-01] MEDS: PANTOPRAZOLE 40MG TAB (PROTONIX) PO SCH (09:48)
[2021-06-01 09:50] VITALS: BP 116/62
[2021-06-01] MEDS: PILOCARPINE 1% OPHTH SOLN 15 ML OU SCH (09:50)
[2021-06-01] MEDS: ATROPINE SULFATE 1% OP SOLN 2 ML BTL OD SCH (09:50)
[2021-06-01] MEDS: HEPARIN SOD (PORCINE) 5000UNITS/ML 1ML VIAL/SYRINGE SC SCH (09:50)
[2021-06-01] MEDS: prednisoLONE ACET 1% OPHTH SUSP 5ML OU SCH ×2 (09:50→12:16)
[2021-06-01] MEDS ORDERED: FERR325T18 PO (13:50)
[2021-06-01] MEDS ORDERED: ECOT81TA5 PO (13:50)
[2021-06-01] MEDS ORDERED: TIOT18INH INH (13:50)
[2021-06-01] MEDS ORDERED: BUDE0.5S6 INH (13:50)
[2021-06-01] MEDS ORDERED: ATRO1OPD OD (13:50)
== END 2021-06-01 15:05 | disposition home health service (06) | DRG 291 ==
LOC: M ED 07:19 → EDBD 07:19 → M ED INP 12:03 → ENRESERV 14:40 → M MS5PR 16:35
PROVIDERS: ADMIT Internal Medicine; ATTEND Internal Medicine
PROC: 5A1D70Z Performance of Urinary Filtration, Intermittent, Less than 6 Hours Per Day (ICD-10-PCS; principal; 2021-05-29)
PROC: 30233N1 Transfusion of Nonautologous Red Blood Cells into Peripheral Vein, Percutaneous Approach (ICD-10-PCS; 2021-05-29)
DX: I13.2 Hypertensive heart and chronic kidney disease with heart failure and with stage 5 chronic kidney disease, or end stage renal disease (principal); N18.6 End stage renal disease; I50.33 Acute on chronic diastolic (congestive) heart failure; J96.11 Chronic respiratory failure with hypoxia; N25.81 Secondary hyperparathyroidism of renal origin; E87.1 Hypo-osmolality and hyponatremia; E87.70 Fluid overload, unspecified; J44.9 Chronic obstructive pulmonary disease, unspecified; F32.A Depression, unspecified; K21.9 Gastro-esophageal reflux disease without esophagitis; G43.909 Migraine, unspecified, not intractable, without status migrainosus; Z66 Do not resuscitate; Z99.81 Dependence on supplemental oxygen; D50.9 Iron deficiency anemia, unspecified; E11.319 Type 2 diabetes mellitus with unspecified diabetic retinopathy without macular edema; E11.22 Type 2 diabetes mellitus with diabetic chronic kidney disease; D63.1 Anemia in chronic kidney disease; H54.8 Legal blindness, as defined in USA; Z87.891 Personal history of nicotine dependence; Z20.822 Contact with and (suspected) exposure to COVID-19; Z79.82 Long term (current) use of aspirin; Z79.899 Other long term (current) drug therapy; Z88.0 Allergy status to penicillin; Z99.2 Dependence on renal dialysis; Z91.15 Patient's noncompliance with renal dialysis; Z88.8 Allergy status to other drugs, medicaments and biological substances

== ENCOUNTER 2021-07-20 07:39 | Inpatient (IN) | payer OTHER ==
[~2021-07-20] VITALS: Ht 165.1 cm; Wt 81.7 kg
[~2021-07-20 07:39] MED LIST changes: -CEFD1CAP8 PO; +CEFD300C41 PO; -D31000TA2 PO; +ECOT81TA5 PO; +LOSA50TA28 PO; -LOSA50TA88 PO; +NYSTATIN 500,000 U/5 ML SUSP UDC SS SCH; +PILO1OPD OU; +TIOT18INH INH; +VITA100093 PO
[2021-07-20] MEDS: COMBIVENT RESPIMAT 100-20MCG INHALER 4GM INH SCH ×6 (08:15→20:10)
[2021-07-20 08:29] LABS: VENOUS HCO3 26.5 MEQ/L (23.0-27.0); VENOUS O2 SATURATION 66.3 % (60.0-80.0); VENOUS PARTIAL PRESSURE CO2 72.1 mmHg (38.0-50.0); VENOUS PARTIAL PRESSURE O2 40.4 mmHg (30.0-50.0); VENOUS PH 7.183 UNITS (7.330-7.430); VENOUS STANDARD HCO3 21.4 MEQ/L; VENOUS TOTAL CO2 28.7 MEQ/L (24.0-28.0)
[2021-07-20 08:29] LABS: BASO % 0.1 % (0.0-1.0); HEMATOCRIT 33.6 % (36.0-47.0); HEMOGLOBIN 10.5 g/dl (12.0-15.5); LYMPH # 0.7 10^3/uL (1.5-5.0); MEAN CORPUSCULAR HEMOGLOBIN 29.8 pg (27.0-33.0); MEAN CORPUSCULAR HGB CONC 31.3 g/dl (32.0-36.5); MEAN CORPUSCULAR VOLUME 95.5 fl (80.0-96.0); MONO # 0.5 10^3/uL (0.0-0.8); MONO % 3.8 % (2.0-8.0); NEUTROPHILS # 12.3 10^3/uL (1.5-8.5); PLATELET COUNT, AUTOMATED 303 10^3/uL (150-450); RED BLOOD COUNT 3.52 10^6/uL (4.00-5.40); WHITE BLOOD COUNT 13.7 10^3/uL (4.0-10.0)
[2021-07-20 10:20] LABS: CK-MB VALUE MASS 1.4 NG/ML (<3.6); MB/CK RELATIVE INDEX 4.67 (< OR =4)
[2021-07-20 10:47] LABS: ALBUMIN 3.2 GM/DL (3.2-5.2); ALT/SGPT 18 U/L (12-78); BILIRUBIN,DIRECT < 0.1 MG/DL (0.0-0.2); BILIRUBIN,TOTAL 0.3 MG/DL (0.2-1.0); BLOOD UREA NITROGEN 98 MG/DL (7-18); CALCIUM LEVEL 8.9 MG/DL (8.5-10.1); CARBON DIOXIDE LEVEL 27 MEQ/L (21-32); CHLORIDE LEVEL 91 MEQ/L (98-107); CREATININE FOR GFR 9.73 MG/DL (0.55-1.30); GLOMERULAR FILTRATION RATE 4.4 (>51); GLUCOSE, FASTING 109 MG/DL (70-100); NT-PRO BNP 7445 PG/ML (<125); SODIUM LEVEL 130 MEQ/L (136-145); TOTAL PROTEIN 5.6 GM/DL (6.4-8.2)
[2021-07-20] MEDS ORDERED: CALCIUM GLUCONATE 1,000 MG in D5W MINI-BAG PLUS 100 ML IV ONE (11:05)
[2021-07-20] MEDS ORDERED: LIDOCAINE 1% SDV 5ML VIAL SC PRN (11:15)
[2021-07-20] MEDS ORDERED: SODIUM CHLORIDE 0.9% 1000ML IV PRN (11:15)
[2021-07-20] MEDS ORDERED: HEPARIN SOD (PORCINE) 5000UNITS/ML 1ML VIAL/SYRINGE SQ SCH (12:40)
[2021-07-20 12:59] LABS: HEMATOCRIT 31.2 % (36.0-47.0); HEMOGLOBIN 9.9 g/dl (12.0-15.5); MEAN CORPUSCULAR HEMOGLOBIN 29.6 pg (27.0-33.0); MEAN CORPUSCULAR HGB CONC 31.7 g/dl (32.0-36.5); MEAN CORPUSCULAR VOLUME 93.1 fl (80.0-96.0); PLATELET COUNT, AUTOMATED 281 10^3/uL (150-450); RED BLOOD COUNT 3.35 10^6/uL (4.00-5.40); WHITE BLOOD COUNT 12.8 10^3/uL (4.0-10.0)
[2021-07-20] MEDS ORDERED: ALBUTEROL 90 MCG/ACT 8GM HFA INHALER INH PRN (13:05)
[2021-07-20 13:16] LABS: INR 0.94
[2021-07-20] MEDS ORDERED: VITA100093 PO (13:38)
[2021-07-20] MEDS ORDERED: VALA500T5 PO (13:38)
[2021-07-20] MEDS ORDERED: TIOT18INH INH (13:38)
[2021-07-20] MEDS ORDERED: BUDE0.5S6 INH (13:38)
[2021-07-20] MEDS ORDERED: PROP40TA62 PO (13:38)
[2021-07-20] MEDS ORDERED: VELP5CHW PO (13:38)
[2021-07-20] MEDS ORDERED: PRED20TA PO (13:38)
[2021-07-20] MEDS ORDERED: FERR1TAB8 PO (13:38)
[2021-07-20] MEDS ORDERED: SUMA100T2 PO (13:38)
[2021-07-20] MEDS ORDERED: HOME MED LIST COMPLETE! XX SCH (13:40)
[2021-07-20 13:46] LABS: ALBUMIN 2.9 GM/DL (3.2-5.2); ALT/SGPT 15 U/L (12-78); BILIRUBIN,TOTAL 0.2 MG/DL (0.2-1.0); BLOOD UREA NITROGEN 73 MG/DL (7-18); CALCIUM LEVEL 8.8 MG/DL (8.5-10.1); CARBON DIOXIDE LEVEL 26 MEQ/L (21-32); CHLORIDE LEVEL 96 MEQ/L (98-107); CREATININE FOR GFR 7.92 MG/DL (0.55-1.30); GLOMERULAR FILTRATION RATE 5.5 (>51); GLUCOSE, FASTING 143 MG/DL (70-100); POTASSIUM SERUM 5.9 MEQ/L (3.5-5.1); SODIUM LEVEL 132 MEQ/L (136-145); TOTAL PROTEIN 5.4 GM/DL (6.4-8.2)
[2021-07-20 13:49] LABS: PARTIAL THROMBOPLASTIN TIME 188.3 SECONDS (25.9-37.0)
[2021-07-20 14:17] LABS: HEPATITIS B SURFACE ANTIGEN NEGATIVE (NEGATIVE)
[2021-07-20] MEDS ORDERED: SUMAtriptan SUCCINATE 25 MG TAB PO PRN (15:45)
[2021-07-20] MEDS ORDERED: BUDESONIDE 0.5 MG/2 ML INHALATION SUSPENSION INH PRN (15:45)
[2021-07-20 16:30] VITALS: BP 136/68
[2021-07-20] MEDS: methylPREDNISolone 125MG 2ML VIAL IV SCH (17:59)
[2021-07-20 18:09] LABS: ABG BASE EXCESS 0.5 (-2.0-2.0); ABG HCO3 26.2 MEQ/L (22.0-26.0); ABG O2 SATURATION 98.6 % (95.0-99.0); ABG PARTIAL PRESSURE CO2 46.9 mmHg (35.0-45.0); ABG TOTAL CO2 27.6 MEQ/L (22.0-29.0); ABG pH (ARTERIAL) 7.365 UNITS (7.350-7.450)
[2021-07-20 18:45] LABS: CALCIUM LEVEL 8.1 MG/DL (8.5-10.1); CREATININE FOR GFR 4.4 MG/DL (0.55-1.30); GLOMERULAR FILTRATION RATE 10.9 (>51)
[2021-07-20 20:05] VITALS: BP 147/77
[2021-07-20] MEDS: SUCROFERRIC OXYHYDROXIDE 500MG CHEW TAB (VELPHORO) PO SCH (20:06)
[2021-07-20] MEDS: **hydrALAZINE** 10 MG TAB PO SCH (20:07)
[2021-07-20] MEDS: PROPRANOLOL 20 MG TAB PO SCH (20:07)
[2021-07-20] MEDS: prednisoLONE ACET 1% OPHTH SUSP 5ML OU SCH (20:07)
[2021-07-20] MEDS: PILOCARPINE 1% OPHTH SOLN 15 ML OU SCH (20:07)
[2021-07-20] MEDS: ISOSORBIDE MON. (IMDUR) 30 MG XR TAB PO SCH (20:21)
[2021-07-21 00:06] VITALS: BP 134/76
[2021-07-21] MEDS: NYSTATIN 500,000 U/5 ML SUSP UDC SS SCH ×4 (00:20→18:05)
[2021-07-21] MEDS: methylPREDNISolone 125MG 2ML VIAL IV SCH ×2 (01:39→13:24)
[2021-07-21 03:27] VITALS: BP 144/86
[2021-07-21] MEDS ORDERED: SODIUM CHLORIDE 0.9% 1000ML IV PRN (06:00)
[2021-07-21 07:56] LABS: HEMATOCRIT 29.9 % (36.0-47.0); HEMOGLOBIN 9.5 g/dl (12.0-15.5); MEAN CORPUSCULAR HEMOGLOBIN 30.3 pg (27.0-33.0); MEAN CORPUSCULAR HGB CONC 31.8 g/dl (32.0-36.5); MEAN CORPUSCULAR VOLUME 95.2 fl (80.0-96.0); PLATELET COUNT, AUTOMATED 238 10^3/uL (150-450); RED BLOOD COUNT 3.14 10^6/uL (4.00-5.40); WHITE BLOOD COUNT 8.6 10^3/uL (4.0-10.0)
[2021-07-21 08:00] VITALS: BP 137/69
[2021-07-21 08:07] LABS: INR 0.9; PARTIAL THROMBOPLASTIN TIME 30.2 SECONDS (25.9-37.0); PROTHROMBIN TIME 12.5 SECONDS (12.7-14.5)
[2021-07-21 08:23] LABS: ALBUMIN 2.6 GM/DL (3.2-5.2); ALT/SGPT 13 U/L (12-78); BILIRUBIN,TOTAL 0.3 MG/DL (0.2-1.0); BLOOD UREA NITROGEN 49 MG/DL (7-18); CALCIUM LEVEL 8.4 MG/DL (8.5-10.1); CARBON DIOXIDE LEVEL 32 MEQ/L (21-32); CHLORIDE LEVEL 98 MEQ/L (98-107); CREATININE FOR GFR 6.06 MG/DL (0.55-1.30); GLOMERULAR FILTRATION RATE 7.6 (>51); GLUCOSE, FASTING 200 MG/DL (70-100); SODIUM LEVEL 137 MEQ/L (136-145); TOTAL PROTEIN 5.3 GM/DL (6.4-8.2)
[2021-07-21] MEDS: TIOTROPIUM INHALER/CAPSULE (SPIRIVA) INH SCH (08:28)
[2021-07-21] MEDS: COMBIVENT RESPIMAT 100-20MCG INHALER 4GM INH SCH ×4 (08:28→19:42)
[2021-07-21] MEDS: SUCROFERRIC OXYHYDROXIDE 500MG CHEW TAB (VELPHORO) PO SCH ×3 (08:34→18:05)
[2021-07-21] MEDS: PANTOPRAZOLE 40MG TAB (PROTONIX) PO SCH (08:34)
[2021-07-21] MEDS: ISOSORBIDE MON. (IMDUR) 30 MG XR TAB PO SCH ×2 (08:34→20:04)
[2021-07-21] MEDS: CitaloPRAM (CeleXA) 20 MG TAB PO SCH (08:34)
[2021-07-21] MEDS: predniSONE 20 MG TAB PO SCH (08:34)
[2021-07-21] MEDS: PILOCARPINE 1% OPHTH SOLN 15 ML OU SCH ×2 (08:35→19:59)
[2021-07-21] MEDS: prednisoLONE ACET 1% OPHTH SUSP 5ML OU SCH ×4 (08:35→19:59)
[2021-07-21] MEDS: PROPRANOLOL 20 MG TAB PO SCH ×3 (08:36→20:03)
[2021-07-21] MEDS: **hydrALAZINE** 10 MG TAB PO SCH ×2 (08:37→20:04)
[2021-07-21] MEDS ORDERED: FERROUS SULFATE 325MG TAB PO SCH (09:00)
[2021-07-21] MEDS ORDERED: VANCOMYCIN HCL 1,000 MG, VIAL MATE ADAPTER 1 EACH in NS 250 ML IV SCH (10:50)
[2021-07-21 12:55] VITALS: BP 142/72
[2021-07-21] MEDS: **VANCO AFTER HD** MISC XX SCH (16:27)
[2021-07-21] MEDS: VANCOMYCIN HCL 1,000 MG, VIAL MATE ADAPTER 1 EACH in NS 250 ML IV SCH (16:27)
[2021-07-21 16:54] VITALS: BP 130/69
[2021-07-21] MEDS: valACYclovir HCL 500 MG TAB PO SCH (18:05)
[2021-07-21 20:00] VITALS: BP 147/74
[2021-07-22] MEDS: NYSTATIN 500,000 U/5 ML SUSP UDC SS SCH ×4 (01:09→17:00)
[2021-07-22] MEDS: methylPREDNISolone 125MG 2ML VIAL IV SCH ×2 (01:09→13:35)
[2021-07-22 06:00] VITALS: BP 128/65
[2021-07-22] MEDS: TIOTROPIUM INHALER/CAPSULE (SPIRIVA) INH SCH (07:30)
[2021-07-22] MEDS: COMBIVENT RESPIMAT 100-20MCG INHALER 4GM INH SCH ×4 (07:30→20:19)
[2021-07-22 07:54] LABS: HEMATOCRIT 30.8 % (36.0-47.0); HEMOGLOBIN 9.5 g/dl (12.0-15.5); MEAN CORPUSCULAR HEMOGLOBIN 29.9 pg (27.0-33.0); MEAN CORPUSCULAR HGB CONC 30.8 g/dl (32.0-36.5); MEAN CORPUSCULAR VOLUME 96.9 fl (80.0-96.0); PLATELET COUNT, AUTOMATED 225 10^3/uL (150-450); RED BLOOD COUNT 3.18 10^6/uL (4.00-5.40); WHITE BLOOD COUNT 11.2 10^3/uL (4.0-10.0)
[2021-07-22 08:34] LABS: ALBUMIN 2.7 GM/DL (3.2-5.2); BILIRUBIN,TOTAL 0.3 MG/DL (0.2-1.0); CALCIUM LEVEL 8.7 MG/DL (8.5-10.1); CREATININE FOR GFR 4.55 MG/DL (0.55-1.30); GLOMERULAR FILTRATION RATE 10.5 (>51); POTASSIUM SERUM 5.2 MEQ/L (3.5-5.1); TOTAL PROTEIN 4.9 GM/DL (6.4-8.2)
[2021-07-22] MEDS: CitaloPRAM (CeleXA) 20 MG TAB PO SCH (09:30)
[2021-07-22] MEDS: **hydrALAZINE** 10 MG TAB PO SCH ×2 (09:30→21:41)
[2021-07-22] MEDS: predniSONE 20 MG TAB PO SCH (09:31)
[2021-07-22] MEDS: ISOSORBIDE MON. (IMDUR) 30 MG XR TAB PO SCH ×2 (09:31→21:41)
[2021-07-22] MEDS: PROPRANOLOL 20 MG TAB PO SCH ×3 (09:32→21:42)
[2021-07-22] MEDS: SUCROFERRIC OXYHYDROXIDE 500MG CHEW TAB (VELPHORO) PO SCH ×3 (09:33→17:01)
[2021-07-22] MEDS: PANTOPRAZOLE 40MG TAB (PROTONIX) PO SCH (09:33)
[2021-07-22] MEDS: PILOCARPINE 1% OPHTH SOLN 15 ML OU SCH ×2 (09:35→21:38)
[2021-07-22] MEDS: prednisoLONE ACET 1% OPHTH SUSP 5ML OU SCH ×4 (09:35→21:38)
[2021-07-22] MEDS: **VANCO AFTER HD** MISC XX SCH (16:00)
[2021-07-22 16:22] VITALS: BP 123/59
[2021-07-22 20:01] VITALS: BP 136/64
[2021-07-23] MEDS: NYSTATIN 500,000 U/5 ML SUSP UDC SS SCH ×4 (00:39→17:31)
[2021-07-23] MEDS: methylPREDNISolone 125MG 2ML VIAL IV SCH ×2 (01:17→13:21)
[2021-07-23 04:58] VITALS: BP 140/72
[2021-07-23] MEDS ORDERED: SODIUM CHLORIDE 0.9% 1000ML IV PRN (06:00)
[2021-07-23 06:46] LABS: HEMATOCRIT 30.3 % (36.0-47.0); HEMOGLOBIN 9.2 g/dl (12.0-15.5); MEAN CORPUSCULAR HEMOGLOBIN 29.7 pg (27.0-33.0); MEAN CORPUSCULAR HGB CONC 30.4 g/dl (32.0-36.5); MEAN CORPUSCULAR VOLUME 97.7 fl (80.0-96.0); PLATELET COUNT, AUTOMATED 216 10^3/uL (150-450); WHITE BLOOD COUNT 12.4 10^3/uL (4.0-10.0)
[2021-07-23 07:21] LABS: ALBUMIN 2.7 GM/DL (3.2-5.2); ALT/SGPT 18 U/L (12-78); BILIRUBIN,TOTAL 0.4 MG/DL (0.2-1.0); BLOOD UREA NITROGEN 72 MG/DL (7-18); CALCIUM LEVEL 8.4 MG/DL (8.5-10.1); CARBON DIOXIDE LEVEL 28 MEQ/L (21-32); CHLORIDE LEVEL 101 MEQ/L (98-107); GLOMERULAR FILTRATION RATE 7.2 (>51); GLUCOSE, FASTING 120 MG/DL (70-100); POTASSIUM SERUM 5.9 MEQ/L (3.5-5.1); SODIUM LEVEL 135 MEQ/L (136-145)
[2021-07-23] MEDS: COMBIVENT RESPIMAT 100-20MCG INHALER 4GM INH SCH ×4 (08:00→19:59)
[2021-07-23] MEDS: TIOTROPIUM INHALER/CAPSULE (SPIRIVA) INH SCH (08:00)
[2021-07-23] MEDS: SUCROFERRIC OXYHYDROXIDE 500MG CHEW TAB (VELPHORO) PO SCH ×3 (08:12→17:30)
[2021-07-23 08:15] VITALS: BP 126/61
[2021-07-23] MEDS: **hydrALAZINE** 10 MG TAB PO SCH ×2 (08:15→21:08)
[2021-07-23] MEDS: CitaloPRAM (CeleXA) 20 MG TAB PO SCH (08:16)
[2021-07-23] MEDS: predniSONE 20 MG TAB PO SCH (08:16)
[2021-07-23] MEDS: ISOSORBIDE MON. (IMDUR) 30 MG XR TAB PO SCH ×2 (08:17→21:08)
[2021-07-23] MEDS: PROPRANOLOL 20 MG TAB PO SCH ×3 (08:17→21:08)
[2021-07-23] MEDS: PILOCARPINE 1% OPHTH SOLN 15 ML OU SCH ×2 (08:19→21:06)
[2021-07-23] MEDS: PANTOPRAZOLE 40MG TAB (PROTONIX) PO SCH (08:19)
[2021-07-23] MEDS: prednisoLONE ACET 1% OPHTH SUSP 5ML OU SCH ×4 (08:20→21:06)
[2021-07-23] MEDS ORDERED: DARBEPOETIN 300 MCG/0.6 ML *DIALYSIS* SYRINGE (J0882) IV SCH (09:00)
[2021-07-23 14:00] VITALS: BP 106/64
[2021-07-23] MEDS: valACYclovir HCL 500 MG TAB PO SCH (17:30)
[2021-07-23] MEDS: VANCOMYCIN HCL 1,000 MG, VIAL MATE ADAPTER 1 EACH in NS 250 ML IV SCH (17:32)
[2021-07-23] MEDS: **VANCO AFTER HD** MISC XX SCH (17:33)
[2021-07-23 19:47] VITALS: BP 122/65
[2021-07-24] MEDS: NYSTATIN 500,000 U/5 ML SUSP UDC SS SCH ×4 (00:28→17:11)
[2021-07-24] MEDS: methylPREDNISolone 125MG 2ML VIAL IV SCH ×2 (02:34→13:47)
[2021-07-24 04:45] VITALS: BP 140/71
[2021-07-24 07:07] LABS: HEMOGLOBIN 9.4 g/dl (12.0-15.5); MEAN CORPUSCULAR HEMOGLOBIN 29.7 pg (27.0-33.0); MEAN CORPUSCULAR HGB CONC 30.3 g/dl (32.0-36.5); MEAN CORPUSCULAR VOLUME 97.8 fl (80.0-96.0); PLATELET COUNT, AUTOMATED 192 10^3/uL (150-450); RED BLOOD COUNT 3.17 10^6/uL (4.00-5.40); WHITE BLOOD COUNT 11.4 10^3/uL (4.0-10.0)
[2021-07-24 07:21] LABS: ALBUMIN 2.6 GM/DL (3.2-5.2); BILIRUBIN,TOTAL 0.4 MG/DL (0.2-1.0); CALCIUM LEVEL 8.4 MG/DL (8.5-10.1); CREATININE FOR GFR 4.61 MG/DL (0.55-1.30); GLOMERULAR FILTRATION RATE 10.4 (>51); POTASSIUM SERUM 5.1 MEQ/L (3.5-5.1); TOTAL PROTEIN 4.9 GM/DL (6.4-8.2)
[2021-07-24] MEDS: SUCROFERRIC OXYHYDROXIDE 500MG CHEW TAB (VELPHORO) PO SCH ×3 (08:32→17:11)
[2021-07-24] MEDS: **hydrALAZINE** 10 MG TAB PO SCH ×2 (08:34→20:28)
[2021-07-24] MEDS: COMBIVENT RESPIMAT 100-20MCG INHALER 4GM INH SCH ×4 (08:35→20:26)
[2021-07-24] MEDS: TIOTROPIUM INHALER/CAPSULE (SPIRIVA) INH SCH (08:35)
[2021-07-24] MEDS: CitaloPRAM (CeleXA) 20 MG TAB PO SCH (08:35)
[2021-07-24] MEDS: predniSONE 20 MG TAB PO SCH (08:36)
[2021-07-24] MEDS: ISOSORBIDE MON. (IMDUR) 30 MG XR TAB PO SCH ×2 (08:36→20:29)
[2021-07-24] MEDS: PROPRANOLOL 20 MG TAB PO SCH ×3 (08:37→20:28)
[2021-07-24] MEDS: PANTOPRAZOLE 40MG TAB (PROTONIX) PO SCH (08:37)
[2021-07-24] MEDS: prednisoLONE ACET 1% OPHTH SUSP 5ML OU SCH ×4 (08:38→20:28)
[2021-07-24] MEDS: PILOCARPINE 1% OPHTH SOLN 15 ML OU SCH ×2 (08:38→20:28)
[2021-07-24 14:00] VITALS: BP 126/67
[2021-07-24] MEDS: **VANCO AFTER HD** MISC XX SCH (16:00)
[2021-07-24 19:39] VITALS: BP 133/62
[2021-07-24] MEDS ORDERED: hydrOXYzine 25 MG TAB PO PRN (21:00)
[2021-07-25] MEDS: NYSTATIN 500,000 U/5 ML SUSP UDC SS SCH ×3 (00:21→12:07)
[2021-07-25] MEDS ORDERED: RAMELTEON 8 MG TAB (ROZEREM) PO PRN (00:35)
[2021-07-25 04:25] VITALS: BP 135/68
[2021-07-25 06:50] LABS: HEMATOCRIT 30.4 % (36.0-47.0); HEMOGLOBIN 9.6 g/dl (12.0-15.5); MEAN CORPUSCULAR HEMOGLOBIN 29.9 pg (27.0-33.0); MEAN CORPUSCULAR HGB CONC 31.6 g/dl (32.0-36.5); MEAN CORPUSCULAR VOLUME 94.7 fl (80.0-96.0); PLATELET COUNT, AUTOMATED 188 10^3/uL (150-450); RED BLOOD COUNT 3.21 10^6/uL (4.00-5.40)
[2021-07-25 07:07] LABS: ALBUMIN 2.9 GM/DL (3.2-5.2); BILIRUBIN,TOTAL 0.4 MG/DL (0.2-1.0); CALCIUM LEVEL 8.6 MG/DL (8.5-10.1); CREATININE FOR GFR 6.37 MG/DL (0.55-1.30); GLOMERULAR FILTRATION RATE 7.1 (>51); POTASSIUM SERUM 5.7 MEQ/L (3.5-5.1); TOTAL PROTEIN 4.8 GM/DL (6.4-8.2)
[2021-07-25] MEDS ORDERED: SODIUM CHLORIDE 0.9% 1000ML IV PRN (07:20)
[2021-07-25] MEDS: COMBIVENT RESPIMAT 100-20MCG INHALER 4GM INH SCH ×2 (07:33→12:21)
[2021-07-25] MEDS: TIOTROPIUM INHALER/CAPSULE (SPIRIVA) INH SCH (07:34)
[2021-07-25 08:01] LABS: VANCOMYCIN RANDOM 21.7 UG/ML
[2021-07-25] MEDS: CitaloPRAM (CeleXA) 20 MG TAB PO SCH (08:25)
[2021-07-25] MEDS: **hydrALAZINE** 10 MG TAB PO SCH (08:25)
[2021-07-25] MEDS: predniSONE 20 MG TAB PO SCH (08:25)
[2021-07-25] MEDS: PANTOPRAZOLE 40MG TAB (PROTONIX) PO SCH (08:25)
[2021-07-25] MEDS: SUCROFERRIC OXYHYDROXIDE 500MG CHEW TAB (VELPHORO) PO SCH ×2 (08:25→12:06)
[2021-07-25] MEDS: ISOSORBIDE MON. (IMDUR) 30 MG XR TAB PO SCH (08:25)
[2021-07-25] MEDS: PROPRANOLOL 20 MG TAB PO SCH ×2 (08:26→16:59)
[2021-07-25] MEDS: PILOCARPINE 1% OPHTH SOLN 15 ML OU SCH (08:26)
[2021-07-25] MEDS: prednisoLONE ACET 1% OPHTH SUSP 5ML OU SCH ×2 (08:26→12:07)
[2021-07-25 16:59] VITALS: BP 133/63
== END 2021-07-25 17:35 | disposition home health service (06) | DRG 640 ==
LOC: EDBD 07:39 → M ED 07:39 → M ED INP 11:31 → M 4MAIN 16:15
PROVIDERS: ADMIT Internal Medicine; ATTEND Internal Medicine
PROC: 5A1D70Z Performance of Urinary Filtration, Intermittent, Less than 6 Hours Per Day (ICD-10-PCS; principal; 2021-07-20)
DX: E87.5 Hyperkalemia (principal); N18.6 End stage renal disease; I50.33 Acute on chronic diastolic (congestive) heart failure; U07.1 COVID-19; J96.11 Chronic respiratory failure with hypoxia; I13.2 Hypertensive heart and chronic kidney disease with heart failure and with stage 5 chronic kidney disease, or end stage renal disease; N25.81 Secondary hyperparathyroidism of renal origin; J44.1 Chronic obstructive pulmonary disease with (acute) exacerbation; Z66 Do not resuscitate; Z99.2 Dependence on renal dialysis; Z91.15 Patient's noncompliance with renal dialysis; Z99.81 Dependence on supplemental oxygen; G43.909 Migraine, unspecified, not intractable, without status migrainosus; D50.9 Iron deficiency anemia, unspecified; H54.8 Legal blindness, as defined in USA; E87.2 Acidosis; Z87.891 Personal history of nicotine dependence; R53.1 Weakness; D63.1 Anemia in chronic kidney disease; E87.1 Hypo-osmolality and hyponatremia; Z88.0 Allergy status to penicillin; Z88.8 Allergy status to other drugs, medicaments and biological substances; Z79.82 Long term (current) use of aspirin; Z79.899 Other long term (current) drug therapy; E11.319 Type 2 diabetes mellitus with unspecified diabetic retinopathy without macular edema; E11.22 Type 2 diabetes mellitus with diabetic chronic kidney disease; F32.A Depression, unspecified; R41.82 Altered mental status, unspecified

== ENCOUNTER 2021-08-04 05:42 | Inpatient (IN) | payer OTHER ==
[2021-08-04] VITALS (9 sets, daily range): BP systolic 115–154; BP diastolic 62–80
[~2021-08-04 05:42] MED LIST changes: +FERR1TAB8 PO; -NYSTATIN 500,000 U/5 ML SUSP UDC SS SCH
[2021-08-04 07:10] LABS: BASO % 0.2 % (0.0-1.0); EOS # 0.1 10^3/uL (0.0-0.5); EOS % 0.9 % (0.0-3.0); HEMATOCRIT 28.7 % (36.0-47.0); HEMOGLOBIN 8.8 g/dl (12.0-15.5); LYMPH # 0.6 10^3/uL (1.5-5.0); MEAN CORPUSCULAR HEMOGLOBIN 29.8 pg (27.0-33.0); MEAN CORPUSCULAR HGB CONC 30.7 g/dl (32.0-36.5); MEAN CORPUSCULAR VOLUME 97.3 fl (80.0-96.0); MONO # 1.1 10^3/uL (0.0-0.8); MONO % 10.2 % (2.0-8.0); NEUTROPHILS # 8.6 10^3/uL (1.5-8.5); NEUTROPHILS % 81.7 % (36.0-66.0); PLATELET COUNT, AUTOMATED 153 10^3/uL (150-450); RED BLOOD COUNT 2.95 10^6/uL (4.00-5.40); WHITE BLOOD COUNT 10.5 10^3/uL (4.0-10.0)
[2021-08-04 07:32] LABS: CALCIUM LEVEL 8.2 MG/DL (8.5-10.1); CREATININE FOR GFR 6.97 MG/DL (0.55-1.30); GLOMERULAR FILTRATION RATE 6.4 (>51); MAGNESIUM LEVEL 2.6 MG/DL (1.8-2.4)
[2021-08-04 07:45] LABS: ABG BASE EXCESS -0.1 (-2.0-2.0); ABG HCO3 29.1 MEQ/L (22.0-26.0); ABG O2 SATURATION 93.3 % (95.0-99.0); ABG STANDARD HCO3 24.4 MEQ/L (22.0-26.0); ABG TOTAL CO2 31.5 MEQ/L (22.0-29.0)
[2021-08-04 07:47] LABS: ABG PARTIAL PRESSURE CO2 77.7 mmHg (35.0-45.0); ABG pH (ARTERIAL) 7.192 UNITS (7.350-7.450)
[2021-08-04] MEDS ORDERED: LIDOCAINE 2% 5ML JELLY UROJET TOP ONE (07:50)
[2021-08-04 07:58] LABS: CK-MB VALUE MASS 1.4 NG/ML (<3.6); MB/CK RELATIVE INDEX 2.92 (< OR =4)
[2021-08-04 08:41] LABS: APPEARANCE, URINE CLOUDY (CLEAR); BACTERIA, URINE AUTO 3+ (NEGATIVE); BILIRUBIN, URINE AUTO NEGATIVE (NEGATIVE); BLOOD, URINE BLOOD 1+ (NEGATIVE); COLOR, URINE YELLOW (YELLOW); GLUCOSE, URINE (UA) AUTO NEGATIVE (NEGATIVE); KETONE, URINE AUTO NEGATIVE (NEGATIVE); LEUKOCYTE ESTERASE, URINE AUTO 3+ (NEGATIVE); NITRITE, URINE AUTO NEGATIVE (NEGATIVE); PROTEIN, URINE AUTO 1+ mg/dL (NEGATIVE); RBC, URINE AUTO 7 /HPF (0-3); SPECIFIC GRAVITY URINE AUTO 1.008 (1.002-1.035); SQUAMOUS EPITHELIAL CELL UR AU 6 /HPF (0-6); TRANSITIONAL EPITHELIAL AUTO <1 /HPF; UROBILINOGEN, URINE AUTO 0.2 mg/dL (0.0-2.0); WBC, URINE AUTO TNTC /HPF (0-3)
[2021-08-04 09:11] LABS: RSV AMPLIFICATION NEGATIVE (NEGATIVE)
[2021-08-04 09:33] LABS: ABG PARTIAL PRESSURE CO2 56.4 mmHg (35.0-45.0); ABG pH (ARTERIAL) 7.276 UNITS (7.350-7.450)
[2021-08-04 09:34] LABS: ABG BASE EXCESS -1.5 (-2.0-2.0); ABG HCO3 25.7 MEQ/L (22.0-26.0); ABG PARTIAL PRESSURE O2 85.4 mmHg (75.0-100.0); ABG TOTAL CO2 27.4 MEQ/L (22.0-29.0)
[2021-08-04 09:35] LABS: ABG O2 SATURATION 95.8 % (95.0-99.0)
[2021-08-04 09:36] LABS: ABG STANDARD HCO3 23.2 MEQ/L (22.0-26.0)
[2021-08-04] MEDS ORDERED: HOME MED LIST COMPLETE! XX SCH (10:35)
[2021-08-04] MEDS ORDERED: SODIUM CHLORIDE 0.9% 1000ML IV PRN (11:30)
[2021-08-04] MEDS: SYMBICORT 160/4.5MCG INHALER 6GM INH SCH ×2 (12:05→19:46)
[2021-08-04] MEDS ORDERED: ALBUTEROL SULFATE 2.5 MG/0.5 ML INH NEB SOLN NEB PRN (12:05)
[2021-08-04] MEDS: TIOTROPIUM INHALER/CAPSULE (SPIRIVA) INH SCH (12:05)
[2021-08-04] MEDS: methylPREDNISolone 40MG 1ML VIAL IV SCH ×2 (12:42→20:11)
[2021-08-04] MEDS: PANTOPRAZOLE 40MG VIAL (C9113 PER 1) IV SCH (12:43)
[2021-08-04 13:36] LABS: ABG BASE EXCESS -1.5 (-2.0-2.0); ABG HCO3 25.5 MEQ/L (22.0-26.0); ABG O2 SATURATION 94.8 % (95.0-99.0); ABG PARTIAL PRESSURE CO2 55.5 mmHg (35.0-45.0); ABG PARTIAL PRESSURE O2 82.8 mmHg (75.0-100.0); ABG STANDARD HCO3 23.2 MEQ/L (22.0-26.0); ABG TOTAL CO2 27.2 MEQ/L (22.0-29.0)
[2021-08-04] MEDS: PROPRANOLOL 20 MG TAB PO SCH (20:11)
[2021-08-04] MEDS: ISOSORBIDE MON. (IMDUR) 30 MG XR TAB PO SCH (20:12)
[2021-08-04] MEDS: **hydrALAZINE** 10 MG TAB PO SCH (20:12)
[2021-08-05] VITALS (10 sets, daily range): BP systolic 112–153; BP diastolic 58–92
[2021-08-05] MEDS: methylPREDNISolone 40MG 1ML VIAL IV SCH ×3 (03:38→19:50)
[2021-08-05] MEDS: MAGIC MOUTHWASH SUSPENSION BTL SSP PRN ×2 (04:00→21:12)
[2021-08-05 05:39] LABS: HEMATOCRIT 26.1 % (36.0-47.0); HEMOGLOBIN 8.2 g/dl (12.0-15.5); LYMPH # 0.2 10^3/uL (1.5-5.0); MEAN CORPUSCULAR HEMOGLOBIN 29.9 pg (27.0-33.0); MEAN CORPUSCULAR HGB CONC 31.4 g/dl (32.0-36.5); MEAN CORPUSCULAR VOLUME 95.3 fl (80.0-96.0); MONO # 0.2 10^3/uL (0.0-0.8); MONO % 2.6 % (2.0-8.0); NEUTROPHILS # 6.8 10^3/uL (1.5-8.5); NEUTROPHILS % 93.4 % (36.0-66.0); RED BLOOD COUNT 2.74 10^6/uL (4.00-5.40); WHITE BLOOD COUNT 7.3 10^3/uL (4.0-10.0)
[2021-08-05 06:02] LABS: CALCIUM LEVEL 8.2 MG/DL (8.5-10.1); CREATININE FOR GFR 4.54 MG/DL (0.55-1.30); GLOMERULAR FILTRATION RATE 10.5 (>51); POTASSIUM SERUM 5.5 MEQ/L (3.5-5.1)
[2021-08-05 06:03] LABS: PLATELET COUNT, AUTOMATED 68 10^3/uL (150-450)
[2021-08-05 06:16] LABS: ABG BASE EXCESS -0.2 (-2.0-2.0); ABG HCO3 28.2 MEQ/L (22.0-26.0); ABG O2 SATURATION 70.9 % (95.0-99.0); ABG STANDARD HCO3 23.9 MEQ/L (22.0-26.0); ABG TOTAL CO2 30.4 MEQ/L (22.0-29.0)
[2021-08-05 06:18] LABS: ABG PARTIAL PRESSURE CO2 71.1 mmHg (35.0-45.0); ABG PARTIAL PRESSURE O2 41.5 mmHg (75.0-100.0); ABG pH (ARTERIAL) 7.217 UNITS (7.350-7.450)
[2021-08-05] MEDS: TIOTROPIUM INHALER/CAPSULE (SPIRIVA) INH SCH (08:44)
[2021-08-05] MEDS: SYMBICORT 160/4.5MCG INHALER 6GM INH SCH ×2 (08:44→19:34)
[2021-08-05] MEDS: PROPRANOLOL 20 MG TAB PO SCH ×3 (09:36→20:04)
[2021-08-05] MEDS: **hydrALAZINE** 10 MG TAB PO SCH ×2 (09:36→20:04)
[2021-08-05] MEDS: ISOSORBIDE MON. (IMDUR) 30 MG XR TAB PO SCH ×2 (09:37→20:04)
[2021-08-05] MEDS: cefTRIAXone SOD 1 GM in D5W MINI-BAG PLUS 50 ML IV SCH (09:44)
[2021-08-05] MEDS ORDERED: PATIROMER SORBITEX CALCIUM 8.4 GM POWDER PACKET (VELTASSA) PO ONE (10:00)
[2021-08-05] MEDS: ALPRAZolam 0.25 MG TAB PO PRN ×2 (11:06→20:00)
[2021-08-05 11:59] LABS: ABG BASE EXCESS 2.6 (-2.0-2.0); ABG HCO3 29.4 MEQ/L (22.0-26.0); ABG O2 SATURATION 96.8 % (95.0-99.0); ABG PARTIAL PRESSURE CO2 59.8 mmHg (35.0-45.0); ABG PARTIAL PRESSURE O2 96.1 mmHg (75.0-100.0); ABG STANDARD HCO3 26.8 MEQ/L (22.0-26.0); ABG TOTAL CO2 31.3 MEQ/L (22.0-29.0)
[2021-08-05] MEDS: PANTOPRAZOLE 40MG VIAL (C9113 PER 1) IV SCH (12:38)
[2021-08-05 14:20] LABS: HEPATITIS B CORE ANTIBODY IGM NEGATIVE (NEGATIVE); HEPATITIS B SURFACE ANTIBODY POSITIVE (POSITIVE); HEPATITIS B SURFACE ANTIGEN NEGATIVE (NEGATIVE)
[2021-08-06 03:45] VITALS: BP 129/61
[2021-08-06] MEDS: methylPREDNISolone 40MG 1ML VIAL IV SCH ×3 (03:49→20:05)
[2021-08-06 05:49] LABS: HEMATOCRIT 23.5 % (36.0-47.0); HEMOGLOBIN 7.5 g/dl (12.0-15.5); LYMPH # 0.3 10^3/uL (1.5-5.0); LYMPH % 2.9 % (24.0-44.0); MEAN CORPUSCULAR HEMOGLOBIN 30.1 pg (27.0-33.0); MEAN CORPUSCULAR HGB CONC 31.9 g/dl (32.0-36.5); MEAN CORPUSCULAR VOLUME 94.4 fl (80.0-96.0); MONO # 0.2 10^3/uL (0.0-0.8); MONO % 1.8 % (2.0-8.0); NEUTROPHILS # 9.9 10^3/uL (1.5-8.5); NEUTROPHILS % 94.3 % (36.0-66.0); PLATELET COUNT, AUTOMATED 140 10^3/uL (150-450); RED BLOOD COUNT 2.49 10^6/uL (4.00-5.40); WHITE BLOOD COUNT 10.5 10^3/uL (4.0-10.0)
[2021-08-06] MEDS ORDERED: DARBEPOETIN 100 MCG/0.5 ML *DIALYSIS* SYRINGE (J0882) IV SCH (06:00)
[2021-08-06 06:05] LABS: CALCIUM LEVEL 8.1 MG/DL (8.5-10.1); CREATININE FOR GFR 6.37 MG/DL (0.55-1.30); GLOMERULAR FILTRATION RATE 7.1 (>51); POTASSIUM SERUM 5.6 MEQ/L (3.5-5.1)
[2021-08-06] MEDS: ALPRAZolam 0.25 MG TAB PO PRN ×2 (06:13→21:12)
[2021-08-06] MEDS ORDERED: SODIUM CHLORIDE 0.9% 1000ML IV PRN (07:10)
[2021-08-06] MEDS ORDERED: LIDOCAINE 1% SDV 5ML VIAL SC PRN (07:10)
[2021-08-06 08:00] VITALS: BP 152/81
[2021-08-06] MEDS: ISOSORBIDE MON. (IMDUR) 30 MG XR TAB PO SCH ×2 (08:07→20:06)
[2021-08-06] MEDS: **hydrALAZINE** 10 MG TAB PO SCH ×2 (08:08→20:05)
[2021-08-06] MEDS: PROPRANOLOL 20 MG TAB PO SCH ×3 (08:08→20:05)
[2021-08-06] MEDS: SYMBICORT 160/4.5MCG INHALER 6GM INH SCH ×2 (08:26→18:16)
[2021-08-06] MEDS: TIOTROPIUM INHALER/CAPSULE (SPIRIVA) INH SCH (08:26)
[2021-08-06] MEDS: cefTRIAXone SOD 1 GM in D5W MINI-BAG PLUS 50 ML IV SCH (10:12)
[2021-08-06 10:49] VITALS: BP 123/69
[2021-08-06] MEDS: PANTOPRAZOLE 40MG VIAL (C9113 PER 1) IV SCH (14:59)
[2021-08-06 22:00] VITALS: BP 112/55
[2021-08-07] MEDS: MAGIC MOUTHWASH SUSPENSION BTL SSP PRN (03:22)
[2021-08-07] MEDS: methylPREDNISolone 40MG 1ML VIAL IV SCH (03:55)
[2021-08-07 06:00] VITALS: BP 131/65
[2021-08-07 06:31] LABS: BASO % 0.2 % (0.0-1.0); HEMATOCRIT 25.3 % (36.0-47.0); HEMOGLOBIN 7.9 g/dl (12.0-15.5); LYMPH # 0.5 10^3/uL (1.5-5.0); LYMPH % 2.9 % (24.0-44.0); MEAN CORPUSCULAR HEMOGLOBIN 29.8 pg (27.0-33.0); MEAN CORPUSCULAR HGB CONC 31.2 g/dl (32.0-36.5); MEAN CORPUSCULAR VOLUME 95.5 fl (80.0-96.0); MONO # 0.6 10^3/uL (0.0-0.8); MONO % 3.2 % (2.0-8.0); NEUTROPHILS # 15.8 10^3/uL (1.5-8.5); NEUTROPHILS % 90.9 % (36.0-66.0); PLATELET COUNT, AUTOMATED 148 10^3/uL (150-450); RED BLOOD COUNT 2.65 10^6/uL (4.00-5.40); WHITE BLOOD COUNT 17.3 10^3/uL (4.0-10.0)
[2021-08-07 07:01] LABS: CALCIUM LEVEL 8.3 MG/DL (8.5-10.1); CREATININE FOR GFR 5.09 MG/DL (0.55-1.30); GLOMERULAR FILTRATION RATE 9.2 (>51); POTASSIUM SERUM 5.5 MEQ/L (3.5-5.1)
[2021-08-07] MEDS: TIOTROPIUM INHALER/CAPSULE (SPIRIVA) INH SCH (07:30)
[2021-08-07] MEDS: SYMBICORT 160/4.5MCG INHALER 6GM INH SCH (07:31)
[2021-08-07 08:44] VITALS: BP 122/60
[2021-08-07] MEDS: PROPRANOLOL 20 MG TAB PO SCH (08:44)
[2021-08-07] MEDS: ISOSORBIDE MON. (IMDUR) 30 MG XR TAB PO SCH (08:45)
[2021-08-07] MEDS: **hydrALAZINE** 10 MG TAB PO SCH (08:46)
[2021-08-07] MEDS: cefTRIAXone SOD 1 GM in D5W MINI-BAG PLUS 50 ML IV SCH (08:53)
[2021-08-07] MEDS ORDERED: CEFD300C41 PO (10:50)
[2021-08-07] MEDS ORDERED: SOD POLYSTYRENE SULFONATE SUSP 15 GM/60 ML UD PO ONE (13:00)
== END 2021-08-07 12:10 | disposition home health service (06) | DRG 189 ==
LOC: M ED 05:42 → M ED INP 09:01 → ENRESERV 09:50 → M ICU 10:44 → M MSPAV 08-06 10:52
PROVIDERS: ADMIT Internal Medicine Nephrology; ATTEND Family Medicine
PROC: 5A1D70Z Performance of Urinary Filtration, Intermittent, Less than 6 Hours Per Day (ICD-10-PCS; principal; 2021-08-04)
DX: J96.22 Acute and chronic respiratory failure with hypercapnia (principal); N18.6 End stage renal disease; G93.41 Metabolic encephalopathy; I13.2 Hypertensive heart and chronic kidney disease with heart failure and with stage 5 chronic kidney disease, or end stage renal disease; N25.81 Secondary hyperparathyroidism of renal origin; E87.1 Hypo-osmolality and hyponatremia; I50.32 Chronic diastolic (congestive) heart failure; J96.21 Acute and chronic respiratory failure with hypoxia; G47.33 Obstructive sleep apnea (adult) (pediatric); G43.909 Migraine, unspecified, not intractable, without status migrainosus; D50.9 Iron deficiency anemia, unspecified; H54.8 Legal blindness, as defined in USA; I71.4 Abdominal aortic aneurysm, without rupture; H40.9 Unspecified glaucoma; K21.9 Gastro-esophageal reflux disease without esophagitis; F32.A Depression, unspecified; E11.319 Type 2 diabetes mellitus with unspecified diabetic retinopathy without macular edema; J44.9 Chronic obstructive pulmonary disease, unspecified; E87.5 Hyperkalemia; D63.1 Anemia in chronic kidney disease; Z99.2 Dependence on renal dialysis; Z99.81 Dependence on supplemental oxygen; Z79.52 Long term (current) use of systemic steroids; Z79.899 Other long term (current) drug therapy; Z88.0 Allergy status to penicillin; Z88.8 Allergy status to other drugs, medicaments and biological substances; Z86.16 Personal history of COVID-19; Z91.15 Patient's noncompliance with renal dialysis; Z87.891 Personal history of nicotine dependence; Z20.822 Contact with and (suspected) exposure to COVID-19; Z91.19 Patient's noncompliance with other medical treatment and regimen